=== PATIENT | male | born 1960 | race Caucasian/White ===

== ENCOUNTER 2022-11-25 08:00 | Outpatient (OUT) | payer OTHER, SELFPAY ==
[2022-11-25 08:59] LABS: Microalbumin Urine Random 23.4 mg/dL (<=30.0)
[2022-11-25 09:01] LABS: Estimated Average Glucose 169 mg/dL; Glycohemoglobin A1C 7.5 % (4.5-6.2)
[2022-11-25 09:06] LABS: Basophils Absolute Auto 0.1 10^3/uL (0.0-0.1); Basophils Percent Auto 0.8 % (0.2-2.0); Eosinophils Absolute Auto 0.3 10^3/uL (0.0-0.7); Eosinophils Percent Auto 4.3 % (0.9-7.0); Hematocrit 41.1 % (42.0-54.0); Hemoglobin 14.2 g/dL (14.0-18.0); Immature Granulocytes Abs Auto 0.02 10^3/uL (0.00-0.03); Immature Granulocytes Pct Auto 0.3 % (0.0-0.5); Lymphocytes Absolute Auto 1.4 10^3/uL (1.2-3.8); Lymphocytes Percent Auto 23.2 % (20.5-60.0); Mean Corpuscular HGB Conc 34.5 g/dL (29.9-35.2); Mean Corpuscular Hemoglobin 30.6 pg (25.9-34.0); Mean Corpuscular Volume 88.6 fL (80.0-94.0); Mean Platelet Volume 10.9 fL (9.5-13.5); Monocytes Absolute Auto 0.6 10^3/uL (0.3-0.8); Monocytes Percent Auto 9.5 % (1.7-12.0); Neutrophils Absolute Auto 3.8 10^3/uL (1.4-6.5); Neutrophils Percent Auto 61.9 % (43.0-75.0); Platelet Count 196 10^3/uL (150-450); Red Blood Count 4.64 10^6/uL (4.70-6.10); Red Cell Distribution Width 12.5 % (11.0-15.0); White Blood Count 6.1 10^3/uL (4.0-11.0)
[2022-11-25 09:22] LABS: Alanine Aminotransferase 62 U/L (16-63); Albumin Globulin Ratio 1.1; Albumin Level 3.9 g/dL (3.4-5.0); Alkaline Phosphatase 70 U/L (46-116); Anion Gap 15.5; Aspartate Amino Transferase 42 U/L (15-37); BUN Creatinine Ratio 22.9; Bilirubin Total 0.5 mg/dL (0.2-1.0); Calcium 9.4 mg/dL (8.5-10.1); Carbon Dioxide 26.3 mmol/L (21.0-32.0); Chloride 100 mmol/L (98-107); Chol HDL Ratio 4.2; Cholesterol 125 mg/dL (<=200); Estimated GFR (African America >60 (>=60); Estimated GFR (Non-African Ame >60 (>=60); Globulin 3.7 g/dL; Glucose 185 mg/dL (74-106); HDL Cholesterol 30 mg/dL (40-60); Potassium 3.8 mmol/L (3.5-5.1); Sodium 138 mmol/L (136-145); Total Protein 7.6 g/dL (6.4-8.2); Triglycerides 329 mg/dL (<=150); VLDL CHOLESTEROL 65.8 mg/dL
[2022-11-25 09:33] LABS: Prostate Specific Antigen Scrn 0.69 ng/mL (<=4.00)
== END 2022-11-25 08:01 | disposition home or self-care (01) ==
PROVIDERS: PCP Internal Medicine; Visit Provider Internal Medicine
DX: Z00.00 Encounter for general adult medical examination without abnormal findings (principal); Z12.5 Encounter for screening for malignant neoplasm of prostate
CPT/HCPCS: 36415; 80053; 80061; 82043; 83036; 85025; G0103

== ENCOUNTER 2023-04-13 08:09 | Outpatient (OUT) | payer OTHER, SELFPAY ==
[2023-04-13 08:41] LABS: Estimated Average Glucose 160 mg/dL; Glycohemoglobin A1C 7.2 % (4.5-6.2)
== END 2023-04-13 08:10 | disposition home or self-care (01) ==
LOC: LAB 08:10
PROVIDERS: PCP Internal Medicine; Visit Provider Internal Medicine
DX: E11.65 Type 2 diabetes mellitus with hyperglycemia (principal)
CPT/HCPCS: 36415; 83036

== ENCOUNTER 2023-09-03 21:59 | Emergency (ER) | payer OTHER, SELFPAY ==
[2023-09-03] VITALS (17 sets, daily range): BP systolic 148–176; BP diastolic 95–110; PULSE 85–97; TEMP 36.6; O2SAT 97; BMI 38.4
--- OUTSIDE RECORDS SUMMARY | 2023-09-03 22:04 | XMS_ITS | CCD ---
Author Organization [facility] Team Providers Care Edi Programmer Analyst Name Role Phone RICHARD VIDAL Primary Care Physician [phone] Young, Richard Unavailable YOUNG, DR RAMOS Primary Care Unavailable YOUNG, DR RAMOS Admitting Unavailable BALL, DR RAMOS Attending Unavailable BALL, DR RAMOS Admitting Unavailable BALL, DR RAMOS Attending Unavailable BALL, DR RMAOS Consulting Unavailable BALL, DR RAMOS Primary Care Unavailable BALL, DR RAMOS Primary Care Unavailable BALL, DR RAMOS Admitting Unavailable BALL, DR RAMOS Attending Unavailable BALL, DR RAMOS Consulting Unavailable EDA ., KVNG Admitting Unavailable GRECHNY ., NO URBAN Consulting Unavailabl e YOUNG, DR RAMOS Primary Care Unavailable EDA ., KVNG Attending Unavailable ASHLEY, SUNDAY Consulting Unavailable EDA ., KVNG Consulting Unavailable YOUNG, DR RAMOS Admitting Unavailable YOUNG, DR RAMOS Attending Unavailable BALL, DR RAMOS Consulting Unavailable YOUNG, DR RAMOS Primary Care Unavailable NILL ., DR YEBOAH Attending Unavailable NILL ., DR YEBOAH Consulting Unavailable NILL ., DR YEBOAH Admitting Unavailable BALL, DR RAMOS Primary Care Unavailable WILNER BERMUDEZ Consulting Unavailable MARK VIDAL Referring Unavailable MARK VIDAL Attending Unavailable Medications Current Medications Medication Drug Class(es) Dates Sig (Normalized) Sig (Original) aspirin 81 mg delayed release oral tablet (10 sources) Platelet Aggregation Inhibitor, Nonsteroidal Anti-inflammatory Drug Start: 03-31-2023 take 1 tablet by mouth once daily Aspirin Active 1 TAB PO Daily March 31, 2023 12:00am FreeTextSi tablet Orally Once a day; Note: Source Status: Start; Refills: 3; Qty: 90 Tablet; Provider: Young Ramos ( ) Start: 08-15-2021 take 1 tablet by iram th once daily aspirin 81 mg Oral EC Tab 81 mg = 1 tab(s), Oral, Daily, Refills(s) 0 Start Date: 08/15/21 Status: Ordered take 1 tablet by iram th once daily Aspirin 81 81 MG 1 tablet Orally Once a day Active atorvastatin 10 mg oral tablet (10 sources) HMG-CoA Reductase Inhibitor Start: 03-31-2023 take 1 tablet by mouth once daily Atorvastatin Active 1 TAB PO Daily March 31, 2023 12:00am FreeTextSi tablet Orally Once a day; Note: Source Status: Continue; Provider: Young Ramos ( ) Start: 08-15-2021 take 1 tablet by iram th once daily atorvastatin 10 mg Tab 10 mg = 1 tab(s), Oral, Daily, Refills(s) 0 Start Date: 08/15/21 Status: Ordered cloNIDine hydrochloride 0.3 mg oral tablet (10 sources) Central alpha-2 Adrenergic Agonist Start: 03-31-2023 take 1 tablet by mouth twice daily Clonidine Hcl Active 1 TAB PO Twice daily March 31, 2023 12:00am FreeTextSig: TAKE 1 TABLET BY MOUTH TWICE A DAY; Note: Source Status: Continue; Provider: Young Ramos ( ) Start: 08-15-2021 take 1 tablet by iram th twice daily cloNIDine 0.3 mg Tab 0.3 mg = 1 tab(s), Oral, BID, Refills(s) 0 Start Date: 08/15/21 Status: Ordered 0.5 ml dulaglutide 1.5 mg/ml auto-injector (9 sources) GLP-1 Receptor Agonist Start: 08-15-2021 inject 0.75 mg by subcutaneous injection every week Trulicity Pen 0.75 mg/0.5 mL subcutaneous solution 0.75 mg, SubCutaneous, qWeek, Refills(s) 0 Start Date: 08/15/21 Status: Ordered inject 0.5 mL by sub cutaneous injection every week Trulicity 3 MG/0.5ML 0.5 ML Subcutaneous weekly Active inject 0.5 mL by sub cutaneous injection every week Trulicity 3 MG/0.5ML 0.5 ML Subcutaneous weekly for 90 days Active inject 0.5 mL by sub cutaneous injection every week Trulicity 3 MG/0.5ML 0.5 ML Subcutaneous weekly for 28 days Active Trulicity 1.5 MG /0.5ML as directed Subcutaneous Active Dulaglutide (Trulicity) 3 mg/0.5 mL pen injector (1 source) Start: 03-31-2023 inject 0.5 mL by subcutaneous injection every week Dulaglutide (Trulicity) 3 mg/0.5 mL pen injector Active 0.5 ML SUBCUT every week March 31, 2023 12:00am FreeTextSi.5 ML Subcutaneous weekly; Note: Source Status: Continue; Provider: Young Soria hydroCHLOROthiazide 12.5 mg oral capsule (9 sources) Thiazide Diuretic Start: 03-31-2023 take 1 capsule by mouth once daily Hydrochlorothiazide Active 1 CAP PO Daily March 31, 2023 12:00am FreeTextSig: TAKE 1 CAPSULE BY MOUTH EVERY DAY; Note: Source Status: Start; Refills: 3; Qty: 90 Capsule; Provider: Young Ramos ( ) lisinopril 40 mg oral tablet (10 sources) Angiotensin Converting Enzyme Inhibitor Start: 03-31-2023 take 1 tablet by mouth once daily Lisinopril Active 1 TAB PO Daily March 31, 2023 12:00am FreeTextSig: TAKE 1 TABLET BY MOUTH EVERY DAY; Note: Source Status: Continue; Provider: Young Ramos ( ) Start: 09-26-2016 lisinopril 40 mg Tab 40 mg = 1 tab(s), Oral, Refills(s) 0 Start Date: 09/26/16 Status: Ordered metFORMIN hydrochloride 500 mg oral tablet (10 sources) Biguanide Start: 03-31-2023 take 1 tablet by mouth once daily Metformin Active 1 TAB PO Daily March 31, 2023 12:00am FreeTextSi tablet with a meal Orally Once a day; Note: Source Status: Continue; Provider: Young Ramos ( ) Start: 08-15-2021 take 1 tablet by iram th twice daily metformin 500 mg oral tablet 500 mg = 1 tab(s), Oral, BID, Refills(s) 0 Start Date: 08/15/21 Status: Ordered omeprazole 40 mg delayed release oral capsule (6 sources) Proton Pump Inhibitor Start: 03-31-2023 take 40 mg by mouth twice daily at mealtime Omeprazole Active 40 MG PO Twice daily March 31, 2023 12:00am ON AN EMPTY STOMACH FOLLOWED IN 30 MINUTES BY A MEAL Start: 08-18-2021 take 20 mg by mouth once daily Prilosec OTC 20 mg, Oral, Daily, Refills(s) 0 Start Date: 08/18/21 Status: Ordered Problems Active Problems Problem Classification Problem Date Documented Da te Episodic/Chronic Abdominal pain (2 sources) Right upper quadrant pain; Translations: [Right upper quadrant pain] Onset: 6 Episodic Acute bronchitis (2 sources) Acute bronchitis; Translations: [Acute bronchitis due to other specified organisms] Onset: 6 Episodic Acute cerebrovascular disease (3 sources) Cerebral infarction; Translations: [Cerebral infarction due to embolism of cerebral arteries] Onset: 8 08-15-2021 Chronic Diabetes mellitus with complications (20 sources) Type 2 diabetes mellitus; Translations: [Type 2 diabetes mellitus with hyperglycemia] Onset: 2 Chronic Diabetes mellitus without complication (8 sources) Diabetes mellitus; Translations: [Type 2 diabetes mellitus without complications] Onset: 2 08-15-2021 Chronic Digestive congenital anomalies (1 source) Other specified congenital malformations of intestine; 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] Onset: 2 Chronic Disorders of lipid metabolism (14 sources) Hypercholesterolemia; Translations: [Pure hypercholesterolemia, unspecified] Onset: 8 Chronic Esophageal disorders (12 sources) Gastroesophageal reflux disease; Translations: [Gastro-esophageal reflux disease with esophagitis] Onset: 2 08-15-2021 Chronic Essential hypertension (17 sources) Hypertensive disorder; Translations: [Essential hypertension] Onset: 2 08-15-2021 Chronic Hyperplasia of prostate (1 source) Benign prostatic hypertrophy without outflow obstruction; Translations: [Hypertrophy (benign) of prostate without urinary obstruction and other lower urinary tract symptoms [LUTS]] Onset: 9 Chronic Intestinal infection (5 sources) Bacterial food poisoning; Translations: [Bacterial foodborne intoxication, unspecified] Episodic Osteoarthritis (2 sources) Osteoarthritis; Translations: [Polyosteoarthritis, unspecified] Onset: 4 Chronic Other and ill-defined cerebrovascular disease (5 sources) Cerebral atherosclerosis; Translations: [Cerebral atherosclerosis] Onset: 8 03-31-2023 Chronic Other and ill-defined cerebrovascular disease (2 sources) Cerebral atherosclerosis; Translations: [Cerebral atherosclerosis] Onset: 8 Chronic Other circulatory disease (8 sources) History of cerebrovascular accident without residual deficits; Translations: [Personal history of transient ischemic attack (TIA), and cerebral infarction without residual deficits] Episodic Other ear and sense organ disorders (1 source) Infective otitis externa; Translations: [Unspecified infective otitis externa] Onset: 5 Chronic Other gastrointestinal disorders (2 sources) Abnormal feces; Translations: [Other fecal abnormalities] Onset: 2 Episodic Other non-traumatic joint disorders (1 source) Shoulder joint pain; Translations: [Pain in joint, shoulder region] Episodic Other nutritional; endocrine; and metabolic disorders (3 sources) Body mass index 40+ - severely obese; Translations: [Body mass index (BMI) 40.0-44.9, adult] Onset: 6 Chronic Other nutritional; endocrine; and metabolic disorders (10 sources) Morbid obesity; Translations: [Morbid (severe) obesity due to excess calories] 08-15-2021 Chronic Other nutritional; endocrine; and metabolic disorders (3 sources) Morbid (severe) obesity due to excess calories; Translations: [MORBID SEVERE OBES D/T EXCESS DELLA] Onset: 2 Chronic Other nutritional; endocrine; and metabolic disorders (1 source) Body mass index (BMI) 40.0-44.9, adult; Translations: [BODY MASS INDEX BMI 40.0-44.9 ADULT] Onset: 2 Chronic Other nutritional; endocrine; and metabolic disorders (2 sources) Obese class II; Translations: [Body mass index (BMI) 37.0-37.9, adult] Onset: 6 Chronic Other nutritional; endocrine; and metabolic disorders (1 source) Obesity; Translations: [Obesity, unspecified] Onset: 5 Chronic Other screening for suspected conditions (not mental disorders or infectious disease) (2 sources) Stool DNA-based colorectal cancer screening positive; Translations: [Encounter for screening for malignant neoplasm of prostate] Onset: 3 08-18-2021 Episodic Other upper respiratory disease (1 source) Seasonal allergic rhinitis; Translations: [Other seasonal allergic rhinitis] Chronic Other upper respiratory disease (1 source) Allergic rhinitis; Translations: [Allergic rhinitis, cause unspecified] Onset: 5 Chronic Other upper respiratory infections (3 sources) Acute maxillary sinusitis; Translations: [Acute recurrent maxillary sinusitis] Onset: 5 Episodic Otitis media and related conditions (1 source) Eustachian tube disorder; Translations: [Unspecified Eustachian tube disorder, bilateral] Episodic Residual codes; unclassified (13 sources) Obstructive sleep apnea syndrome; Translations: [Obstructive sleep apnea (adult) (pediatric)] 08-15-2021 Chronic Residual codes; unclassified (10 sources) Obstructive sleep apnea (adult) (pediatric); Translations: [Obstructive sleep apnea (adult)(pediatric)] Onset: 2 Chronic Residual codes; unclassified (1 source) Sleep apnea, unspecified; Translations: [SLEEP APNEA UNSPECIFIED] Onset: 2 Chronic Residual codes; unclassified (1 source) Primary central sleep apnea; Translations: [PRIMARY CENTRAL SLEEP APNEA] Onset: 2 Chronic Sprains and strains (3 sources) Strain of other muscles, fascia and tendons at shoulder and upper arm level, left arm, initial encounter; Translations: [Strain of unspecified muscle, fascia and tendon at shoulder and upper arm level, left arm, subsequent encounter] Onset: 2 Episodic Unclassified (1 source) Exposure to acute respiratory syndrome coronavirus 2; Translations: [Contact with and (suspected) exposure to COVID-19] Past or Other Problems Problem Classification Problem Date Documented Da te Episodic/Chronic Acquired foot deformities (1 source) Acquired deformity of toe; Translations: [Acquired deformities of toe(s), unspecified, right foot] Onset: 03-08-2015 Episodic Bacterial infection; unspecified site (1 source) Bacterial infectious disease; Translations: [Bacterial infection, unspecified, in conditions classified elsewhere and of unspecified site] Onset: 04-05-2016 Episodic Diabetes mellitus without complication (1 source) Impaired fasting glycemia; Translations: [Impaired fasting glucose] Onset: 12-18-2017 Episodic E Codes: Natural/environment (1 source) Other and unspecified overexertion or strenuous movements or postures, initial encounter; Translations: [OTH AND UNS OVREXRT/STRN MVMT/POS INT] Onset: 11-21-2021 Episodic Esophageal disorders (5 sources) Esophageal disorders; Translations: [Gastro-esophageal reflux disease with esophagitis, without bleeding] Joint disorders and dislocations; trauma-related (1 source) Current tear of medial cartilage AND/OR meniscus of knee; Translations: [Other tear of medial meniscus, current injury, right knee, initial encounter] Onset: 01-24-2017 Episodic Mycoses (1 source) Tinea corporis; Translations: [Tinea corporis] Onset: 01-24-2017 Episodic Nausea and vomiting (1 source) Nausea; Translations: [Nausea] Onset: 02-07-2016 Episodic Other aftercare (1 source) snf (current) use of aspirin; Translations: [WAITER CURRENT USE OF ASPIRIN] Onset: 11-21-2021 Episodic Other aftercare (1 source) Other fci (current) drug therapy; Translations: [OTH WAITER CURRENT DRUG THERAPY] Onset: 11-21-2021 Episodic Other aftercare (1 source) 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; Translations: [WAITER USE ORAL HYPOGLYCEMIC DX] Onset: 09-01-2021 Episodic Other circulatory disease (2 sources) Personal history of transient ischemic attack (TIA), and cerebral infarction without residual deficits; Translations: [PERS HX TIA AND CI NO RESID DEFICIT] Onset: 09-01-2021 Episodic Other connective tissue disease (1 source) Acquired trigger finger; Translations: [Trigger finger] Onset: 05-01-2016 Episodic Other gastrointestinal disorders (4 sources) Other fecal abnormalities; Translations: [OTHER FECAL ABNORMALITIES] Onset: 08-31-2021 Episodic Other lower respiratory disease (4 sources) Solitary nodule of lung; Translations: [Solitary pulmonary nodule] Onset: 12-03-2016 Episodic Other lower respiratory disease (1 source) Cough; Translations: [Cough, unspecified] Onset: 03-08-2015 Episodic Other non-traumatic joint disorders (4 sources) Pain in left elbow; Translations: [PAIN IN LEFT ELBOW] Onset: 11-20-2021 Episodic Other non-traumatic joint disorders (1 source) Effusion of joint of hand; Translations: [Effusion, unspecified hand] Onset: 12-02-2013 Episodic Other non-traumatic joint disorders (1 source) Arthralgia of the lower leg; Translations: [Pain in joint, lower leg] Onset: 01-24-2017 Episodic Other non-traumatic joint disorders (1 source) Joint effusion of ankle AND/OR foot; Translations: [Effusion of ankle and foot joint] Onset: 12-02-2013 Episodic Other skin disorders (1 source) Localized swelling, mass and lump, left upper limb; Translations: [Localized swelling, mass and lump, left upper limb] Onset: 02-03-2016 Episodic Other skin disorders (1 source) Localized superficial swelling of skin; Translations: [Localized superficial swelling, mass, or lump] Onset: 04-05-2016 Episodic Results Test Name Value Interpretation Reference Range Facility CBC AUTO DIFFon 07-14-2022 BASO # 0.1 103/ul Normal 0.0-0.1 [facility] Comment on above: Performed By: #### C BC #### [facility] [address] [place] [address] Dr. Carly Elias Basophils/100 WBC (Bld) 1.2 % Normal 0.2-2.0 [facility] Comment on above: Performed By: #### C BC #### [facility] [address] [place] [address] Dr. Carly Elias EO # 0.3 103/ul Normal 0.0-0.7 [facility] Comment on above: Performed By: #### C BC #### [facility] [address] [place] [address] Dr. Carly Elias Eosinophils/100 WBC (Bld) 4.8 % Normal 0.9-7.0 [facility] Comment on above: Performed By: #### C BC #### [facility] [address] [place] [address] Dr. Carly Elias Erythrocyte distribution width (RBC) [Ratio] 12.7 % Normal 11.0-15.0 [facility] Comment on above: Performed By: #### C BC #### [facility] [address] [place] [address] Dr. Carly Elias Hematocrit (Bld) [Volume fraction] 41.0 % Critically low 42.0-54.0 [facility] Comment on above: Performed By: #### C BC #### [facility] [address] [place] [address] Dr. Carly Elias Hemoglobin (Bld) [Mass/Vol] 14.0 g/dL Normal 14.0-18.0 [facility] Comment on above: Performed By: #### C BC #### [facility] [address] [place] [address] Dr. Carly Elias IG # 0.02 10e3/ul Normal 0.00-0.03 [facility] Comment on above: Performed By: #### C BC #### [facility] [address] [place] [address] Dr. Carly Elias IG % 0.4 % Normal 0.0-0.5 [facility] Comment on above: Performed By: #### C BC #### [facility] [address] [place] [address] Dr. Carly Elias LYMPH # 1.5 103/ul Normal 1.2-3.8 [facility] Comment on above: Performed By: #### C BC #### [facility] [address] [place] [address] Dr. Carly Elias Lymphocytes/100 WBC (Bld) 28.5 % Normal 20.5-60.0 [facility] Comment on above: Performed By: #### C BC #### [facility] [address] [place] [address] Dr. Carly Elias MANUAL DIFF REQ NO Normal [facility] Comment on above: Performed By: #### C BC #### [facility] [address] [place] [address] Dr. Carly Elias MCH (RBC) [Entitic mass] 29.9 pg Normal 25.9-34.0 [facility] Comment on above: Performed By: #### C BC #### [facility] [address] [place] [address] Dr. Carly Elias MCHC (RBC) [Mass/Vol] 34.1 g/dL Normal 29.9-35.2 [facility] Comment on above: Performed By: #### C BC #### [facility] [address] [place] [address] Dr. Carly Elias MCV (RBC) [Entitic vol] 87.6 fL Normal 80.0-94.0 [facility] Comment on above: Performed By: #### C BC #### [facility] [address] [place] [address] Dr. Carly Elias MONO # 0.6 103/ul Normal 0.3-0.8 [facility] Comment on above: Performed By: #### C BC #### [facility] [address] [place] [address] Dr. Carly Elias Monocytes/100 WBC (Bld) 11.5 % Normal 1.7-12.0 [facility] Comment on above: Performed By: #### C BC #### [facility] [address] [place] [address] Dr. Carly Elias NEUT # 2.8 103/ul Normal 1.4-6.5 [facility] Comment on above: Performed By: #### C BC #### [facility] [address] [place] [address] Dr. Carly Elias Neutrophils/100 WBC (Bld) 53.6 % Normal 43.0-75.0 [facility] Comment on above: Performed By: #### C BC #### [facility] [address] [place] [address] Dr. Carly Elias Platelet mean volume (Bld) [Entitic vol] 9.4 fL Critically low 9.5-13.5 [facility] Comment on above: Performed By: #### C BC #### [facility] [address] [place] [address] Dr. Carly Elias PLT 228 103/ul Normal 150-450 [facility] Comment on above: Performed By: #### C BC #### [facility] [address] [place] [address] Dr. Carly Elias RBC 4.68 106/ul Critically low 4.70-6.[address] [facility] Comment on above: Performed By: #### C BC #### [facility] [address] [place] [address] Dr. Carly Elias WBC 5.2 103/ul Normal 4.0-11.0 [facility] Comment on above: Performed By: #### C BC #### [facility] [address] [place] [address] Dr. Carly Elias GLYCOHEMOGLOBIN A1Con 2022 ADA RECOMMENDATION SEE BELOW Normal [facility] Comment on above: Result Comment: ADA RECOMMENDED LIMIT 4.0 - 6.0 ADA THERAPEUTIC TARGET < 7.0 ACTION SUGGESTED > 7.0 Performed By: #### A 1C #### [facility] [address] [place] [address] Dr. Carly Elias Glucose [Mass/Vol] 163 mg/dL Normal [facility] Comment on above: Performed By: #### A 1C #### [facility] [address] [place] [address] Dr. Carly Elias HbA1c (Bld) [Mass fraction] 7.3 % Critically high 4.5-6.2 [facility] Comment on above: Performed By: #### A 1C #### [facility] [address] [place] [address] Dr. Carly Elias LIPID PROFILEon 07-14-2022 CHOL-HDL RATIO NORM SEE BELOW Normal [facility] Comment on above: Result Comment: 3.3 - 4.4 LOW RISK 4.4 - 7.1 AVERAGE RISK 7.1 - 11.0 MODERATE RISK >11.0 HIGH RISK Performed By: #### C MP, LIPID #### [facility] [address] [place] [address] Dr. Carly Elias Cholesterol [Mass/Vol] 125 mg/dL Normal <=200 [facility] Comment on above: Performed By: #### C MP, LIPID #### [facility] [address] [address] [address] Carly Elias Cholesterol in HDL [Mass/Vol] 32 mg/dL Critically low 40-60 [facility] Comment on above: Performed By: #### C MP, LIPID #### [facility] [address] [place] [address] Dr. Carly Elias Cholesterol in LDL [Mass/Vol] 32.6 mg/dL Normal [facility] Comment on above: Performed By: #### C MP, LIPID #### [facility] [address] [address] [address] Carly Elias Cholesterol.total/Cho lesterol in HDL [Mass ratio] 3.9 {ratio} Normal [facility] Comment on above: Performed By: #### C MP, LIPID #### [facility] [address] [address] [address] Carly Elias HDL NORMAL > or = 60 mg/dl - LO W CARDIOVASCULAR RISK <40 mg/dl - HIGH CARDIOVASCULAR RISK Normal [facility] Comment on above: Performed By: #### C MP, LIPID #### [facility] [address] [address] [address] Carly Elias LDL CALC NORMAL SEE BELOW Normal [facility] Comment on above: Result Comment: <100 mg/dl OPTIMAL 100 - 129 mg/dl NEAR OR ABOVE OPTIMAL 130 - 159 mg/dl BORDERLINE HIGH 160 - 189 mg/dl HIGH >190 mg/dl VERY HIGH Performed By: #### C MP, LIPID #### [facility] [address] [address] [address] Carly Elias Triglyceride [Mass/Vol] 302 mg/dL Critically high <=150 [facility] Comment on above: Performed By: #### C MP, LIPID #### [facility] [address] [address] [address] Carly Elias VLDL CALC 60.4 mg/dL Normal [facility] Comment on above: Performed By: #### C MP, LIPID #### [facility] [address] [address] [address] Carly Elias MICROALBUMIN, RAND URon 06-20 mALB 2.0 mg/dL Normal <=30.0 [facility] Comment on above: Performed By: #### M ALBR #### [facility] [address] [address] [address] Carly Elias PROF 14(COMP METB)on 023 Albumin [Mass/Vol] 3.8 g/dL Normal 3.4-5.0 [facility] Comment on above: Performed By: #### C MP, LIPID #### [facility] [address] [address] [address] Carly Elias Albumin/Globulin [Mass ratio] 1.0 {ratio} Normal [facility] Comment on above: Performed By: #### C MP, LIPID #### [facility] [address] [address] [address] Carly Elias ALP [Catalytic activity/Vol] 86 U/L Normal 46-116 [facility] Comment on above: Performed By: #### C MP, LIPID #### [facility] [address] [address] [address] Carly Elias ALT [Catalytic activity/Vol] 79 U/L Critically high 16-63 [facility] Comment on above: Performed By: #### C MP, LIPID #### [facility] [address] [address] [address] Carly Elias Anion gap [Moles/Vol] 12.1 mmol/L Normal [facility] Comment on above: Performed By: #### C MP, LIPID #### [facility] [address] [address] [address] Carly Elias AST [Catalytic activity/Vol] 52 U/L Critically high 15-37 [facility] Comment on above: Performed By: #### C MP, LIPID #### [facility] [address] [address] [address] Carly Elias Bilirubin [Mass/Vol] 0.4 mg/dL Normal 0.2-1.0 [facility] Comment on above: Performed By: #### C MP, LIPID #### [facility] [address] [address] [address] Carly Elias Calcium [Mass/Vol] 9.5 mg/dL Normal 8.5-10.1 [facility] Comment on above: Performed By: #### C MP, LIPID #### [facility] [address] [address] [address] Carly Elias Chloride [Moles/Vol] 102 mmol/L Normal 98-107 [facility] Comment on above: Performed By: #### C MP, LIPID #### [facility] [address] [address] [address] Carly Elias CO2 [Moles/Vol] 29.2 mmol/L Normal 21.0-32.0 [facility] Comment on above: Performed By: #### C MP, LIPID #### [facility] [address] [address] [address] Carly Elias Creatinine [Mass/Vol] 0.81 mg/dL Normal 0.70-1.30 [facility] Comment on above: Performed By: #### C MP, LIPID #### [facility] [address] [address] [address] Carly Elias EGFR-AF BELGIAN >60 Normal >=60 [facility] Comment on above: Performed By: #### C MP, LIPID #### [facility] [address] [place] [address] Dr. Carly Elias EGFR-NON AF BELGIAN >60 Normal >=60 [facility] Comment on above: Performed By: #### C MP, LIPID #### [facility] [address] [place] [address] Dr. Carly Elias Globulin (S) [Mass/Vol] 3.7 g/dL Normal [facility] Comment on above: Performed By: #### C MP, LIPID #### [facility] [address] [address] [address] Carly Elias Glucose [Mass/Vol] 129 mg/dL Critically high 74-106 [facility] Comment on above: Performed By: #### C MP, LIPID #### [facility] [address] [place] [address] Dr. Carly Elias Potassium [Moles/Vol] 4.3 mmol/L Normal 3.5-5.1 [facility] Comment on above: Performed By: #### C MP, LIPID #### [facility] [address] [place] [address] Dr. Carly Elias Protein [Mass/Vol] 7.5 g/dL Normal 6.4-8.2 [facility] Comment on above: Performed By: #### C MP, LIPID #### [facility] [address] [address] [address] Carly Elias Sodium [Moles/Vol] 139 mmol/L Normal 136-145 [facility] Comment on above: Performed By: #### C MP, LIPID #### [facility] [address] [address] [address] Carly Elias Urea nitrogen [Mass/Vol] 19.0 mg/dL Critically high 7.0-18.0 [facility] Comment on above: Performed By: #### C MP, LIPID #### [facility] [address] [address] [address] Carly Elias Urea nitrogen/Creatinine [Mass ratio] 23.5 mg/mg Normal [facility] Comment on above: Performed By: #### C MP, LIPID #### [facility] [address] [address] [address] Carly Elias XR ELBOW LT MIN 3 VIEWSon XR ELBOW LT MIN 3 VIEWS IMAGES REVIEWED: XR ELBOW LT MIN 3 VIEWS COMPARISON: None available. CLINICAL INDICATION: C/O: pain FINDINGS/IMPRESSION: 1. No evidence of acute osseous abnormality of the left elbow. No joint effusion. 2. 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 Electronically authenticated by: SUNDAY RAMIREZ Date: 2021-11-20 15:19 Normal [facility] GLYCOHEMOGLOBIN A1Con 2021 ADA RECOMMENDATION SEE BELOW Normal [facility] Comment on above: Result Comment: ADA RECOMMENDED LIMIT 4.0 - 6.0 ADA THERAPEUTIC TARGET < 7.0 ACTION SUGGESTED > 7.0 Performed By: #### A 1C #### [facility] [address] [address] [address] Carly Elias Glucose [Mass/Vol] 166 mg/dL Normal [facility] Comment on above: Performed By: #### A 1C #### [facility] [address] [address] [address] Carly Elias HbA1c (Bld) [Mass fraction] 7.4 % Critically high 4.5-6.2 [facility] Comment on above: Performed By: #### A 1C #### [facility] [address] [place] [address] [address] Carly Elias Outside Colonoscopyon 2021 Outside Colonoscopy [id number] .00CD:127 [facility] Reminderson 09-01-2021 Reminders - From: Marilynn Coelho LPN To: [facility] - Clinical; Sent: 09/01/2021 14:20:20 EDT Show up: 08/02/2031 07:00:00 EDT Subject: colonoscopy recall Due Date/Time: 09/01/2031 07:00:00 EDT Reminder/Recall Patient is due for screening colonoscopy 09/01/2031. Normal [facility] POINT OF CARE GLUCOSEon 08-19 Glucose [Mass/Vol] 155 mg/dL Critically high 74-106 [facility] Comment on above: Performed By: #### P OCGLUC #### [facility] [address], [place] [address] Dr. Carly Elias Consent for Procedure/Surger yon 08-18-2021 Consent for Procedure/Surgery [id number] .00CD:127 [facility] Physician Referralon 022 Physician Referral [id number]#1. 00CD:127 [facility] Coding Summary.on 12-28-2020 Coding Summary. CD:[id number] G h0bWw+PGhlYWQ+BA1SMKM kV57gdCPwnV3VI4xPRO2D SUIYYDTOCG3ETX8syLS7T UywX4WaswRy ThysuQTsCB64FVx4ICD8c NjjIMjzeY0slWEmK5t3Pl ElLI63mM14XWpmCZFwIzQ 3LjZpbjsgbWFy L7wlWaJtqZAuOfa+PHRhY mxlIHdpZHRoPScxMDAlJy VcpLvjKG0yTy7tILAdTWD vbGxhcHNlOiBj n8ffDPAcDCzcKK3xwKrxD 7IqkWW3NWMke2t9Ch27oE I+INNkFYB2gEnwCFmzy52 6GmRax8afWUB7 pNKdDNreWPU9F06fh4W5Z FJkYZIiDPD1kLS7kI1tsC kdedssE3CtaNWjJfE5NTG 7lSOeyW0byHul pwgdaM1hUwu+D20MXP0WN BKCBJ3KJcz6H3JcFwjrlY I+BF35HIAvYF79cXTnaOD lt0wrhRj6GnNv RSKxJQX8hRnbZNycm6NyF USwJ40vcKKmp4I8GIBmbQ qsgBVqCoNblSE9aL8sNZc vqdycy1glsztq Rjcft9qgfc39kX53A42lW PtvJMTdIOJ7OZXwGIGjeB howj0wpD8tDt7+OYqka3v wx7xhzYs8YaZe GVHzfrShuIwhGAH8s3HsZ q47M4NyiYrvt2MnCrd0tc 98tBZwj0O7mJH5AIpmEWX ehB5kFBydMgB3 YWCtTuFboU64zAKpKXqkT m6hrHgwcVsyMS4aCLOpaj qcJLXkgN1aYFOmgMSxwCr dIA7qJWXjwhfq y504MkKmCSZ1SREpqPWdI 0JplA5vVwAeQOJbUGAxS5 VkjCQjBPkwA755DPbxIvX 2GREvpdBcE0Jq NARghRciJhP1k7E9Gp6Qp 2AynjxtYUT8EDadREJyKw Z8YpRjYhW4R9AiShc2KKI iyLjgEN5wV9By AONwaohzsjbgtFS1RTAzW NZskJ73wYGbSXcrEu8ls1 S9w837LDUmPXLzeT48Pc0 udDogMTBwdCBU eT8srefsz0gkdveiNiSnN SXtAHe6OFz6XMOyrTwzZo QzMFE8OjU7MKO1nEJuzT9 gaAmjqbbeiX2x Oyc+Q41udC4tGAB5WGA1j bmbUILclkYeWX99FH31U0 RyPjwvdGFibGU+PGRpdiB izQedKG4jCdIb l0awu0WmWTtxG8NbIWFpM EneOwp1XATcPVJ6bRJ7nF 4eBPJhJDwtd6B3fHS9E0D ioeOqom9mj4le UJIkIVciM35iiVRng8W1H JBgxQO8FSDjvYfpXxGdtT 93Oyc+UZDzoDfbe1AsBty gi0pbz7pvxGc0 ByJjDSDxwuZaaJdpRHG3c 6YdFl19Y21tPLkxYZFaRZ DbTKUnQTVfvDobpf3lkS1 wIi8+PGNvbCB3 lUA3cC6rPLIxRuH8CMgqN 690PlIxbURsLiurm1diz4 jxbEc0KaVbMFPgqgXeyJk rSAK1i8IhJt19 T97gZWwsHAZpVCAnVKXkT QLrgGkvvt7zjD9wAl3+PC 2vj3aixk32nG18bVZ+PHR qLQG3sHqjKIio SDSqqT7bBSndQcG5YBZyO qLjjW13gQIzRTaiIg2soD tkrPmtWZ7wKOJmhybrn62 8WiCsh0ytZJAq iOHtSTbrUCW9O84gm8F4J ZFzXFMoPRP2pQY8kF5spI lnbjogbGVmdDsgdmVydGl nOZbsXDleE106 IHRvcDsnPlBhdGllbnQgT iIfSSp3R1VeUvq8JJTnaW wjPS3iwILtOVktBz0xuBe xpKrbDE5iUIUj pfwku869LnMro2ljWHMkw WXlDIcvLCH5I44kf4H6KW BaAVSqTWG5uFA6dS2ilOb nbjogbGVmdDsg daWlhRosLPvpIDoiG423P HRvcDsnPkJpcnRoIERhdG H5LW15TB58sKOua0F8uKL 7U8ErSPUtlchx dsekuQU6BWVjXHSpbI89E d2kgLuxYa0xKSDyTGG7PM CniFQqC3LxpX8qVeGqWCY dCIDfR0KhaYZy NOqmN002VKlwKhS2LISik dXrN9IySFIgpGkgPoG5v1 L4Lb3SA0Q8VH28HY53gMO vr1J6wEC5B3Ge MEPymqfznrfvlER9KZCuO YGixW93Mj5zsRjcOl4lQC MeRMK8IKDtmORiJ0TwdD4 yOiAjMDAwMDAw L4UuzPMuLWcqT193MWoqO mU1QVAmxkKgM6VxRQTdrV igQjL6l6C1Ac5YNNf2KN9 2HW85cERnx3S0 qXL2T1BtBIFcurkinuphx YR1JJNiFZIqlO30Bi6ljA zrCi9kHPQsJVU4VSPvvVL zE6HomA9qCgJd HARtZUFqR2KhcYBrMBcpM 632LZulMaV7YZGawyYzD7 DlYJVuxDgkUwT5u2B2Wg1 ZRYOgLE12LUJ4 cZL7JL48CZ22S1ZkYhwja GFibGU+PHRhYmxlIHdpZH RoPScxMDAlJyBzdHlsZT0 vZj9oGMQlYFBf mJjrcLCxSiMhk9ivKXWpX XniLI8rtCvsP1NdnFJ6YF Hqh0v9Aw19I35tT6JbfYL +LRKiqEP5mPH4 oT3bVeSkMkZ4ZPrhJ421U cFhrABiHaoah9ewh0pkrX h4LsN1DBYaeaLulYkaMPT 6l1WqEs63E07g IHdpZHRoPSIxNSUiIHZhb Hxvwc9klS7xLl0+PGNvbC W6yZP7hW0uLcJvVaH7FUe mH529BzDnbNYh Bwmho7lij2jrfOl2QlAgW VUrurMhcYlwSOS4k6NtKh 74R5TtmIexw7XvYkl8kw9 2sPNqp0R6tDO9 U9OeZSRktatlyJFyaMjwX M3fUOMoomjbJRHhzK4yUL MbX5z1KlNxMnO4MByeE2Z mrrS6LQLdfSTr AGijSXM6V90yl4D6REStU LWwXLK7lAJ1sN8zpWcfdu ogbGVmdDsgdmVydGljYWw uUXyfA678SOGb bYduGJCcqD7xEKHzzIJju UrwRI1xGCTlkhgmYzXFUM cES0tdKYmEVJOMFIrXOss 6R0NcBpo0GPOf zNzpGT0kdIXuLNfrJd5vw FkwqEtlQZ1aERQsfebdGN VnnA7oUCYtjGRaeBrbVH6 cQUQchfcae219 KyDcAXO0KLXnpTDjI8Ytp P9mPkPxTHZnMAHcB2XkcT NoTAzeC370AJdtEcF6NTE ovtEdJ3MyIETz gFcdZpP1o5B7Rl1jQr1aG q7tPAWeKL28EI50hORob6 P6wCP1C1ApPHIqnwhdzte scKT0HKOaWDBd oM01wAArLZtnCx7xo9F2l 267GSBdCEXsqH22Lh2arL tyPLEfhFRCmH5xopvez9n vcjogIzAwMDAw XVl8HVv3OPLrlTrcPzIfQ JN5WcX1ZXZ3nIUwiC4hyA szyzjvlZ1pBoi+NTkgWWV ezvT4V0FsSmf6 JMRqkAzfDQ7jcKEsFKmbF x1bcNxgvHcyYR6mMYAvim xrRGWmlB7xURUlhLJujSp iID8zNMNqzoiy h326YiZgMYK1DNUboABoI 1IioL3yYfEnQVYoVASdM4 EdgVZjDYpsK029EPckXpN 5ASTvjmZdY5Fb EOVgoHtcJwI3q1C9Xx8VJ JtxRF33JG27tQAyj8H2tN C8Z7LdAEZysyvdlujknTV 8VPOpRBBypL72 xEKmNSlwUw0sw6B6k167T OZbXPXumA48Ky5ksUlsOS VgdKSFdN4obblit8ajbac gIzAwMDAwMDt0 BVs6WJSagWcrOhUwUIS9J tK5OEN2rJZbvX1ftDltiv szyU5oPri+QH6ljenmslE 8NA34IQ95J0Py PjwvdGFibGU+PHRhYmxlI HdpZHRoPScxMDAlJyBzdH wsJZ3sIj1dGWZrMMNeoXn xbFCdObXxm5tp RUOkTPzrIP0vfJktL2Jhw QH3CZJrm7i7Ks78I04zL4 JvdXA+LYLkeAN5pTT2dN3 jOjSuHvA7ZJqd F387OzRtiPHjYpwbo6xkg 3fpdCg8KlXiKVTzgrYcwG byCPO6v5XwJc61V50oREs pZHRoPSIyMCUi JRPgiEljhn3geT9mYl9+P OXulYI0uOB5iP6cQbBaTi B2WCreY025ByZzuSLsHbt hK90fJ2RklGS+ BNHdIxq8NBYfvZsoEK5yr QAaIJyuOy6lFYD7BnKiMt YjHBpkF2TpKGKuzlqilwj htHF6EHGuJXIm gK54Od7shRjjJk7eNFSyN BT9KZNhbSBpH4NmjE0rGo WtIBJjSFRxF8VqlGPmIOq oL883SLsfNyA3 XOAwagPgB4IwWVVwnIlaN mD3i1U8Fi8AbSdteFEcOJ 7kBuRaUVg2R0OxRkr3KTO fsDvpQB9qkMAn AEtgEf5cgOvpaJegCO9zZ FAsxwewz601QlQic8raMS NecQQcGPtoCXS5I01ci0J 5VKDlVMPqVWB4 xJN3eD0ljAxmipjekSHis DsgdmVydGljYWwtYWxpZ2 69DJUcnHxuZlYQBme0V5Y tSxe5MXYjgJva CH4htHRpYQtlWm1heQrmn MoeHF1pPNZiacgqv268Kd Shr5pqHDFhgXGtBTshFHC 8Z23ta9F9JIYa IMMvLCR9zEL2aC4llVfrt jogbGVmdDsgdmVydGljYW pdMZsdR763OLRfuZmhZk8 WPbs7C4YjVzl9 FVDszIdxTS4adSXcEObwS v8acXgbxRqaDW3tSRQnmt gko312LiOiv8piDDEcuHU jQFrgWRZ5R79i g4F1LDQzAQXhAMD7bGP7r T7ezWumzjnmbXPnqOqick ZnpNnhZVnpJNoyT352LMI vcDsnPlBheWVy OjwvdGQ+NL53dm28K8FeE huiCwu9SPSnMBG1hUU8jN 4qYYIkHZist8N5yHD8B4S fytRqsw1lh7xz YXBz (more content not included)... Normal [facility] Consent for Treatmenton 11-20 Consent for Treatment [id number]#1 .00CD:127 Normal [facility] Discharge Instructionson Discharge Instructions [id number]# 1.00CD:127 Normal [facility] ED Clinical Summaryon 2020 ED Clinical Summary [place] [id number] ED Clinical Summary Person Information Name: MICHELL WEBSTER [facility] Age: 60 Years : 1960 Sex: Male Language: Welsh PCP: RICHARD VIDAL DO Marital Status: Phone: [phone] Visit Id: Visit Reason: Wrist pain-swelling; Hand pain-swelling; WORKERS COMP- RT HAND/WRIST INJURY Speciality: Acuity: 4 Enc Type: Emergency Med Service: Emergency Arrival: 12/17/2020 14:53:33 Discharge: 12/17/2020 16:17:02 LOS: 000 01:24 Checkin: 12/17/2020 14:53:33 Checkout: 12/17/2020 16:17:02 Dispo Type: Home (Routine DC) EVENTS: Event Name Event Status Request Date/Time Start Date/Time Complete Date/Time Arrive Complete 12/17/2020 14:53:33 12/17/2020 14:53:33 12/17/2020 14:53:33 Document Home Meds Request 12/17/2020 14:53:33 Triage Complete 12/17/2020 14:53:33 12/17/2020 15:02:08 12/17/2020 15:02:08 X-Ray Complete 12/17/2020 15:09:46 12/17/2020 15:12:26 12/17/2020 15:32:01 Wet Read Complete 12/17/2020 15:32:01 12/17/2020 15:51:21 12/17/2020 15:51:21 Bed Assign Complete 12/17/2020 15:40:09 12/17/2020 15:40:09 12/17/2020 15:40:09 Dr Exam Complete 12/17/2020 15:40:09 12/17/2020 15:41:16 12/17/2020 15:41:16 RN Exam Complete 12/17/2020 15:40:09 12/17/2020 16:16:51 12/17/2020 16:16:51 Registration Complete 12/17/2020 15:41:16 12/17/2020 16:12:26 12/17/2020 16:15:58 Dr Exam Complete 12/17/2020 15:46:52 12/17/2020 15:46:52 12/17/2020 15:46:52 Discharge Complete 12/17/2020 16:00:12 12/17/2020 16:17:08 12/17/2020 16:17:08 Reg Complete Request 12/17/2020 16:15:58 Transfer Complete 12/17/2020 16:17:08 12/17/2020 16:17:08 12/17/2020 16:17:08 ADDRESS: [facility] [address] [place] [id number] PHYS DOC NOTES: MEDICAL INFORMATION: Prescriptions Given: Medications to Continue with No Changes Other Medications clonidine (clonidine 0.3 mg oral tablet) lisinopril (lisinopril 40 mg Tab) naproxen (Naprosyn 500 mg Tab) 1 Tablets By Mouth 2 times a day. Refills: 0. omeprazole (omeprazole 20 mg Cap-DR) 1 Capsules By Mouth every day. PATIENT EDUCATION INFORMATION: Instructions: Tendinitis Follow up: With: Address: When: [facility]: [facility] [phone] In 3 days 12/20/2020 DIAGNOSIS: Tendonitis Normal [facility] ED Note-Physicianon 12-18-19 ED Note-Physician Basic Information Time Seen: Callum Thomson PA-C 12/17/2020 15:41 Chief Complaint patient states he was sorting through packages. Patient felt pain in right hand and wrist History of Present Illness 60-year-old male comes to the ED for evaluation of right breast pain. 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 He said she was moving his partials and pushed something aside with his right hand and suddenly felt pain along the ulnar aspect of his right wrist. He had some associated paresthesias/weakness into his right ring and pinky fingers. No other trauma to the area. No prior treatments. No other complaints or concerns. Review of Systems A 10 point review of systems is negative except as noted above. Medical and Surgical History: Reviewed and noted Social history: Lives at home Tobacco: Denies Physical Exam Vitals & Measurements T: 36.6 ?C (Oral) HR: 101(Peripheral) RR: 18 BP: 104/82 SpO2: 97% HT: 170 cm HT: 170.0 cm WT: 109 kg WT: 109.0 kg BMI: 37.72 Nurses notes and vital signs reviewed and patient is not hypoxic. General: The patient appears well, resting comfortably. Skin: Warm, dry. Head: Atraumatic. Neck: No JVD. Eye: Normal conjunctiva. Ears, Nose, Mouth, and Throat: Moist mucous membranes. Cardiovascular: Strong distal pulses. Chest wall: Respiratory: Respirations are nonlabored. Back: Normal range of motion. Musculoskeletal: Minimal tenderness along the ulnar aspect of the right wrist. No soft tissue swelling. No ecchymosis or erythema. Full range of motion of all digits. No sensory deficit on exam. No evidence of neurovascular compromise. Gastrointestinal: Urological: Neurological: Awake and alert. No focal deficits. Follows commands. Psychiatric: Cooperative. Medical Decision Making Imaging shows no evidence of fracture or dislocation. He does have osteoarthritis noted. On exam he has no evidence of neurovascular compromise. He has good range of motion of the digits. He does describe some pain and paresthesias in an ulnar nerve distribution. He is placed in a Velcro wrist splint. He may neurovascular intact. He is discharged home with working diagnosis of tendinitis and is given [facility] follow-up. Patient was encouraged to return to the ED if symptoms worsen or change. Assessment/Plan Tendonitis (M77.9: Enthesopathy, unspecified) Orders: Splint Application Wrist Disposition Plan Patient Discharge Condition Disposition: Discharged home Condition: Improved and stable Counseled: Patient and/or family were counseled to workup, results, treatment plan and follow-up recommendations Discharge Prescription List Prescriptions No active prescription medications Follow-up With When Contact Information [facility]: [facility] [phone] In 3 days 12/20/2020 EDT Additional Instructions: Patient Education Tendinitis Attestation Patient seen and evaluated by the physician commissary assistant. Attending physician was present in the emergency department and supervised care. This report was transcribed using voice recognition software. Every effort was made to ensure accuracy, however, inadvertently computerized subacute nurse mistakes may be present. Appropriate healthcare PPE was used in evaluating this patient. The patient was placed in a mask. The healthcare provider was wearing mask, gloves, googles and utilizing proper hand hygiene. All equipment was properly cleansed. Problem List/Past Medical History Ongoing No qualifying data Historical No qualifying data Medications Inpatient No active inpatient medications Home clonidine 0.3 mg oral tablet lisinopril 40 mg Tab Naprosyn 500 mg Tab, 500 mg= 1 tab(s), Oral, BID omeprazole 20 mg Cap-DR, 1 cap(s), Oral, Daily Allergies No Known Allergies Social History Alcohol - Denies Alcohol Use, 09/26/2016 Substance Abuse - Denies Substance Abuse, 09/26/2016 Tobacco - Denies Tobacco Use, 09/26/2016 Lab Results No qualifying data available. Diagnostic Results XR Hand 3+ Views Right 12/17/20 16:02:24 NEGATIVE: No fracture, dislocation or other acute abnormality Read By: Callum Thomson PA-C 12/17/20 15:57:44 IMPRESSION: OSTEOARTHRITIS MOST STRIKING AT THE DIP JOINTS OF THE SECOND AND THIRD FINGERS EXAM: XR Hand 3+ Views Right INDICATION: Acute right hand pain Pain, Non Traumatic COMPARISON: None available. FINDINGS: Alignment normal. Joint space narrowing and DIP and PIP joints with exuberant bone proliferation the at the DIP joints of the second and third digits. Mild bone proliferation in the DIP joint of the fifth digit as well. Findings consistent with advanced osteoarthritis at these levels. Bone density normal. No erosions. Mild degenerative changes at the base of the right thumb. No acute fracture. Signed By: Naun Cadet MD XR Wrist 3+ Views Right 12/17/20 16:02:17 NEGATIVE: No fracture, dislocation (more content not included)... Normal [facility] Comment on above: Result Comment: Elec tronically Signed By: Callum Thomson PA-C\.br\Date and Time Signed: 12/17/20 16:13 EDT\.br\Electronically Co-Signed By: Armando Xavier DO\.br\Date and Time Co-Signed: 12/17/20 18:37 EDT ED Patient Education Noteon 12-17-2020 ED Patient Education Note Orthopedics Tendinitis Tendinitis is inflammation of a tendon. A tendon is a strong cord of tissue that connects muscle to bone. Tendinitis can affect any tendon, but it most commonly affects the: ? Shoulder tendon (rotator cuff). ? Ankle tendon (Achilles tendon). ? Elbow tendon (triceps tendon). ? Tendons in the wrist. What are the causes? This condition may be caused by: ? Overusing a tendon or muscle. This is common. ? Age-related wear and tear. ? Injury. ? Inflammatory conditions, such as arthritis. ? Certain medicines. What increases the risk? You are more likely to develop this condition if you do activities that involve the same movements over and over again (repetitive motions). What are the signs or symptoms? Symptoms of this condition may include: ? Pain. ? Tenderness. ? Mild swelling. ? Decreased range of motion. How is this diagnosed? This condition is diagnosed with a physical exam. You may also have tests, such as: ? Ultrasound. This uses sound waves to make an image of the inside of your body in the affected area. ? MRI. How is this treated? This condition may be treated by resting, icing, applying pressure (compression), and raising (elevating) the affected area above the level of your heart. This is known as RICE therapy. Treatment may also include: ? Medicines to help reduce inflammation or to help reduce pain. ? Exercises or physical therapy to strengthen and stretch the tendon. ? A brace or splint. ? Surgery. This is rarely needed. Follow these instructions at home: If you have a splint or brace: ? Wear the splint or brace as told by your health care provider. Remove it only as told by your health care provider. ? Loosen the splint or brace if your fingers or toes tingle, become numb, or turn cold and blue. ? Keep the splint or brace clean. ? If the splint or brace is not waterproof: ? Do not let it get wet. ? Cover it with a watertight covering when you take a bath or shower. Managing pain, stiffness, and swelling ? If directed, put ice on the affected area. ? If you have a removable splint or brace, remove it as told by your health care provider. ? Put ice in a plastic bag. ? Place a towel between your skin and the bag. ? Leave the ice on for 20 minutes, 2?3 times a day. ? Move the fingers or toes of the affected limb often, if this applies. This can help to prevent stiffness and lessen swelling. ? If directed, raise (elevate) the affected area above the level of your heart while you are sitting or lying down. ? If directed, apply heat to the affected area before you exercise. Use the heat source that your health care provider recommends, such as a moist heat pack or a heating pad. ? Place a towel between your skin and the heat source. ? Leave the heat on for 20?30 minutes. ? Remove the heat if your skin turns bright red. This is especially important if you are unable to feel pain, heat, or cold. You may have a greater risk of getting burned. Driving ? Do not drive or use heavy machinery while taking prescription pain medicine. ? Ask your health care provider when it is safe to drive if you have a splint or brace on any part of your arm or leg. Activity ? Rest the affected area as told by your health care provider. ? Return to your normal activities as told by your health care provider. Ask your health care provider what activities are safe for you. ? Avoid using the affected area while you are experiencing symptoms of tendinitis. ? Do exercises as told by your health care provider. General instructions ? If you have a splint, do not put pressure on any part of the splint until it is fully hardened. This may take several hours. ? Wear an elastic bandage or compression wrap only as told by your health care provider. ? Take [id number] and prescription medicines only as told by your health care provider. ? Keep all follow-up visits as told by your health care provider. This is important. Contact a health care provider if: ? Your symptoms do not improve. ? You develop new, unexplained problems, such as numbness in your hands. Summary ? Tendinitis is inflammation of a tendon. ? You are more likely to develop this condition if you do activities that involve the same movements over and over again. ? This condition may be treated by resting, icing, applying pressure (compression), and elevating the area above the level of your heart. This is known as RICE therapy. ? Avoid using the affected area while you are experiencing symptoms of tendinitis. This information is not intended to replace advice given to you by your health care provider. Make sure you discuss any questions you have with your health care provider. Document Released: 02/02/2001 Document Revised: 08/13/2018 Document Reviewed: 06/26/2018 [employer] Patient Education (more content not included)... Normal [facility] ED Patient Summaryon 021 ED Patient Summary [address] [address] Patient Discharge Instructions Person Information Name: MICHELL WEBSTER Age: 60 Years Arrival Date: 12/17/2020 14:53:33 Discharge Diagnosis: Tendonitis Primary Care Physician: RICHARD VIDAL DO Provider Information Primary Provider: Armando Xavier DO Advanced Batter Scaler:Callum Thomson PA-C The exam and treatment you received in the Emergency Department were for an urgent problem and are not intended as complete care. It is important that you follow up with a doctor, nurse practitioner, or physician?s commissary assistant for ongoing care. If your symptoms become worse or you do not improve as expected and you are unable to reach your usual health care provider, you should return to the Emergency Department. We are available 24 hours a day. MICHELL WEBSTER has been given the following list of patient education materials, prescriptions and follow-up instructions: Follow-up Instructions: With: Address: When: [facility]: [facility] [phone] In 3 days 12/20/2020 In the event that this physician does not participate in your insurance network, please consult with your insurance company to find a nearby participating provider. Patient Education Materials: Tendinitis A MESSAGE TO ALL PATIENTS REGARDING OPIOIDS PRESCRIPTION OPIOIDS: WHAT YOU NEED TO KNOW Prescription opioids can be used to help relieve ladvtqqf-hv-qnxzcm pain and are often prescribed following a surgery or injury, or for certain health conditions. These medications can be an important part of the treatment but also come with serious risks. It is important to work with your healthcare provider to make sure you are getting the safest, most effective care. WHAT ARE THE RISKS AND SIDE EFFECTS OF OPIOID USE? Prescription opioids carry serious risks of addiction and overdose, especially with prolonged use. An opioid overdose, often marked by slowed breathing, can cause sudden . The use of prescription opioids can have a number of side effects as well, even when taken as directed: ? Tolerance?meaning you might need to take more of the medication for the same pain relief ? Physical dependence?meaning you have symptoms of withdrawal when a medication is stopped ? Increased sensitivity to pain ? Constipation ? Nausea, vomiting, and dry mouth ? Sleepiness and dizziness ? Confusion ? Depression ? Low levels of testosterone that can result in lower sex drive, energy, and strength ? Itching and sweating RISKS ARE GREATER WITH: ? History of drug misuse, substance use disorder, or overdose ? Mental health conditions (such as depression or anxiety) ? Sleep apnea ? Older age (65 years and older) ? Avoid alcohol while taking prescription opioids. Also, unless specifically advised by your health care provider, medications to avoid include: ? Benzodiazepines (such as Xanax or Valium) ? Muscle relaxants (such as Soma or Flexeril) ? Hypnotics (such as Ambien or Lunesta) ? Other prescription opioids KNOW YOUR OPTIONS Talk to your health care provider about ways to manage your pain that don?t involve prescription opioids. Some of these options may actually work better and have fewer risks and side effects. Options may include: ? Pain relievers such as acetaminophen, ibuprofen, and naproxen ? Some medication that are also used for depression or seizures ? Physical therapy and exercise ? Cognitive behavioral therapy, a psychological, goal-directed approach, in which patients learn how to modify physical, behavioral, and emotional triggers of pain and stress. IF YOU ARE PRESCRIBED OPIOIDS FOR PAIN: ? Never take opioids in greater amounts or more often than prescribed. ? Follow up with your primary health care provider. o Work together to create a plan on how to manage your pain. o Talk about ways to help manage your pain that don?t involve prescription opioids. o Talk about any and all concerns and side effects. ? Help prevent misuse and abuse o Never sell or share prescription opioids. o Never use another person?s prescription opioids. ? Store prescription opioids in a secure place and out of reach of others (this may include visitors, children, friends, and family). ? Safely dispose of unused prescription opioids: Find your community drug take-back program or your pharmacy mail-back program, or flush them down the toilet, following guidance from the Food and Drug Administration (www.fda.gov/Drugs/Re sourcesForYou). ? Visit www.cdc.gov/drugoverd ose to learn about the risks of opioids abuse and overdose. ? If you believe you may be struggling with addiction, tell your health career agent and ask for guidance or call [facility]?S National Helpline at 5-960-811-VDFY. j Source: [place] Department of Health and Human Services/Center for Disease Contr (more content not included)... [facility] Workers Comp Formson 021 Workers Comp Forms [id number] 0 [id number]# 1.00CD:127 [facility] XR Hand 3+ Views Righton XR Hand 3+ Views Right Exam Date/Time: 12/17/2020 15:32 EDT Reason for Exam: Pain, Non Traumatic Report IMPRESSION: OSTEOARTHRITIS MOST STRIKING AT THE DIP JOINTS OF THE SECOND AND THIRD FINGERS EXAM: XR Hand 3+ Views Right INDICATION: Acute right hand pain Pain, Non Traumatic COMPARISON: None available. FINDINGS: Alignment normal. Joint space narrowing and DIP and PIP joints with exuberant bone proliferation the at the DIP joints of the second and third digits. Mild bone proliferation in the DIP joint of the fifth digit as well. Findings consistent with advanced osteoarthritis at these levels. Bone density normal. No erosions. Mild degenerative changes at the base of the right thumb. No acute fracture. FINAL REPORT Dictated: 12/17/2020 3:54 pm Naun Cadet MD Signed (Electronic Signature): 12/17/2020 3:54 pm Signed by: Naun Cadet MD Transcribed by: QAMAR Technologist: Elver RAMIRES [facility] XR Wrist 3+ Views Righton XR Wrist 3+ Views Right Exam Date/Time: 12/17/2020 15:32 EDT Reason for Exam: Pain, Non Traumatic Report IMPRESSION: NO ACUTE OSSEOUS ABNORMALITY. EXAM: XR Wrist 3+ Views Right HISTORY: Pain COMPARISON: None available TECHNIQUE: AP, lateral, oblique and scaphoid views of the wrist obtained. FINDINGS: No acute fracture or dislocation. Carpal and radiocarpal alignment is satisfactory. Moderate degenerative changes of the first carpometacarpal joint. Soft tissues are within normal limits. FINAL REPORT Dictated: 12/17/2020 3:55 pm Buck Jon DO Signed (Electronic Signature): 12/17/2020 3:55 pm Signed by: Buck Jon DO Transcribed by: QAMAR Technologist: Elver RAMIRES [facility] Vital Signs Date Time Vital Sign Value Performing Clinician Facility 04-04-2023 10:14-0500 Body height 170.18 cm [facility] [place] 04-04-2023 10:14-0500 Body mass index (BMI) [Ratio] 39.4 kg/m2 [facility] 04-04-2023 10:14-0500 Body weight 114.41 kg [facility] 04-04-2023 10:14-0500 Diastolic blood pressure 88 mm[Hg] [facility] 04-04-2023 10:14-0500 Heart rate 76 /min [facility] 04-04-2023 10:14-0500 Respiratory rate 16 /min [facility] 04-04-2023 10:14-0500 Systolic blood pressure 148 mm[Hg] [facility] 11-24-2022 10:00-0400 Body height 170.18 cm Richard Ball Other [facility] [employer] Other 11-24-2022 10:00-0400 Body mass index (BMI) [Ratio] 40.81 kg/m2 Richard Ball Other [facility] [employer] Other 11-24-2022 10:00-0400 Body weight 118.21 kg Richard Ball Other [facility] [employer] Other 11-24-2022 10:00-0400 Diastolic blood pressure 90 mm[Hg] Richard Ball Other [employer] Other 11-24-2022 10:00-0400 Respiratory rate 12 /min Richard Ball Other [employer] Other 11-24-2022 10:00-0400 Systolic blood pressure 171 mm[Hg] Richard Ball Other [employer] Other 09-25-2022 09:15-0400 Body height 170.18 cm Richard Ball Other [employer] Other 09-25-2022 09:15-0400 Body mass index (BMI) [Ratio] 40.84 kg/m2 Richard Ball Other [employer] Other 09-25-2022 09:15-0400 Body weight 118.3 kg Richard Ball Other [employer] Other 09-25-2022 09:15-0400 Diastolic blood pressure 89 mm[Hg] Richard Ball Other [employer] Other 09-25-2022 09:15-0400 Respiratory rate 12 /min Richard Ball Other [employer] Other 09-25-2022 09:15-0400 Systolic blood pressure 135 mm[Hg] Richard Ball Other [employer] Other 06-13-2022 09:30-0400 Body height 170.18 cm Richard Ball Other [employer] Other 06-13-2022 09:30-0400 Body mass index (BMI) [Ratio] 42.1 kg/m2 Richard Ball Other [employer] Other 06-13-2022 09:30-0400 Body weight 121.93 kg Richard Ball Other [employer] Other 04-25-2023 09:30-0400 Diastolic blood pressure 86 mm[Hg] Richard Ball Other [employer] Other 06-13-2022 09:30-0400 Respiratory rate 12 /min Richard Ball Other [employer] Other 06-13-2022 09:30-0400 Systolic blood pressure 126 mm[Hg] Richard Ball Other [employer] Other 06-13-2022 08:30-0400 Body height 170.18 cm Richard Ball Other [employer] Other 06-13-2022 08:30-0400 Body mass index (BMI) [Ratio] 42.1 kg/m2 Richard Ball Other [employer] Other 06-13-2022 08:30-0400 Body weight 121.93 kg Richard Ball Other [employer] Other 06-13-2022 08:30-0400 Diastolic blood pressure 86 mm[Hg] Richard Ball Other [employer] Other 06-13-2022 08:30-0400 Respiratory rate 12 /min Richard Ball Other [employer] Other 06-13-2022 08:30-0400 Systolic blood pressure 126 mm[Hg] Richadr Ball Other [employer] Other 08-18-2021 12:09-0400 Diastolic blood pressure 120 mm[Hg] Edilia SERRANO [facility] [place] 08-18-2021 12:09-0400 Mean blood pressure 133 mm[Hg] Edilia SERRANO [facility] [place] 08-18-2021 12:09-0400 Systolic blood pressure 160 mm[Hg] Edilia NILL [facility] [place] 08-18-2021 11:43-0400 Blood Pressure Location Edilia NILL [facility] [place] 08-18-2021 11:43-0400 Diastolic blood pressure 114 mm[Hg] Edilia NILL [facility] [place] 08-18-2021 11:43-0400 Heart rate 83 /min Edilia NILL [facility] [place] 08-18-2021 11:43-0400 Respiratory rate 16 /min Edilia NILL [facility] [place] 08-18-2021 11:43-0400 Systolic blood pressure 169 mm[Hg] Edilia NILL [facility] [place] Encounters Encounter Date Encounter Type Care Provider Facility Start: 07-23-2023 End: 07-23-2023 ambulatory MARK Crews [facility] Not Available Start: 04-04-2023 End: 04-04-2023 ambulatory [facility] Work Phone: Start: 04-04-2023 End: 04-04-2023 Patient encounter procedure [facility] Work Phone: Start: 11-27-2022 End: 11-27-2022 ambulatory Richard Vidal Other [employer] Other Start: 11-27-2022 Telephone encounter Richard Vidal [facility] Start: 11-24-2022 End: 11-24-2022 ambulatory Richard Vidal Other [employer] Other Start: 11-24-2022 Encounter for genera l adult medical examination without abnormal findings Richard Vidal [facility] Start: 11-24-2022 Periodic preventive med est patient 40-64yrs Richard Vidal [facility] Start: 09-25-2022 End: 09-25-2022 ambulatory Richard Vidal Other [employer] Other Start: 09-25-2022 Office outpatient vi sit 15 minutes Richard Vidal [facility] Start: 08-18-2022 End: 08-18-2022 ambulatory Richard Vidal Other [employer] Other Start: 08-18-2022 Telephone encounter Richard Vidal [facility] Start: 07-18-2022 End: 07-18-2022 ambulatory Richard Vidal Other [employer] Other Start: 07-18-2022 Telephone encounter Richard Vidal [facility] Start: 07-17-2022 Encounter for genera l adult medical examination without abnormal findings DR RICHARD VIDAL [facility] Start: 07-14-2022 End: 07-15-[address] RICHARD VIDAL Facility:[facility] Start: 07-14-2022 End: 07-15-2022 Encounter for general adult medical examination without abnormal findings DR RICHARD VIDAL Facility:[facility] Start: 06-13-2022 End: 06-13-2022 ambulatory Richard Vidal Other [employer] Other Start: 06-13-2022 Encounter for genera l adult medical examination without abnormal findings Richard Vidal [facility] Start: 06-13-2022 Office outpatient vi sit 25 minutes Richard Vidal [facility] Start: 06-13-2022 Telephone encounter Richard Vidal [facility] Start: 02-22-[address] RICHARD VIDAL Facili ty:[facility]1 Start: 11-25-2021 Adult health examination Richard Vidal Other [employer] Other Start: 11-25-2021 Pre-procedure evaluation check Richard Vidal Other [employer] Other Start: 11-20-2021 End: 11-20-2021 ambulatory KVNG VERAS . Facility:[facility] Start: 10-06-2021 End: 10-07-[address] RICHARD VIDAL Facility:[facility] Start: 09-19-2021 End: 09-20-[address] RICHARD VIDAL Facility:[facility] Start: 08-31-2021 End: 08-31-[address] EDILIA SERRANO . Facility:[facility] Start: 08-18-2021 End: 08-18-2021 Patient encounter procedure Edilia SERRANO [facility] [place] Procedures Date Procedure Procedure Detail Performing Clinician Start: 07-14-[address] HOLBROOK IN [place] Comment on above: Performed By: #### [facility] #### [facility] [address] [place] [address] Dr. Carly Elias Start: 08-20-2018 Screening for malign ant neoplasm of colon Richard Vidal Other Start: 05-23-2017 General examination of patient Richard Vidal Other Start: 05-01-2016 Preoperative cardiov ascular examination Richard Vidal Other Arthroscopy of knee with meniscus repair Edilia SERRANO Arthroscopy of shoulder Joseluis SERRANO Depression screening Andre Vidal Other Release of trigger finger Mi chael HANK Comment on above: left thumb Resection of clavicle Joseluisae l NILEliseo Plan of Treatment Date Care Activity Detail Author [facility] Immunizations Immunization Date Immunization Notes Care Provider Fa cility 06-29-2020 COVID-19 Vaccine Pfi zer - Documentation Purposes Only Richard Vidal Other [facility] 06-08-2020 COVID-19 Vaccine Pfi zer - Documentation Purposes Only Richard Vidal Other [facility] Payers Date Payer Category Payer Unknown [id number] 2.16.84 [id number] 1960 Unknown [id number] 2.16.84 [id number] 1960 Unknown [id number] 2.16.84 [id number] 1961 Unknown [id number] 2.16.84 [id number] 1961 Unknown [id number] 2.16.84 [id number] 1961 Unknown [id number] 2.16.84 [id number] 1961 Unknown [id number] 2.16.84 [id number] 1961 Unknown [id number] 2.16.84 [id number] 1961 Unknown [id number] 2.16.84 [id number] 1958 Private Health Insurance [id number] 1959 Private Health Insurance [id number] 1958 Self-pay [id number] Social History Date Type Detail Facility Start: 08-18-2021 End: 03-31-2023 Tobacco smoking status Never smoked tobacco (finding) [facility] [place] Tobacco smoking status Never Fishe [facility] [place] Sex Assigned At Male [facility] Start: 1960 Sex Assigned At Male [facility] Functional Status Date Assessment Result Facility 08-18-2021 Functional Status N/A Ellen [facility] [place] Clinical Notes 11-21-2017 to 11-24-2022 Note Date & Type Note Facility 11-24-2022 Evaluation note Encounter Date Diagnosis Assessment Notes Nov, Wellness examination (ICD-10 - Z00.00) Healthy diet and exercise. Reviewed age-appropriate preventive testing recommended. Nov, Elevated cholesterol (ICD-10 - E78.00) Instructed on diet and exercise with continued statin therapy.Discussed the beneficial effects of lowering cholesterol in reducing the risk for cerebrovascular and cardiovascular disease. Nov, Type 2 diabetes mellitus with hyperglycemia, without long-term current use of insulin (ICD-10 - E11.65) This patient is following a comprehensive diabetic treatment plan. They are checking their feet daily for calluses and nonhealing ulcers. They are being seen for yearly dilated eye examinations. Goals: SBP less than 130, LDL less than 100, FBS less than 140, A1C less than 7%. They are checking their BS daily, will which are reviewed at the office visit. Continue regular routine monitoring of A1C,] Microalbumin, Dilated eye exam and Foot exam Nov, Gastroesophageal reflux disease with esophagitis without hemorrhage (ICD-10 - K21.00) Diet instructions: Smaller portions, avoid eating and laying flat, avoid eating or drinking prior to bedtime. Weight loss. Instructed to take PPI bid x 2-3 mo then decrease to qd Nov, Obstructive sleep apnea (adult) (pediatric) (ICD-10 - G47.33) This patient is aware of the benefits associated with BIANCA: With continued use, the patient reduces the risk for VA, CVA, HTN, cardiac dysrhythmias and sudden cardiac deaths.The patient is also aware of the association between BIANCA and morning headaches, daytime somnolence, fatigue and obesity, which also has been improved with continued use.The patient is compliant with treatment, wearing the equipment every night for greater than 4 hours.The patient is instructed to continue use of the CPAP for BIANCA treatment. Nov, Primary hypertension (ICD-10 - I10) Nov, Cerebral atherosclerosis (ICD-10 - I67.2) Healthy diet, exercise and continue secondary prevention measures. Instructed/educat ed on stroke symptoms and to report to ER for evaluation. [employer] Other 08-07-2023 Evaluation note* Encounter Date Diagnosis Assessment Notes Treatment Notes Treatment Clinical Notes Sep, Epigastric abdominal pain (ICD-10 - R10.13) Diet instructions, push fluids, avoid spicy/acidic foods Low fat diet. Discussed GERD and cholecystitis. Sequela from food poisoning, aggravating underlying GB/Esophageal disease Sep, Gastroesophageal reflux disease with esophagitis without hemorrhage (ICD-10 - K21.00) Diet instructions: Smaller portions, avoid eating and laying flat, avoid eating or drinking prior to bedtime. Weight loss. Initiate PPI bid for now, w/ reassessment in 2 wks Sep, Food poisoning due t o bacteria (ICD-10 - A05.9) No treatment required since N/V/D has resolved. Related to ongoing symptoms? GB? [employer] Other 06-30-2023 Evaluation note* Encounter Date Diagnosis Assessment Notes Treatment Notes Treatment Clinical Notes Jul, Type 2 diabetes mellitus with hyperglycemia, without long-term current use of insulin (ICD-10 - E11.65) [employer] Other 05-30-2023 Evaluation note* Encounter Date Diagnosis Assessment Notes Treatment Notes Treatment Clinical Notes June, Type 2 diabetes mellitus with hyperglycemia, without long-term current use of insulin (ICD-10 - E11.65) [employer] Other 04-25-2023 Evaluation note* Encounter Date Diagnosis Assessment Notes Treatment Notes Treatment Clinical Notes May, Primary hypertension (ICD-10 - I10) This patient is instructed to consume a healthy, low-fat, low-salt diet. They are also encouraged to continue exercise to achieve/maintain a normal BMI. May, Type 2 diabetes mellitus with hyperglycemia, without long-term current use of insulin (ICD-10 - E11.65) This patient is following a comprehensive diabetic treatment plan. They are checking their feet daily for calluses and nonhealing ulcers. They are being seen for yearly dilated eye examinations. Goals: SBP less than 130, LDL less than 100, FBS less than 140, AC and A1C less than 7%. They are checking their BS daily, will which are reviewed at the office visit. A1C: [ ] Microalbumin: [ ] Eye exam: [ ] Foot exam: [ ] May, Obstructive sleep apnea (ICD-10 - G47.33) This patient is aware of the benefits associated with BIANCA: With continued use, the patient reduces the risk for VA, CVA, HTN, cardiac dysrhythmias and sudden cardiac deaths.The patient is also aware of the association between BIANCA and morning headaches, daytime somnolence, fatigue and obesity, which also has been improved with continued use.The patient is compliant with treatment, wearing the equipment every night for greater than 4 hours.The patient is instructed to continue use of the CPAP for BIANCA treatment. May, Elevated cholesterol (ICD-10 - E78.00) Diet and exercise with continued statin therapy. 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 They are instructed to reduce calories, portion sizes and snacks. It is recommended that they exercise for 30 minutes, 3-5 times weekly. May, Gastroesophageal reflux disease with esophagitis without hemorrhage (ICD-10 - K21.00) Diet instructions: Smaller portions, avoid eating and laying flat, avoid eating or drinking prior to bedtime. Weight loss. [employer] Other 04-25-2023 Evaluation note* Encounter Date Diagnosis Assessment Notes Treatment Notes Treatment Clinical Notes May, Wellness examination (ICD-10 - Z00.00) [employer] Other 07-13-2022 NoteOPERATIVE NOTE OPERATION DATE: 08/31/2021 PREOPERATIVE DIAGNOSIS: Positive Cologuard. POSTOPERATIVE DIAGNOSIS: Redundant colon. PROCEDURE: Colonoscopy to cecum. SURGEON: Edilia Serrano M.D. ANESTHESIA: Monitored anesthesia care. ESTIMATED BLOOD LOSS: Zero. INDICATIONS AND CONSENT: Patient is a 63-year-old male who presents for positive Cologuard. Indications, risks, benefits, alternatives of proceeding with colonoscopy were explained extensively to the patient, including the risks of bleeding, colon perforation or anesthetic complications. All of his questions were answered. Informed consent was obtained. PROCEDURE: Patient brought to the operating room, placed in the left lateral decubitus position. Monitored anesthesia care was provided. Rectal exam was performed which showed no masses or blood. The scope was inserted into the anal canal. Under direct visualization was advanced. With the aid of abdominal compression, it was advanced to the cecum where cecal markings were clearly identified. There was noted to be a good prep. There was noted to be redundancy of the colon requiring abdominal compression. Upon withdrawal of the scope, mucosal surfaces were carefully examined. There were no mass lesions or polyps. No inflammatory changes or ulcerations. No significant diverticulosis. The scope was retroflexed in the anal canal. There was noted to be some prominent rectal veins. No significant hemorrhoidal disease. Scope was then withdrawn. Patient tolerated procedure well, was sent to recovery room in good condition. Follow up colonoscopy should be in 10 years. CC: Richard Vidal D.O. [facility] Signed and Approved by: DR EDILIA SERRANO . 09/02/2021 12:37:00[facility]07-05-2022 NoteChief Complaint consultation for positive Cologuard HPI Staff 61 year old male presents on consultation from Dr. Vidal for positive Cologuard. Denies abdominal orrectal pain. No rectal bleeding. Reports recent constipation for which he contributes to decrease in activity. He is occasionally taking stimulant laxative. Denies nausea or vomiting. No unexplained weight loss. Never had colonoscopy in the past. No known family history of colon cancer. History of Present Illness 61 yo male with h/o htn, DMII, BIANCA, h/o CVA, referred for positive Cologuard; denies change in bms or blood in stools, no abd complaints; no previous colonoscopy or abdominal operations; on baby asa,no NSAIDs, no SBE prophylaxis; no fmhx of GI malignancy or IBD. no tobacco use. Review of Systems PHQ Score Initial Depression Screen Score: 0 ROS - Provider Constitutional: no fever, no sweats, no weight loss. Eyes: no glasses, no blurred vision, no visual loss. ENMT: no dentures, no hoarseness, no swallowing difficulties, no hearing loss, no ear infection(s),no nose bleeds. Cardiovascular: normal blood pressure, no chest pain, regular heartbeat, no heart murmur. Respiratory: no shortness of breath, no cough, no asthma, no wheezing. Gastrointestinal: no nausea, no vomiting, no diarrhea, no constipation, no blood in stool, no change in bowel habits, no abdominal pain, no hepatitis. Genitourinary: no kidney stones, no urine infection, no dysuria. Musculoskeletal: no pain, no weakness. Skin: no changing moles, no rash, no skin lumps. Neurologic: no seizures, no epilepsy, no headache. Psychiatric: no emotional or psychiatric problem. Heme/Lymph: no bleeding problems, no anemia, no blood clots, no transfusions. Allergy/Immunologic: no swollen lymph nodes/glands, no IV drug abuse. Other: Additional ROS info: Except as noted in the above Review of Systems and in the History of Present Illness, all other systems have been reviewed and are negative or noncontributory. Physical Exam Vitals & Measurements HR: 83(Peripheral) RR: 16 BP: 160/120 HT: 170 cm HT: 170.0 cm WT: 121.9 kg WT: 121.9 kg BMI: 42.18 HEENT: normal conjunctiva, sclera clear, no scleral icterus, EOM intact, PERRLA, oral mucosa moist without lesions. Neck: trachea midline, no mass, symmetric, no thyromegaly or nodules, no adenopathy Respiratory: lungs CTA, respirations non labored. Cardiovascular: regular rate and rhythm, no murmur, no pedal edema or varicosities. Gastrointestinal: obese, soft, non distended, no tenderness, no masses, no palpable hernias, diastasis recti no, no hepatosplenomegaly; normal bs Lymphatic: no cervical adenopathy, no axillary adenopathy, no inguinal adenopathy. Musculoskeletal: normal gait, digits and nails without infection, nodes, cyanosis, clubbing. Skin: no rashes, no lesions, no ulcers, no subcutaneous nodules, induration. Psychiatric/Neuro: oriented to time, place, person, judgement normal, affect appropriate for age, insight intact, no focal deficits. Tests: review of old records completed, Discussed surgical options, risks, and possible complications with patient. Assessment/Plan 1. Positive colorectal cancer screening using Cologuard test (R19.5: Other fecal abnormalities) plan colonoscopy under anesthesia, informed consent obtained. 2. BMI 40.0-44.9, adult (Z68.41: Body mass index [BMI] 40.0-44.9, adult) recommend diet and exercise. 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 Medications aspirin 81 mg Oral EC Tab, 81 mg= 1 tab(s), Oral, Daily atorvastatin 10 mg Tab, 10 mg= 1 tab(s), Oral, Daily cloNIDine 0.3 mg Tab, 0.3 mg= 1 tab(s), Oral, BID lisinopril 40 mg Tab, 40 mg= 1 tab(s), Oral metformin 500 mg oral tablet, 500 mg= 1 tab(s), Oral, BID Prilosec OTC, 20 mg, Oral, Daily Trulicity Pen 0.75 mg/0.5 mL subcutaneous solution, 0.75 mg, SubCutaneous, qWeek Allergies No Known Allergies Social History Alcohol - Denies Alcohol Use, 09/26/2016 Substance Abuse - Denies Substance Abuse, 09/26/2016 Tobacco - Denies Tobacco Use, 09/26/2016 Never (less than 100 in lifetime) Tobacco Use:. Never Smokeless Tobacco Use:., 08/18/2021 Family History Aneurysm: Mother. COPD: Father. Heart disease: Father. Primary malignant neoplasm of lung: Sister. Renal failure syndrome: Father.[facility] Result Comment: Electronically Signed By: HANK JASMINE, Edilia Maddox\Date and Time Signed: 08/23/21 08:29 [id number] Evaluation note* Diagnosis Onset Date Resolution Status Cerebral atherosclerosis November 21, 2017 acute Elevated cholesterol acute Gastroesophageal reflux dise ase with esophagitis without hemorrhage acute Obstructive sleep apnea acut e Primary hypertension acute Type 2 diabetes mellitus with hyperglycemia acute [facility] Work Phone: Evaluation + Plan note No data available for this section [facility] General Surgery [place] [facility] [employer] Other History general Narrative - Reported* Type Description Date Medical History Gastroesophageal ref lux disease with esophagitis without hemorrhage Medical History Primary hypertension Medical History Controlled type 2 di abetes mellitus with hyperglycemia, without long-term current use of insulin Medical History Obstructive sleep apnea Medical History History of cerebrova scular accident (CVA) from left carotid artery occlusion involving left middle cerebral artery territory Surgical History COLONOSCOPY 2021 Surgical History ARTHROSCOPY OF RIGHT KNEE WITH PARTIAL MENISCETOMY 2019 Surgical History OPEN RESECTION OF RIGHT DISTAL CLAVICLE 2013 Hospitalization History SEE SURGICAL HX [employer] Other Hospital Discharge instructions No data available for this section [facility] General Surgery Sequence Design Progress note No data available for this section [facility] General Surgery Sequence Design Summary Purpose Family History No Family History Records Found Relationship Condition Age at Onset Recorded Date/T jan father Unknown Not Specified Unknown Advance Directives No Advanced Directives Records Found Advance Directive Response Recorded Date/ Time Advance Directives No March 10:07am Chief Complaint and Reason for Visit Chief Complaint 4 month follow up Reason for Visit Cerebral atheroscler osis Elevated cholesterol Gastroesophageal reflux disease with esophagitis without hemorrhage Obstructive sleep apnea Primary hypertension Type 2 diabetes mellitus with hyperglycemia Additional Source Comments Care Team (unrecognized sect ion and content) Team Status: Active Member Role Status Dates Richard Vidal DO Primary Care Provider Active Team Status: Inactive Member Role Status Dates Richard Vidal DO Primary Care Provide r, Attending Provider Active Start: April 04, 2023 End: April 04, 2023 (unrecognized sect ion and content) No Status Records FoundNo Status Records FoundNo Status Records Found INFORMATION SOURCE (unrecogn ized section and content) DATE CREATED AUTHOR 09/08/2021 [facility] DATE CREATED AUTHOR AUTHOR'S ORGANIZ ATION 07/28/2022 [facility] DATE CREATED AUTHOR AUTHOR'S ORGANIZ ATION 07/24/2023 [facility] EPIC REASON FOR VISIT (unrecogniz ed section and content) FOLLOW UPNo InformationLab R esultsNo InformationStomach IssueswellnessLab resultsFOLLOW UP Goals (unrecognized section and content) Goals may be documented in a n alternate section FOR RECORDS PERTAINING TO PATIENTS WHO ARE OR HAVE BEEN ENROLLED IN A CHEMICAL DEPENDENCY/SUBSTANCEABUSE PROGRAM, SOME INFORMATION MAY BE OMITTED. This clinical summary was aggregated from multiple sources. Caution should be exercised in using it in the provision of clinical care. This summary normalizes information from multiple sources, and as a consequence, information in this document may materially change the coding, format and clinical context of patient data. In addition, data may be omitted in some cases. CLINICAL DECISIONS SHOULD BE BASED ON THE PRIMARY CLINICAL RECORDS. [facility] [employer] [facility]. provides no warranty or guarantee of the accuracy or completeness of information in this document.
--- NOTE | 2023-09-03 22:40 | ECG_ITS ---
[facility] Test Date: 2023-09-03 Pat Name: MICHELL WEBSTER Department: Room: - Gender: Male [employer]: : 1960 Requested By: CINTHIA HASKINS Order Number: [id number] Reading MD: JAMAAL HART Measurements Intervals [place] Rate: 88 P: 30 GA: 152 QRS: 16 QRSD: 116 T: 54 QT: 370 QTc: 415 Interpretive Statements 1100 Sinus rhythm 2320 Nonspecific intraventricular conduction delay 9130 borderline ECG Compared to ECG 11/11/2017 18:44:45 No significant changes Electronically Signed On 09-04-2023 5:26:29 EDT by JAMAAL HART
--- NOTE | 2023-09-03 22:40 | ED_ITS ---
HPI - Dizziness General Chief Complaint: Dizziness Stated Complaint: dizziness Time Seen by Provider: 09/03/23 22:27 Source: patient Mode of arrival: walk-in Limitations: no limitations History of Present Illness HPI Narrative: This 63-year-old male who states he had a TIA with no residual neurodeficits 7 or 8 years ago presents for evaluation of some generalized posterior neck pain. He states that he feels somewhat shaky but feels better after eating. On Sunday he had an episode of vertigo with the room spinning. He has not had any confusion, slurred speech, and blurred vision, weakness numbness or ting ling. He has no abdominal pain or back pain. His appetite has been normal. He has not had any chest pain or shortness of breath. He does have a history of diabetes/prediabetes and is on Glucophage and Trulicity. He has not had any recent medication changes. He states that the TIA he had 7 or 8 years ago presented with similar symptoms. The symptoms he is experiencing now have been present since last Sunday, 3 days but he no longer has the sensation of room spinning. Related Data Allergies Allergy/AdvReac Type Severity Reaction Status Date / Time No Known Drug Allergies Allergy Verified 09/03/23 22:12 Review of Systems ROS Status of ROS 10 or more systems reviewed and unremark able except as noted in history and below Exam Narrative Exam Narrative: Vital signs and Nursing Notes reviewed: Patient is afebrile with a normal pulse, blood pressure is elevated at 176/101, he is not hypoxic with pulse ox of 97% on room air General: Awake, alert, oriented, no acute distress, lying comfortably on the stretcher HEENT: Normocephalic atraumatic, mucous membranes are moist and pink, eyes are clear, normal conjunctiva, vision is grossly intact, posterior pharynx is normal in appearance. Neck: Supple, no meningeal signs, no JVD, no carotid bruits appreciated Chest: Lungs are clear to auscultation with good air entry, there is no wheezing rhonchi or rales appreciated no accessory muscle use, patient is speaking in complete sentences-no chest wall tenderness to palpation CVS: Regular rate and rhythm S1-S2, no murmurs rubs or gallops, pulses are brisk and equal bilaterally ABD: Soft, nondistended, nontender, no rebound guarding or rigidity, bowel sounds are normal, no pulsatile masses appreciated Extremities: Moving all extremities, no lower extremity tenderness or swelling noted, negative Homans' sign, pulses are brisk and equal bilaterally Skin: Normal in appearance without rash,pallor, petechiae or purpura Neuro: No focal deficits; speech is clear, there is no facial droop, vision is grossly intact, negative pronator drift, upper and lower extremity strength and sensation is intact and equal bilaterally, NIH stroke scale is 0 Constitutional Vital Signs, click to edit/add: Last Vital Signs Temp 97.8 F 09/03/23 22:05 Pulse 89 09/04/23 02:10 Resp 13 09/04/23 02:10 BP 161/97 H 09/04/23 02:00 Pulse Ox 97 09/03/23 23:52 O2 Del Method Room Air 09/03/23 22:05 Course Vital Signs Vital signs: Vital Signs Temperature 97.8 F 09/03/23 22:05 Pulse Rate 93 H 09/03/23 22:05 Respiratory Rate 18 09/03/23 22:05 Blood Pressure 176/101 H 09/03/23 22:05 Pulse Oximetry 97 09/03/23 22:05 Oxygen Delivery Method Room Air 09/03/23 22:05 Temperature 97.8 F 09/03/23 22:05 Pulse Rate 89 09/04/23 02:10 Respiratory Rate 13 09/04/23 02:10 Blood Pressure 161/97 H 09/04/23 02:00 Pulse Oximetry 97 09/03/23 23:52 Oxygen Delivery Method Room Air 09/03/23 22:05 MDM - Dizziness MDM Narrative Medical decision making narrative: This 63-year-old male who had a TIA/stroke several years ago with no residual neurologic deficits presents for evaluation of intermittent episodes of dizziness with a posterior occipital head versus neck area of discomfort that he describes as vague weakness in the area. He has no other neurologic symptoms. He states the symptoms started on Sunday, 3 days ago with some vertigo. The vertigo has mostly resolved but still has a feeling like he is shaky. He denies any chest pain or shortness of breath. He has not had a fever. His neuroexam is normal with an NIH stroke scale of 0. An IV was placed and routine labs were ordered. He has a normal white count and hemoglobin. Electrolytes are normal. CT scan of the brain which is included in the body of this report shows old right parietal lobe infarct. There is no sign of hemorrhage or other notable abnormality. He received IV fluids and Tylenol as well as meclizine as he had an additional episode of dizziness while in the CT scanner. He states he is feeling better after the IV fluids and is now thinking may have had some degree of dehydration. CT angio of the head and neck was ordered due to the abnormality on the CT scan. 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 The patient explains to me that several years ago when he had his TIA/stroke that he was told that he had this at that time. I reviewed the results of the study with the patient and he feels comfortable being discharged home. He has not had any new or worsening neurosymptoms while in the ER and feels comfortable being discharged home. He does not have a neurologist currently. I referred him back to his family physician who may wish to consult neurology or refer him to neurology as an outpatient. At this time I do not see any need for admission or transfer. Medical Records Medical records narrative: [place] [address] CT Scan Report Signed Patient: MICHELL WEBSTER MR#: [id number] : 1960 Acct:[id number] Age/Sex: 63 / M ADM Date: 09/03/23 Loc: ER Attending Dr: Ordering Physician: Ibis Mercedes Date of Service: 09/03/23 Procedure(s): CT head/brain wo con Accession Number(s): [id number] cc: Richard Vidal D.O.~ The [place] [id number] Patient Name: MICHELL WEBSTER MRN: [id number] date: 1960 Sex: M Assigned Patient Location: ER Current Patient Location: ER Accession/Order Number: [id number] Exam Date: 09/03/2023 22:45 Report Date: 09/04/2023 00:08 At the request of: IBIS MERCEDES Procedure: CT head/brain wo con EXAM: CT head/brain wo con HISTORY: Dizziness. TECHNIQUE: Axial CT scans through the head were obtained without IV contrast administration. Dose reduction techniques were achieved by using: automated exposure control and/or adjustment of mA and /or kV according to patient size and/or the use of an iterative reconstruction technique. COMPARISON: None. FINDINGS: A 1.2 x 1.1 cm old infarct in the white matter of the right parietal lobe. The brainstem appears normal. A small old infarct in the posterior inferior aspect of the right cerebellar hemisphere in the distribution of the right PICA. The ventricular system and cortical sulci are normal for the patient's age. No area of abnormal mass-effect or edema or intracranial hemorrhage. The visualized orbits show no abnormal mass. The visualized paranasal sinuses show no air-fluid level. Mastoid air cells are clear. CT/CT head/brain wo con IMPRESSION: No acute intracranial process. A 1.2 x 1.1 cm old infarct in the white matter of the right parietal lobe. A small old infarct in the posterior inferior aspect of the right cerebellar hemisphere in the distribution of the right PICA. Electronically authenticated by: JUSTUS ORNELAS Date: 09/04/2023 00:08 [place] [address] CT Scan Report Signed Patient: MICHELL WEBSTER MR#: [id number] : 1960 Acct:[id number] Age/Sex: 63 / M ADM Date: 09/03/23 Loc: ER Attending Dr: Ordering Physician: Ibis Mercedes Date of Service: 09/04/23 Procedure(s): CT angio neck Accession Number(s): [id number] cc: Richard Vidal D.O.~ The [place] [address] Patient Name: MICHELL WEBSTER MRN: [id number] date: 1960 Sex: M Assigned Patient Location: ER Current Patient Location: ER Accession/Order Number: [id number] Exam Date: 09/04/2023 00:35 Report Date: 09/04/2023 02:20 At the request of: IBIS MERCEDES Procedure: CT angio neck EXAM: CT angio neck, CT angio head CT angio neck, CT angio head INDICATION:63 years old; dizziness, posterior headache, hx CVA TECHNIQUE: CT angiogram of the head and neck was performed. Coronal, sagittal and 3-D reformats were created and reviewed. IV contrast Omnipaque 350 100mL. No complications . Carotid stenosis measurements were made according to the NASCET criteria. Ionizing radiation dose reduced via iterative reconstruction/FBP blend and body size kV/mA adjustment. COMPARISON: Head CT dated 09/03/2023 at 10:53 PM. FINDINGS: NECK FINDINGS: AORTIC ARCH: Aortic arch is cut off the examination. The visualized portion of the great vessel origins are patent. ANTERIOR CIRCULATION: Carotid arteries are patent. Calcific plaque without flow-limiting stenosis on the left. Right carotid bifurcation is patent. Cervical ICA are patent up to the skull base. No stenosis or thrombus. POSTERIOR CIRCULATION: The V1, V2, and V3 segments of the left vertebral artery are patent. The V1 segment is partially obscured by venous contrast and streak artifacts. The right vertebral artery is occluded and does not reconstitute in the neck. DEVELOPMENTAL ANOMALIES: None. OTHER: No thyroid nodule or adenopathy. HEAD BRAIN: Please see the report of the noncontrast head CT. ANTERIOR CIRCULATION: The intrapetrous, intracavernous, supraclinoid ICA are patent. Intracranial termini are patent. RENEE patent bilaterally. MCA patent bilaterally. No stenosis or thrombus. No large vessel occlusion. Distal distributions are symmetric. POSTERIOR CIRCULATION: There is faint opacification of the proximal V4 segment on the right. Left V4 segment is dominant. There is findings consistent with retrograde filling of the distal V4 segment of the right vertebral artery with opacification of the right PICA. Left PICA is patent. AICA patent on the left. Basilar artery and basilar tip are patent. SCA patent bilaterally. takeoff of the GARMENT ALTERATION EXAMINER on the right. Distal GARMENT ALTERATION EXAMINER distributions are patent. No large vessel occlusion. DEVELOPMENTAL ANOMALIES: takeoff of the GARMENT ALTERATION EXAMINER on the right. OTHER: No pathologic enhancement is seen. The study is not optimized for evaluation the intracranial veins. There is inadequate venous opacification. CT/CT angio neck IMPRESSION: 1. 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 There is faint opacification of the proximal V4 segment on the right. Retrograde filling of the distal V4 segment is present with opacification of the right PICA. Left vertebral artery is dominant and patent. 2. Remainder the intracranial and extracranial vessels demonstrate no large vessel occlusion, thrombus, dissection, or aneurysm. A telephone call regarding the findings in examination was made to and acknowledged by Dr. Mercedes in the emergency department at 2:15 AM on 09/04/2023. Lab Data Labs: Lab Results 09/03/23 09/04/23 Range/Units 22:15 00:01 WBC 6.3 (4.0-11.0) 10^3/uL RBC 4.44 L (4.70-6.10) 10^6/uL Hgb 13.8 L (14.0-18.0) g/dL Hct 39.1 L (42.0-54.0) % MCV 88.1 (80.0-94.0) fL MCH 31.1 (25.9-34.0) pg MCHC 35.3 H (29.9-35.2) g/dL RDW 12.7 (11.0-15.0) % Plt Count 241 (150-450) 10^3/uL MPV 10.0 (9.5-13.5) fL Neut % (Auto) 55.0 (43.0-75.0) % Lymph % (Auto) 28.0 (20.5-60.0) % [place] % (Auto) 11.2 (1.7-12.0) % Eos % (Auto) 4.6 (0.9-7.0) % Baso % (Auto) 1.0 (0.2-2.0) % Neut # (Auto) 3.5 (1.4-6.5) 10^3/uL Lymph # (Auto) 1.8 (1.2-3.8) 10^3/uL [place] # (Auto) 0.7 (0.3-0.8) 10^3/uL Eos # (Auto) 0.3 (0.0-0.7) 10^3/uL Baso # (Auto) 0.1 (0.0-0.1) 10^3/uL Abs Immat Gran (auto) 0.01 (0.00-0.03) 10^3/uL Imm/Tot Granulo (auto) 0.2 (0.0-0.5) % Sodium 136 (136-145) mmol/L Potassium 3.7 (3.5-5.1) mmol/L Chloride 101 (98-107) mmol/L Carbon Dioxide 27.1 (21.0-32.0) mmol/L Anion Gap 11.6 BUN 14.0 (7.0-18.0) mg/dL Creatinine 0.83 (0.70-1.30) mg/dL Est GFR ( Amer) >60 (>=60) Est GFR (Non-Af Amer) >60 (>=60) BUN/Creatinine Ratio 16.9 Glucose 132 H (74-106) mg/dL Calcium 9.2 (8.5-10.1) mg/dL Total Bilirubin 0.4 (0.2-1.0) mg/dL AST 36 (15-37) U/L ALT 60 (16-63) U/L Alkaline Phosphatase 108 (46-116) U/L Troponin I High Sens 5.1 (4.0-76.1) pg/mL Total Protein 7.3 (6.4-8.2) g/dL Albumin 3.8 (3.4-5.0) g/dL Globulin 3.5 g/dL Albumin/Globulin Ratio 1.1 Urine Color Lt. yellow (YELLOW) Urine Clarity Clear (CLEAR) Urine pH 6.0 (5.0-9.0) Ur Specific [place] 1.010 (1.005-1.025) Urine Protein Negative (NEG/TRACE) mg/dL Urine Glucose (UA) Negative (NEGATIVE) mg/dL Urine Ketones Negative (NEGATIVE) mg/dL Urine Occult Blood Negative (NEGATIVE) Urine Nitrite Negative (NEGATIVE) Urine Bilirubin Negative (NEGATIVE) Urine Urobilinogen 0.2 (0.2-1.0) EU/dL Ur Leukocyte Esterase Negative (NEGATIVE) ECG Data Attestation: I personally reviewed and interpreted this ECG as follows: (Sinus rhythm 88 bpm, nonspecific intervention circular conduction delay, normal axis, no acute ST segment elevation or T wave inversion) Discharge Plan Discharge Stand Alone Forms: Portal Instructions Chief Complaint: Dizziness Clinical Impression: Vertigo Patient Disposition: Home, Self-Care Time of Disposition Decision: 02:31 Condition: Good Print Language: Latvian Instructions: Vertigo (ED) Referrals: Richard Vidal DO [Primary Care Provider] - 1 week
[2023-09-03 22:48] LABS: Basophils Absolute Auto 0.1 10^3/uL (0.0-0.1); Eosinophils Absolute Auto 0.3 10^3/uL (0.0-0.7); Eosinophils Percent Auto 4.6 % (0.9-7.0); Hematocrit 39.1 % (42.0-54.0); Hemoglobin 13.8 g/dL (14.0-18.0); Immature Granulocytes Abs Auto 0.01 10^3/uL (0.00-0.03); Immature Granulocytes Pct Auto 0.2 % (0.0-0.5); Lymphocytes Absolute Auto 1.8 10^3/uL (1.2-3.8); Mean Corpuscular HGB Conc 35.3 g/dL (29.9-35.2); Mean Corpuscular Hemoglobin 31.1 pg (25.9-34.0); Mean Corpuscular Volume 88.1 fL (80.0-94.0); Monocytes Absolute Auto 0.7 10^3/uL (0.3-0.8); Monocytes Percent Auto 11.2 % (1.7-12.0); Neutrophils Absolute Auto 3.5 10^3/uL (1.4-6.5); Platelet Count 241 10^3/uL (150-450); Red Blood Count 4.44 10^6/uL (4.70-6.10); Red Cell Distribution Width 12.7 % (11.0-15.0); White Blood Count 6.3 10^3/uL (4.0-11.0)
[2023-09-03] MEDS: ACETAMINOPHEN 325 MG TABLET 650 MG PO (22:58)
[2023-09-03] MEDS: 0.9 % SODIUM CHLORIDE 1,000 ML 100 ML IV (22:59)
[2023-09-03 23:03] LABS: Alanine Aminotransferase 60 U/L (16-63); Albumin Globulin Ratio 1.1; Albumin Level 3.8 g/dL (3.4-5.0); Alkaline Phosphatase 108 U/L (46-116); Anion Gap 11.6; Aspartate Amino Transferase 36 U/L (15-37); BUN Creatinine Ratio 16.9; Bilirubin Total 0.4 mg/dL (0.2-1.0); Calcium 9.2 mg/dL (8.5-10.1); Carbon Dioxide 27.1 mmol/L (21.0-32.0); Chloride 101 mmol/L (98-107); Estimated GFR (African America >60 (>=60); Estimated GFR (Non-African Ame >60 (>=60); Globulin 3.5 g/dL; Glucose 132 mg/dL (74-106); Potassium 3.7 mmol/L (3.5-5.1); Sodium 136 mmol/L (136-145); Total Protein 7.3 g/dL (6.4-8.2)
--- NOTE | 2023-09-03 23:03 | PC.NURSE ---
pt reports while in radiology with position change pt felt the dizzy spell again. no facial drooping and all 4 extremities strong and equal. speech is clear and answers all questions appropriate.
[2023-09-03 23:05] LABS: Troponin I High Sensitivity 5.1 pg/mL (4.0-76.1)
[2023-09-04] VITALS (16 sets, daily range): BP systolic 141–167; BP diastolic 92–97; PULSE 76–89
[2023-09-04] MEDS: MECLIZINE HCL 12.5 MG TABLET 25 MG PO (00:06)
--- NOTE | 2023-09-04 00:19 | CT_ITS ---
The [address] [address] Patient Name: MICHELL WEBSTER MRN: [id number] date: 1960 Sex: M Assigned Patient Location: ER Current Patient Location: Accession/Order Number: [id number] Exam Date: 09/04/2023 00:35 Report Date: 09/04/2023 02:20 At the request of: CHRISTA MARKER Procedure: CT angio neck EXAM: CT angio neck, CT angio head CT angio neck, CT angio head INDICATION:63 years old; dizziness, posterior headache, hx CVA TECHNIQUE: CT angiogram of the head and neck was performed. Coronal, sagittal and 3-D reformats were created and reviewed. IV contrast Omnipaque 350 100mL. No complications . Carotid stenosis measurements were made according to the NASCET criteria. Ionizing radiation dose reduced via iterative reconstruction/FBP blend and body size kV/mA adjustment. COMPARISON: Head CT dated 09/03/2023 at 10:53 PM. FINDINGS: NECK FINDINGS: AORTIC ARCH: Aortic arch is cut off the examination. The visualized portion of the great vessel origins are patent. ANTERIOR CIRCULATION: Carotid arteries are patent. Calcific plaque without flow-limiting stenosis on the left. Right carotid bifurcation is patent. Cervical ICA are patent up to the skull base. No stenosis or thrombus. POSTERIOR CIRCULATION: The V1, V2, and V3 segments of the left vertebral artery are patent. The V1 segment is partially obscured by venous contrast and streak artifacts. The right vertebral artery is occluded and does not reconstitute in the neck. DEVELOPMENTAL ANOMALIES: None. OTHER: No thyroid nodule or adenopathy. HEAD BRAIN: Please see the report of the noncontrast head CT. ANTERIOR CIRCULATION: The intrapetrous, intracavernous, supraclinoid ICA are patent. Intracranial termini are patent. RENEE patent bilaterally. MCA patent bilaterally. No stenosis or thrombus. No large vessel occlusion. Distal distributions are symmetric. POSTERIOR CIRCULATION: There is faint opacification of the proximal V4 segment on the right. Left V4 segment is dominant. There is findings consistent with retrograde filling of the distal V4 segment of the right vertebral artery with opacification of the right PICA. Left PICA is patent. AICA patent on the left. Basilar artery and basilar tip are patent. SCA patent bilaterally. takeoff of the METAL SHEET ROLLER OPERATOR on the right. Distal METAL SHEET ROLLER OPERATOR distributions are patent. No large vessel occlusion. DEVELOPMENTAL ANOMALIES: takeoff of the METAL SHEET ROLLER OPERATOR on the right. OTHER: No pathologic enhancement is seen. The study is not optimized for evaluation the intracranial veins. There is inadequate venous opacification. CT/CT angio neck IMPRESSION: 1. 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 There is faint opacification of the proximal V4 segment on the right. Retrograde filling of the distal V4 segment is present with opacification of the right PICA. Left vertebral artery is dominant and patent. 2. Remainder the intracranial and extracranial vessels demonstrate no large vessel occlusion, thrombus, dissection, or aneurysm. A telephone call regarding the findings in examination was made to and acknowledged by Dr. Mercedes in the emergency department at 2:15 AM on 09/04/2023. Electronically authenticated by: EDILIA BALES Date: 09/04/2023 02:20
--- NOTE | 2023-09-04 00:19 | CT_ITS ---
The [address] [address] Patient Name: MICHELL WEBSTER MRN: [id number] date: 1960 Sex: M Assigned Patient Location: ER Current Patient Location: Accession/Order Number: [id number] Exam Date: 09/04/2023 00:35 Report Date: 09/04/2023 02:20 At the request of: CHRISTA MARKER Procedure: CT angio head EXAM: CT angio neck, CT angio head CT angio neck, CT angio head INDICATION:63 years old; dizziness, posterior headache, hx CVA TECHNIQUE: CT angiogram of the head and neck was performed. Coronal, sagittal and 3-D reformats were created and reviewed. IV contrast Omnipaque 350 100mL. No complications . Carotid stenosis measurements were made according to the NASCET criteria. Ionizing radiation dose reduced via iterative reconstruction/FBP blend and body size kV/mA adjustment. COMPARISON: Head CT dated 09/03/2023 at 10:53 PM. FINDINGS: NECK FINDINGS: AORTIC ARCH: Aortic arch is cut off the examination. The visualized portion of the great vessel origins are patent. ANTERIOR CIRCULATION: Carotid arteries are patent. Calcific plaque without flow-limiting stenosis on the left. Right carotid bifurcation is patent. Cervical ICA are patent up to the skull base. No stenosis or thrombus. POSTERIOR CIRCULATION: The V1, V2, and V3 segments of the left vertebral artery are patent. The V1 segment is partially obscured by venous contrast and streak artifacts. The right vertebral artery is occluded and does not reconstitute in the neck. DEVELOPMENTAL ANOMALIES: None. OTHER: No thyroid nodule or adenopathy. HEAD BRAIN: Please see the report of the noncontrast head CT. ANTERIOR CIRCULATION: The intrapetrous, intracavernous, supraclinoid ICA are patent. Intracranial termini are patent. RENEE patent bilaterally. MCA patent bilaterally. No stenosis or thrombus. No large vessel occlusion. Distal distributions are symmetric. POSTERIOR CIRCULATION: There is faint opacification of the proximal V4 segment on the right. Left V4 segment is dominant. There is findings consistent with retrograde filling of the distal V4 segment of the right vertebral artery with opacification of the right PICA. Left PICA is patent. AICA patent on the left. Basilar artery and basilar tip are patent. SCA patent bilaterally. takeoff of the SWINE EXTENSION FIELD SPECIALIST on the right. Distal SWINE EXTENSION FIELD SPECIALIST distributions are patent. No large vessel occlusion. DEVELOPMENTAL ANOMALIES: takeoff of the SWINE EXTENSION FIELD SPECIALIST on the right. OTHER: No pathologic enhancement is seen. The study is not optimized for evaluation the intracranial veins. There is inadequate venous opacification. CT/CT angio head IMPRESSION: 1. 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 There is faint opacification of the proximal V4 segment on the right. Retrograde filling of the distal V4 segment is present with opacification of the right PICA. Left vertebral artery is dominant and patent. 2. Remainder the intracranial and extracranial vessels demonstrate no large vessel occlusion, thrombus, dissection, or aneurysm. A telephone call regarding the findings in examination was made to and acknowledged by Dr. Mercedes in the emergency department at 2:15 AM on 09/04/2023. Electronically authenticated by: EDILIA BALES Date: 09/04/2023 02:20
[2023-09-04 00:23] LABS: Bilirubin Urine NEGATIVE (NEGATIVE); Blood Urine NEGATIVE (NEGATIVE); Clarity Urine CLEAR (CLEAR); Color Urine LT. YELLOW (YELLOW); Glucose Urine UA NEGATIVE (NEGATIVE); Ketones Urine NEGATIVE (NEGATIVE); Leukocyte Esterase Urine NEGATIVE (NEGATIVE); Nitrite Urine NEGATIVE (NEGATIVE); Protein Urine NEGATIVE (NEG/TRACE); Urobilinogen Urine 0.2 EU/dL (0.2-1.0)
[2023-09-04 00:24] LABS: Urine Microscopic Indicated NO
[2023-09-04] MEDS: 0.9 % SODIUM CHLORIDE 1,000 ML 100 ML IV (00:31)
== END 2023-09-04 02:58 | disposition home or self-care (01) ==
PROVIDERS: Emergency Provider Emergency Medicine; PCP Internal Medicine
DX: R42 Dizziness and giddiness (principal); Z86.73 Personal history of transient ischemic attack (TIA), and cerebral infarction without residual deficits; E11.9 Type 2 diabetes mellitus without complications; Z79.85 Long-term (current) use of injectable non-insulin antidiabetic drugs
CPT/HCPCS: 36415; 70450; 70496; 70498; 80053; 81003; 84484; 85025; 93005; 99285; Q9967

== ENCOUNTER 2023-10-11 10:15 | Outpatient (RCR) | payer OTHER, SELFPAY | END 2023-10-19 13:37 | disposition home or self-care (01) | LOC: PT 10:15 | PROVIDERS: PCP Internal Medicine; Visit Provider Internal Medicine | DX: R42 Dizziness and giddiness (principal) | CPT/HCPCS: 95992; 97140; 97161 ==

== ENCOUNTER 2023-11-29 12:35 | Outpatient (OUT) | payer OTHER, SELFPAY ==
--- OUTSIDE RECORDS SUMMARY | 2023-11-29 12:59 | XMS_ITS | CCD ---
Author Organization [facility] CliniSypr Care Team Providers Care Crew Scheduler Name Role Phone RICHARD VIDAL Primary Care Physician [phone] Richard Vidal YOUNG, DR RAMOS Primary Care Unavailable YOUNG, DR RAMOS Admitting Unavailable BALL, DR RAMOS Attending Unavailable YOUNG, DR RAMSO Admitting Unavailable BALL, DR RAMOS Attending Unavailable BALL, DR RAMOS Consulting Unavailable YOUNG, DR RAMOS Primary Care Unavailable YOUNG, DR RAMOS Primary Care Unavailable YOUNG, DR RAMOS Admitting Unavailable BALL, DR RAOMS Attending Unavailable BALL, DR RAMOS Consulting Unavailable EDA ., KVNG Admitting Unavailable GRECHNY ., NO URBAN Consulting Unavailabl e YOUNG, DR RAMOS Primary Care Unavailable EDA ., KVNG Attending Unavailable ASHLEY, SUNDAY Consulting Unavailable EDA ., KVNG Consulting Unavailable YOUNG, DR RAMOS Admitting Unavailable BALL, DR RAMOS Attending Unavailable BALL, DR RAMOS Consulting Unavailable YOUNG, DR RAMOS Primary Care Unavailable NILL ., DR YEBOAH Attending Unavailable NILL ., DR YEBOAH Consulting Unavailable NILL ., DR YEBOAH Admitting Unavailable BALL, DR RAMOS Primary Care Unavailable DORKOSKIEWILNER Consulting Unavailable POCOS, MARK Crews Referring Unavailable POCOS, MARK Crews Attending Unavailable YOUNG, RICHARD Soria Referring Unavailable YOUNG, RICHARD Soria Primary Care Unavailable YOUNG, RICHARD Soria Referring Unavailable YOUNG, RICHARD Soria Primary Care Unavailable Medications Current Medications Medication Drug Class(es) Dates Sig (Normalized) Sig (Original) aspirin 81 mg delayed release oral tablet (11 sources) Platelet Aggregation Inhibitor, Nonsteroidal Anti-inflammatory Drug Start: 08-15-2021 take 1 tablet by mouth once daily Aspirin Active 1 TAB PO Daily March 31, 2023 1:00am FreeTextSi tablet Orally Once a day; Note: Source Status: Start; Refills: 3; Qty: 90 Tablet; Provider: Young Ramos ( ) take 1 tablet by mouth once clara y Aspirin 81 81 MG 1 tablet Orally Once a day Active atorvastatin 10 mg oral tablet (11 sources) HMG-CoA Reductase Inhibitor Start: 08-15-2021 take 1 tablet by mouth once daily Atorvastatin Active 1 TAB PO Daily March 31, 2023 1:00am FreeTextSi tablet Orally Once a day; Note: Source Status: Continue; Provider: Young Ramos ( ) cloNIDine (12 sources) Central alpha-2 Adrenergic Agonist Start: 05-02-2023 take 1 tablet by mouth twice daily Clonidine Hcl Active 0 .ROUTE .COMPLEX 180 May 02, 2023 6:11pm TAKE 1 TABLET BY MOUTH TWICE A DAY Start: 08-15-2021 End: 05-02-2023 take 1 tablet by mouth twice daily Clonidine Hcl Discontinued 1 TAB PO Twice daily March 31, 2023 1:00am May 02, 2023 6:12pm FreeTextSig: TAKE 1 TABLET BY MOUTH TWICE A DAY; Note: Source Status: Continue; Provider: Young Ramos ( ) 0.5 ml dulaglutide 1.5 mg/ml auto-injector (9 [...] Dulaglutide (Trulicity) 3 mg/0.5 mL pen injector (4 sources) Start: 04-13-2023 inject 0.5 mL by subcutaneous injection every week Dulaglutide (Trulicity) 3 mg/0.5 mL pen injector Active 4.5 MG SUBCUT every week 9.75 90 April 13, 2023 5:28pm FreeTextSi.5 ML Subcutaneous weekly; Note: Source Status: Continue; Provider: Young Soria Start: 04-13-2023 End: 04-13-2023 inject 0.5 mL by subcutaneous injection every week Dulaglutide (Trulicity) 3 mg/0.5 mL pen injector Discontinued 4.5 MG SUBCUT every week April 13, 2023 5:27pm April 13, 2023 5:29pm FreeTextSi.5 ML Subcutaneous weekly; Note: Source Status: Continue; Provider: Young Soria Start: 03-31-2023 End: 04-13-2023 inject 0.5 mL by subcutaneous injection every week Dulaglutide (Trulicity) 3 mg/0.5 mL pen injector Discontinued 0.5 ML SUBCUT every week March 31, 2023 1:00am April 13, 2023 5:28pm FreeTextSi.5 ML Subcutaneous weekly; Note: Source Status: Continue; Provider: Young Soria Start: 03-31-2023 inject 0.5 mL by sub cutaneous injection every week Dulaglutide (Trulicity) 3 mg/0.5 mL pen injector Active 0.5 ML SUBCUT every week March 31, 2023 12:00am FreeTextSi.5 ML Subcutaneous weekly; Note: Source Status: Continue; Provider: Young Soria hydroCHLOROthiazide 12.5 mg oral capsule (10 sources) Thiazide Diuretic Start: 03-31-2023 take 1 capsule by mouth once daily Hydrochlorothiazide Active 1 CAP PO Daily March 31, 2023 1:00am FreeTextSig: TAKE 1 CAPSULE BY MOUTH EVERY DAY; Note: Source Status: Start; Refills: 3; Qty: 90 Capsule; Provider: Young Ramos ( ) Lisinopril (12 sources) Angiotensin Converting Enzyme Inhibitor Start: 05-02-2023 take 1 tablet by mouth once daily Lisinopril Active 0 .ROUTE .COMPLEX 90 May 02, 2023 6:12pm TAKE 1 TABLET BY MOUTH EVERY DAY Start: 09-26-2016 End: 05-02-2023 take 1 tablet by mouth once daily Lisinopril Discontinued 1 TAB PO Daily March 31, 2023 1:00am May 02, 2023 6:12pm FreeTextSig: TAKE 1 TABLET BY MOUTH EVERY DAY; Note: Source Status: Continue; Provider: Young Ramos ( ) meclizine hydrochloride 25 mg oral tablet (1 source) Antiemetic Start: 09-14-2023 take 25 mg by mouth once daily Meclizine Active 25 MG PO Daily September 14, 2023 12:00am metFORMIN hydrochloride 500 mg oral tablet (12 sources) Biguanide Start: 07-30-2023 take 500 mg by mouth twice daily Metformin Active 500 MG PO Twice daily 180 90 July 30, 2023 5:47pm Start: 03-31-2023 End: 07-30-2023 take 1 tablet by mouth once daily Metformin Discontinued 1 TAB PO Daily March 31, 2023 1:00am July 30, 2023 5:50pm FreeTextSi tablet with a meal Orally Once a day; Note: Source Status: Continue; Provider: Young Ramos ( ) Start: 08-15-2021 take 1 tablet by iram th twice daily metformin 500 mg oral tablet 500 mg = 1 tab(s), Oral, BID, Refills(s) 0 Start Date: 08/15/21 Status: Ordered omeprazole 40 mg delayed release oral capsule (8 sources) Proton Pump Inhibitor Start: 04-15-2023 take 1 capsule by mouth twice daily at mealtime Omeprazole Active 0 .ROUTE .COMPLEX 180 April 15, 2023 7:33pm TAKE 1 CAPSULE BY MOUTH TWICE A DAY ON AN EMPTY STOMACH FOLLOWED IN 30 MINUTES BY A MEAL Start: 03-31-2023 End: 04-15-2023 take 40 mg by mouth twice daily at mealtime Omeprazole Discontinued 40 MG PO Twice daily March 31, 2023 1:00am April 15, 2023 7:33pm ON AN EMPTY STOMACH FOLLOWED IN 30 [...] Onset: 2 Chronic Disorders of lipid metabolism (16 sources) Hypercholesterolemia; Translations: [Pure hypercholesterolemia, unspecified] Onset: 8 Chronic Esophageal disorders (13 sources) Gastroesophageal reflux disease; Translations: [Gastro-esophageal reflux disease with esophagitis] Onset: 2 08-15-2021 Chronic Essential hypertension (19 sources) Hypertensive disorder; Translations: [Essential hypertension] Onset: [...] 4 Chronic Other and ill-defined cerebrovascular disease (6 sources) Cerebral atherosclerosis; Translations: [Cerebral atherosclerosis] Onset: 8 03-31-2023 Chronic Other and ill-defined cerebrovascular disease (3 sources) Cerebral atherosclerosis; Translations: [Cerebral atherosclerosis] Onset: [...] tube disorder, bilateral] Episodic Residual codes; unclassified (14 sources) Obstructive sleep apnea syndrome; Translations: [Obstructive sleep apnea (adult) (pediatric)] 08-15-2021 Chronic Residual codes; unclassified (11 sources) Obstructive sleep apnea (adult) (pediatric); Translations: [Obstructive sleep apnea (adult)(pediatric)] Onset: 2 Chronic Residual codes; unclassified (1 source) Sleep apnea, unspecified; Translations: [SLEEP APNEA UNSPECIFIED] Onset: 2 Chronic Residual codes; unclassified (1 source) Primary central sleep apnea; Translations: [PRIMARY CENTRAL SLEEP APNEA] Onset: 2 Chronic Residual codes; unclassified (1 source) Pain, unspecified; Translations: [Pain, unspecified] Onset: 4 Episodic Sprains and strains (3 sources) Strain of [...] Onset: 02-07-2016 Episodic Other aftercare (1 source) 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; Translations: [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 TECHNICIAN CURRENT USE OF ASPIRIN] Onset: 11-21-2021 Episodic Other aftercare (1 source) 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 therapy; Translations: [OTH SKILLED NURSING CURRENT DRUG THERAPY] Onset: 11-21-2021 Episodic Other aftercare (1 source) termination clerk (current) use of oral hypoglycemic drugs; Translations: [SKILLED NURSING USE ORAL HYPOGLYCEMIC DX] Onset: 09-01-2021 Episodic [...] Test Name Value Interpretation Reference Range Facility Laboratory - Chemistry and C hemistry - challengeon 09-04-2023 Bilirubin Ql (U) Negative NEGATIVE [facility] Glucose (U) [Mass/Vol] Negative NEGATIVE [facility] Ketones Ql (U) Negative NEGATIVE [facility] pH (U) 6.0 [pH] 5.0-9.0 [facility] Specific gravity (U) [Rel density] 1.010 1.005-1.025 [facility] Urobilinogen Qn (U) 0.2 {Woodrow'U}/dL 0.2-1.0 [facility] Laboratory - Specimen inform ationon 09-04-2023 Appearance (U) CLEAR CLEAR [facility] Color (U) LT. YELLOW YELLOW [facility] Laboratory - Urinalysison Leukocyte esterase Test strip Ql (U) Negative NEGATIVE [facility] Nitrite Ql (U) Negative NEGATIVE [facility] Protein Ql (U) Negative NEG/TRACE [facility] No Panel Informationon 09-03 Urine Microscopic Review NO [facility] Urine Occult Blood Negative NEGATIVE [facility] Basophils Auto (Bld) [#/Vol] on 09-03-2023 Basophils (Bld) [#/Vol] 0.1 10 3/uL 0.0-0.1 [facility] Basophils/100 WBC Auto (Bld) on 09-03-2023 Basophils/100 WBC (Bld) 1.0 % 0.2-2.0 [facility] Eosinophils/100 WBC Auto (Bl d)on 09-03-2023 Eosinophils/100 WBC (Bld) 4.6 % 0.9-7.0 [facility] Erythrocyte distribution wid th Auto (RBC) [Ratio]on 09-03-2023 Erythrocyte distribution width (RBC) [Ratio] 12.7 % 11.0-15.0 [facility] Estimated glomerular filtrat ion rate (GFR) non- Americanon 09-03-2023 GFR/1.73 sq M.predicted among non-blacks MDRD (S/P/Bld) [Vol rate/Area] mL/min/{1.73_m2} >=60 [facility] Globulin Calc (S) [Mass/Vol] on 09-03-2023 Globulin (S) [Mass/Vol] 3.5 g/dL [facility] Hematocrit Auto (Bld) [Volum e fraction]on 09-03-2023 Hematocrit (Bld) [Volume fraction] 39.1 % Low 42.0-54.0 [facility] Hemoglobin [Mass/volume] in Bloodon 09-03-2023 Hemoglobin (Bld) [Mass/Vol] 13.8 g/dL Low 14.0-18.0 [facility] Laboratory - Chemistry and C hemistry - challengeon 09-03-2023 Albumin [Mass/Vol] 3.8 g/dL 3.4-5.0 [facility] ALP [Catalytic activity/Vol] 108 U/L 46-116 [facility] ALT [Catalytic activity/Vol] 60 U/L 16-63 [facility] AST [Catalytic activity/Vol] 36 U/L 15-37 [facility] Bilirubin [Mass/Vol] 0.4 mg/dL 0.2-1.0 [facility] Calcium [Mass/Vol] 9.2 mg/dL 8.5-10.1 [facility] Chloride [Moles/Vol] 101 mmol/L 98-107 [facility] CO2 [Moles/Vol] 27.1 mmol/L 21.0-32.0 [facility] Creatinine [Mass/Vol] 0.83 mg/dL 0.70-1.30 [facility] GFR/1.73 sq M.predicted MDRD (S/P/Bld) [Vol rate/Area] mL/min/{1.73_m2} >=60 [facility] Glucose [Mass/Vol] 132 mg/dL High 74-106 [facility] Potassium [Moles/Vol] 3.7 mmol/L 3.5-5.1 [facility] Protein [Mass/Vol] 7.3 g/dL 6.4-8.2 [facility] Sodium [Moles/Vol] 136 mmol/L 136-145 [facility] Urea nitrogen [Mass/Vol] 14.0 mg/dL 7.0-18.0 [facility] Urea nitrogen/Creatinine [Mass ratio] 16.9 mg/mg [facility] Laboratory - Hematology and Cell countson 09-03-2023 Immature granulocytes/100 WBC (Bld) 0.2 % 0.0-0.5 [facility] Leukocytes [#/volume] correc adia for nucleated erythrocytes in Blood by Automated counon 09-03-2023 WBC corrected for nucl RBC Auto (Bld) [#/Vol] 6.3 10 3/uL 4.0-11.0 [facility] Lymphocytes Auto (Bld) [#/Vo l]on 09-03-2023 Lymphocytes (Bld) [#/Vol] 1.8 10 3/uL 1.2-3.8 [facility] Lymphocytes/100 WBC Auto (Bl d)on 09-03-2023 Lymphocytes/100 WBC (Bld) 28.0 % 20.5-60.0 [facility] MCH Auto (RBC) [Entitic mass ]on 09-03-2023 MCH (RBC) [Entitic mass] 31.1 pg 25.9-34.0 [facility] MCHC Auto (RBC) [Mass/Vol]on 09-03-2023 MCHC (RBC) [Mass/Vol] 35.3 g/dL High 29.9-35.2 [facility] MCV Auto (RBC) [Entitic vol] on 09-03-2023 MCV (RBC) [Entitic vol] 88.1 fL 80.0-94.0 [facility] Monocytes Auto (Bld) [#/Vol] on 09-03-2023 Monocytes (Bld) [#/Vol] 0.7 10 3/uL 0.3-0.8 [facility] Monocytes/100 WBC Auto (Bld) on 09-03-2023 Monocytes/100 WBC (Bld) 11.2 % 1.7-12.0 [facility] Neutrophils Auto (Bld) [#/Vo l]on 09-03-2023 Neutrophils (Bld) [#/Vol] 3.5 10 3/uL 1.4-6.5 [facility] Neutrophils/100 WBC Auto (Bl d)on 09-03-2023 Neutrophils/100 WBC (Bld) 55.0 % 43.0-75.0 [facility] No Panel Informationon 09-02 Eosinophils # (Auto) 0.3 10 3/uL 0.0-0.7 [facility] Immature Granulocyte # (Auto) 0.01 10 3/uL 0.00-0.03 [facility] Troponin I High Sensitivity 5.1 pg/mL 4.0-76.1 [facility] Comment on above: CUT-OFF POINTS HAVE BEEN ESTABLISHED BASED ON THE FOURTHUNIVERSAL DEFINITION OF MYOCARDIAL INFARCTION. THE UPPERREFERENCE LIMIT (URL) OF TROPONIN, DEFINED THE 99THPERCENTILE OF cTnI DISTRIBUTION IN A REFERENCE POPULATION,HAS BEEN CONFIRMED THE DECISION THRESHOLD FOR MIDIAGNOSIS.99TH PERCENTILE = 76.2 PG/MLNOTE: HIGH-SENSITIVITY TROPONIN ASSAY IS NOT INTENDED TO BEUSED IN ISOLATION BUT SHOULD BE INTERPRETED IN CONJUNCTIONWITH OTHER DIAGNOSTIC AND CLINICAL INFORMATION. Platelet mean volume Auto (B ld) [Entitic vol]on 09-03-2023 Platelet mean volume (Bld) [Entitic vol] 10.0 fL 9.5-13.5 [facility] Platelets Auto (Bld) [#/Vol] on 09-03-2023 Platelets (Bld) [#/Vol] 241 10 3/uL 150-450 [facility] RBC Auto (Bld) [#/Vol]on RBC (Bld) [#/Vol] 4.44 10 6/uL Low 4.70-6.10 [facility] Serum or plasma albumin/glob ulin mass ratioon 09-03-2023 Albumin/Globulin [Mass ratio] 1.1 {ratio} [facility] Serum or plasma anion gap de terminationon 09-03-2023 Anion gap [Moles/Vol] 11.6 mmol/L [facility] CBC AUTO DIFFon 07-14-2022 BASO # 0.1 103/ul Normal 0.0-0.1 [facility] Comment on above: Performed By: #### C BC #### [facility] [address] [place] [address] Dr. Carly Elias Basophils/100 WBC (Bld) 1.2 % Normal 0.2-2.0 [facility] Comment on above: Performed By: #### C BC #### [facility] [address] [place] [address] Dr. Carly Elias EO # 0.3 103/ul Normal 0.0-0.7 [facility] Comment on above: Performed By: #### C BC #### [facility] [address] [place] [address] Dr. Carly Elias Eosinophils/100 WBC (Bld) 4.8 % Normal 0.9-7.0 [facility] Comment on above: Performed By: #### C BC #### [facility] [address] [place] [address] Dr. Carly Elias Erythrocyte distribution width (RBC) [Ratio] 12.7 % Normal 11.0-15.0 [facility] Comment on above: Performed By: #### C BC #### [facility] [address] [place] [address] Dr. Carly Elias Hematocrit (Bld) [Volume fraction] 41.0 % Critically low 42.0-54.0 [facility] Comment on above: Performed By: #### C BC #### [facility] [address] [place] [address] Dr. Carly Elias Hemoglobin (Bld) [Mass/Vol] 14.0 g/dL Normal 14.0-18.0 [facility] Comment on above: Performed By: #### C BC #### [facility] [address] [place] [address] Dr. Carly Elias IG # 0.02 10e3/ul Normal 0.00-0.03 [facility] Comment on above: Performed By: #### C BC #### [facility] [address] [place] [address] Dr. Carly Elias IG % 0.4 % Normal 0.0-0.5 [facility] Comment on above: Performed By: #### C BC #### [facility] [address] [place] [address] Dr. Carly Elias LYMPH # 1.5 103/ul Normal 1.2-3.8 [facility] Comment on above: Performed By: #### C BC #### [facility] [address] [place] [address] Dr. Carly Elias Lymphocytes/100 WBC (Bld) 28.5 % Normal 20.5-60.0 [facility] Comment on above: Performed By: #### C BC #### [facility] [address] [place] [address] Dr. Carly Elias MANUAL DIFF REQ NO Normal [facility] Comment on above: Performed By: #### C BC #### [facility] [address] [place] [address] Dr. Carly Elias MCH (RBC) [Entitic mass] 29.9 pg Normal 25.9-34.0 [facility] Comment on above: Performed By: #### C BC #### [facility] [address] [place] [address] Dr. Carly Elias MCHC (RBC) [Mass/Vol] 34.1 g/dL Normal 29.9-35.2 [facility] Comment on above: Performed By: #### C BC #### [facility] [address] [place] [address] Dr. Carly Elias MCV (RBC) [Entitic vol] 87.6 fL Normal 80.0-94.0 [facility] Comment on above: Performed By: #### C BC #### [facility] [address] [place] [address] Dr. Carly Elias MONO # 0.6 103/ul Normal 0.3-0.8 [facility] Comment on above: Performed By: #### C BC #### [facility] [address] [place] [address] Dr. Carly Elias Monocytes/100 WBC (Bld) 11.5 % Normal 1.7-12.0 [facility] Comment on above: Performed By: #### C BC #### [facility] [address] [place] [address] Dr. Carly Elias NEUT # 2.8 103/ul Normal 1.4-6.5 [facility] Comment on above: Performed By: #### C BC #### [facility] [address] [place] [address] Dr. Carly Elias Neutrophils/100 WBC (Bld) 53.6 % Normal 43.0-75.0 [facility] Comment on above: Performed By: #### C BC #### [facility] [address] [place] [address] Dr. Carly Elias Platelet mean volume (Bld) [Entitic vol] 9.4 fL Critically low 9.5-13.5 [facility] Comment on above: Performed By: #### C BC #### [facility] [address] [place] [address] Dr. Carly Elias PLT 228 103/ul Normal 150-450 [facility] Comment on above: Performed By: #### C BC #### [facility] [address] [place] [address] Dr. Carly Elias RBC 4.68 106/ul Critically low 4.70-6.10 [facility] Comment on above: Performed By: #### C BC #### [facility] [address] [place] [address] Dr. Carly Elias WBC 5.2 103/ul Normal 4.0-11.0 [facility] Comment on above: Performed By: #### C BC #### [facility] [address] [place] [address] Dr. Carly Elias GLYCOHEMOGLOBIN A1Con 2022 ADA RECOMMENDATION SEE BELOW Normal [facility] Comment on above: Result Comment: ADA RECOMMENDED LIMIT 4.0 - 6.0 ADA THERAPEUTIC TARGET < 7.0 ACTION SUGGESTED > 7.0 Performed By: #### A 1C #### [facility] [address] [place] [address] Dr. Carly Elias Glucose [Mass/Vol] 163 mg/dL Normal [facility] Comment on above: Performed By: #### A 1C #### [facility] [address] [place] [address] Dr. Carly Elias HbA1c (Bld) [Mass fraction] 7.3 % Critically high 4.5-6.2 [facility] Comment on above: Performed By: #### A 1C #### [facility] [address] [address] [address] Carly Elias LIPID PROFILEon 07-14-2022 CHOL-HDL RATIO NORM SEE BELOW Normal [facility] Comment on above: Result Comment: 3.3 - 4.4 LOW RISK 4.4 - 7.1 AVERAGE RISK 7.1 - 11.0 MODERATE RISK >11.0 HIGH RISK Performed By: #### C MP, LIPID #### [facility] [address] [address] [address] Carly Elias Cholesterol [Mass/Vol] 125 mg/dL Normal <=200 [facility] Comment on above: Performed By: #### C MP, LIPID #### [facility] [address] [address] [address] Carly Elias Cholesterol in HDL [Mass/Vol] 32 mg/dL Critically low 40-60 [facility] Comment on above: Performed By: #### C MP, LIPID #### [facility] [address] [address] [address] Carly Elias Cholesterol in LDL [Mass/Vol] 32.6 mg/dL Normal [facility] Comment on above: Performed By: #### C MP, LIPID #### [facility] [address] [address] [address] Carly Elias Cholesterol.total/Cho lesterol in HDL [Mass ratio] 3.9 {ratio} Normal [facility] Comment on above: Performed By: #### C MP, LIPID #### [facility] [address] [address] [address] Carly Elias HDL NORMAL > or = 60 mg/dl - LOW CARDIOVASCULAR RISK <40 mg/dl - HIGH CARDIOVASCULAR RISK Normal [facility] Comment on above: Performed By: #### C MP, LIPID #### [facility] [address] [address] [address] Carly Elias LDL CALC NORMAL SEE BELOW Normal [facility] Comment on above: Result Comment: <100 mg/dl OPTIMAL 100 - 129 mg/dl NEAR OR ABOVE OPTIMAL 130 - 159 mg/dl BORDERLINE HIGH 160 - 189 mg/dl HIGH >190 mg/dl VERY HIGH Performed By: #### C MP, LIPID #### [facility] [address] [place] [address] Dr. Carly Elias Triglyceride [Mass/Vol] 302 mg/dL Critically high <=150 [facility] Comment on above: Performed By: #### C MP, LIPID #### [facility] [address] [place] [address] Dr. Carly Elias VLDL CALC 60.4 mg/dL Normal [facility] Comment on above: Performed By: #### C MP, LIPID #### [facility] [address] [place] [address] Dr. Carly Elias MICROALBUMIN, RAND URon 06-20 mALB 2.0 mg/dL Normal <=30.0 [facility] Comment on above: Performed By: #### M ALBR #### [facility] [address] [place] [address] Dr. Carly Elias PROF 14(COMP METB)on 023 Albumin [Mass/Vol] 3.8 g/dL Normal 3.4-5.0 [facility] Comment on above: Performed By: #### C MP, LIPID #### [facility] [address] [place] [address] Dr. Carly Elias Albumin/Globulin [Mass ratio] 1.0 {ratio} Normal [facility] Comment on above: Performed By: #### C MP, LIPID #### [facility] [address] [place] [address] Dr. Carly Elias ALP [Catalytic activity/Vol] 86 U/L Normal 46-116 [facility] Comment on above: Performed By: #### C MP, LIPID #### [facility] [address] [place] [address] Dr. Carly Elias ALT [Catalytic activity/Vol] 79 U/L Critically high 16-63 [facility] Comment on above: Performed By: #### C MP, LIPID #### [facility] [address] [address] [address] Carly Elias Anion gap [Moles/Vol] 12.1 mmol/L Normal [facility] Comment on above: Performed By: #### C MP, LIPID #### [facility] [address] [place] [address] Dr. Carly Elias AST [Catalytic activity/Vol] 52 U/L Critically high 15-37 [facility] Comment on above: Performed By: #### C MP, LIPID #### [facility] [address] [place] [address] Dr. Carly Elias Bilirubin [Mass/Vol] 0.4 mg/dL Normal 0.2-1.0 [facility] Comment on above: Performed By: #### C MP, LIPID #### [facility] [address] [place] [address] Dr. Carly Elias Calcium [Mass/Vol] 9.5 mg/dL Normal 8.5-10.1 [facility] Comment on above: Performed By: #### C MP, LIPID #### [facility] [address] [place] [address] Dr. Carly Elias Chloride [Moles/Vol] 102 mmol/L Normal 98-107 [facility] Comment on above: Performed By: #### C MP, LIPID #### [facility] [address] [place] [address] Dr. Carly Elias CO2 [Moles/Vol] 29.2 mmol/L Normal 21.0-32.0 [facility] Comment on above: Performed By: #### C MP, LIPID #### [facility] [address] [place] [address] Dr. Carly Elias Creatinine [Mass/Vol] 0.81 mg/dL Normal 0.70-1.30 [facility] Comment on above: Performed By: #### C MP, LIPID #### [facility] [address] [place] [address] Dr. Carly Elias EGFR-AF UGANDAN >60 Normal >=60 [facility] Comment on above: Performed By: #### C MP, LIPID #### [facility] [address] [place], [place] [id number] Dr. Carly Elias EGFR-NON AF UGANDAN >60 Normal >=60 [facility] Comment on above: Performed By: #### C MP, LIPID #### [facility] [address] [place] [address] Dr. Carly Elias Globulin (S) [Mass/Vol] 3.7 g/dL Normal [facility] Comment on above: Performed By: #### C MP, LIPID #### [facility] [address] [address] [address] Carly Elias Glucose [Mass/Vol] 129 mg/dL Critically high 74-106 T [facility] Comment on above: Performed By: #### C MP, LIPID #### [facility] [address] [place] [address] Dr. Carly Elias Potassium [Moles/Vol] 4.3 mmol/L Normal 3.5-5.1 [facility] Comment on above: Performed By: #### C MP, LIPID #### [facility] [address] [place] [address] Dr. Carly Elias Protein [Mass/Vol] 7.5 g/dL Normal 6.4-8.2 [facility] Comment on above: Performed By: #### C MP, LIPID #### [facility] [address] [place] [address] Dr. Carly Elias Sodium [Moles/Vol] 139 mmol/L Normal 136-145 [facility] Comment on above: Performed By: #### C MP, LIPID #### [facility] [address] [place] [address] Dr. Carly Elias Urea nitrogen [Mass/Vol] 19.0 mg/dL Critically high 7.0-18.0 [facility] Comment on above: Performed By: #### C MP, LIPID #### [facility] [address] [place] [address] Dr. Carly Elias Urea nitrogen/Creatinine [Mass ratio] 23.5 mg/mg Normal [facility] Comment on above: Performed By: #### C MP, LIPID #### [facility] [address] [place] [address] Dr. Carly Elias XR ELBOW LT MIN 3 VIEWSon XR ELBOW LT MIN 3 VIEWS IMAGES REVIEWED: XR ELBOW LT MIN 3 VIEWS COMPARISON: None available. CLINICAL INDICATION: C/O: pain FINDINGS/IMPRESSION: 1. No evidence of acute osseous abnormality of the left elbow. No joint effusion. 2. 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 Electronically authenticated by: SUNDAY RAMIREZ Date: 2021-11-20 15:19 Normal [facility] GLYCOHEMOGLOBIN A1Con 2021 ADA RECOMMENDATION SEE BELOW Normal [facility] Comment on above: Result Comment: ADA RECOMMENDED LIMIT 4.0 - 6.0 ADA THERAPEUTIC TARGET < 7.0 ACTION SUGGESTED > 7.0 Performed By: #### A 1C #### [facility] [address] [address] [address] Carly Elias Glucose [Mass/Vol] 166 mg/dL Normal [facility] Comment on above: Performed By: #### A 1C #### [facility] [address] [address] [address] Carly Elias HbA1c (Bld) [Mass fraction] 7.4 % Critically high 4.5-6.2 [facility] Comment on above: Performed By: #### A 1C #### [facility] [address] [address] [address] Carly Elias Outside Colonoscopyon 2021 Outside Colonoscopy [id number] #1.00CD:127 Normal [facility] Reminderson 09-01-2021 Reminders - From: Marilynn Coelho LPN To: GSN - Clinical; Sent: 09/01/2021 14:20:20 EDT Show up: 08/02/2031 07:00:00 EDT Subject: colonoscopy recall Due Date/Time: 09/01/2031 07:00:00 EDT Reminder/Recall Patient is due for screening colonoscopy 09/01/2031. Normal [facility] POINT OF CARE GLUCOSEon 08-19 Glucose [Mass/Vol] 155 mg/dL Critically high 74-106 T [facility] Comment on above: Performed By: #### P OCGLUC #### [facility] [address] [address] [address] Carly Elias Consent for Procedure/Surger yon 08-18-2021 Consent for Procedure/Surgery [id number] #1.00CD:127 Normal [facility] Physician Referralon 022 Physician Referral [id number]# 1.00CD:127 Normal [facility] Coding Summary.on 12-28-2020 Coding Summary. CD:[id number] Gh0bWw+PGhlYWQ+PE1FV AGfJ08nfIYiuH3IS9uSX P3ZNIHOALSLXR7YTN1le JP8ZJwnY7FjbvZn GhgkoTEzKO64SLv1VTV7 fZezZMghtG1rpBOhV5y1 UeLdLF70aG16NJzbLCXb GoM7ZwNchlxjuTMl O4kcEpPgqBSkJlo+PHRh YmxlIHdpZHRoPScxMDAl LzQdgFkzEN5rDt3aURUf LWNvbGxhcHNlOiBj s7smDWPqVHdeGP3zhGqn V4WveER2SNQyg3t4Qg57 dHI+MZJdBNA5rPnhBDhh b645EhGkk8vfOFZ6 cQGyFWztJHN8G35gp7P7 FEIyDTCjMVJ3oXC5rC3k pLvtixyhX1MooEBeLeJ1 BBD5mAOhgN1xyCbz pvetsF2uNvj+V29QUA2J ZKELUS8XRoe3J7LmHpve dHI+AN50WVOvGJ66aZVs jTCsh5pcwCz1QeFr XROtUSH3kGmoCDtlx9Rf DABjO31lrAQgj7L0NZGd wCajjIRqGuJgiEQ6qI8p NGovxbepe3lcesax Ukqht9hqyx03cZ50T40w ZZtwDPOoRJV8OWBlPLMc nMyuyu5pkJ6eDf4+IDxj f0eha6nhvHw4WgZi PUOurkUaoTveMLZ1z5Qc Fb83Y6FlgTcmh1PuCcd1 zs25mQQox3J1jAM6XEia WVBvsW1fAUkbRkB2 BOKoPqUxtL50cVKlXKll Kn2tgHarbIxrVC9sCJQz rricMNErzH2lDAGjgNRo iVizAX7wKNWzfopw u592BgIbCGQ1KXKrcCSn A4FrfC7xRhZaKPEtVUXf M2ZfdLPhMRuqH643EYtt ZeD9LUDdqpMjC5Sg IFXlgJbsYbU7s4N3Qk6Y k8ModjdqIBR9JFsjPHDr WtF6IwSvBuI4Q3EmPjf7 CUJswUnmBH1nI0Cc ZUFiolwjbfgnjJN1YBKt SWOarQ40eQPiDJwrVz1y e7U2h427QAOxAMAdqC99 Kw9ujMwmWBCjaTRY lE5pltifz1tnjyvnZtPk GVEjLHu1DYc8YBEzfFlu ToRsQOJ2QmN3XAL6vNQc lA8sgDhnaimevV8l Oyc+Q33nxI1eHOS4FRT7 qptnYFCtseOxBZ43KA69 C5OyDqoliKElkRS+PGRp ltPuvPcuSZ1fNpLf m4dbn3SuGEbuU3PkOGMj PSxxHne0OWSdVMF5eOF9 uG0iOTTiKQqkr8A6iCU2 S8EbzvGcsd1ju4xq MEJeZTbrS19thNRds5Q1 TBZclRR7HFAcaZvkUbGu eG42Pau+ZYIfqLpgj0Wc Flwru3tzq2lgvKc4 IjMwJSIgdmFsaWduPSJ0 g5UrUl65S58wOIdmGWBe FHThOYVtGFBxlUqsyp9m uI1oUi9+PGNvbCB3 nIN2sN8zHIKqMyS3HVjm B830AyMffNLrCfhbr7fr o0pazEw8EaUjIGYfuyHh gImnWXL2f0BsYm68 N81pDFpvIQUzLHTsEMBz TLVgkItlsk6wtU2fAq3+ CV5zp9orkx74yF92gTE+ DXQpBBA7aZrnMTyq KTXlvH0jULasGyH7MPAy TuUceI44eLLbBHcbUz3r cIhwpJtyKI1aDLPukdct a622GeYpo0vxULSd lKUuQZouJRX6J77au9T8 YHTjKGOxUJJ7oBC3gG7z bGlnbjogbGVmdDsgdmVy zHibCYufFOazY250 IHRvcDsnPlBhdGllbnQg FbAzBOe8R4IwPfl1XIIx hUynMP4teCKnFBdoFt0t eDrcqCkiHQ4jZBAj trzul034FoTkg2hmFBZy oBTzSArvNDP6V84wx5E2 IEWhPVYgYAC8tOO1jK2l bGlnbjogbGVmdDsg nrWkfDoyFWxxGAeuZ257 IHRvcDsnPkJpcnRoIERh aMO3BY11RT57eGRpr9P2 cHT4U7UfPATmuiqa rsiuaRU1FRXkTDHahZ51 Da4agSioYg0gBISkZLM0 RDXesEToM7MrpQ5kMbHd EPIiFMYaI5JwaHPr JCjwO361NBkeZyB8TPLj cpUrJ0TsVKUowNerQbJ8 p2L8Yu5KM5F8TH47TX81 zEVba8R3sSR4V3Ef WWIbgshvckgqhEV1CFRh JWDiwT40Yy6wyVszPz9o NWLeNCL2QUCksVJfE5Oy fH8zUpOeGEZbMJBg W7KizXJuIXsgM706ICaz BhI1BICoftBmL3HkUMJa oOldHwU3q0L0Uc8PSKg4 HN75RH15vFZuv5I3 bIU0F5WwLPTbnlahrmdp bBI9RSNsHXZosV33Sc5p eTfxSv9pHLNqBVM9HCFa hDHdB4CevF3uEeHu CNFtHRIoZ2HbeLUnBXma B385ENvnLyU0VELzgiOa A0ZrMCWzdDzsGfU8l0E7 Ey8SKZQiOI50CGB3 jNI2IG33WW06S2GgWznf dGFibGU+PHRhYmxlIHdp ZHRoPScxMDAlJyBzdHls DJ0aDt5yZVWfMFDq fZqcsKQlMtAfg3bxVMSt EFhfPT4zkThqH1WnbCA1 SFGgv2u5Bl55V54hL7Ff dXA+WYLlkEK4kMQ6 uF9tAzDaRhX5NOmcE122 EkMbgROsMjiwl3cvc5qy nAz7NpS1VBBjgmEbuTgt PGP8n4LjGm31D55c IHdpZHRoPSIxNSUiIHZh tShatr4aiJ9cRj5+PGNv pAM3cII8vW1nWgFhByS4 KJmkM178TnAvdEAm Qfwkc8vas0pssEu4GxCv YWMznkBtvUevKLH3j3Xk Qn22R5UxfWcug0PmEaf7 zj14gSBbg3F0tQN5 H7FiDILnygjefNWaaGhd FX7vAFKsuihaYGMoiO0i VPEnO3b7MoQaZdS2JMkz Y5PvwuZ3SEMxhJQc AMzdLFI8F50uy9M4YWCd PFOsVZR0eRX9tR5jcUho bjogbGVmdDsgdmVydGlj QJruOPpxV308KNLn bQcxJPQmuM0lEARseCCe wRstJU2yYCZhqpevUgOV QUkZN8ecOMyMZPHFSUkE Onz4Q6YmRyf3WITn dQrvQD1sdZEcSIojKy5f xGifpQfmYZ4mSHMdrpde GIDpeY8tVAMjmRLrxUkx BS4hQYCxifnag678 OyMvPCK2BHTvjZJjK0Xc xK0xLgTqDFBwBEXzD5Ff eBDsJIljZ715FDalJzF8 GKUofbEhY2SoICMs bDroUkW0z4D3Tu3xPc2y Mu5mILHqRY38WE86kBMb l0O6zEO7I5KqGIOmrgva mpcmjDC1NQQwINHj uK31aLGyPLliAl3th9X3 e069XLRgEMEctJ84Mp1n qWwcATKolSKGaJ4mxsqn o8dxzvhsLvRjCCRq PFc9LBu4EWXjcJylOcYz PDR7DyO4YMW1jLOnjN0f wPvasazqcQ6rXqp+NTkg XYLtjnE8Q5ZzRux6 VGFhdKjuFP3jnAFwTRoa Mc7yrVaxxBsgRD2eLBXr rsmiQRVmuI4kUAKqwIMy pOmxVV0dBNCuuvpw x618FbOuTKP3DDAopNJy I3CnrR6iFjHfPJIqWBGt H7FruERcWKjjH291MXtz WmI9ZRLjyuHaE9Gc GIHdqOdaXuV0z6H2Px8R KOdyYY64PR07rJKcr7D6 nWG0F0CjDSUuguflicgh vKG0PEObTOUzmM21 bSXmGYcgIx4cn6K0y621 ZUVcLURavC21Cz0qcTmh TDUutYBArO9nytwfl0gv cjogIzAwMDAwMDt0 JOq9DSEjoSsgMuLiLIQ1 BoV9IQN0zSKfwK6egZvi rxzbaF7xKuu+JP1bjoiy hiC0BP28WO04I6Iq PjwvdGFibGU+PHRhYmxl IHdpZHRoPScxMDAlJyBz xIykDK3dJi0fPZHdCNZm dQzieDXzIgQyq0ur EXLiFYdhVX6dmJquC0Sb rHY2QLGpp8w6Ap56K39o V7TeoNM+GMJoeQR5sHS3 bH7sWmYoYcA3BZfh C207FoHixZOnMkcku3kc y0gadIp0KjRqJAXzjhRd fSxfIZK9a9NmSm62M19z IHdpZHRoPSIyMCUi FWYjxKndgs4poA7wHi3+ TTKpyWU2tMN9lI4eOnWt ZrK0PTyxZ737BoHseVDk WhqrR55bI3NzeJD+ KPLkAaz6OXLzaAwvMZ7c mXOtQAckGw3wTNR9UxTz GiYyWXcpD8CbISKgrdob frrouJP6PIDhJVRg uU38Ls9ruTafOf5dTUZz PDT0BVJfiBCuE2MpiJ2m NwKaMVTfITYvP7KzoPOn KGsnM026YMxkAeQ2 ZWTsviNoH8IdEERncXag GwG6m2U9Ln5XdNccdIHr JI3oDiThJLj8C9IjXof0 GPVdpYpmGG1uwIPw GCuoJx1keClvbFbbRF4e GPYjmqyse752ZbHzj4ta FPExlPGqJNtjJOT7R62s q6T7VAXfHEPoWYW0 hKI2vP1lxObygenjpIJc dDsgdmVydGljYWwtYWxp I761MHAefOjpZyJLYrh5 G5XyPkh2YTHqeIxo ZE4xhVYqCJrbSa1ofDib eSzsRL5sSXOfsltak411 GrLgp0clRQBjbTDeXBbm ZLH3M54um0A7XFLq PKZuVRA7yTA7iK0mfJfc bjogbGVmdDsgdmVydGlj GLlgYYhlM443UMNijZkl Xv5TZse9U3OqCfi9 PEShtIasWI0auGCzFJvz Ot8gqOxzaEhkLG6sLRCm qfefp148NhUau6mtRNEe cTOyOQalHHC0I36b x4G6SRYhHJCdKBX8jWG7 vT4fmSzhgrtzrFJmtPkn fkIxbUuaWOewJJuoB192 IHRvcDsnPlBheWVy OjwvdGQ+OB80dx65A8Kh OonsNnu1TKLfYRU2xMW2 wS3eVOQvDVyds4B1iXW7 F8HsuwFpuc4hj7ol YXBz (more content not included)... Normal [facility] Consent for Treatmenton 11-20 Consent for Treatment [id number] #1.00CD:127 Normal [facility] Discharge Instructionson Discharge Instructions [id number] 3#1.00CD:127 Normal [facility] ED Clinical Summaryon 2020 ED Clinical Summary [address] [place] [id number] ED Clinical Summary Person Information Name: MICHELL WEBSTER [facility] Age: 60 Years : 1960 Sex: Male Language: Mongolian PCP: RICHARD VIDAL DO Marital Status: Phone: [phone] Visit Id: Visit Reason: Wrist pain-swelling; Hand [...] 12/17/2020 16:17:08 12/17/2020 16:17:08 12/17/2020 16:17:08 ADDRESS: [address] [place] [id number] PHYS DOC NOTES: MEDICAL INFORMATION: Prescriptions Given: Medications to Continue with No Changes Other Medications clonidine (clonidine 0.3 mg oral tablet) lisinopril (lisinopril 40 mg Tab) naproxen (Naprosyn 500 mg Tab) 1 Tablets By Mouth 2 times a day. Refills: 0. omeprazole (omeprazole 20 mg Cap-DR) 1 Capsules By Mouth every day. PATIENT EDUCATION INFORMATION: Instructions: Tendinitis Follow up: With: Address: When: [facility]: [facility] [phone] In 3 days 12/20/2020 DIAGNOSIS: Tendonitis Normal [facility] ED Note-Physicianon 12-18-19 ED Note-Physician Basic Information Time Seen: Callum Thomson PA-C 12/17/2020 15:41 Chief Complaint patient states he was sorting through packages. Patient felt pain in right hand and wrist History of Present Illness 60-year-old male comes to the ED for evaluation of right breast pain. 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 He said she was moving his partials and pushed something aside with his right hand and suddenly felt pain along the ulnar aspect of his right wrist. He had some associated paresthesias/weaknes s into his right ring and pinky fingers. [...] working diagnosis of tendinitis and is given [facility] follow-up. Patient was encouraged to return to the ED if symptoms worsen or change. Assessment/Plan Tendonitis (M77.9: Enthesopathy, unspecified) Orders: Splint Application Wrist Disposition Plan Patient Discharge Condition Disposition: Discharged home Condition: Improved and stable Counseled: Patient and/or family were counseled to workup, results, treatment plan and follow-up recommendations Discharge Prescription List Prescriptions No active prescription medications Follow-up With When Contact Information [facility]: [facility] [phone] In 3 days 12/20/2020 EDT Additional Instructions: Patient Education Tendinitis Attestation Patient seen and evaluated by the physician assistant accounting manager. Attending physician was present in the emergency department and supervised care. This report was transcribed using voice recognition software. Every effort was made to ensure accuracy, however, inadvertently computerized seismic prospecting supervisor mistakes may be present. Appropriate healthcare PPE [...] fracture, dislocation (more content not included)... Normal [facility] Comment on above: Result Comment: Elec tronically [...] by your health care provider. ? Take rysr-gpy-lreqpyc and prescription medicines only as told by [...] 02/02/2001 Document Revised: 08/13/2018 Document Reviewed: 06/26/2018 Elsevier Patient Education (more content not included)... Normal [facility] ED Patient Summaryon 021 ED Patient Summary [address] [place] [id number] Patient Discharge Instructions Person Information Name: MICHELL WEBSTER Age: 60 Years Arrival Date: 12/17/2020 14:53:33 Discharge Diagnosis: Tendonitis Primary Care Physician: RICHARD VIDAL DO Provider Information Primary Provider: Armando Xavier DO Advanced Trade Marker:Callum Thomson PA-C The exam and treatment you received in the Emergency Department were for an urgent problem and are not intended as complete care. It is important that you follow up with a doctor, nurse practitioner, or physician?s assistant accounting manager for ongoing care. If your symptoms become worse or you do not improve as expected and you are unable to reach your usual health care provider, you should return to the Emergency Department. We are available 24 hours a day. MICHELL WEBSTER has been given the following list of patient education materials, prescriptions and follow-up instructions: Follow-up Instructions: With: Address: When: [facility]: [facility] [phone] In 3 days 12/20/2020 In the event that this physician does not participate in your insurance network, please consult with your insurance company to find a nearby participating provider. Patient Education Materials: Tendinitis A MESSAGE TO ALL PATIENTS REGARDING OPIOIDS PRESCRIPTION OPIOIDS: WHAT YOU NEED TO KNOW Prescription opioids can be used to help relieve ysyvywyr-dh-qentjx pain and are often prescribed following a [...] guidance from the Food and Drug Administration (www.fda.gov/Drugs/R esourcesForYou). ? Visit www.cdc.gov/drugover dose to learn about the risks of opioids abuse and overdose. ? If you believe you may be struggling with addiction, tell your health healthcare associate and ask for guidance or call [employer]A?S National Helpline at 3-723-879-EQKD. j Source: US Department of Health and Human Services/Center for Disease Contr (more content not included)... [facility] Workers Comp Formson 021 Workers Comp Forms [id number] 2#1.00CD:127 [facility] XR Hand 3+ Views Righton XR Hand [...] MD Transcribed by: QAMAR Technologist: Elver RAMIRES [facility] XR Wrist 3+ Views Righton XR Wrist [...] DO Transcribed by: QAMAR Technologist: Elver RAMIRES [facility] Vital Signs Date Time Vital Sign Value Performing Clinician Facility 09-14-2023 10:00-0400 Body height 170.18 cm [facility] 09-14-2023 10:00-0400 Body mass index (BMI) [Ratio] 38.2 kg/m2 [facility] 09-14-2023 10:00-0400 Body weight 110.67 kg [facility] 09-14-2023 10:00-0400 Diastolic blood pressure 90 mm[Hg] [facility] 09-14-2023 10:00-0400 Heart rate 91 /min [facility] 09-14-2023 10:00-0400 Respiratory rate 12 /min [facility] 09-14-2023 10:00-0400 Systolic blood pressure 138 mm[Hg] [facility] 04-04-2023 10:14-0500 Body height 170.18 cm [facility] 04-04-2023 10:14-0500 Body mass index (BMI) [Ratio] 39.4 kg/m2 [facility] 04-04-2023 10:14-0500 Body weight 114.41 kg [facility] 04-04-2023 10:14-0500 Diastolic blood pressure 88 mm[Hg] [facility] 04-04-2023 10:14-0500 Heart rate 76 /min [facility] 04-04-2023 10:14-0500 Respiratory rate 16 /min [facility] 04-04-2023 10:14-0500 Systolic blood pressure 148 mm[Hg] [facility] 11-24-2022 10:00-0400 Body height 170.18 cm Richard Ball Other [facility] [employer] Other 11-24-2022 10:00-0400 Body mass index (BMI) [Ratio] 40.81 kg/m2 Richard Ball Other [facility] [employer] Other 11-24-2022 10:00-0400 Body weight 118.21 kg Richard Ball Other [employer] Other 11-24-2022 10:00-0400 Diastolic blood pressure 90 mm[Hg] Richard Ball Other [employer] Other 11-24-2022 10:00-0400 Respiratory rate 12 /min Richard Ball Other [employer] Other 11-24-2022 10:00-0400 Systolic blood pressure 171 mm[Hg] Richard Ball Other [employer] Other 09-25-2022 09:15-0400 Body height 170.18 cm Richard Ball Other [employer] Other 09-25-2022 09:15-0400 Body mass index (BMI) [Ratio] 40.84 kg/m2 Richard Ball Other [employer] Other 09-25-2022 09:15-0400 Body weight 118.3 kg Richard Ball Other [employer] Other 09-25-2022 09:15-0400 Diastolic blood pressure 89 mm[Hg] Richard Ball Other [employer] Other 09-25-2022 09:15-0400 Respiratory rate 12 /min Richard Ball Other [employer] Other 09-25-2022 09:15-0400 Systolic blood pressure 135 mm[Hg] Richard Ball Other [employer] Other 06-13-2022 09:30-0400 Body height 170.18 cm Richard Ball Other [employer] Other 06-13-2022 09:30-0400 Body mass index (BMI) [Ratio] 42.1 kg/m2 Richard Ball Other [employer] Other 06-13-2022 09:30-0400 Body weight 121.93 kg Richard Ball Other [employer] Other 06-13-2022 09:30-0400 Diastolic blood pressure 86 mm[Hg] Richard Ball Other [employer] Other 06-13-2022 09:30-0400 Respiratory rate 12 /min Richard Ball Other [employer] Other 06-13-2022 09:30-0400 Systolic blood pressure 126 mm[Hg] Richard Ball Other [employer] Other 06-13-2022 08:30-0400 Body height 170.18 cm Richard Ball Other [employer] Other 06-13-2022 08:30-0400 Body mass index (BMI) [Ratio] 42.1 kg/m2 Richard Ball Other [employer] Other 06-13-2022 08:30-0400 Body weight 121.93 kg Richard Ball Other [employer] Other 06-13-2022 08:30-0400 Diastolic blood pressure 86 mm[Hg] Richard Ball Other [employer] Other 06-13-2022 08:30-0400 Respiratory rate 12 /min Richard Ball Other [employer] Other 06-13-2022 08:30-0400 Systolic blood pressure 126 mm[Hg] Richard Ball Other [employer] Other 08-18-2021 12:09-0400 Diastolic blood pressure 120 mm[Hg] Edilia SERRANO [facility] 08-18-2021 12:09-0400 Mean blood pressure 133 mm[Hg] Edilia NILL [facility] 08-18-2021 12:09-0400 Systolic blood pressure 160 mm[Hg] Edilia MADSENL [facility] 08-18-2021 11:43-0400 Blood Pressure Location Edilia NILL [facility] 08-18-2021 11:43-0400 Diastolic blood pressure 114 mm[Hg] Edilia NILL [facility] 08-18-2021 11:43-0400 Heart rate 83 /min Edilia NILL [facility] 08-18-2021 11:43-0400 Respiratory rate 16 /min Edilia MADSENL [facility] 08-18-2021 11:43-0400 Systolic blood pressure 169 mm[Hg] Edilia MADSENL [facility] Encounters Encounter Date Encounter Type Care Provider Facility Start: 09-14-2023 End: 09-14-2023 ambulatory [facility] Work Phone: Start: 09-14-2023 End: 09-14-2023 Patient encounter [facility] Work Phone: Start: 09-04-2023 ambulatory RICHARD VIDAL [facility] Start: 09-04-2023 Non-patient / Non-visit [facility] Physician [facility] Work Phone: Start: 09-03-2023 Non-patient / Non-visit [facility] Physician [facility] Work Phone: Start: 07-23-2023 End: 07-23-2023 ambulatory MARK Crews [facility] Not Available Start: 04-04-2023 End: 04-04-2023 ambulatory [facility] Work Phone: Start: 04-04-2023 End: 04-04-2023 Patient encounter procedure [facility] Work Phone: Start: 11-27-2022 End: 11-27-2022 ambulatory Richard Vidal Other [employer] Other Start: 11-27-2022 Telephone encounter Richard BURNS [facility] Start: 11-24-2022 End: 11-24-2022 ambulatory Richard Vidal Other [employer] Other Start: 11-24-2022 Encounter for genera l adult medical examination without abnormal findings Richard Vidal [facility] Start: 11-24-2022 Periodic preventive med est patient 40-64yrs Richard Vidal [facility] Start: 09-25-2022 End: 09-25-2022 ambulatory Richard Vidal Other [employer] Other Start: 09-25-2022 Office outpatient vi sit 15 minutes Richard Vidal [facility] Start: 08-18-2022 End: 08-18-2022 ambulatory Richard Vidal Other [employer] Other Start: 08-18-2022 Telephone encounter Richard BURNS [facility] Start: 07-18-2022 End: 07-18-2022 ambulatory Richard Vidal Other [employer] Other Start: 07-18-2022 Telephone encounter Richard BURNS [facility] Start: 07-17-2022 Encounter for genera l adult medical examination without abnormal findings DR RICHARD VIDAL [facility] Start: 07-14-2022 End: 07-15-[address] RICHARD VIDAL Facility: Start: 07-14-2022 End: 07-15-2022 Encounter for general adult medical examination without abnormal findings DR RICHARD VIDAL Facility:[facility] Start: 06-13-2022 End: 06-13-2022 ambulatory Richard Vidal Other [employer] Other Start: 06-13-2022 Encounter for genera l adult medical examination without abnormal findings Richard Vidal [facility] Start: 06-13-2022 Office outpatient vi sit 25 minutes Richard Vidal [facility] Start: 06-13-2022 Telephone encounter Richard Vidal [facility] Start: 02-22-[address] RICHARD VIDAL Facili ty:[facility] Start: 11-25-2021 Adult health examination Richard Young Other [employer] Other Start: 11-25-2021 Pre-procedure evaluation check Richard Vidal Other [employer] Other Start: 11-20-2021 End: 11-20-2021 ambulatory KVNG VERAS . Facility:[facility] Start: 10-06-2021 End: 10-07-[address] RICHARD VIDAL Facility:[facility] Start: 09-19-2021 End: 09-20-[address] RICHARD VIDAL Facility:[facility] Start: 08-31-2021 End: 08-31-[address] EDILIA SERRANO . Facility:[facility] Start: 08-18-2021 End: 08-18-2021 Patient encounter procedure Edilia SERRANO [facility] General Surgery [place] Procedures Date Procedure Procedure Detail Performing Clinician Start: 07-14-[address] SHERON VIDAL Comment on above: Performed By: #### [facility] #### [facility] [address] [place] [address] Dr. Carly Elias Start: 08-20-2018 Screening for malign ant neoplasm of colon Richard Vidal Other Start: 05-23-2017 General examination of patient Richard Young Other Start: 05-01-2016 Preoperative cardiov ascular examination Richard Vidal Other Arthroscopy of knee with meniscus repair Edilia NILL Arthroscopy of shoulder Joseluis aegildardo NILL Depression screening Andre Vidal Other Release of trigger finger Darcie schuler NILL Comment on above: left thumb Resection of clavicle Abelardo ewing NILL Plan of Treatment Date Care Activity Detail Author [facility] Immunizations Immunization Date Immunization Notes Care Provider Fa cility 06-29-2020 COVID-19 Vaccine Pfi zer - Documentation Purposes Only Richard Vidal Other [facility] 06-08-2020 COVID-19 Vaccine Pfi zer - Documentation Purposes Only Richard Vidal Other [facility] Payers Date Payer Category Payer Unknown [id number] 2.16.84 [id number] 1960 Unknown [id number] 2.16.84 [id number] 1961 Unknown [id number] 2.16.84 0.1.489125.3.579.2.593 1961 Unknown [id number] 2.16.84 0.1.861113.3.579.2.593 1961 Unknown [id number] 2.16.84 0.1.062139.3.579.2.593 1961 Unknown [id number] 2.16.84 0.1.256374.3.579.2.593 1961 Unknown [id number] 2.16.84 0.1.915526.3.579.2.1259 1961 Unknown [id number] 2.16.84 0.1.864911.3.579.2.1259 1961 Unknown [id number] 2.16.84 0.1.568940.3.579.2.1259 1961 Unknown [id number] 2.16.8 40.1.817436.3.579.2.1286 1961 Unknown [id number] 2.16.8 40.1.582786.3.579.2.1286 1959 Private Health Insurance [id number] 1959 Private Health Insurance [id number] 1958 Self-pay [id number] Social History Date Type Detail Facility Start: 08-18-2021 End: 03-31-2023 Tobacco smoking status Never smoked tobacco (finding) [facility] Tobacco smoking status Never [facility] Sex Assigned At Male [facility] Start: 1960 Sex Assigned At Male [facility] Functional Status Date Assessment Result Facility 08-18-2021 Functional Status N/A [facility] Clinical Notes 11-21-2017 to 11-24-2022 Note Date [...] use, the patient reduces the risk for PR, CVA, HTN, cardiac dysrhythmias and sudden cardiac [...] and to report to ER for evaluation. [facility] Other 08-07-2023 Evaluation note* Encounter Date Diagnosis [...] has resolved. Related to ongoing symptoms? GB? [facility] Other 06-30-2023 Evaluation note* Encounter Date Diagnosis Assessment Notes Treatment Notes Treatment Clinical Notes Jul, Type 2 diabetes mellitus with hyperglycemia, without long-term current use of insulin (ICD-10 - E11.65) [facility] Other 05-30-2023 Evaluation note* Encounter Date Diagnosis Assessment Notes Treatment Notes Treatment Clinical Notes June, Type 2 diabetes mellitus with hyperglycemia, without long-term current use of insulin (ICD-10 - E11.65) [facility] Other 04-25-2023 Evaluation note* Encounter Date Diagnosis [...] use, the patient reduces the risk for PR, CVA, HTN, cardiac dysrhythmias and sudden cardiac [...] or drinking prior to bedtime. Weight loss. [facility] Other 04-25-2023 Evaluation note* Encounter Date Diagnosis Assessment Notes Treatment Notes Treatment Clinical Notes May, Wellness examination (ICD-10 - Z00.00) [facility] Other 07-13-2022 NoteOPERATIVE NOTE OPERATION DATE: 08/31/2021 [...] in 10 years. CC: Richard Vidal D.O. [facility] Signed and Approved by: DR EDILIA SERRANO . 09/02/2021 12:37:00[facility]07-05-2022 NoteChief Complaint consultation for positive Cologuard [facility] Staff 61 year old male presents on [...] neoplasm of lung: Sister. Renal failure syndrome: Father.[facility] Result Comment: Electronically Signed By: HANK JASMINE, Edilia Maddox\Date and Time Signed: 08/23/21 08:29 [id number] Evaluation note* Diagnosis Onset Date Resolution Status Cerebral atherosclerosis November 21, 2017 acute Elevated cholesterol acute Gastroesophageal reflux dise ase with esophagitis without hemorrhage acute Obstructive sleep apnea acut e Primary hypertension acute Type 2 diabetes mellitus with hyperglycemia acute [facility] Work Phone: [phone] Evaluation note* Diagnosis Onset Date Resolution Status Cerebral atherosclerosis November 21, 2017 acute Elevated cholesterol acute Obstructive sleep apnea acut e Primary hypertension acute Type 2 diabetes mellitus with hyperglycemia acute [facility] Work Phone: Evaluation + Plan note No data available for this section [facility] General Surgery [place] Evaluation noteNo InformationNodoctors [facility] Other History general Narrative - Reported* Type [...] CLAVICLE 2013 Hospitalization History SEE SURGICAL HX [facility] Other Hospital Discharge instructions No data available for this section [facility] Progress note No data available for this section [facility] Summary Purpose Family History Relationship Condition Age at Onset Recorded Date/T jan father Unknown Not Specified Unknown Relationship Condition Age at Onset Recorded Date/T jan father Unknown mother Unknown Advance Directives Advance Directive Response Recorded Date/ Time Advance Directives No March 10:07am Advance Directive Response Recorded Date/ Time Advance Directives No March 11:07am Chief Complaint and Reason for Visit Chief Complaint 4 month follow up Reason for Visit Cerebral atheroscler osis Elevated cholesterol Gastroesophageal reflux disease with esophagitis without hemorrhage Obstructive sleep apnea Primary hypertension Type 2 diabetes mellitus with hyperglycemia Chief Complaint ER follow up Reason for Visit Cerebral atheroscler osis Elevated cholesterol Obstructive sleep apnea Primary hypertension Type 2 diabetes mellitus with hyperglycemia Additional Source Comments Care Team (unrecognized sect ion and content) Team Status: Active Member Role Status Dates Richard Vidal , Primary Care Provider Active Team Status: Active Member Role Status Dates Richard Vidal , Primary Care Provider Active Start: September 03, 2023 Ibis Mercedes , DO Attending Provider Active Start: September 03, 2023 Team Status: Active Member Role Status Dates Richard Vidal DO Primary Care Provider Active Start: September 04, 2023 Ibis Bourgeois Marker , DO Attending Provider Active Start: September 04, 2023 Team Status: Inactive Member Role Status Dates Richard Vidal DO Primary Care Provide r, Attending Provider Active Start: September 14, 2023 End: September 14, 2023 Team Status: Active Member Role Status Dates Richard Vidal , Primary Care Provider Active Team Status: Inactive Member Role Status Dates Richard Vidal DO Primary Care Provide r, Attending Provider Active Start: April 04, 2023 End: April 04, 2023 Team Status: Active Member Role Status Dates Richard Vidal , Primary Care Provider Active Start: September 03, 2023 Ibis Bourgeois Marker , DO Attending Provider Active Start: September 03, 2023 Team Status: Active Member Role Status Dates Richard Vidal DO Primary Care Provider Active Start: September 04, 2023 Ibis Bourgeois Marker , DO Attending Provider Active Start: September 04, 2023 Team Status: Inactive Member Role Status Dates Richard Vidal , Primary Care Provide r, Attending Provider Active Start: September 14, 2023 End: September 14, 2023 (unrecognized sect ion and content) No Status Records FoundNo Status Records FoundNo Status Records FoundNo Status Records Found INFORMATION SOURCE (unrecogn ized section and content) DATE CREATED AUTHOR 09/08/2021 [facility] DATE CREATED AUTHOR AUTHOR'S SABINOIZ ATION 07/28/2022 [facility] DATE CREATED AUTHOR AUTHOR'S ORGANIZ ATION 07/24/2023 [facility] EPIC DATE CREATED AUTHOR AUTHOR'S ORGANIZ ATION 09/12/2023 [facility] REASON FOR VISIT (unrecogniz ed section and [...] BE BASED ON THE PRIMARY CLINICAL RECORDS. [facility] [employer] [facility]. provides no warranty or guarantee of the accuracy or completeness of information in this document.
[2023-11-29 13:11] LABS: Basophils Absolute Auto 0.1 10^3/uL (0.0-0.1); Basophils Percent Auto 0.8 % (0.2-2.0); Eosinophils Absolute Auto 0.2 10^3/uL (0.0-0.7); Eosinophils Percent Auto 3.3 % (0.9-7.0); Hematocrit 41.5 % (42.0-54.0); Hemoglobin 14.5 g/dL (14.0-18.0); Immature Granulocytes Abs Auto 0.01 10^3/uL (0.00-0.03); Immature Granulocytes Pct Auto 0.1 % (0.0-0.5); Lymphocytes Absolute Auto 1.5 10^3/uL (1.2-3.8); Lymphocytes Percent Auto 21.7 % (20.5-60.0); Mean Corpuscular HGB Conc 34.9 g/dL (29.9-35.2); Mean Corpuscular Hemoglobin 30.5 pg (25.9-34.0); Mean Corpuscular Volume 87.2 fL (80.0-94.0); Mean Platelet Volume 9.7 fL (9.5-13.5); Monocytes Absolute Auto 0.7 10^3/uL (0.3-0.8); Monocytes Percent Auto 10.1 % (1.7-12.0); Neutrophils Absolute Auto 4.5 10^3/uL (1.4-6.5); Platelet Count 252 10^3/uL (150-450); Red Blood Count 4.76 10^6/uL (4.70-6.10); Red Cell Distribution Width 12.4 % (11.0-15.0); White Blood Count 7.1 10^3/uL (4.0-11.0)
[2023-11-29 13:44] LABS: Microalbumin Urine Random 5.8 mg/dL (<=30.0)
[2023-11-29 13:49] LABS: Alanine Aminotransferase 56 U/L (16-63); Albumin Globulin Ratio 1.1; Alkaline Phosphatase 89 U/L (46-116); Anion Gap 14.3; Aspartate Amino Transferase 37 U/L (15-37); BUN Creatinine Ratio 23.8; Bilirubin Total 0.5 mg/dL (0.2-1.0); Calcium 9.7 mg/dL (8.5-10.1); Carbon Dioxide 26.7 mmol/L (21.0-32.0); Chloride 101 mmol/L (98-107); Estimated GFR (African America >60 (>=60 mL/min/1.73m^2); Estimated GFR (Non-African Ame >60 (>=60 mL/min/1.73m^2); Globulin 3.6 g/dL; Glucose 131 mg/dL (74-106); Sodium 138 mmol/L (136-145); Total Protein 7.6 g/dL (6.4-8.2)
[2023-11-29 15:00] LABS: Estimated Average Glucose 148 mg/dL; Glycohemoglobin A1C 6.8 % (4.5-6.2)
== END 2023-11-29 12:36 | disposition home or self-care (01) ==
LOC: LAB 12:37
PROVIDERS: PCP Internal Medicine; Visit Provider Internal Medicine
DX: Z00.00 Encounter for general adult medical examination without abnormal findings (principal)
CPT/HCPCS: 36415; 80053; 82043; 83036; 85025; G0103

== ENCOUNTER 2024-02-07 12:22 | Outpatient (OUT) | payer OTHER, SELFPAY ==
--- NOTE | 2024-02-07 12:26 | XR_ITS ---
The [address] [address] Patient Name: MICHELL WEBSTER MRN: [id number] date: 1960 Sex: M Assigned Patient Location: [facility] Current Patient Location: Accession/Order Number: [id number] Exam Date: 02/07/2024 12:30 Report Date: 02/08/2024 12:01 At the request of: CINTHIA HASKINS Procedure: XR chest 2V EXAMINATION: XR chest 2V HISTORY: thoracic pain, dyspnea COMPARISON: No relevant comparison available. TECHNIQUE: PA and lateral FINDINGS: LUNGS: No significant pulmonary parenchymal abnormalities. VASCULATURE: No increased pulmonary vasculature. PLEURA: No pneumothorax, effusion, or pleural thickening. CARDIAC: No cardiomegaly or cardiac silhouette abnormality. MEDIASTINUM: No visible mass or adenopathy. Loop recorder BONES: No fracture or visible bone lesion. OTHER: Negative. XR/XR chest 2V IMPRESSION: No acute cardiopulmonary process Electronically authenticated by: MARK ROGERS Date: 02/08/2024 12:01
--- NOTE | 2024-02-07 12:27 | XR_ITS ---
The [address] [address] Patient Name: MICHELL WEBSTER MRN: [id number] date: 1960 Sex: M Assigned Patient Location: [facility] Current Patient Location: [facility] Accession/Order Number: [id number] Exam Date: 02/07/2024 12:30 Report Date: 02/09/2024 07:02 At the request of: CINTHIA HASKINS Procedure: XR thoracic spine 3V EXAMINATION: XR thoracic spine 3V HISTORY: thoracic pain, dyspnea COMPARISON: No relevant comparison available. FINDINGS: BONES: No significant spondylosis, scoliosis, fracture, or visible bony lesion. DISC SPACES: Multilevel mild degenerative changes. PARASPINOUS: Negative. No paraspinous abnormality is seen. OTHER: Loop recorder projecting over midline chest. XR/XR thoracic spine 3V IMPRESSION: 1. Minimal degenerative changes of thoracic spine. No appreciable acute abnormality. Electronically authenticated by: ROBERTA ROCA Date: 02/09/2024 07:02
--- OUTSIDE RECORDS SUMMARY | 2024-02-07 12:27 | XMS_ITS | CCD ---
Author Organization [facility] Care Team Providers Care Bed Operator Name Role Phone RICHARD VIDAL Primary Care Physician Richard Vidal YOUNG, DR RAMOS Primary Care Unavailable YOUNG, DR RAMOS Admitting Unavailable BALL, DR RAMOS Attending Unavailable YOUNG, DR RAMOS Admitting Unavailable BALL, [...] aspirin 81 mg delayed release oral tablet (12 sources) Platelet Aggregation Inhibitor, Nonsteroidal Anti-inflammatory Drug [...] day Active atorvastatin 10 mg oral tablet (12 sources) HMG-CoA Reductase Inhibitor Start: 08-15-2021 take 1 tablet by mouth once daily Atorvastatin Active 1 TAB PO Daily March 31, 2023 1:00am FreeTextSi tablet Orally Once a day; Note: Source Status: Continue; Provider: Young Ramos ( ) cloNIDine (14 sources) Central alpha-2 Adrenergic Agonist Start: 05-02-2023 [...] Dulaglutide (Trulicity) 3 mg/0.5 mL pen injector (7 sources) Start: 04-13-2023 inject 0.5 mL by [...] Young Soria hydroCHLOROthiazide 12.5 mg oral capsule (11 sources) Thiazide Diuretic Start: 03-31-2023 take 1 capsule by mouth once daily Hydrochlorothiazide Active 1 CAP PO Daily March 31, 2023 1:00am FreeTextSig: TAKE 1 CAPSULE BY MOUTH EVERY DAY; Note: Source Status: Start; Refills: 3; Qty: 90 Capsule; Provider: Young Ramos ( ) Lisinopril (14 sources) Angiotensin Converting Enzyme Inhibitor Start: 05-02-2023 [...] ) meclizine hydrochloride 25 mg oral tablet (2 sources) Antiemetic Start: 09-14-2023 take 25 mg by mouth once daily Meclizine Active 25 MG PO Daily September 14, 2023 12:00am metFORMIN hydrochloride 500 mg oral tablet (15 sources) Biguanide Start: 10-28-2023 take 1 tablet by mouth twice daily Metformin Active 0 .ROUTE .COMPLEX 180 October 28, 2023 8:36am TAKE 1 TABLET BY MOUTH TWICE A DAY Start: 07-30-2023 End: 10-28-2023 take 500 mg by mouth twice daily Metformin Discontinued 500 MG PO Twice daily 180 90 July 30, 2023 5:47pm October 28, 2023 8:36am Start: 03-31-2023 End: 07-30-2023 take 1 tablet [...] omeprazole 40 mg delayed release oral capsule (11 sources) Proton Pump Inhibitor Start: 04-15-2023 End: 10-15-2023 take 1 capsule by mouth twice daily at mealtime Omeprazole Active 0 .ROUTE .COMPLEX 180 October 15, 2023 9:28pm TAKE 1 CAPSULE BY MOUTH TWICE A [...] of cerebral arteries] Onset: 8 08-15-2021 Chronic Conditions associated with dizziness or vertigo (2 sources) Benign paroxysmal positional vertigo; Translations: [Benign paroxysmal vertigo, unspecified ear] 09-14-2023 Episodic Diabetes mellitus with complications (20 sources) Type 2 diabetes mellitus; Translations: [Type 2 diabetes mellitus with hyperglycemia] Onset: 2 Chronic Diabetes mellitus without complication (8 sources) Diabetes mellitus; Translations: [Type 2 diabetes mellitus without complications] Onset: 2 08-15-2021 Chronic Digestive congenital anomalies (1 source) Other specified congenital malformations of intestine; 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] Onset: 2 Chronic Disorders of lipid metabolism (19 sources) Hypercholesterolemia; Translations: [Pure hypercholesterolemia, unspecified] Onset: 8 Chronic Esophageal disorders (14 sources) Gastroesophageal reflux disease; Translations: [Gastro-esophageal reflux disease with esophagitis] Onset: 2 08-15-2021 Chronic Essential hypertension (20 sources) Hypertensive disorder; Translations: [Essential hypertension] Onset: [...] 4 Chronic Other and ill-defined cerebrovascular disease (7 sources) Cerebral atherosclerosis; Translations: [Cerebral atherosclerosis] Onset: 8 03-31-2023 Chronic Other and ill-defined cerebrovascular disease (5 [...] nutritional; endocrine; and metabolic disorders (2 sources) Obesity; Translations: [Obesity, unspecified] Onset: 5 11-29-2023 Chronic Other nutritional; endocrine; and metabolic disorders (1 source) Obesity, unspecified; Translations: [Obesity, unspecified] 11-29-2023 Chronic Other screening for suspected conditions (not mental disorders or infectious disease) (4 sources) Stool DNA-based colorectal cancer screening positive; [...] tube disorder, bilateral] Episodic Residual codes; unclassified (15 sources) Obstructive sleep apnea syndrome; Translations: [Obstructive sleep apnea (adult) (pediatric)] 08-15-2021 Chronic Residual codes; unclassified (13 sources) Obstructive sleep apnea (adult) (pediatric); Translations: [...] Onset: 02-07-2016 Episodic Other aftercare (1 source) assisted (current) use of aspirin; Translations: [USP CURRENT USE OF ASPIRIN] Onset: 11-21-2021 Episodic Other aftercare (1 source) Other terminal operations manager (current) drug therapy; Translations: [OTH USP CURRENT DRUG THERAPY] Onset: 11-21-2021 Episodic Other aftercare (1 source) termite treater (current) use of oral hypoglycemic drugs; Translations: [GINNER USE ORAL HYPOGLYCEMIC DX] Onset: 09-01-2021 Episodic [...] challengeon 09-04-2023 Bilirubin Ql (U) Negative NEGATIVE [facility] Glucose (U) [Mass/Vol] Negative NEGATIVE [facility] Ketones Ql (U) Negative NEGATIVE [facility] pH (U) 6.0 [pH] 5.0-9.0 [facility] Specific gravity (U) [Rel density] 1.010 1.005-1.025 [facility] Urobilinogen Qn (U) 0.2 {Woodrow'U}/dL 0.2-1.0 [facility] Laboratory - Specimen inform ationon 09-04-2023 Appearance (U) CLEAR CLEAR [facility] Color (U) LT. YELLOW YELLOW [facility] Laboratory - Urinalysison Leukocyte esterase Test strip Ql (U) Negative NEGATIVE [facility] Nitrite Ql (U) Negative NEGATIVE [facility] Protein Ql (U) Negative NEG/TRACE [facility] No Panel Informationon 09-03 Urine Microscopic Review NO [facility] Urine Occult Blood Negative NEGATIVE [facility] Basophils Auto (Bld) [#/Vol] on 09-03-2023 Basophils (Bld) [#/Vol] 0.1 10 3/uL 0.0-0.1 [facility] Basophils/100 WBC Auto (Bld) on 09-03-2023 Basophils/100 WBC (Bld) 1.0 % 0.2-2.0 [facility] Eosinophils/100 WBC Auto (Bl d)on 09-03-2023 Eosinophils/100 WBC (Bld) 4.6 % 0.9-7.0 [facility] Erythrocyte distribution wid th Auto (RBC) [Ratio]on 09-03-2023 Erythrocyte distribution width (RBC) [Ratio] 12.7 % 11.0-15.0 [facility] Estimated glomerular filtrat ion rate (GFR) non- Americanon 09-03-2023 GFR/1.73 sq M.predicted among non-blacks MDRD (S/P/Bld) [Vol rate/Area] mL/min/{1.73_m2} >=60 [facility] Globulin Calc (S) [Mass/Vol] on 09-03-2023 Globulin (S) [Mass/Vol] 3.5 g/dL [facility] Hematocrit Auto (Bld) [Volum e fraction]on 09-03-2023 Hematocrit (Bld) [Volume fraction] 39.1 % Low 42.0-54.0 [facility] Hemoglobin [Mass/volume] in Bloodon 09-03-2023 Hemoglobin (Bld) [Mass/Vol] 13.8 g/dL Low 14.0-18.0 [facility] Laboratory - Chemistry and C hemistry - challengeon 09-03-2023 Albumin [Mass/Vol] 3.8 g/dL 3.4-5.0 [facility] ALP [Catalytic activity/Vol] 108 U/L 46-116 [facility] ALT [Catalytic activity/Vol] 60 U/L 16-63 [facility] AST [Catalytic activity/Vol] 36 U/L 15-37 [facility] Bilirubin [Mass/Vol] 0.4 mg/dL 0.2-1.0 [facility] Calcium [Mass/Vol] 9.2 mg/dL 8.5-10.1 [facility] Chloride [Moles/Vol] 101 mmol/L 98-107 [facility] CO2 [Moles/Vol] 27.1 mmol/L 21.0-32.0 [facility] Creatinine [Mass/Vol] 0.83 mg/dL 0.70-1.30 [facility] GFR/1.73 sq M.predicted MDRD (S/P/Bld) [Vol rate/Area] mL/min/{1.73_m2} >=60 [facility] Glucose [Mass/Vol] 132 mg/dL High 74-106 [facility] Potassium [Moles/Vol] 3.7 mmol/L 3.5-5.1 [facility] Protein [Mass/Vol] 7.3 g/dL 6.4-8.2 [facility] Sodium [Moles/Vol] 136 mmol/L 136-145 [facility] Urea nitrogen [Mass/Vol] 14.0 mg/dL 7.0-18.0 [facility] Urea nitrogen/Creatinine [Mass ratio] 16.9 mg/mg [facility] Laboratory - Hematology and Cell countson 09-03-2023 Immature granulocytes/100 WBC (Bld) 0.2 % 0.0-0.5 [facility] Leukocytes [#/volume] correc adia for nucleated erythrocytes in Blood by Automated counon 09-03-2023 WBC corrected for nucl RBC Auto (Bld) [#/Vol] 6.3 10 3/uL 4.0-11.0 [facility] Lymphocytes Auto (Bld) [#/Vo l]on 09-03-2023 Lymphocytes (Bld) [#/Vol] 1.8 10 3/uL 1.2-3.8 [facility] Lymphocytes/100 WBC Auto (Bl d)on 09-03-2023 Lymphocytes/100 WBC (Bld) 28.0 % 20.5-60.0 [facility] MCH Auto (RBC) [Entitic mass ]on 09-03-2023 MCH (RBC) [Entitic mass] 31.1 pg 25.9-34.0 [facility] MCHC Auto (RBC) [Mass/Vol]on 09-03-2023 MCHC (RBC) [Mass/Vol] 35.3 g/dL High 29.9-35.2 [facility] MCV Auto (RBC) [Entitic vol] on 09-03-2023 MCV (RBC) [Entitic vol] 88.1 fL 80.0-94.0 [facility] Monocytes Auto (Bld) [#/Vol] on 09-03-2023 Monocytes (Bld) [#/Vol] 0.7 10 3/uL 0.3-0.8 [facility] Monocytes/100 WBC Auto (Bld) on 09-03-2023 Monocytes/100 WBC (Bld) 11.2 % 1.7-12.0 [facility] Neutrophils Auto (Bld) [#/Vo l]on 09-03-2023 Neutrophils (Bld) [#/Vol] 3.5 10 3/uL 1.4-6.5 [facility] Neutrophils/100 WBC Auto (Bl d)on 09-03-2023 Neutrophils/100 WBC (Bld) 55.0 % 43.0-75.0 [facility] No Panel Informationon 09-02 Eosinophils # (Auto) 0.3 10 3/uL 0.0-0.7 [facility] Immature Granulocyte # (Auto) 0.01 10 3/uL 0.00-0.03 [facility] Troponin I High Sensitivity 5.1 pg/mL 4.0-76.1 [facility] Comment on above: CUT-OFF POINTS HAVE BEEN [...] volume (Bld) [Entitic vol] 10.0 fL 9.5-13.5 [facility] Platelets Auto (Bld) [#/Vol] on 09-03-2023 Platelets (Bld) [#/Vol] 241 10 3/uL 150-450 [facility] RBC Auto (Bld) [#/Vol]on RBC (Bld) [#/Vol] 4.44 10 6/uL Low 4.70-6.10 [facility] Serum or plasma albumin/glob ulin mass ratioon 09-03-2023 Albumin/Globulin [Mass ratio] 1.1 {ratio} [facility] Serum or plasma anion gap de terminationon 09-03-2023 Anion gap [Moles/Vol] 11.6 mmol/L [facility] CBC AUTO DIFFon 07-14-2022 BASO # 0.1 103/ul Normal 0.0-0.1 [facility] Comment on above: Performed By: #### C BC #### [facility] [address] [address] [address] Carly Elias Basophils/100 WBC (Bld) 1.2 % Normal 0.2-2.0 [facility] Comment on above: Performed By: #### C BC #### [facility] [address] [address] [address] Carly Elias EO # 0.3 103/ul Normal 0.0-0.7 [facility] Comment on above: Performed By: #### C BC #### [facility] [address] [address] [address] aCrly Elias Eosinophils/100 WBC (Bld) 4.8 % Normal 0.9-7.0 [facility] Comment on above: Performed By: #### C BC #### [facility] [address] [address] [address] Carly Elias Erythrocyte distribution width (RBC) [Ratio] 12.7 % Normal 11.0-15.0 [facility] Comment on above: Performed By: #### C BC #### [facility] [address] [address] [address] Carly Elias Hematocrit (Bld) [Volume fraction] 41.0 % Critically low 42.0-54.0 [facility] Comment on above: Performed By: #### C BC #### [facility] [address] [address] [address] Carly Elias Hemoglobin (Bld) [Mass/Vol] 14.0 g/dL Normal 14.0-18.0 [facility] Comment on above: Performed By: #### C BC #### [facility] [address] [place] [address] Dr. Carly Elias IG # 0.02 10e3/ul Normal 0.00-0.03 [facility] Comment on above: Performed By: #### C BC #### [facility] [address] [place] [address] Dr. Carly Elias IG % 0.4 % Normal 0.0-0.5 [facility] Comment on above: Performed By: #### C BC #### [facility] [address] [place] [address] Dr. Carly Elias LYMPH # 1.5 103/ul Normal 1.2-3.8 [facility] Comment on above: Performed By: #### C BC #### [facility] [address] [place] [address] Dr. Carly Elias Lymphocytes/100 WBC (Bld) 28.5 % Normal 20.5-60.0 [facility] Comment on above: Performed By: #### C BC #### [facility] [address] [place] [address] Dr. Carly Elias MANUAL DIFF REQ NO Normal [facility] Comment on above: Performed By: #### C BC #### [facility] [address] [place] [address] Dr. Carly Elias MCH (RBC) [Entitic mass] 29.9 pg Normal 25.9-34.0 [facility] Comment on above: Performed By: #### C BC #### [facility] [address] [place] [address] Dr. Carly Elias MCHC (RBC) [Mass/Vol] 34.1 g/dL Normal 29.9-35.2 [facility] Comment on above: Performed By: #### C BC #### [facility] [address] [place] [address] Dr. Carly Elias MCV (RBC) [Entitic vol] 87.6 fL Normal 80.0-94.0 [facility] Comment on above: Performed By: #### C BC #### [facility] [address] [address] [address] Carly Elias MONO # 0.6 103/ul Normal 0.3-0.8 [facility] Comment on above: Performed By: #### C BC #### [facility] [address] [address] [address] Carly Elias Monocytes/100 WBC (Bld) 11.5 % Normal 1.7-12.0 [facility] Comment on above: Performed By: #### C BC #### [facility] [address] [address] [address] Carly Elias NEUT # 2.8 103/ul Normal 1.4-6.5 [facility] Comment on above: Performed By: #### C BC #### [facility] [address] [place] [address] Dr. Carly Elias Neutrophils/100 WBC (Bld) 53.6 % Normal 43.0-75.0 [facility] Comment on above: Performed By: #### C BC #### [facility] [address] [place] [address] Dr. Carly Elias Platelet mean volume (Bld) [Entitic vol] 9.4 fL Critically low 9.5-13.5 [facility] Comment on above: Performed By: #### C BC #### [facility] [address] [place] [address] Dr. Carly Elias PLT 228 103/ul Normal 150-450 [facility] Comment on above: Performed By: #### C BC #### [facility] [address] [address] [address] Carly Elias RBC 4.68 106/ul Critically low 4.70-6.10 [facility] Comment on above: Performed By: #### C BC #### [facility] [address] [place] [address] Dr. Carly Elias WBC 5.2 103/ul Normal 4.0-11.0 [facility] Comment on above: Performed By: #### C BC #### [facility] [address] [place] [address] Dr. Carly Elias GLYCOHEMOGLOBIN A1Con 2022 ADA RECOMMENDATION SEE BELOW Normal [facility] Comment on above: Result Comment: ADA RECOMMENDED LIMIT 4.0 - 6.0 ADA THERAPEUTIC TARGET < 7.0 ACTION SUGGESTED > 7.0 Performed By: #### A 1C #### [facility] [address] [place] [address] Dr. Carly Elias Glucose [Mass/Vol] 163 mg/dL Normal [facility] Comment on above: Performed By: #### A 1C #### [facility] [address] [place] [address] Dr. Carly Elias HbA1c (Bld) [Mass fraction] 7.3 % Critically high 4.5-6.2 [facility] Comment on above: Performed By: #### A 1C #### [facility] [address] [place] [address] Dr. Carly Elias LIPID PROFILEon 07-14-2022 CHOL-HDL RATIO NORM SEE BELOW Normal [facility] Comment on above: Result Comment: 3.3 - 4.4 LOW RISK 4.4 - 7.1 AVERAGE RISK 7.1 - 11.0 MODERATE RISK >11.0 HIGH RISK Performed By: #### C MP, LIPID #### [facility] [address] [place] [address] Dr. Carly Elias Cholesterol [Mass/Vol] 125 mg/dL Normal <=200 [facility] Comment on above: Performed By: #### C MP, LIPID #### [facility] [address] [place] [address] Dr. Carly Elias Cholesterol in HDL [Mass/Vol] 32 mg/dL Critically low 40-60 [facility] Comment on above: Performed By: #### C MP, LIPID #### [facility] [address] [address] [address] Carly Elias Cholesterol in LDL [Mass/Vol] 32.6 mg/dL Normal [facility] Comment on above: Performed By: #### C MP, LIPID #### [facility] [address] [place] [address] Dr. Carly Elias Cholesterol.total/Cho lesterol in HDL [Mass ratio] 3.9 {ratio} Normal [facility] Comment on above: Performed By: #### C MP, LIPID #### [facility] [address] [address] [address] Carly Elias HDL NORMAL > or = 60 mg/dl - LOW CARDIOVASCULAR RISK <40 mg/dl - HIGH CARDIOVASCULAR RISK Normal [facility] Comment on above: Performed By: #### C MP, LIPID #### [facility] [address] [address] [address] Carly Elias LDL CALC NORMAL SEE BELOW Normal [facility] Comment on above: Result Comment: <100 mg/dl OPTIMAL 100 - 129 mg/dl NEAR OR ABOVE OPTIMAL 130 - 159 mg/dl BORDERLINE HIGH 160 - 189 mg/dl HIGH >190 mg/dl VERY HIGH Performed By: #### C MP, LIPID #### [facility] [address] [address] [address] Carly Elias Triglyceride [Mass/Vol] 302 mg/dL Critically high <=150 [facility] Comment on above: Performed By: #### C MP, LIPID #### [facility] [address] [address] [address] Carly Elias VLDL CALC 60.4 mg/dL Normal [facility] Comment on above: Performed By: #### C MP, LIPID #### [facility] [address] [place] [address] Dr. Carly Elias MICROALBUMIN, RAND URon 06-20 mALB 2.0 mg/dL Normal <=30.0 [facility] Comment on above: Performed By: #### M ALBR #### [facility] [address] [place] [address] Dr. Carly Elias PROF 14(COMP METB)on 023 Albumin [Mass/Vol] 3.8 g/dL Normal 3.4-5.0 [facility] Comment on above: Performed By: #### C MP, LIPID #### [facility] [address] [place] [address] Dr. Carly Elias Albumin/Globulin [Mass ratio] 1.0 {ratio} Normal [facility] Comment on above: Performed By: #### C MP, LIPID #### [facility] [address] [address] [address] Carly Elias ALP [Catalytic activity/Vol] 86 U/L Normal 46-116 [facility] Comment on above: Performed By: #### C MP, LIPID #### [facility] [address] [address] [address] Carly Elias ALT [Catalytic activity/Vol] 79 U/L Critically high 16-63 [facility] Comment on above: Performed By: #### C MP, LIPID #### [facility] [address] [address] [address] Carly Elias Anion gap [Moles/Vol] 12.1 mmol/L Normal [facility] Comment on above: Performed By: #### C MP, LIPID #### [facility] [address] [place] [address] Dr. Carly Elias AST [Catalytic activity/Vol] 52 U/L Critically high 15-37 [facility] Comment on above: Performed By: #### C MP, LIPID #### [facility] [address] [address] [address] Carly Elias Bilirubin [Mass/Vol] 0.4 mg/dL Normal 0.2-1.0 [facility] Comment on above: Performed By: #### C MP, LIPID #### [facility] [address] [place] [address] Dr. Carly Elias Calcium [Mass/Vol] 9.5 mg/dL Normal 8.5-10.1 [facility] Comment on above: Performed By: #### C MP, LIPID #### [facility] [address] [address] [address] Carly Elias Chloride [Moles/Vol] 102 mmol/L Normal 98-107 [facility] Comment on above: Performed By: #### C MP, LIPID #### [facility] [address] [address] [address] Carly Elias CO2 [Moles/Vol] 29.2 mmol/L Normal 21.0-32.0 [facility] Comment on above: Performed By: #### C MP, LIPID #### [facility] [address] [address] [address] Carly Elias Creatinine [Mass/Vol] 0.81 mg/dL Normal 0.70-1.30 [facility] Comment on above: Performed By: #### C MP, LIPID #### [facility] [address] [address] [address] Carly Elias EGFR-AF [place] CITIZ[place] >60 Normal >=60 [facility] Comment on above: Performed By: #### C MP, LIPID #### [facility] [address] [address] [address] Carly Elias EGFR-NON AF [place] CITIZ[place] >60 Normal >=60 [facility] Comment on above: Performed By: #### C MP, LIPID #### [facility] [address] [place] [address] Dr. Carly Elias Globulin (S) [Mass/Vol] 3.7 g/dL Normal [facility] Comment on above: Performed By: #### C MP, LIPID #### [facility] [address] [address] [address] Carly Elias Glucose [Mass/Vol] 129 mg/dL Critically high 74-106 [facility] Comment on above: Performed By: #### C MP, LIPID #### [facility] [address] [place] [address] Dr. Carly Elias Potassium [Moles/Vol] 4.3 mmol/L Normal 3.5-5.1 [facility] Comment on above: Performed By: #### C MP, LIPID #### [facility] [address] [address] [address] Carly Elias Protein [Mass/Vol] 7.5 g/dL Normal 6.4-8.2 [facility] Comment on above: Performed By: #### C MP, LIPID #### [facility] [address] [place] [address] Dr. Carly Elias Sodium [Moles/Vol] 139 mmol/L Normal 136-145 [facility] Comment on above: Performed By: #### C MP, LIPID #### [facility] [address] [place], [place] [address] Dr. Carly Elias Urea nitrogen [Mass/Vol] 19.0 mg/dL Critically high 7.0-18.0 [facility] Comment on above: Performed By: #### C MP, LIPID #### [facility] [address] [address] [address] Carly Elias Urea nitrogen/Creatinine [Mass ratio] 23.5 mg/mg Normal [facility] Comment on above: Performed By: #### C MP, LIPID #### [facility] [address] [address] [address] Carly Elias XR ELBOW LT MIN 3 VIEWSon XR ELBOW LT MIN 3 VIEWS IMAGES REVIEWED: XR ELBOW LT MIN 3 VIEWS COMPARISON: None available. CLINICAL INDICATION: C/O: pain FINDINGS/IMPRESSION: 1. No evidence of acute osseous abnormality of the left elbow. No joint effusion. 2. 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 Electronically authenticated by: SUNDAY RAMIREZ Date: 2021-11-20 15:19 Normal [facility] GLYCOHEMOGLOBIN A1Con 2021 ADA RECOMMENDATION SEE BELOW Normal [facility] Comment on above: Result Comment: ADA RECOMMENDED LIMIT 4.0 - 6.0 ADA THERAPEUTIC TARGET < 7.0 ACTION SUGGESTED > 7.0 Performed By: #### A 1C #### [facility] [address] [address] [address] Carly Elias Glucose [Mass/Vol] 166 mg/dL Normal [facility] Comment on above: Performed By: #### A 1C #### [facility] [address] [place], [place] [address] Dr. Carly Elias HbA1c (Bld) [Mass fraction] 7.4 % Critically high 4.5-6.2 [facility] Comment on above: Performed By: #### A 1C #### [facility] [address] [place], [place] [address] Dr. Carly Elias Outside Colonoscopyon 2021 Outside Colonoscopy [id number] [facility] Reminderson 09-01-2021 Reminders - From: Marilynn Coelho LPN To: [facility] - Clinical; Sent: 09/01/2021 14:20:20 EDT Show up: 08/02/2031 07:00:00 EDT Subject: colonoscopy recall Due Date/Time: 09/01/2031 07:00:00 EDT Reminder/Recall Patient is due for screening colonoscopy 09/01/2031. Normal [facility] POINT OF CARE GLUCOSEon 08-19 Glucose [Mass/Vol] 155 mg/dL Critically high 74-106 [facility] Comment on above: Performed By: #### P OCGLUC #### [facility] [address] [place] [address] Dr. Carly Elias Consent for Procedure/Surger yon 08-18-2021 Consent for Procedure/Surgery [id number] #1.00CD:127 [facility] Physician Referralon 022 Physician Referral [id number]# 1.00CD:127 [facility] Coding Summary.on 12-28-2020 Coding Summary. CD:[id number] Gh0bWw+PGhlYWQ+PE1FV YWzK78oqRQneU6KG5tHJ X7BHSJUOGXAFS4MYS7ht RC8OMxiF7FmomFi BmijwEXkEG13RYv5DGH1 mNkqEUftjX8nuJRdB7h7 GxHfUU43vD83IRswQZMw KcU0UyChcaxgdISv T4viLtLxjFUpVys+PHRh YmxlIHdpZHRoPScxMDAl RdBqjEjlNT1uOn0oIDZo LWNvbGxhcHNlOiBj j5aqUQShWZwwNO7rmVox Y6OiyHV5JXNer4h5Wq38 dHI+UPOyCII6tHibRTni z873TbGbm4xxXOT4 yPBrDJwcZHE8X20sy3J5 PXAuBOJwEJF1jWI8eY8e fWyhiaskL3MbaRWcSmU8 GRB5yJArhC7upMlx kiqehT5hJns+Q59IZO5K MSPYMB8IVdx0Z7EiDecr dHI+YX72YALpOB28lGMd gEMba0vloDu1BwPa DNUrRZY7yLhpVFcim1Lb WDKgV50ejVFab8M6RZLr vIplhCVoTxThoZK6iA5w VUhqwisnp3xyfyhw Cvwct8pcxk98mS01G82v HPbsQABmZCY8HHTjBKOm fNqqmn3rtO4aGo0+IDxj c6igl5obqQn1MxZc LJNkpdEojZytCIA8y0Df Gj71B8MroXwzv6UdKam5 ih91fADpn1S3cHJ7PJvl OVLoiL4vBKthRaE2 INZqIdQzpU23zIQeNYyd Ov0piSsxaGudGS0aCYLf qlwnMKFdeK9wTVJqfBDu zVhnEI2yHCZakicm u080SnZbTMI8OUWprXOg X3XrmT2iSbDrBIXkLJFq L7EbiWGoTFelP263FCwl JuM7DFCpbgWqH4Yc QCOtbBcbIxM1h4U8Bs7N q2IqhshpIZG6YPqaTIUu FqA6XxRuNnF6X8ItJeo4 WWWvzClcFK5jH2Gc ENDnkzwktucqiNN6TBAp XGDabS54xWAyPLbuWi5a x5M4r136KRViTOJfaG92 St9tcCqrSPQaaOSM kA0emwzoz1qrzhziJuCn MMMtKNo0CAr5SNTewJgu YkTiTAY5AvB5TUG5vOMn pJ0beUnvtylfbS6l Oyc+Y72jmF2kMLJ2EJA0 uylqZKQrqnBmRT76PT23 E2UmJrtkpZMeoOO+PGRp rhZpiUceGF5bGfLm i6shh1OrPLabN4EcRFDz APapNjq4USLaPGB1uQN8 iF7bDFVvGJfvk6V4xSZ7 O9NiioRfxx9zm8uv BMWjCMkqR45teXTdt8W9 KNDpvAY1PXXtxVgzWqRv dL83Fno+SAHtdCawe8Pm Phgmt9qql6lmnEc6 IjMwJSIgdmFsaWduPSJ0 a4QfYm35M26iEVlsTJBl SDYaIJTuBVKvuAydbo4v fT9iDi5+PGNvbCB3 xJN6vF6vXBNgQlC1ZWyu T452UnRnbZQuGgwmh6vq n9auaQs2YtXmXRWmgdLo aEfuOPH3x5KfTv57 G04lARanWZGvHGWtULOw EWOvwSzncx8fbT1pGm1+ VO5my7pesn13uZ69gCD+ WGMkBGD4zLqcEJlt ASRylC9bXHnlSgK9IYZl YuAarV81vCKgEJlaFb2h cVkfdRdsAX0vLLUytkar m107CfZcl6mtTCQu lHBwUTmqSOS6K86kq2W3 BUTkKOZyJHK0lTD4aH8g bGlnbjogbGVmdDsgdmVy nMqkENgwKTxfP308 IHRvcDsnPlBhdGllbnQg CpLwKDo2Q4JzHwi1FZBn hPaqHW0aoXFkPJefVe3j pEmjrNtlGN2iNEGo qvjvv613KqBpi4vaVQQj pQExTAcxMMU8M86ip2M0 BUVlPSIzPCS6tHM8vJ4y bGlnbjogbGVmdDsg mpJxqKpjSHhdJChnL435 IHRvcDsnPkJpcnRoIERh zCP3SG09JW98cMUbv0E8 bIP7W2YdVSTifruv zijavFZ6YEYoQXDczK82 Gk5qtBkpZa5yUMAbQQL5 PSCyjRJsY3GxmM7yKpNu HLPrTDQoW8EruIMf PUdbA683WAwjZuX7LSAw xrMeN6LkPJTeuDrwCxC3 g4G4Oi2TZ0P1RN52TI15 rVOsb3L8vZZ0D9Uu QARfnbioxsnrcLE1GCYz PYQyqT31Bg3upSekWt8q DORtMCM0UJRwxAHwV1Yv wY2lCsOqDUUgSVEa I1VkzNHyEGbtK300ARyc TcQ7JZTiddEdE1VsYTXy aGftWmK8s0X1Ur1OJYh2 XM09RZ53vBEhv2S7 rVU4G9SxFTMazrpwrnam vSK0DQWiJYAgtR32Rm8n bImxIf4tHUMqXJD2GDDy zJQjB6NuqM8sWqKz FYCwUDKaA7YlqQDjOIss Q876GDjhKpJ2YVTqctAz W5GxXFMucMlaUjJ9p7Y4 Jo8RBYRgOY43WBL6 dVV3WF42BG95E7KrIfns dGFibGU+PHRhYmxlIHdp ZHRoPScxMDAlJyBzdHls YE0lIc4kLUPdKSDg yZyhpRQqLsWgs4aaXQXz RZmeVK2unPauK6AfaSJ3 ZAPzz7a6Dn06Q22wM3Lk dXA+OMBcoQB7lKQ1 yO0tYoTmLjU9GZprA270 LiAslQBoOmeom7dam3bf eDr0YmG2NWGqobTwuZgl KUJ6a3OwFd74G71o IHdpZHRoPSIxNSUiIHZh wQhzbp3roK5oAh4+PGNv eIV6nZG6aH1pHdMjJoS7 ECubT911ZcQzaFJk Rebqf7lpd8xhfUx7XgYy YLMjzrNvuEksITS0o6Gp Fy55N5TdgVggx9StZlk1 xa20jAAda7L5pGI8 X9VnMPRhvhvjdGPniAko PB8zNKSlwsfcYAXktX0p EBEbM9t6XmXdLmT6PEuz C2KqfdZ2YVNmrENv SPkeWIU7O89kx4G5KBXv TDYbPAX7oVJ0gJ2rfWos bjogbGVmdDsgdmVydGlj EUseSIvrN091NSWl xTymGOXouS1dSMQrvBAp kGlpYU0fRMUupeusNsSY BFxEY4msDKtBCZQLWWcU Klh9Q8IbUdn5QSHy pJecKA9dfVPhYKbhHx2u pCzxhDejJZ1rOJNwfykk YRTbiR2eSQAzqCKxvOel LC7rYRUeiyksu993 EtWxILE5VQLfkFZqM0Dk mC1xEoUsNBWhMRSaH3Wx qBOjVKafY751WEpaZxP9 GEGferHqO0WaLCPq pWgeZcH7g3R9Ge4pJi2b Yk2fTBGdAI58TF87oFSk v9K8aKK1K8UhQXRyepjx enyiaPQ8QDAdOQGr zE46iSUpFSflGg8ma3L4 y520ROAfQTBztG01Yn4k zGddSXFsgOOIsH0uqyxw u4tvrtyfTpNfFAMl AIs4AXo4OCQioGztQtHo MAR2UoW5ULB5sNPqdK4x aRtvhtodxV6sInc+NTkg PNAnnyZ3C7QpBtv7 ACOghBacMP9ocHHtPVxj Ow9fcRmxeJqhPP9uUEZi zwefTZUpzX2jAHFwsDQa zCvuFB3gGPJlvskm n894ZzOrFHC0NUYypJUz Q3NcgQ7yOaQjJAGmZXYr F7BayQRqKIniD103VAqt YcO0PVYcmyXhW0Io MDIazHqeZuC4e8D2Wi4Y LOiuYH44AX47nYAbs7C3 gSA8O6FkUCSsezzoshhy fGQ6PHKaOXLuyU64 bNAtRQmwQs0lr3E2l262 WRKfYFYxoI32Eb9pzZne AORuwJHFhB0nujcmy9ee cjogIzAwMDAwMDt0 VUs0DKHgeLydGqOuTGF7 MsV6PVI7aXGnyC1trIhx kutvuF7zTko+XD5qkmop nrA5QL28PJ25O1Zr PjwvdGFibGU+PHRhYmxl IHdpZHRoPScxMDAlJyBz gOoaJS8nNd1pHRBpNDZe xEgtlGSmGlOqc8ok RLHcKSigTB7qpCuwT3Yh gGJ1NXHae7j8Rt88O75j T5JjsDN+KNYitOE6vFD0 wL0sEeKrZuE9DPld V289BdUgwCJqLwhto1jr o0gzrFt4AlYcQOOcorBy dOuyXOI2g0BfDx66N90t IHdpZHRoPSIyMCUi OKOvqUlwsj1xiT3xOp7+ HHRljCU1aEF0rU8mZlTn HmO2KVmkK871WrNssIRb IprtA02dO7RixTL+ IOBfVqf4AEUxlSjuLF6c iJAqEHaoWj9iNHQ0XwEd HdOrFObqD1WxDHGctizt urqwtOW4ZWNwLKWa rS07Tg7glKawFf6tJDEv HWV3IPLalWLgB6DwoK9c FhQwHOHpWDZaQ2EylYCm HJsqT402JGpmFvG3 OTOpdtSkI4TzWUFigGat OmA5v4A6Tc8RbLyrvWZd YB5uOeHbWIx1J0OdSxr9 WMSwqJiiUR8nzFWz RPffLz9oxAoekKhjKV9j JRNcwugju175TzMyn4vk VKLegTXbPVjuVPX7I33k u4Y4GPEgJGMxXSK3 uFJ8jK2zyLmfjhdtzBUn dDsgdmVydGljYWwtYWxp H320CAKqgBwiHnORYpb0 O3GjDbi1SAGqwWkx FL8edQAaMElkGf3uiFmb uYkrIF2uMMGhswcpp484 OaQfs2beIGPkfZEsHMes VXU6L60ty9I2TGRg AHJzQGA3dIX6fM0enNji bjogbGVmdDsgdmVydGlj BZqmCQmbP708IWVylTys Ab0ZPth6O5KwPda0 KKObyAmfBH6frWQmJXtm Bb7gsUcpoMkhZO1lZIJs jnkws026RiTim0gcQKHa rDCgKKwoMLV9N98o q9L3HBAnXBSaVJR7mWC3 xU7gnBjpvxoyuAKovBdd ghXndPyfYKohBHwsL231 IHRvcDsnPlBheWVy OjwvdGQ+KF86xq45Y5Tl CrhhOgv7TSAcJHW6fUK1 qV4rXUFsNUtnt5B2bOT7 Q2KxkpVfzx5ko6to YXBz (more content not included)... [facility] Consent for Treatmenton 11-20 Consent for Treatment [id number] #1.00CD:127 [facility] Discharge Instructionson Discharge Instructions [id number] 3#1.00CD:127 [facility] ED Clinical Summaryon 2020 ED Clinical Summary [address] [id number] ED Clinical Summary Person Information Name: MICHELL WE[facility] Age: 60 Years : 1960 Sex: Male Language: Puerto Rican PCP: RICHARD VIDAL DO Marital Status: Phone: [phone] Visit Id: Visit Reason: Wrist pain-swelling; Hand [...] 12/17/2020 16:17:08 12/17/2020 16:17:08 12/17/2020 16:17:08 ADDRESS: [facility] [place] [place] [id number] PHYS DOC NOTES: MEDICAL INFORMATION: Prescriptions Given: Medications to Continue with No Changes Other Medications clonidine (clonidine 0.3 mg oral tablet) lisinopril (lisinopril 40 mg Tab) naproxen (Naprosyn 500 mg Tab) 1 Tablets By Mouth 2 times a day. Refills: 0. omeprazole (omeprazole 20 mg Cap-DR) 1 Capsules By Mouth every day. PATIENT EDUCATION INFORMATION: Instructions: Tendinitis Follow up: With: Address: When: [facility]: [facility] [phone] In 3 days 12/20/2020 DIAGNOSIS: Tendonitis [facility] ED Note-Physicianon 12-18-19 ED Note-Physician Basic Information Time Seen: Callum Thomson PA-C 12/17/2020 15:41 Chief Complaint patient states he was sorting through packages. Patient felt pain in right hand and wrist History of Present Illness 60-year-old male comes to the ED for evaluation of right breast pain. 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 He said she was moving his partials [...] working diagnosis of tendinitis and is given [facility] follow-up. Patient was encouraged to return to the ED if symptoms worsen or change. Assessment/Plan Tendonitis (M77.9: Enthesopathy, unspecified) Orders: Splint Application Wrist Disposition Plan Patient Discharge Condition Disposition: Discharged home Condition: Improved and stable Counseled: Patient and/or family were counseled to workup, results, treatment plan and follow-up recommendations Discharge Prescription List Prescriptions No active prescription medications Follow-up With When Contact Information [facility]: [facility] [phone] In 3 days 12/20/2020 EDT Additional Instructions: Patient Education Tendinitis Attestation Patient seen and evaluated by the physician assistant news director. Attending physician was present in the emergency department and supervised care. This report was transcribed using voice recognition software. Every effort was made to ensure accuracy, however, inadvertently computerized lot technician mistakes may be present. Appropriate healthcare PPE [...] fracture, dislocation (more content not included)... [facility] Comment on above: Result Comment: Elec [...] by your health care provider. ? Take jwhn-prg-mpusigt and prescription medicines only as told by [...] 02/02/2001 Document Revised: 08/13/2018 Document Reviewed: 06/26/2018 Marilyn Patient Education (more content not included)... [facility] ED Patient Summaryon 021 ED Patient Summary [place] [id number] Patient Discharge Instructions Person Information Name: MICHELL WEBSTER Age: 60 Years Arrival Date: 12/17/2020 14:53:33 Discharge Diagnosis: Tendonitis Primary Care Physician: RICHARD VIDAL DO Provider Information Primary Provider: Armando Xavier DO Advanced [employer] Specialist:Callum Thomson PA-C The exam and treatment you received in the Emergency Department were for an urgent problem and are not intended as complete care. It is important that you follow up with a doctor, nurse practitioner, or physician?s assistant news director for ongoing care. If your symptoms become worse or you do not improve as expected and you are unable to reach your usual health care provider, you should return to the Emergency Department. We are available 24 hours a day. MICHELL WEBSTER has been given the following list of patient education materials, prescriptions and follow-up instructions: Follow-up Instructions: With: Address: When: [facility]: [facility] [phone] In 3 days 12/20/2020 In the event that this physician does not participate in your insurance network, please consult with your insurance company to find a nearby participating provider. Patient Education Materials: Tendinitis A MESSAGE TO ALL PATIENTS REGARDING OPIOIDS PRESCRIPTION OPIOIDS: WHAT YOU NEED TO KNOW Prescription opioids can be used to help relieve allomrjz-io-pbuojv pain and are often prescribed following a [...] be struggling with addiction, tell your health critical care specialist and ask for guidance or call [facility]?S National Helpline at 9-070-152-HELP. v Source: [place] Department of Health and Human Services/Center for Disease Contr (more content not included)... [facility] Workers Comp Formson 021 Workers Comp Forms [id number] 2#1.00CD:127 [facility] XR Hand 3+ Views Righton XR [...] Naun Cadet MD Transcribed by: QAMAR Technologist: IKE, [facility] XR Wrist 3+ Views Righton XR [...] DO Transcribed by: QAMAR Technologist: Elver RAMIRES [facility] Vital Signs Date Time Vital Sign Value Performing Clinician Facility 11-29-2023 11:26-0400 Body height 170.18 cm [facility] 11-29-2023 11:26-0400 Body mass index (BMI) [Ratio] 38.1 kg/m2 [facility] 11-29-2023 11:26-0400 Body weight 110.44 kg [facility] 11-29-2023 11:26-0400 Diastolic blood pressure 89 mm[Hg] [facility] 11-29-2023 11:26-0400 Heart rate 90 /min [facility] 11-29-2023 11:26-0400 Respiratory rate 12 /min [facility] 11-29-2023 11:26-0400 Systolic blood pressure 139 mm[Hg] [facility] 09-14-2023 10:00-0400 Body height 170.18 cm [facility] 09-14-2023 10:00-0400 Body mass index (BMI) [Ratio] 38.2 kg/m2 [facility] 09-14-2023 10:00-0400 Body weight 110.67 kg [facility] 09-14-2023 10:00-0400 Diastolic blood pressure 90 mm[Hg] [facility] 09-14-2023 10:00-0400 Heart rate 91 /min [facility] 09-14-2023 10:00-0400 Respiratory rate 12 /min [facility] 09-14-2023 10:00-0400 Systolic blood pressure 138 mm[Hg] [facility] 04-04-2023 10:14-0500 Body height 170.18 cm [facility] 04-04-2023 10:14-0500 Body mass index (BMI) [Ratio] 39.4 kg/m2 [facility] 04-04-2023 10:14-0500 Body weight 114.41 kg [facility] 04-04-2023 10:14-0500 Diastolic blood pressure 88 mm[Hg] [facility] 04-04-2023 10:14-0500 Heart rate 76 /min [facility] 04-04-2023 10:14-0500 Respiratory rate 16 /min [facility] 04-04-2023 10:14-0500 Systolic blood pressure 148 mm[Hg] [facility] 11-24-2022 10:00-0400 Body height 170.18 cm Richard Ball Other [facility] [employer] Other 11-24-2022 10:00-0400 Body mass index (BMI) [Ratio] 40.81 kg/m2 Richard Ball Other [facility] [employer] Other 11-24-2022 10:00-0400 Body weight 118.21 kg Richard Ball Other [facility] [employer] Other 11-24-2022 10:00-0400 Diastolic blood pressure 90 mm[Hg] Richard Ball Other [facility] [employer] Other 11-24-2022 10:00-0400 Respiratory rate 12 /min Richard Ball Other [employer] Other 11-24-2022 10:00-0400 Systolic blood pressure 171 mm[Hg] Richard Ball Other [employer] Other 09-25-2022 09:15-0400 Body height 170.18 cm Richard Ball Other [employer] Other 09-25-2022 09:15-0400 Body mass index (BMI) [Ratio] 40.84 kg/m2 Richard Ball Other [employer] Other 09-25-2022 09:15-0400 Body weight 118.3 kg Richard Ball Other [employer] Other 09-25-2022 09:15-0400 Diastolic blood pressure 89 mm[Hg] Richard Ball Other [employer] Other 09-25-2022 09:15-0400 Respiratory rate 12 /min Richard Ball Other [employer] Other 09-25-2022 09:15-0400 Systolic blood pressure 135 mm[Hg] Richard Ball Other [employer] Other 06-13-2022 09:30-0400 Body height 170.18 cm Richard Ball Other [employer] Other 06-13-2022 09:30-0400 Body mass index (BMI) [Ratio] 42.1 kg/m2 Richard Ball Other [employer] Other 06-13-2022 09:30-0400 Body weight 121.93 kg Richard Ball Other [employer] Other 06-13-2022 09:30-0400 Diastolic blood pressure 86 mm[Hg] Richard Ball Other [employer] Other 06-13-2022 09:30-0400 Respiratory rate 12 /min Richard Ball Other [employer] Other 06-13-2022 09:30-0400 Systolic blood pressure 126 mm[Hg] Richard Ball Other [employer] Other 06-13-2022 08:30-0400 Body height 170.18 cm Richard Ball Other [employer] Other 06-13-2022 08:30-0400 Body mass index (BMI) [Ratio] 42.1 kg/m2 Richard Ball Other [employer] Other 06-13-2022 08:30-0400 Body weight 121.93 kg Richard Ball Other [employer] Other 06-13-2022 08:30-0400 Diastolic blood pressure 86 mm[Hg] Richard Ball Other [employer] Other 06-13-2022 08:30-0400 Respiratory rate 12 /min Richard Ball Other [employer] Other 06-13-2022 08:30-0400 Systolic blood pressure 126 mm[Hg] Richard Ball Other [employer] Other 08-18-2021 12:09-0400 Diastolic blood pressure 120 mm[Hg] Edilia NILL [facility] 08-18-2021 12:09-0400 Mean blood pressure 133 mm[Hg] Edilia NILL [facility] 08-18-2021 12:09-0400 Systolic blood pressure 160 mm[Hg] Edilia NILL [facility] 08-18-2021 11:43-0400 Blood Pressure Location Edilia NILL [facility] 08-18-2021 11:43-0400 Diastolic blood pressure 114 mm[Hg] Edilia NILL [facility] 08-18-2021 11:43-0400 Heart rate 83 /min Edilia NILL [facility] [place] 08-18-2021 11:43-0400 Respiratory rate 16 /min Edilia SERRANO [facility] 08-18-2021 11:43-0400 Systolic blood pressure 169 mm[Hg] Edilia SERRANO [facility] Encounters Encounter Date Encounter Type Care Provider Facility Start: 11-29-2023 End: 11-29-[address] [facility] Work Phone: Start: 11-29-2023 End: 11-29-2023 Encounter for general adult medical examination without abnormal findings [facility] Start: 11-29-2023 End: 11-29-2023 Patient encounter procedure [facility] Physician [facility] Work Phone: Start: 11-27-2023 Patient encounter status [facility] Start: 09-14-2023 End: 09-14-[address] [facility] Work Phone: Start: 09-14-2023 End: 09-14-2023 Patient encounter procedure [facility] Physician [facility] Work Phone: Start: 09-04-2023 ambulatory RICHARD VIDAL [facility] Start: 09-04-2023 Non-patient / Non-visit [facility] Physician [facility] Work Phone: Start: 09-03-2023 Non-patient / Non-visit [facility] Physician [facility] Work Phone: Start: 07-23-2023 End: 07-23-2023 ambulatory MARK Crews [facility] Not Available Start: 04-04-2023 End: 04-04-[address] [facility] Work Phone: Start: 04-04-2023 End: 04-04-2023 Patient encounter procedure [facility] Work Phone: Start: 11-27-2022 End: 11-27-2022 ambulatory Richard Vidal Other [employer] Other Start: 11-27-2022 Telephone encounter Richard BURNS [facility] Start: 11-24-2022 End: 11-24-2022 ambulatory Richard Vidal Other [employer] Other Start: 11-24-2022 Encounter for genera l adult medical examination without abnormal findings Richard Vidal [facility] Start: 11-24-2022 Periodic preventive med est patient 40-64yrs Richard Vidal [facility] Start: 09-25-2022 End: 09-25-2022 ambulatory Richard Vidal Other [employer] Other Start: 09-25-2022 Office outpatient vi sit 15 minutes Richard Vidal [facility] Start: 08-18-2022 End: 08-18-2022 ambulatory Richard Vidal Other [employer] Other Start: 08-18-2022 Telephone encounter Richard BURNS [facility] Start: 07-18-2022 End: 07-18-2022 ambulatory Richard Vidal Other [employer] Other Start: 07-18-2022 Telephone encounter Richard BURNS [facility] Start: 07-17-2022 Encounter for genera l adult medical examination without abnormal findings DR RICHARD VIDAL [facility] Start: 07-14-2022 End: 07-15-[address] RICHARD VIDAL Facility:[facility] Start: 07-14-2022 End: 07-15-2022 Encounter for general adult medical examination without abnormal findings DR RICHARD VIDAL Facility:[facility] Start: 06-13-2022 End: 06-13-2022 ambulatory Richard Vidal Other [employer] Other Start: 06-13-2022 Encounter for genera l adult medical examination without abnormal findings Richard Young [facility] Start: 06-13-2022 Office outpatient vi sit 25 minutes Richard Young [facility] Start: 06-13-2022 Telephone encounter Richard Vidal [facility] Start: 02-22-[address] RICHARD VIDAL Facili ty:[facility] Start: 11-25-2021 Adult health examination Richard Vidal Other [employer] Other Start: 11-25-2021 Pre-procedure evaluation check Richard Young Other [employer] Other Start: 11-20-2021 End: 11-20-2021 ambulatory KVNG VERAS . Facility:[facility] Start: 10-06-2021 End: 10-07-[address] RICHARD VIDAL Facility:[facility] Start: 09-19-2021 End: 09-20-[address] RICHARD VIDAL Facility:[facility] Start: 08-31-2021 End: 08-31-[address] EDILIA SERRANO . Facility:[facility] Start: 08-18-2021 End: 08-18-2021 Patient encounter procedure Edilia SERRANO [facility] Procedures Date Procedure Procedure Detail Performing Clinician Start: 07-14-[address] HOLBROOK IN [place] Comment on above: Performed By: #### P [facility] #### [facility] [address] [place] [address] Dr. Carly Elias Start: 08-20-2018 Screening for malign ant neoplasm of colon Richard Young Other Start: 05-23-2017 General examination of patient Richard Vidal Other Start: 05-01-2016 Preoperative cardiov ascular examination Richard Vidal Other Arthroscopy of knee with meniscus repair Edilia SERRANO Arthroscopy of shoulder Joseluis rudi NILL Depression screening Junjuan miguel yenifer Vidal Other Release of trigger finger Mi chael HANK Comment on above: left thumb Resection of clavicle Abelardo SERRANO Plan of Treatment Date Care Activity Detail Author Comprehensive metabo lic 1999 panel - Serum or Plasma [facility] enter Microalbumin [Mass/volume] in Urine [facility] Immunizations Immunization Date Immunization Notes Care Provider Fa cility 06-29-2020 COVID-19 Vaccine Pfi zer - Documentation Purposes Only Richard Vidal Other [facility] 06-08-2020 COVID-19 Vaccine Pfi zer - Documentation Purposes Only Richard Vidal Other [facility] Payers Date Payer Category Payer Unknown [id number] 2.16.84 [id number] 1960 Unknown [id number] 2.16.84 [id number] 1960 Unknown [id number] 2.16.84 0.1.999077.3.579.2.593 1960 Unknown [id number] 2.16.84 0.1.250100.3.579.2.593 1960 Unknown [id number] 2.16.84 0.1.085633.3.579.2.593 1960 Unknown [id number] 2.16.84 0.1.356835.3.579.2.593 1960 Unknown [id number] 2.16.84 0.1.166723.3.579.2.1259 1960 Unknown [id number] 2.16.84 0.1.070950.3.579.2.1259 1960 Unknown [id number] 2.16.84 0.1.251066.3.579.2.1259 1960 Unknown [id number] 2.16.8 40.1.985444.3.579.2.1286 1961 Unknown [id number] 2.16.8 40.1.928594.3.579.2.1286 1959 Private Health Insurance [id number] 1959 Private Health Insurance [id number] 1958 Self-pay [id number] Social History Date Type Detail Facility Start: 08-18-2021 End: 03-31-2023 Tobacco smoking status Never smoked tobacco (finding) [facility] [employer] Tobacco smoking status Never [facility] [employer] Sex Assigned At Male [facility] [employer] Start: 1960 Sex Assigned At Male F [facility] Functional Status Date Assessment Result Facility 08-18-2021 Functional Status N/A [facility] [employer] Clinical Notes 11-21-2017 to 11-24-2022 Note Date [...] use, the patient reduces the risk for FL, CVA, HTN, cardiac dysrhythmias and sudden cardiac [...] and to report to ER for evaluation. [employer] Other 08-07-2023 Evaluation note* Encounter Date Diagnosis [...] has resolved. Related to ongoing symptoms? GB? [employer] Other 06-30-2023 Evaluation note* Encounter Date Diagnosis Assessment Notes Treatment Notes Treatment Clinical Notes Jul, Type 2 diabetes mellitus with hyperglycemia, without long-term current use of insulin (ICD-10 - E11.65) [employer] Other 05-30-2023 Evaluation note* Encounter Date Diagnosis Assessment Notes Treatment Notes Treatment Clinical Notes June, Type 2 diabetes mellitus with hyperglycemia, without long-term current use of insulin (ICD-10 - E11.65) [employer] Other 04-25-2023 Evaluation note* Encounter Date Diagnosis [...] use, the patient reduces the risk for FL, CVA, HTN, cardiac dysrhythmias and sudden cardiac [...] or drinking prior to bedtime. Weight loss. [employer] Other 04-25-2023 Evaluation note* Encounter Date Diagnosis Assessment Notes Treatment Notes Treatment Clinical Notes May, Wellness examination (ICD-10 - Z00.00) [employer] Other 07-13-2022 NoteOPERATIVE NOTE OPERATION DATE: 08/31/2021 [...] CC: Richard Vidal D.O. [facility] Signed and Approved by: DR EDILIA SERRANO . 09/02/2021 12:37:00[facility]07-05-2022 NoteChief Complaint consultation for positive Cologuard [...] neoplasm of lung: Sister. Renal failure syndrome: Father.[facility]: Result Comment: Electronically Signed By: HANK JASMINE, Edilia Maddox\Date and Time Signed: 08/23/21 08:29 [id number] Evaluation note* Diagnosis Onset Date Resolution Status Cerebral atherosclerosis November 21, 2017 acute Elevated cholesterol acute Gastroesophageal reflux dise ase with esophagitis without hemorrhage acute Obstructive sleep apnea acut e Primary hypertension acute Type 2 diabetes mellitus with hyperglycemia acute [facility] Work Phone: [phone]) 936-697010-03-2018 Evaluation note* Diagnosis Onset Date Resolution Status Cerebral atherosclerosis November 21, 2017 acute Elevated cholesterol acute Obstructive sleep apnea acut e Primary hypertension acute Type 2 diabetes mellitus with hyperglycemia acute [facility] Work Phone: [phone]) 237-453610-03-2018 Evaluation note* Diagnosis Onset Date Resolution Status BPPV (benign paroxysmal positional vertigo) acute Cerebral atherosclerosis November 21, 2017 acute Elevated cholesterol acute Obstructive sleep apnea acut e Primary hypertension acute Type 2 diabetes mellitus with hyperglycemia acute Cerebral atherosclerosis November 21, 2017 acute Elevated cholesterol acute Obesity acute Obstructive sleep apnea acut e Primary hypertension acute Screening PSA (prostate specific antigen) acute Type 2 diabetes mellitus with hyperglycemia acute Wellness examination acute [facility] Work Phone: Evaluation + Plan note No data available for this section [facility] [place] Evaluation [facility]No [facility] [employer] Other History general Narrative - Reported* Type [...] CLAVICLE 2013 Hospitalization History SEE SURGICAL HX [place] [facility] [employer] Other Hospital Discharge instructions No data available for this section [facility] [place] Progress note No data available for this section [facility] [employer] Summary Purpose Family History Relationship Condition Age [...] with hyperglycemia Chief Complaint ER follow up Wellness Reason for Visit BPPV (benign paroxys mal positional vertigo) Cerebral atherosclerosis Elevated cholesterol Obstructive sleep apnea Primary hypertension Type 2 diabetes mellitus with hyperglycemia Cerebral atherosclerosis Elevated cholesterol Obesity Obstructive sleep apnea Primary hypertension Screening PSA (prostate specific antigen) Type 2 diabetes mellitus with hyperglycemia Wellness examination Additional Source Comments Care Team (unrecognized sect ion and content) Team Status: Active Member Role Status Dates Richard Vidal DO Primary Care Provider Active Team Status: Active Member Role Status Dates Richard Vidal DO Primary Care Provider Active Start: September 03, 2023 Ibis Mercedes , Attending Provider Active Start: September 03, 2023 Team Status: Active Member Role Status Dates Richard Vidal DO Primary Care Provider Active Start: September 04, 2023 Ibis Mercedes , Attending Provider Active Start: September 04, 2023 Team Status: Inactive Member Role Status Dates Richard Vidal DO Primary Care Provide r, Attending Provider Active Start: September 14, 2023 End: September 14, 2023 Team Status: Inactive Member Role Status Dates Richard Vidal DO Primary Care Provide r, Attending Provider Active Start: April 04, 2023 End: April 04, 2023 Team Status: Inactive Member Role Status Dates Richard Vidal DO Primary Care Provide r, Attending Provider Active Start: November 29, 2023 End: November 29, 2023 (unrecognized sect ion and content) No Status Records FoundNo Status Records FoundNo Status Records FoundNo Status Records Found INFORMATION SOURCE (unrecogn ized section and content) DATE CREATED AUTHOR 09/08/2021 Timothy Monsivais [facility] DATE CREATED AUTHOR AUTHOR'S ORGANIZ ATION 07/28/2022 [facility] DATE CREATED AUTHOR AUTHOR'S ORGANIZ ATION 07/24/2023 [facility] EPIC DATE CREATED AUTHOR AUTHOR'S [...] BE BASED ON THE PRIMARY CLINICAL RECORDS. [employer] [facility]. provides no warranty or guarantee of the accuracy or completeness of information in this document.
== END 2024-02-07 12:23 | disposition home or self-care (01) ==
LOC: RAD 12:23
PROVIDERS: PCP Internal Medicine; Visit Provider Internal Medicine
DX: M54.6 Pain in thoracic spine (principal); R06.00 Dyspnea, unspecified
CPT/HCPCS: 71046; 72072

== ENCOUNTER 2024-04-01 11:25 | Outpatient (OUT) | payer OTHER, SELFPAY ==
--- OUTSIDE RECORDS SUMMARY | 2024-04-01 11:43 | XMS_ITS | CCD ---
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; Translations: [OTH PRISON CURRENT DRUG THERAPY] Onset: 11-21-2021 Episodic Other aftercare (1 source) 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; Translations: [BIOMASS [employer]ANT [employer]GER USE ORAL HYPOGLYCEMIC DX] Onset: 09-01-2021 Episodic [...] challengeon 09-04-2023 Bilirubin Ql (U) Negative NEGATIVE [facility] Glucose (U) [Mass/Vol] Negative NEGATIVE [facility] Ketones Ql (U) Negative NEGATIVE [facility] pH (U) 6.0 [pH] 5.0-9.0 [facility] Specific gravity (U) [Rel density] 1.010 1.005-1.025 [facility] Urobilinogen Qn (U) 0.2 {Woodrow'U}/dL 0.2-1.0 [facility] Laboratory - Specimen inform ationon 09-04-2023 Appearance (U) CLEAR CLEAR [facility] Color (U) LT. YELLOW YELLOW [facility] Laboratory - Urinalysison Leukocyte esterase Test strip Ql (U) Negative NEGATIVE [facility] Nitrite Ql (U) Negative NEGATIVE [facility] Protein Ql (U) Negative NEG/TRACE [facility] No Panel Informationon 09-03 Urine Microscopic Review NO [facility] Urine Occult Blood Negative NEGATIVE [facility] Basophils Auto (Bld) [#/Vol] on 09-03-2023 Basophils (Bld) [#/Vol] 0.1 10 3/uL 0.0-0.1 [facility] Basophils/100 WBC Auto (Bld) on 09-03-2023 Basophils/100 WBC (Bld) 1.0 % 0.2-2.0 [facility] Eosinophils/100 WBC Auto (Bl d)on 09-03-2023 Eosinophils/100 WBC (Bld) 4.6 % 0.9-7.0 [facility] Erythrocyte distribution wid th Auto (RBC) [Ratio]on 09-03-2023 Erythrocyte distribution width (RBC) [Ratio] 12.7 % 11.0-15.0 [facility] Estimated glomerular filtrat ion rate (GFR) non- Americanon 09-03-2023 GFR/1.73 sq M.predicted among non-blacks MDRD (S/P/Bld) [Vol rate/Area] mL/min/{1.73_m2} >=60 [facility] Globulin Calc (S) [Mass/Vol] on 09-03-2023 Globulin (S) [Mass/Vol] 3.5 g/dL [facility] Hematocrit Auto (Bld) [Volum e fraction]on 09-03-2023 Hematocrit (Bld) [Volume fraction] 39.1 % Low 42.0-54.0 [facility] Hemoglobin [Mass/volume] in Bloodon 09-03-2023 Hemoglobin (Bld) [Mass/Vol] 13.8 g/dL Low 14.0-18.0 [facility] Laboratory - Chemistry and C hemistry - challengeon 09-03-2023 Albumin [Mass/Vol] 3.8 g/dL 3.4-5.0 [facility] ALP [Catalytic activity/Vol] 108 U/L 46-116 [facility] ALT [Catalytic activity/Vol] 60 U/L 16-63 [facility] AST [Catalytic activity/Vol] 36 U/L 15-37 [facility] Bilirubin [Mass/Vol] 0.4 mg/dL 0.2-1.[address] [facility] Calcium [Mass/Vol] 9.2 mg/dL 8.5-10.1 [facility] Chloride [Moles/Vol] 101 mmol/L 98-[address] [facility] CO2 [Moles/Vol] 27.1 mmol/L 21.0-32.0 [facility] Creatinine [Mass/Vol] 0.83 mg/dL 0.70-1.30 [facility] GFR/1.73 sq M.predicted MDRD (S/P/Bld) [Vol rate/Area] mL/min/{1.73_m2} >=60 [facility] Glucose [Mass/Vol] 132 mg/dL High 74-106 [facility] Potassium [Moles/Vol] 3.7 mmol/L 3.5-5.1 [facility] Protein [Mass/Vol] 7.3 g/dL 6.4-8.2 [facility] Sodium [Moles/Vol] 136 mmol/L 136-145 [facility] Urea nitrogen [Mass/Vol] 14.0 mg/dL 7.0-18.0 [facility] Urea nitrogen/Creatinine [Mass ratio] 16.9 mg/mg [facility] Laboratory - Hematology and Cell countson 09-03-2023 Immature granulocytes/100 WBC (Bld) 0.2 % 0.0-0.5 [facility] Leukocytes [#/volume] correc adia for nucleated erythrocytes in Blood by Automated counon 09-03-2023 WBC corrected for nucl RBC Auto (Bld) [#/Vol] 6.3 10 3/uL 4.0-11.0 [facility] Lymphocytes Auto (Bld) [#/Vo l]on 09-03-2023 Lymphocytes (Bld) [#/Vol] 1.8 10 3/uL 1.2-3.8 [facility] Lymphocytes/100 WBC Auto (Bl d)on 09-03-2023 Lymphocytes/100 WBC (Bld) 28.0 % 20.5-60.0 [facility] MCH Auto (RBC) [Entitic mass ]on 09-03-2023 MCH (RBC) [Entitic mass] 31.1 pg 25.9-34.0 [facility] MCHC Auto (RBC) [Mass/Vol]on 09-03-2023 MCHC (RBC) [Mass/Vol] 35.3 g/dL High 29.9-35.2 [facility] MCV Auto (RBC) [Entitic vol] on 09-03-2023 MCV (RBC) [Entitic vol] 88.1 fL 80.0-94.0 [facility] Monocytes Auto (Bld) [#/Vol] on 09-03-2023 Monocytes (Bld) [#/Vol] 0.7 10 3/uL 0.3-0.8 [facility] Monocytes/100 WBC Auto (Bld) on 09-03-2023 Monocytes/100 WBC (Bld) 11.2 % 1.7-12.0 [facility] Neutrophils Auto (Bld) [#/Vo l]on 09-03-2023 Neutrophils (Bld) [#/Vol] 3.5 10 3/uL 1.4-6.5 [facility] Neutrophils/100 WBC Auto (Bl d)on 09-03-2023 Neutrophils/100 WBC (Bld) 55.0 % 43.0-75.0 [facility] No Panel Informationon 09-02 Eosinophils # (Auto) 0.3 10 3/uL 0.0-0.7 [facility] Immature Granulocyte # (Auto) 0.01 10 3/uL 0.00-0.03 [facility] Troponin I High Sensitivity 5.1 pg/mL 4.0-76.1 [facility] Comment on above: CUT-OFF POINTS HAVE BEEN [...] volume (Bld) [Entitic vol] 10.0 fL 9.5-13.5 [facility] Platelets Auto (Bld) [#/Vol] on 09-03-2023 Platelets (Bld) [#/Vol] 241 10 3/uL 150-450 [facility] RBC Auto (Bld) [#/Vol]on RBC (Bld) [#/Vol] 4.44 10 6/uL Low 4.70-6.10 [facility] Serum or plasma albumin/glob ulin mass ratioon 09-03-2023 Albumin/Globulin [Mass ratio] 1.1 {ratio} [facility] Serum or plasma anion gap de terminationon 09-03-2023 Anion gap [Moles/Vol] 11.6 mmol/L [facility] CBC AUTO DIFFon 07-14-2022 BASO # 0.1 103/ul Normal 0.0-0.1 [facility] Comment on above: Performed By: #### C BC #### [facility] [address] [address] [address] Carly Elias Basophils/100 WBC (Bld) 1.2 % Normal 0.2-2.0 [facility] Comment on above: Performed By: #### C BC #### [facility] [address] [address] [address] Carly Elias EO # 0.3 103/ul Normal 0.0-0.7 [facility] Comment on above: Performed By: #### C BC #### [facility] [address] [address] [address] Carly Elias Eosinophils/100 WBC (Bld) 4.8 % Normal 0.9-7.0 [facility] Comment on above: Performed By: #### C BC #### [facility] [address] [address] [address] Carly Elias Erythrocyte distribution width (RBC) [Ratio] 12.7 % Normal 11.0-15.0 [facility] Comment on above: Performed By: #### C BC #### [facility] [address] [address] [address] Carly Elias Hematocrit (Bld) [Volume fraction] 41.0 % Critically low 42.0-54.0 [facility] Comment on above: Performed By: #### C BC #### [facility] [address] [address] [address] Carly Elias Hemoglobin (Bld) [Mass/Vol] 14.0 g/dL Normal 14.0-18.0 [facility] Comment on above: Performed By: #### C BC #### [facility] [address] [place] [address] Dr. Carly Elias IG # 0.02 10e3/ul Normal 0.00-0.03 [facility] Comment on above: Performed By: #### C BC #### [facility] [address] [place] [address] Dr. Carly Elias IG % 0.4 % Normal 0.0-0.5 [facility] Comment on above: Performed By: #### C BC #### [facility] [address] [place] [address] Dr. Carly Elias LYMPH # 1.5 103/ul Normal 1.2-3.8 [facility] Comment on above: Performed By: #### C BC #### [facility] [address] [place] [address] Dr. Carly Elias Lymphocytes/100 WBC (Bld) 28.5 % Normal 20.5-60.0 [facility] Comment on above: Performed By: #### C BC #### [facility] [address] [place] [address] Dr. aCrly Elias MANUAL DIFF REQ NO Normal [facility] Comment on above: Performed By: #### C BC #### [facility] [address] [place] [address] Dr. Carly Elias MCH (RBC) [Entitic mass] 29.9 pg Normal 25.9-34.0 [facility] Comment on above: Performed By: #### C BC #### [facility] [address] [place] [address] Dr. Carly Elias MCHC (RBC) [Mass/Vol] 34.1 g/dL Normal 29.9-35.2 [facility] Comment on above: Performed By: #### C BC #### [facility] [address] [place] [address] Dr. Carly Elias MCV (RBC) [Entitic vol] 87.6 fL Normal 80.0-94.0 [facility] Comment on above: Performed By: #### C BC #### [facility] [address] [address] [address] Carly Elias MONO # 0.6 103/ul Normal 0.3-0.8 [facility] Comment on above: Performed By: #### C BC #### [facility] [address] [address] [address] Carly Elias Monocytes/100 WBC (Bld) 11.5 % Normal 1.7-12.0 [facility] Comment on above: Performed By: #### C BC #### [facility] [address] [address] [address] Carly Elias NEUT # 2.8 103/ul Normal 1.4-6.5 [facility] Comment on above: Performed By: #### C BC #### [facility] [address] [place] [address] Dr. Carly Elias Neutrophils/100 WBC (Bld) 53.6 % Normal 43.0-75.0 [facility] Comment on above: Performed By: #### C BC #### [facility] [address] [place] [address] Dr. Carly Elias Platelet mean volume (Bld) [Entitic vol] 9.4 fL Critically low 9.5-13.5 [facility] Comment on above: Performed By: #### C BC #### [facility] [address] [place] [address] Dr. Carly Elias PLT 228 103/ul Normal 150-450 [facility] Comment on above: Performed By: #### C BC #### [facility] [address] [address] [address] Carly Elias RBC 4.68 106/ul Critically low 4.70-6.10 [facility] Comment on above: Performed By: #### C BC #### [facility] [address] [place] [address] Dr. Carly Elias WBC 5.2 103/ul Normal 4.0-11.0 [facility] Comment on above: Performed By: #### C BC #### [facility] [address] [place] [address] Dr. Carly Elias GLYCOHEMOGLOBIN A1Con 2022 ADA RECOMMENDATION SEE BELOW Normal [facility] Comment on above: Result Comment: ADA RECOMMENDED LIMIT 4.0 - 6.0 ADA THERAPEUTIC TARGET < 7.0 ACTION SUGGESTED > 7.0 Performed By: #### A 1C #### [facility] [address] [place] [address] Dr. Carly Elias Glucose [Mass/Vol] 163 mg/dL Normal [facility] Comment on above: Performed By: #### A 1C #### [facility] [address] [place] [address] Dr. Carly Elias HbA1c (Bld) [Mass fraction] 7.3 % Critically high 4.5-6.2 [facility] Comment on above: Performed By: #### A 1C #### [facility] [address] [place] [address] Dr. Carly Elias LIPID PROFILEon 07-14-2022 CHOL-HDL RATIO NORM SEE BELOW Normal [facility] Comment on above: Result Comment: 3.3 - 4.4 LOW RISK 4.4 - 7.1 AVERAGE RISK 7.1 - 11.0 MODERATE RISK >11.0 HIGH RISK Performed By: #### C MP, LIPID #### [facility] [address] [place] [address] Dr. Carly Elias Cholesterol [Mass/Vol] 125 mg/dL Normal <=200 [facility] Comment on above: Performed By: #### C MP, LIPID #### [facility] [address] [place] [address] Dr. Carly Elias Cholesterol in HDL [Mass/Vol] 32 mg/dL Critically low 40-60 [facility] Comment on above: Performed By: #### C MP, LIPID #### [facility] [address] [address] [address] Carly Elias Cholesterol in LDL [Mass/Vol] 32.6 mg/dL Normal [facility] Comment on above: Performed By: #### C MP, LIPID #### [facility] [address] [place] [address] Dr. Carly Elias Cholesterol.total/Cho lesterol in HDL [Mass ratio] 3.9 {ratio} Normal [facility] Comment on above: Performed By: #### C MP, LIPID #### [facility] [address] [address] [address] Carly Elias HDL NORMAL > or = 60 mg/dl - LOW CARDIOVASCULAR RISK <40 mg/dl - HIGH CARDIOVASCULAR RISK Normal [facility] Comment on above: Performed By: #### C MP, LIPID #### [facility] [address] [address] [address] Carly Elias LDL CALC NORMAL SEE BELOW Normal [facility] Comment on above: Result Comment: <100 mg/dl OPTIMAL 100 - 129 mg/dl NEAR OR ABOVE OPTIMAL 130 - 159 mg/dl BORDERLINE HIGH 160 - 189 mg/dl HIGH >190 mg/dl VERY HIGH Performed By: #### C MP, LIPID #### [facility] [address] [address] [address] Carly Elias Triglyceride [Mass/Vol] 302 mg/dL Critically high <=150 [facility] Comment on above: Performed By: #### C MP, LIPID #### [facility] [address] [address] [address] Carly Elias VLDL CALC 60.4 mg/dL Normal [facility] Comment on above: Performed By: #### C MP, LIPID #### [facility] [address] [place] [address] Dr. Carly Elias MICROALBUMIN, RAND URon 06-20 mALB 2.0 mg/dL Normal <=30.0 [facility] Comment on above: Performed By: #### M ALBR #### [facility] [address] [place] [address] Dr. Carly Elias PROF 14(COMP METB)on 023 Albumin [Mass/Vol] 3.8 g/dL Normal 3.4-5.0 [facility] Comment on above: Performed By: #### C MP, LIPID #### [facility] [address] [place] [address] Dr. Carly Elias Albumin/Globulin [Mass ratio] 1.0 {ratio} Normal [facility] Comment on above: Performed By: #### C MP, LIPID #### [facility] [address] [address] [address] Carly Elias ALP [Catalytic activity/Vol] 86 U/L Normal 46-116 [facility] Comment on above: Performed By: #### C MP, LIPID #### [facility] [address] [address] [address] Carly Elias ALT [Catalytic activity/Vol] 79 U/L Critically high 16-63 [facility] Comment on above: Performed By: #### C MP, LIPID #### [facility] [address] [address] [address] Carly Elias Anion gap [Moles/Vol] 12.1 mmol/L Normal [facility] Comment on above: Performed By: #### C MP, LIPID #### [facility] [address] [place] [address] Dr. Carly Elias AST [Catalytic activity/Vol] 52 U/L Critically high 15-37 [facility] Comment on above: Performed By: #### C MP, LIPID #### [facility] [address] [address] [address] Carly Elias Bilirubin [Mass/Vol] 0.4 mg/dL Normal 0.2-1.0 [facility] Comment on above: Performed By: #### C MP, LIPID #### [facility] [address] [place] [address] Dr. Carly Elias Calcium [Mass/Vol] 9.5 mg/dL Normal 8.5-10.1 [facility] Comment on above: Performed By: #### C MP, LIPID #### [facility] [address] [address] [address] Carly Elias Chloride [Moles/Vol] 102 mmol/L Normal 98-107 [facility] Comment on above: Performed By: #### C MP, LIPID #### [facility] [address] [address] [address] Carly Elias CO2 [Moles/Vol] 29.2 mmol/L Normal 21.0-32.0 [facility] Comment on above: Performed By: #### C MP, LIPID #### [facility] [address] [address] [address] Carly Elias Creatinine [Mass/Vol] 0.81 mg/dL Normal 0.70-1.30 [facility] Comment on above: Performed By: #### C MP, LIPID #### [facility] [address] [address] [address] Carly Elias EGFR-AF TUNISIAN >60 Normal >=60 [facility] Comment on above: Performed By: #### C MP, LIPID #### [facility] [address] [address] [address] Carly Elias EGFR-NON AF TUNISIAN >60 Normal >=60 [facility] Comment on above: Performed By: #### C MP, LIPID #### [facility] [address] [place] [address] Dr. Carly Elias Globulin (S) [Mass/Vol] 3.7 g/dL Normal [facility] Comment on above: Performed By: #### C MP, LIPID #### [facility] [address] [address] [address] Carly Elias Glucose [Mass/Vol] 129 mg/dL Critically high 74-106 [facility] Comment on above: Performed By: #### C MP, LIPID #### [facility] [address] [place] [address] Dr. Carly Elias Potassium [Moles/Vol] 4.3 mmol/L Normal 3.5-5.1 [facility] Comment on above: Performed By: #### C MP, LIPID #### [facility] [address] [address] [address] Carly Elias Protein [Mass/Vol] 7.5 g/dL Normal 6.4-8.2 [facility] Comment on above: Performed By: #### C MP, LIPID #### [facility] [address] [place] [address] Dr. Carly Elias Sodium [Moles/Vol] 139 mmol/L Normal 136-145 [facility] Comment on above: Performed By: #### C MP, LIPID #### [facility] [address], [place] [address] Dr. Carly Elias Urea nitrogen [Mass/Vol] 19.0 mg/dL Critically high 7.0-18.0 [facility] Comment on above: Performed By: #### C MP, LIPID #### [facility] [address] [address] [address] Carly Elias Urea nitrogen/Creatinine [Mass ratio] 23.5 mg/mg Normal [facility] Comment on above: Performed By: #### C MP, LIPID #### [facility] [address] [address] [address] Carly Elias XR ELBOW LT MIN 3 VIEWSon XR ELBOW LT MIN 3 VIEWS IMAGES REVIEWED: XR ELBOW LT MIN 3 VIEWS COMPARISON: None available. CLINICAL INDICATION: C/O: pain FINDINGS/IMPRESSION: 1. No evidence of acute osseous abnormality of the left elbow. No joint effusion. 2. 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 Electronically authenticated by: SUNDAY RAMIREZ Date: 2021-11-20 15:19 Normal [facility] GLYCOHEMOGLOBIN A1Con 2021 ADA RECOMMENDATION SEE BELOW Normal [facility] Comment on above: Result Comment: ADA RECOMMENDED LIMIT 4.0 - 6.0 ADA THERAPEUTIC TARGET < 7.0 ACTION SUGGESTED > 7.0 Performed By: #### A 1C #### [facility] [address] [address] [address] Carly Elias Glucose [Mass/Vol] 166 mg/dL Normal [facility] Comment on above: Performed By: #### A 1C #### [facility] [address], [place] [address] Dr. Carly Elias HbA1c (Bld) [Mass fraction] 7.4 % Critically high 4.5-6.2 [facility] Comment on above: Performed By: #### A 1C #### [facility] [address], [place] [address] Dr. Carly Elias Outside Colonoscopyon 2021 Outside Colonoscopy [id number] #1.00CD:127 [facility] Reminderson 09-01-2021 Reminders - From: Marilynn Coelho LPN To: [facility] - Clinical; Sent: 09/01/2021 14:20:20 EDT Show up: 08/02/2031 07:00:00 EDT Subject: colonoscopy recall Due Date/Time: 09/01/2031 07:00:00 EDT Reminder/Recall Patient is due for screening colonoscopy 09/01/2031. Normal [facility] POINT OF CARE GLUCOSEon 08-19 Glucose [Mass/Vol] 155 mg/dL Critically high 74-106 [facility] Comment on above: Performed By: #### P OCGLUC #### [facility] [address] [place] [address] Dr. Carly Elias Consent for Procedure/Surger yon 08-18-2021 Consent for Procedure/Surgery [id number] #1.00CD:127 [facility] Physician Referralon 022 Physician Referral [id number]# 1.00CD:127 [facility] Coding Summary.on 12-28-2020 Coding Summary. CD:[id number] Gh0bWw+PGhlYWQ+PE1FV BFyZ51cxNWwtY5OH5hHA T2JZJTVGSSEFP9ACB3cz CJ1BEyuL5TyfsJr QmhnwJBoFE93BQm4ARU9 uCjrKWoxuX6zgPUqC7u4 TdMxOS51aI08HUigTKSn PfN9ZdXxfiqavJYp F0xvWlHpwWNiOdm+PHRh YmxlIHdpZHRoPScxMDAl CzKowPioLN5lWb2aHQHo LWNvbGxhcHNlOiBj i0jeZTKnAVqbZX9srOga R4DvqLK9EEKnp8a2St07 dHI+HCFsRVH4tWgzYMyx v489WpBrj6ybUHS7 oFWwYGfnJNS6D74rg8Z9 VQRhPQEeAZC7vNL0mD6l lYdlqoojD8VwcFOcNwB1 FTV3vASldM4mkAcu onbwhM4mLeu+Q16GNN8P YRIIYY9XRdz8U4CuXttq dHI+NN17EPBwBY75yFRp hYFwe1sgwVk6KkUl IAHyPHO1xRzgGRmer8Cs ASBdZ35viNAhk1E6HMPm qXtlxPRjDeMtzJU6qF2i PGkurfgff5mlmhzj Nooew2nhvk27eS81B76b PPwxCWVzFAR9INDbXBLi zTxfqe3seF0wGn3+IDxj n5knw8hykLt1DhSt RGUmpcMnjWqtCBS0w8Dz Od71N4UwuLgja4IyGqe6 lw20vUOqx1M3vZP6CRzt YUChnU8rSAnxEkF4 FGUvOgAllO57nXWaNKgp Bx5hbNbviQtlYR6hHIKt cxkvJTApcM4wTPJbxYDs lDmtAG2tISWkxziq t053ToIdNOO0QTYkfPHw P0LdfY8qZlUhTMHqVFXt U3GrjCLyWSvsH031HYxx YvS1IKLprmTcW2Pw ZJPgcIfuKgN9h1G3Hw4U o9GxpcafYAP1NWiqACXo FfJ5RhCsStC2I0AhFnd6 NNFdyWhiUM8hO6Bq JDYsyfurcwznrCX8JKXa ERIiaI06qSJzURtjOp8h r2N5c096XJKpOZSpxW46 Zc9fiDezBXJaxOBW eD4anklsf7vekfxzGaXb HDOiPCw5HVr7SFZqtUbx UeFpSXC7ShD1CNN4cLYg eY4rkNmzdscnjS9h Oyc+E51zaB5cGPY5YLI9 rztlOKSowxJrFM83AH03 M0JgQooidYMsnQM+PGRp kvYgoMkuCW4hCsYu n8gts0NnYXphH5NaNKUc XNtqDoa0UZDhGXY8yLX9 mR4jNCWhRErlt4S7pIJ1 E9KugwWjvd7ms7wz KPHjREloM62nnHOqv4F5 JSZwiEH0SIZwgElmBsGz aC00Bdm+SCRuhXawd3Le Gpjmm8ftt3jdzMq9 IjMwJSIgdmFsaWduPSJ0 u6XqHt36S76eBBhpIACl KNUlRRAyNZYnrOdtbk7h qJ7kTw0+PGNvbCB3 wOO1iG1wOXZcCwT2HCef K186OfXpiGKzRpnaf6nu c0emdHa6DrBvUDYfcqSx bKrgNQJ1m5IyQm91 C94zXQgiJFDwFIJyWWEb RNNwjRwezp0ibD8cAa1+ NU3ic8egzx77sC83hTF+ WTKwEOG6fLcyEHmd VWRpcN4jPFtgNfV5QQBy QfIbeF44cXRkCYgjMp4b iQrwdSdnZW3oGOOksarx w293YqGrq9liAUKj nVIfNKkqDVY9N00jo9J2 AWTdXBWsPZQ3jIP2bI7d bGlnbjogbGVmdDsgdmVy dXfoKArtEYcxO810 IHRvcDsnPlBhdGllbnQg JwQkBPd3A1TbWyy4MGAk lGbsNH5vkWPoYHhcNo2x oNpfwXxxVN2dYNWg bvvlj442CnSfe5rcXMCl fTZaQIoeJIP7X00ae5I9 NRZrYAIrBAK3kMY4bL6p bGlnbjogbGVmdDsg tuQwmYhlTPdoICnkY011 IHRvcDsnPkJpcnRoIERh lPC3RR44GD02uZDck1I1 yYY5W5FfVHBseapz kwvsgZV6CIJgULUgtA15 Yo1saKanOt1iBRVrEQT4 BZTwpUFpT0YwkI1pZgUo CLEeTKDgC3BwgGRh KWugL403XVraSqY5UQCg ctFcZ7WtKZPsbXrtJrD3 c2O5Ja0JZ7R3UK41MT60 cZNac3D3qPE8F0Zt CSBxtibrdgqljNY0DXSo AWEouI73Jo1pxHpyOu2o REEyWNS0DOYamACkY4Ak uS8mWfIfXIWyGBDf E2RnxPHxIJpuR244JKjf EiP6YIMsuqPbU4NdREXr tHczWaJ6m4C2Dw7VRRw8 PU52VO73qUDkp0N0 eIY6G3NvCYVjpnxdgaoc vCI2SZZdWEEhvB29Bp2u iEgfHl4sLECnYNP0DBSw kDEqZ2JmvQ3xZgUr PZIsMKYbE3RgcDNeAFah N592WVagBjK5OBUxcuIm O8TnAMPdeLtpVjV5u2U6 Bi3YZSUsWL75CTS7 jND3ML77RX96K1VeYouw dGFibGU+PHRhYmxlIHdp ZHRoPScxMDAlJyBzdHls BW4fPn7bXWTyLWWa oGdttJBnWaSuw0vqQSTq NXmiJF4axJbuX4NpwAO4 ONQkc4e0Zg94O17fV4Xj dXA+SXOtyFQ2rIS5 zF7jUlHpIdQ9VTydE780 ByPltEEnKpmjh7aae9xm nBd0JoU3WXAqstIykYdx BXR6q9ZnWw46L77g IHdpZHRoPSIxNSUiIHZh gLizrk7qeB8cYb1+PGNv cUO4uVX5jH8hWvZpNtC1 JOvfD422CtFrgBWy Hurbd6vge3sczVm7JgHf RWShueZzvKutWRN0f0Ah Gl51N7XqeOdbc1XkSbh3 li20cQDzu0H5zZE4 H8CmUZQrcwqsyCCjrCax QS3uYGCmqadvPQWefS6d MUCfR9l1FvNyQxV7PArs Q9ZzuzW8ZQYiyXBw KCiyBFO7R65rv2N7MMTi BOVpGGP5xMJ4eV4vyNef bjogbGVmdDsgdmVydGlj YKtkSXeoC739DHHh qLcaDUDphY1mMIEqsLXa eVlqQO6yZGXrkaaqRjFS EHaAS9fpGBsGVULXFSjX Fsd4D1VzYua2UFXf aXshFB4abYFxYKxhVv6o qIzgtOvhLS6nYIPcenvu DVCtgJ0sXAMzqUNrvNqx BN0fRUAsjeowi181 YnMoCEU2BWKrbOKwV4Fu vE8cClPdSEDuOEIpT4Fs sLAfPBvxN466UJugZzQ2 MJQhyoEqW7XjFUPc qRxtWxQ1x3M8Cj2tSh4c Wp4iGQUeGY66SF03fRJe p3P6pSI2Z2RbXCBuzfhw xfobwTU1YMXcHIUp jB12qJVbXDawNx3qg6H3 r966QPAjLELwvU83Mv4r tSxdKSEzsEEQnM6lkzyf k2ohfcfbXvKrAARs GRo5WMo2TUMfgYisViFu GMN7QsB7NFN6aETlgM8b dHpjavbtjO4cDwh+NTkg TFGqfbO3V2PvJwx6 CEXalJhjQV3djRHyTTsr Eh9ksBzmlFmoIG6jAQVr qoduUCDqqV5oKKXhgOQn yDhqGA5hBBFdwgtr y877FuNaFKC3XEVbnXZd U1FnqV8eAwTjMTZeUWTf B9KlpAUhIGepV214XIan UrK9LKJjacZgZ2Co JAPdpLenGgK7y2N9Kf7E NBbjRF86KO61fZYmv3B6 zBX3T8EbKUUwyceixszs xTS0BXSvBHAahD72 tAKpRCvmVy0oh4C1y770 JXQiQUScuT84Wx7evBwm RRXnxVGFgR6qbsesm5xt cjogIzAwMDAwMDt0 HQk0SVNssColLyAkZEZ7 IhZ5AAI0tECkyL8mrPhu njqduX6pHem+HR4nyzgx hbP9FD32HQ25G7Pk PjwvdGFibGU+PHRhYmxl IHdpZHRoPScxMDAlJyBz eSdhJK3nYd1pJDXoEXPj pYjdtQFaIaEna5ip SSLcRCwhII8lzHqvQ6Vs tNX7JWZyx3e2Eb47G86x H0JzpBN+GDRtnFP2hUT8 gE6mPdFuNtL2PLer S401PiYwrBUxTuntr8fd o3yixMw0RsJzVXRwyyDf cOftSCH2e8AgZg97K95i IHdpZHRoPSIyMCUi GBIqgVcang8onH2zMe4+ AYDctFP8pHL0yE9nHeXv RiC4QJokU728JjNkvENo QwthC53zV0DwnIH+ QTVhRwv9TUFqwXmjOS6o mESkHCedVd9dXLN9XvOv GyAyGNymE4PfBVFfvtgo aqtopXR3UWEtYEVj nS82Nh3jpRnkRv3qXAZm WSZ5DAMvaAWkY0NdxN7l SnDpURCrFSRdC0ZjnAPi JKymP962VCfpZeN8 OVTrneHqI7HmAAIsmGyj CkT7l3H5Of4CdJojeTUn QN2uKxRxNKd5M1AbEdy9 VUDhqGigCG6ncQJz SLgaMe0abWediLnxKI2c MAFegujgn711HaRlk0sp ZPHqfRBwMCvyNTT8I32t m3C6WQDdVRXbRBQ8 eHW9xV6bfWwzybifkIBf dDsgdmVydGljYWwtYWxp M677KKAdcDrhUsOYZvn1 Q3OpNkl0RDRkiJfm DU6vhRWtXNuzJr2goZfy bHxyOT6aELJesbsqm278 LeJrv5ptUGXrzENgQNzr DLU2N43an1M2TPJa XLKxZDX3rTQ0vA4dsCek bjogbGVmdDsgdmVydGlj HNhyJLodQ778UABegRer Kp8ACui7G5BoFin6 TJIqlIjnYI6vqOLwJEyi Qc3rjJmzuCyoUZ5cYKMi dhxis757ZrOqw9rhIVNn sHEbNDscCZD6X16y n9F0TQJfESPwWAA9iBF9 rQ5vjIckzzpbwOGpoTmh mfPmzEzjGYmdOBtvS625 IHRvcDsnPlBheWVy OjwvdGQ+ZT42ir93A9Wg KptzGaa1RMPdBYH0jTT4 wR1wLEArGAkpr1U3vPJ9 S3HariWnus5iy5xv YXBz (more content not included)... [facility] Consent for Treatmenton 11-20 Consent for Treatment [id number] #1.00CD:127 [facility] Discharge Instructionson Discharge Instructions [id number] 3#1.00CD:127 [facility] ED Clinical Summaryon 2020 ED Clinical Summary [address] [id number] ED Clinical Summary Person Information [facility]: [facility] Age[facility] 60 Years : 1960 Sex: Male Language: French PCP: RICHARD VIDAL DO Marital Status: Phone: [phone] Visit Id: Visit Reason: Wrist pain-swelling; Hand [...] 12/17/2020 16:17:08 12/17/2020 16:17:08 12/17/2020 16:17:08 [address] [place] [phone] PHYS DOC NOTES: MEDICAL INFORMATION: Prescriptions Given: Medications to Continue with No Changes Other Medications clonidine (clonidine 0.3 mg oral tablet) lisinopril (lisinopril 40 mg Tab) naproxen (Naprosyn 500 mg Tab) 1 Tablets By Mouth 2 times a day. Refills: 0. omeprazole (omeprazole 20 mg Cap-DR) 1 Capsules By Mouth every day. PATIENT EDUCATION INFORMATION: Instructions: Tendinitis Follow up: With: Address: When: [facility]: [facility] [phone] In 3 days 12/20/2020 DIAGNOSIS: Tendonitis [facility] ED Note-Physicianon 12-18-19 ED Note-Physician Basic Information Time Seen: Callum Thomson PA-C 12/17/2020 15:41 Chief Complaint patient states he was sorting through packages. Patient felt pain in right hand and wrist History of Present Illness 60-year-old male comes to the ED for evaluation of right breast pain. 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 He said she was moving his partials [...] working diagnosis of tendinitis and is given [facility] follow-up. Patient was encouraged to [...] prescription medications Follow-up With When Contact Information [facility]: [facility] [phone] In 3 days 12/20/2020 EDT Additional Instructions: Patient Education Tendinitis Attestation Patient seen and evaluated by the physician academic support assistant. Attending physician was present in the emergency department and supervised care. This report was transcribed using voice recognition software. Every effort was made to ensure accuracy, however, inadvertently computerized lunchroom aide mistakes may be present. Appropriate healthcare PPE [...] fracture, dislocation (more content not included)... [facility] Comment on above: Result Comment: Elec [...] by your health care provider. ? Take mnlr-rmw-bzfltkb and prescription medicines only as told by [...] Patient Education (more content not included)... [facility] ED Patient Summaryon 021 ED Patient Summary [place] [id number] Patient Discharge Instructions Person Information Name: MICHELL WEBSTER Age: 60 Years Arrival Date: 12/17/2020 14:53:33 Discharge Diagnosis: Tendonitis Primary Care Physician: RICHARD VIDAL DO Provider Information Primary Provider: Armando Xavier DO [employer] Ski Repairer:Callum Thomson PA-C The exam and treatment you received in the Emergency Department were for an urgent problem and are not intended as complete care. It is important that you follow up with a doctor, nurse practitioner, or physician?s academic support assistant for ongoing care. If your symptoms become worse or you do not improve as expected and you are unable to reach your usual health care provider, you should return to the Emergency Department. We are available 24 hours a day. MICHELL WEBSTER has been given the following list of patient education materials, prescriptions and follow-up instructions: Follow-up Instructions: With: Address: When: [facility]: [facility] [phone] In 3 days 12/20/2020 In the event that this physician does not participate in your insurance network, please consult with your insurance company to find a nearby participating provider. Patient Education Materials: Tendinitis A MESSAGE TO ALL PATIENTS REGARDING OPIOIDS PRESCRIPTION OPIOIDS: WHAT YOU NEED TO KNOW Prescription opioids can be used to help relieve xilfslcd-tf-wdukrv pain and are often prescribed following a [...] be struggling with addiction, tell your health cattle care worker and ask for guidance or call [facility]S National Helpline at 8-921-933-HELP. v Source: [place] Department of Health and Human Services/Center for Disease Contr (more content not included)... [facility] Workers Comp [employer] 021 Workers Comp Forms [id number] 2#1.00CD:127 [facility] XR Hand 3+ Views Righton XR [...] MD Transcribed by: QAMAR Technologist: IKE, [facility] XR Wrist 3+ Views Righton XR [...] DO Transcribed by: QAMAR Technologist: Elver RAMIRES [facility] Vital Signs Date Time Vital Sign Value Performing Clinician Facility 11-29-2023 11:26-0400 Body height 170.18 cm [facility] 11-29-2023 11:26-0400 Body mass index (BMI) [Ratio] 38.1 kg/m2 [facility] 11-29-2023 11:26-0400 Body weight 110.44 kg [facility] 11-29-2023 11:26-0400 Diastolic blood pressure 89 mm[Hg] [facility] 11-29-2023 11:26-0400 Heart rate 90 /min [facility] 11-29-2023 11:26-0400 Respiratory rate 12 /min [facility] 11-29-2023 11:26-0400 Systolic blood pressure 139 mm[Hg] [facility] 09-14-2023 10:00-0400 Body height 170.18 cm [facility] 09-14-2023 10:00-0400 Body mass index (BMI) [Ratio] 38.2 kg/m2 [facility] 09-14-2023 10:00-0400 Body weight 110.67 kg [facility] 09-14-2023 10:00-0400 Diastolic blood pressure 90 mm[Hg] [facility] 09-14-2023 10:00-0400 Heart rate 91 /min [facility] 09-14-2023 10:00-0400 Respiratory rate 12 /min [facility] 09-14-2023 10:00-0400 Systolic blood pressure 138 mm[Hg] [facility] 04-04-2023 10:14-0500 Body height 170.18 cm [facility] 04-04-2023 10:14-0500 Body mass index (BMI) [Ratio] 39.4 kg/m2 [facility] 04-04-2023 10:14-0500 Body weight 114.41 kg [facility] 04-04-2023 10:14-0500 Diastolic blood pressure 88 mm[Hg] [facility] 04-04-2023 10:14-0500 Heart rate 76 /min [facility] 04-04-2023 10:14-0500 Respiratory rate 16 /min [facility] 04-04-2023 10:14-0500 Systolic blood pressure 148 mm[Hg] [facility] 11-24-2022 10:00-0400 Body height 170.18 cm Richard Ball Other [facility] [employer] Other 11-24-2022 10:00-0400 Body mass index (BMI) [Ratio] 40.81 kg/m2 Richard Ball Other [place] [employer] Other 11-24-2022 10:00-0400 Body weight 118.21 kg Richard Ball Other [facility] [employer] Other 11-24-2022 10:00-0400 Diastolic blood pressure 90 mm[Hg] Richard Ball Other [place] [employer] Other 11-24-2022 10:00-0400 Respiratory rate 12 /min Richard Ball Other [facility] Other 11-24-2022 10:00-0400 Systolic blood pressure 171 mm[Hg] Richard Ball Other [facility] Other 09-25-2022 09:15-0400 Body height 170.18 cm Richard Ball Other [facility] Other 09-25-2022 09:15-0400 Body mass index (BMI) [Ratio] 40.84 kg/m2 Richard Ball Other [facility] Other 09-25-2022 09:15-0400 Body weight 118.3 kg Richard Ball Other [facility] Other 09-25-2022 09:15-0400 Diastolic blood pressure 89 mm[Hg] Richard Ball Other [facility] Other 09-25-2022 09:15-0400 Respiratory rate 12 /min Richard Ball Other [facility] Other 09-25-2022 09:15-0400 Systolic blood pressure 135 mm[Hg] Richard Ball Other [facility] Other 06-13-2022 09:30-0400 Body height 170.18 cm Richard Ball Other [facility] Other 06-13-2022 09:30-0400 Body mass index (BMI) [Ratio] 42.1 kg/m2 Richard Ball Other [facility] Other 06-13-2022 09:30-0400 Body weight 121.93 kg Richard Ball Other [facility] Other 06-13-2022 09:30-0400 Diastolic blood pressure 86 mm[Hg] Richard Ball Other [facility] Other 06-13-2022 09:30-0400 Respiratory rate 12 /min Richard Ball Other [facility] Other 06-13-2022 09:30-0400 Systolic blood pressure 126 mm[Hg] Richard Ball Other [facility] Other 06-13-2022 08:30-0400 Body height 170.18 cm Richard Ball Other [facility] Other 06-13-2022 08:30-0400 Body mass index (BMI) [Ratio] 42.1 kg/m2 Richard Ball Other [facility] Other 06-13-2022 08:30-0400 Body weight 121.93 kg Richard Ball Other [facility] Other 06-13-2022 08:30-0400 Diastolic blood pressure 86 mm[Hg] Richard Ball Other [facility] Other 06-13-2022 08:30-0400 Respiratory rate 12 /min Richard Ball Other [facility] Other 06-13-2022 08:30-0400 Systolic blood pressure 126 mm[Hg] Richard Ball Other [facility] Other 08-18-2021 12:09-0400 Diastolic blood pressure 120 mm[Hg] Edilia NILL [facility] 08-18-2021 12:09-0400 Mean blood pressure 133 mm[Hg] Edilia NILL [facility] 08-18-2021 12:09-0400 Systolic blood pressure 160 mm[Hg] Edilia NILL [facility] 08-18-2021 11:43-0400 Blood Pressure Location Edilia NILL [facility] 08-18-2021 11:43-0400 Diastolic blood pressure 114 mm[Hg] Edilia NILL [facility] 08-18-2021 11:43-0400 Heart rate 83 /min Edilia NILL [facility] [place] 08-18-2021 11:43-0400 Respiratory rate 16 /min Edilia SERRANO [facility] [place] 08-18-2021 11:43-0400 Systolic blood pressure 169 mm[Hg] Edilia SERRANO [facility] Encounters Encounter Date Encounter Type Care Provider Facility Start: 11-29-2023 End: 11-29-2023 ambulatory [facility] Work Phone: Start: 11-29-2023 End: 11-29-2023 Encounter for general adult medical examination without abnormal findings [facility] Start: 11-29-2023 End: 11-29-2023 Patient encounter procedure [facility] Physician [facility] Work Phone: Start: 11-27-2023 Patient encounter status [facility] Start: 09-14-2023 End: 09-14-2023 ambulatory [facility] Work Phone: Start: 09-14-2023 End: 09-14-2023 Patient encounter procedure [facility] Physician [facility] Work Phone: Start: 09-04-2023 ambulatory RICHARD VIDAL [facility] Start: 09-04-2023 Non-patient / Non-visit [facility] Physician [facility] Work Phone: Start: 09-03-2023 Non-patient / Non-visit [facility] Physician [facility] Work Phone: Start: 07-23-2023 End: 07-23-2023 ambulatory MARK Crews [facility] Not Available Start: 04-04-2023 End: 04-04-2023 ambulatory [facility] Work Phone: Start: 04-04-2023 End: 04-04-2023 Patient encounter procedure [facility] Work Phone: Start: 11-27-2022 End: 11-27-2022 ambulatory Richard Vidal Other [facility] Other Start: 11-27-2022 Telephone encounter Richard BURNS [facility] Start: 11-24-2022 End: 11-24-2022 ambulatory Richard Vidal Other [facility] Other Start: 11-24-2022 Encounter for genera l adult medical examination without abnormal findings Richard Vidal [facility] Start: 11-24-2022 Periodic preventive med est patient 40-64yrs Richard Vidal [facility] Start: 09-25-2022 End: 09-25-2022 ambulatory Richard Vidal Other [facility] Other Start: 09-25-2022 Office outpatient vi sit 15 minutes Richard Vidal [facility] Start: 08-18-2022 End: 08-18-2022 ambulatory Richard Vidal Other [facility] Other Start: 08-18-2022 Telephone encounter Richard BURNS [facility] Start: 07-18-2022 End: 07-18-2022 ambulatory Richard Vidal Other [facility] Other Start: 07-18-2022 Telephone encounter Richard BURNS [facility] Start: 07-17-2022 Encounter for genera l adult medical examination without abnormal findings DR RICHARD VIDAL [facility] Start: 07-14-2022 End: 07-15-[address] RICHARD VIDAL Facility:[facility] Start: 07-14-2022 End: 07-15-2022 Encounter for general adult medical examination without abnormal findings DR RICHARD VIDAL Facility:[facility] Start: 06-13-2022 End: 06-13-2022 ambulatory Richard Vidal Other [facility] Other Start: 06-13-2022 Encounter for genera l adult medical examination without abnormal findings Richard Young [facility] Start: 06-13-2022 Office outpatient vi sit 25 minutes Richard Young [facility] Start: 06-13-2022 Telephone encounter Richard Vidal [facility] Start: 02-22-[address] RICHARD VIDAL Facili ty:[facility] Start: 11-25-2021 Adult health examination Richard Vidal Other [facility] Other Start: 11-25-2021 Pre-procedure evaluation check Richard Young Other [facility] Other Start: 11-20-2021 End: 11-20-2021 ambulatory KVNG VERAS . Facility:[facility] Start: 10-06-2021 End: 10-07-[address] RICHARD VIDAL Facility:[facility] Start: 09-19-2021 End: 09-20-[address] RICHARD VIDAL Facility:[facility] Start: 08-31-2021 End: 08-31-[address] EDILIA SERRANO . Facility:[facility] Start: 08-18-2021 End: 08-18-2021 Patient encounter procedure Edilia SERRANO [facility] Procedures Date Procedure Procedure Detail Performing Clinician Start: 07-14-[address] HOLBROOK IN [place] Comment on above: Performed By: #### P [facility] #### [facility] [address] [place] [address] Dr. Carly Elias Start: 08-20-2018 Screening for [...] lic 1999 panel - Serum or Plasma [facility] enter Microalbumin [Mass/volume] in Urine [facility] Immunizations Immunization Date Immunization Notes Care Provider Fa cility 06-29-2020 COVID-19 Vaccine Pfi zer - Documentation Purposes Only Richard Vidal Other [facility] 06-08-2020 COVID-19 Vaccine Pfi zer - Documentation Purposes Only Richard Vidal Other [facility] Payers Date Payer Category Payer Unknown [id number] 2.16.84 [id number] 1960 Unknown [id number] 2.16.84 [id number] 1960 Unknown [id number] 2.16.84 [id number] 1960 Unknown [id number] 2.16.84 [id number] 1960 Unknown [id number] 2.16.84 [id number] 1960 Unknown [id number] 2.16.84 [id number] 1960 Unknown [id number] 2.16.84 [id number] 1960 Unknown [id number] 2.16.84 [id number] 1960 Unknown [id number] 2.16.84 [id number] 1960 Unknown [id number] 2.16.8 [id number] 1960 Unknown [id number] 2.16.8 [id number] 1958 Private Health Insurance [id number] 1959 Private Health Insurance [id number] 1958 Self-pay [id number] Social History Date Type Detail Facility Start: 08-18-2021 End: 03-31-2023 Tobacco smoking status Never smoked tobacco (finding) [facility] Tobacco smoking status Never [facility] Sex Assigned At Male [facility] Start: 1960 Sex Assigned At Male F [facility] Functional Status Date Assessment Result Facility 08-18-2021 Functional Status N/A [facility] Clinical Notes 11-21-2017 to 11-24-2022 Note Date [...] use, the patient reduces the risk for TX, CVA, HTN, cardiac dysrhythmias and sudden cardiac [...] and to report to ER for evaluation. [facility] Other 08-07-2023 Evaluation note* Encounter Date Diagnosis [...] has resolved. Related to ongoing symptoms? GB? [facility] Other 06-30-2023 Evaluation note* Encounter Date Diagnosis Assessment Notes Treatment Notes Treatment Clinical Notes Jul, Type 2 diabetes mellitus with hyperglycemia, without long-term current use of insulin (ICD-10 - E11.65) [facility] Other 05-30-2023 Evaluation note* Encounter Date Diagnosis Assessment Notes Treatment Notes Treatment Clinical Notes June, Type 2 diabetes mellitus with hyperglycemia, without long-term current use of insulin (ICD-10 - E11.65) [facility] Other 04-25-2023 Evaluation note* Encounter Date Diagnosis [...] use, the patient reduces the risk for TX, CVA, HTN, cardiac dysrhythmias and sudden cardiac [...] or drinking prior to bedtime. Weight loss. [facility] Other 04-25-2023 Evaluation note* Encounter Date Diagnosis Assessment Notes Treatment Notes Treatment Clinical Notes May, Wellness examination (ICD-10 - Z00.00) [facility] Other 07-13-2022 NoteOPERATIVE NOTE OPERATION DATE: 08/31/2021 [...] in 10 years. CC: Richard Vidal D.O. [facility] Signed and Approved by: DR EDILIA SERRANO . 09/02/2021 12:37:00[facility]07-05-2022 NoteChief Complaint consultation for positive Cologuard HPI [...] neoplasm of lung: Sister. Renal failure syndrome: Father.[facility]: Result Comment: Electronically Signed By: HANK JASMINE, Edilia Maddox\Date and Time Signed: 08/23/21 08:29 [id number] Evaluation note* Diagnosis Onset Date Resolution Status Cerebral atherosclerosis November 21, 2017 acute Elevated cholesterol acute Gastroesophageal reflux dise ase with esophagitis without hemorrhage acute Obstructive sleep apnea acut e Primary hypertension acute Type 2 diabetes mellitus with hyperglycemia acute [facility] Work Phone: 1(438) 385-501410-03-2018 Evaluation note* Diagnosis Onset Date Resolution Status Cerebral atherosclerosis November 21, 2017 acute Elevated cholesterol acute Obstructive sleep apnea acut e Primary hypertension acute Type 2 diabetes mellitus with hyperglycemia acute [facility] Work Phone: [phone]) 312-214910-03-2018 Evaluation note* Diagnosis Onset Date Resolution Status [...] mellitus with hyperglycemia acute Wellness examination acute [facility] Work Phone: Evaluation + Plan note No data available for this section [facility] Evaluation noteNo InformationNortW[facility] [employer] Other History general Narrative - Reported* Type [...] CLAVICLE 2013 Hospitalization History SEE SURGICAL HX [place] [facility] Other Hospital Discharge instructions No data available for this section [facility] [place] Progress note No data available for this section [facility] Summary Purpose Family History Relationship Condition Age [...] Status: Active Member Role Status Dates Richard Viadl DO Primary Care Provider Active Start: September [...] content) DATE CREATED AUTHOR 09/08/2021 Timothy Monsivais [facility] DATE CREATED AUTHOR AUTHOR'S ORGANIZ ATION 07/28/2022 [facility] DATE CREATED AUTHOR AUTHOR'S ORGANIZ ATION 07/24/2023 [facility] EPIC DATE CREATED AUTHOR AUTHOR'S [...] BE BASED ON THE PRIMARY CLINICAL RECORDS. [employer] [facility]. provides no warranty or guarantee of the accuracy or completeness of information in this document.
[2024-04-01 12:01] LABS: Estimated Average Glucose 143 mg/dL; Glycohemoglobin A1C 6.6 % (4.5-6.2)
== END 2024-04-01 11:26 | disposition home or self-care (01) ==
LOC: LAB 11:28
PROVIDERS: PCP Internal Medicine; Visit Provider Internal Medicine
DX: E11.65 Type 2 diabetes mellitus with hyperglycemia (principal)
CPT/HCPCS: 36415; 83036

== ENCOUNTER 2024-06-28 13:38 | Emergency (ER) | payer OTHER, SELFPAY ==
--- OUTSIDE RECORDS SUMMARY | 2024-06-28 13:44 | XMS_ITS | CCD ---
Author Organization [facility] Care Team Providers Care Parent Partner Name Role Phone RICHARD VIDAL Primary Care Physician [phone] Richard Vidal YOUNG, DR RAMOS Primary Care Unavailable YOUNG, DR RAMOS Admitting Unavailable BALL, DR RAMOS Attending Unavailable BALL, DR RAMOS Admitting Unavailable BALL, DR RAMOS Attending Unavailable BALL, DR RAMOS Consulting Unavailable YOUNG, DR RAMOS Primary Care Unavailable BALL, DR RAMOS Primary Care Unavailable BALL, DR RAMOS Admitting Unavailable BALL, DR RAMOS Attending Unavailable BALL, DR RAMOS Consulting Unavailable EDA ., KVNG Admitting Unavailable GRECHNY ., NO URBAN Consulting Unavailabl e YOUNG, DR RAMOS Primary Care Unavailable EDA ., KVNG Attending Unavailable ASHLEY, SUNDAY Consulting Unavailable EDA ., KVNG Consulting Unavailable BALL, DR RAMOS Admitting Unavailable BALL, DR RAMOS Attending Unavailable BALL, DR RAMOS Consulting Unavailable BALL, DR RAMOS Primary Care Unavailable NILL ., [...] aspirin 81 mg delayed release oral tablet (14 sources) Platelet Aggregation Inhibitor, Nonsteroidal Anti-inflammatory Drug Start: 08-15-2021 take 1 tablet by mouth once daily Aspirin 81 mg tablet,delayed release (/EC) Active 1 TAB PO Daily March 31, 2023 1:00am FreeTextSi tablet Orally Once a day; Note: Source Status: Start; Refills: 3; Qty: 90 Tablet; Provider: Young Ramos ( ) take 1 tablet by mouth once clara y Aspirin 81 81 MG 1 tablet Orally Once a day Active atorvastatin 10 mg oral tablet (16 sources) HMG-CoA Reductase Inhibitor Start: 01-11-2024 take 1 tablet by mouth once daily in the evening Atorvastatin 10 mg tablet Active 0 .ROUTE .COMPLEX 90 January 11, 2024 2:02pm TAKE 1 TABLET BY MOUTH EVERY EVENING Start: 08-15-2021 End: 01-11-2024 take 1 tablet by mouth once daily Atorvastatin 10 mg tablet Discontinued 1 TAB PO Daily March 31, 2023 1:00am January 11, 2024 2:02pm FreeTextSi tablet Orally Once a day; Note: Source Status: Continue; Provider: Young Ramos ( ) cloNIDine hydrochloride 0.3 mg oral tablet (19 sources) Central alpha-2 Adrenergic Agonist Start: 05-02-2023 End: 04-24-2024 take 1 tablet by mouth twice daily Clonidine Hcl 0.3 mg tablet Active 0 .ROUTE .COMPLEX 180 April 24, 2024 9:43am TAKE 1 TABLET BY MOUTH TWICE A DAY Start: 05-02-2023 take 1 tablet by iram th twice daily Clonidine Hcl Active 0 .ROUTE .COMPLEX 180 May 02, 2023 6:11pm TAKE 1 TABLET BY MOUTH TWICE A DAY Start: 08-15-2021 End: 05-02-2023 take 1 tablet by mouth twice daily Clonidine Hcl 0.3 mg tablet Discontinued 1 TAB PO Twice daily March [...] Dulaglutide (Trulicity) 3 mg/0.5 mL pen injector (13 sources) Start: 04-13-2023 inject 0.5 mL by subcutaneous injection every week Dulaglutide (Trulicity) 3 mg/0.5 mL pen injector Active 4.5 MG SUBCUT every week 9.75 90 April 13, 2023 4:28pm FreeTextSi.5 ML Subcutaneous weekly; Note: Source Status: Continue; Provider: Young Soria Start: 04-13-2023 inject 0.5 mL by sub cutaneous injection every week Dulaglutide (Trulicity) 3 mg/0.5 mL pen injector Active 4.5 MG SUBCUT every week 9.75 April 13, 2023 5:28pm FreeTextSi.5 ML Subcutaneous weekly; Note: Source Status: Continue; Provider: Young Soria Start: 04-13-2023 End: 04-13-2023 inject 0.5 mL by subcutaneous injection every week Dulaglutide (Trulicity) 3 mg/0.5 mL pen injector Discontinued 4.5 MG SUBCUT every week April 13, 2023 4:27pm April 13, 2023 4:29pm FreeTextSi.5 ML Subcutaneous weekly; Note: Source Status: [...] SUBCUT every week March 31, 2023 12:00am April 13, 2023 4:28pm FreeTextSi.5 ML Subcutaneous weekly; Note: Source Status: [...] Young Soria hydroCHLOROthiazide 12.5 mg oral capsule (15 sources) Thiazide Diuretic Start: 01-11-2024 take 1 capsule by mouth once daily Hydrochlorothiazide 12.5 mg capsule Active 0 .ROUTE .COMPLEX January 11, 2024 2:02pm TAKE 1 CAPSULE BY MOUTH EVERY DAY Start: 03-31-2023 End: 01-11-2024 take 1 capsule by mouth once daily Hydrochlorothiazide 12.5 mg capsule Discontinued 1 CAP PO Daily March 31, 2023 1:00am January 11, 2024 2:02pm FreeTextSig: TAKE 1 CAPSULE BY MOUTH EVERY DAY; Note: Source Status: Start; Refills: 3; Qty: 90 Capsule; Provider: Young Ramos ( ) lisinopril 40 mg oral tablet (19 sources) Angiotensin Converting Enzyme Inhibitor Start: 05-02-2023 End: 04-24-2024 take 1 tablet by mouth once daily Lisinopril 40 mg tablet Active 0 .ROUTE .COMPLEX April 24, 2024 9:43am TAKE 1 TABLET BY MOUTH EVERY DAY Start: 05-02-2023 take 1 tablet by iram th once daily Lisinopril Active 0 .ROUTE .COMPLEX May 02, 2023 6:12pm TAKE 1 TABLET BY MOUTH EVERY DAY Start: 09-26-2016 End: 05-02-2023 take 1 tablet by mouth once daily Lisinopril 40 mg tablet Discontinued 1 TAB PO Daily March 31, 2023 1:00am May 02, 2023 6:12pm FreeTextSig: TAKE 1 TABLET BY MOUTH EVERY DAY; Note: Source Status: Continue; Provider: Young Ramos ( ) metFORMIN hydrochloride 500 mg oral tablet (20 sources) Biguanide Start: 10-28-2023 take 1 tablet by mouth twice daily Metformin 500 mg tablet Active 0 .ROUTE .COMPLEX 180 October 28, 2023 8:36am TAKE 1 TABLET BY MOUTH TWICE A DAY Start: 07-30-2023 End: 10-28-2023 take 1 tablet by mouth twice daily Metformin 500 mg tablet Discontinued 500 MG PO Twice daily 180 90 July 30, 2023 5:47pm October 28, 2023 8:36am Start: 03-31-2023 End: 07-30-2023 take 1 tablet by mouth once daily Metformin 500 mg tablet Discontinued 1 TAB PO Daily March 31, [...] omeprazole 40 mg delayed release oral capsule (17 sources) Proton Pump Inhibitor Start: 04-15-2023 End: 10-15-2023 take 1 capsule by mouth twice daily at mealtime Omeprazole 40 mg capsule,delayed release(DR/EC) Active 0 .ROUTE .COMPLEX 180 October 15, 2023 9:28pm TAKE 1 CAPSULE BY MOUTH TWICE A DAY ON AN EMPTY STOMACH FOLLOWED IN 30 MINUTES BY A MEAL Start: 03-31-2023 End: 04-15-2023 take 1 capsule by mouth twice daily at mealtime Omeprazole 40 mg capsule,delayed release(DR/EC) Discontinued 40 MG PO Twice daily March 31, 2023 1:00am April 15, 2023 7:33pm ON AN EMPTY STOMACH FOLLOWED IN 30 MINUTES BY A MEAL Start: 08-18-2021 take 20 mg by mouth once daily Prilosec OTC 20 mg, Oral, Daily, Refills(s) 0 Start Date: 08/18/21 Status: Ordered Completed/Discontinued Medications Medication Drug Class(es) Dates Sig (Normalized) Sig (Original) meclizine hydrochloride 25 mg oral tablet (4 sources) Antiemetic Start: 09-14-2023 End: 04-01-2024 take 1 tablet by mouth once daily as needed Meclizine 25 mg tablet Discontinued 25 MG PO Daily as needed September 14, 2023 12:00am April 01, 2024 12:00pm Problems Active Problems Problem Classification Problem Date Documented Da te Episodic/Chronic Abdominal pain (4 sources) Right upper quadrant pain; Translations: [Right upper quadrant pain] Onset: 6 Episodic Acute bronchitis (2 sources) Acute bronchitis; Translations: [Acute bronchitis due to other specified organisms] Onset: 6 Episodic Acute cerebrovascular disease (3 sources) Cerebral infarction; Translations: [Cerebral infarction due to embolism of cerebral arteries] Onset: 8 08-15-2021 Chronic Conditions associated with dizziness or vertigo (4 sources) Benign paroxysmal positional vertigo; Translations: [Benign [...] Onset: 2 Chronic Disorders of lipid metabolism (20 sources) Hypercholesterolemia; Translations: [Pure hypercholesterolemia, unspecified] Onset: 8 Chronic Esophageal disorders (16 sources) Gastroesophageal reflux disease; Translations: [Gastro-esophageal reflux [...] 4 Chronic Other and ill-defined cerebrovascular disease (9 sources) Cerebral atherosclerosis; Translations: [Cerebral atherosclerosis] Onset: 8 03-31-2023 Chronic Other and ill-defined cerebrovascular disease (8 sources) Cerebral atherosclerosis; Translations: [Cerebral atherosclerosis] Onset: [...] Chronic Other nutritional; endocrine; and metabolic disorders (4 sources) Obesity; Translations: [Obesity, unspecified] Onset: 5 11-29-2023 Chronic Other nutritional; endocrine; and metabolic disorders (3 sources) Obesity, unspecified; Translations: [Obesity, unspecified] 11-29-2023 Chronic Other screening for suspected conditions (not mental disorders or infectious disease) (7 sources) Stool DNA-based colorectal cancer screening positive; Translations: [Encounter for screening for malignant neoplasm of prostate] Onset: 3 08-18-2021 Episodic Comment on above: PSA: 0.8 - 11/2023 Other upper respiratory disease (1 source) Seasonal [...] tube disorder, bilateral] Episodic Residual codes; unclassified (17 sources) Obstructive sleep apnea syndrome; Translations: [Obstructive sleep apnea (adult) (pediatric)] 08-15-2021 Chronic Residual codes; unclassified (15 sources) Obstructive sleep apnea (adult) (pediatric); Translations: [Obstructive sleep apnea (adult)(pediatric)] Onset: 2 Chronic Residual codes; unclassified (1 source) Sleep apnea, unspecified; Translations: [SLEEP APNEA UNSPECIFIED] Onset: 2 Chronic Residual codes; unclassified (1 source) Primary central sleep apnea; Translations: [PRIMARY CENTRAL SLEEP APNEA] Onset: 2 Chronic Residual codes; unclassified (1 source) Pain, unspecified; Translations: [Pain, unspecified] Onset: 4 Episodic Spondylosis; intervertebral disc disorders; other back problems (4 sources) Thoracic back pain; Translations: [Pain in thoracic spine] 02-07-2024 Episodic Sprains and strains (3 sources) Strain [...] Onset: 02-07-2016 Episodic Other aftercare (1 source) 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; 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] Onset: 11-21-2021 Episodic Other aftercare (1 source) Other terminologist (current) drug therapy; Translations: [OTH PRISON CURRENT DRUG THERAPY] Onset: 11-21-2021 Episodic Other aftercare (1 source) termite exterminator (current) use of oral hypoglycemic drugs; Translations: [PRISON USE ORAL HYPOGLYCEMIC DX] Onset: 09-01-2021 Episodic [...] Test Name Value Interpretation Reference Range Facility Glucose mean value [Mass/vol ume] in Blood Estimated from glycated hemoglobinon 04-01-2024 Average glucose Estimated from glycated hemoglobin (Bld) [Mass/Vol] Glucose mean value [Mass/volume] in Blood Estimated from glycated hemoglobin [facility] Hemoglobin A1c percentageon 04-01-2024 HbA1c (Bld) [Mass fraction] Hemoglobin A1c percentage High 4.5-6.2 [facility] Comment on above: ADA RECOMMENDED LIMI T 4.0 - 6.0ADA THERAPEUTIC TARGET < 7.0ACTION SUGGESTED> 7.0 Laboratory - Chemistry and C hemistry - challengeon 09-04-2023 Bilirubin Ql (U) Negative NEGATIVE [facility] Glucose (U) [Mass/Vol] Negative NEGATIVE [facility] Ketones Ql (U) Negative NEGATIVE [facility] pH (U) 6.0 [pH] 5.0-9.0 [facility] Specific gravity (U) [Rel density] 1.010 1.005-1.025 [facility] Urobilinogen Qn (U) 0.2 {Woodrow'U}/dL 0.2-1.0 [facility] Laboratory - Specimen inform ationon 09-04-2023 Appearance (U) CLEAR CLEAR [facility] Color (U) LT. YELLOW YELLOW [facility] Laboratory - Urinalysison Leukocyte esterase Test strip Ql (U) Negative NEGATIVE [facility] Nitrite Ql (U) Negative NEGATIVE [facility] Protein Ql (U) Negative NEG/TRACE [facility] No Panel Informationon 09-03 Urine Microscopic Review NO [facility] Urine Occult Blood Negative NEGATIVE [facility] Basophils Auto (Bld) [#/Vol] on 09-03-2023 Basophils (Bld) [#/Vol] 0.1 10 3/uL 0.0-0.1 [facility] Basophils/100 WBC Auto (Bld) on 09-03-2023 Basophils/100 WBC (Bld) 1.0 % 0.2-2.0 [facility] Eosinophils/100 WBC Auto (Bl d)on 09-03-2023 Eosinophils/100 WBC (Bld) 4.6 % 0.9-7.0 [facility] Erythrocyte distribution wid th Auto (RBC) [Ratio]on 09-03-2023 Erythrocyte distribution width (RBC) [Ratio] 12.7 % 11.0-15.0 [facility] Estimated glomerular filtrat ion rate (GFR) non- Americanon 09-03-2023 GFR/1.73 sq M.predicted among non-blacks MDRD (S/P/Bld) [Vol rate/Area] mL/min/{1.73_m2} >=60 [facility] Globulin Calc (S) [Mass/Vol] on 09-03-2023 Globulin (S) [Mass/Vol] 3.5 g/dL [facility] Hematocrit Auto (Bld) [Volum e fraction]on 09-03-2023 Hematocrit (Bld) [Volume fraction] 39.1 % Low 42.0-54.0 [facility] Hemoglobin [Mass/volume] in Bloodon 09-03-2023 Hemoglobin (Bld) [Mass/Vol] 13.8 g/dL Low 14.0-18.0 [facility] Laboratory - Chemistry and C hemistry - challengeon 09-03-2023 Albumin [Mass/Vol] 3.8 g/dL 3.4-5.0 [facility] ALP [Catalytic activity/Vol] 108 U/L 46-116 [facility] ALT [Catalytic activity/Vol] 60 U/L 16-63 [facility] AST [Catalytic activity/Vol] 36 U/L 15-37 [facility] Bilirubin [Mass/Vol] 0.4 mg/dL 0.2-1.0 [facility] Calcium [Mass/Vol] 9.2 mg/dL 8.5-10.1 [facility] Chloride [Moles/Vol] 101 mmol/L 98-107 [facility] CO2 [Moles/Vol] 27.1 mmol/L 21.0-32.0 [facility] Creatinine [Mass/Vol] 0.83 mg/dL 0.70-1.[address] [facility] GFR/1.73 sq M.predicted MDRD (S/P/Bld) [Vol rate/Area] mL/min/{1.73_m2} >=60 [facility] Glucose [Mass/Vol] 132 mg/dL High 74-106 [facility] Potassium [Moles/Vol] 3.7 mmol/L 3.5-5.[address] [facility] Protein [Mass/Vol] 7.3 g/dL 6.4-8.2 [facility] Sodium [Moles/Vol] 136 mmol/L 136-145 [facility] Urea nitrogen [Mass/Vol] 14.0 mg/dL 7.0-18.0 [facility] Urea nitrogen/Creatinine [Mass ratio] 16.9 mg/mg [facility] Laboratory - Hematology and Cell countson 09-03-2023 Immature granulocytes/100 WBC (Bld) 0.2 % 0.0-0.5 [facility] Leukocytes [#/volume] correc adia for nucleated erythrocytes in Blood by Automated counon 09-03-2023 WBC corrected for nucl RBC Auto (Bld) [#/Vol] 6.3 10 3/uL 4.0-11.0 [facility] Lymphocytes Auto (Bld) [#/Vo l]on 09-03-2023 Lymphocytes (Bld) [#/Vol] 1.8 10 3/uL 1.2-3.8 [facility] Lymphocytes/100 WBC Auto (Bl d)on 09-03-2023 Lymphocytes/100 WBC (Bld) 28.0 % 20.5-60.0 [facility] MCH Auto (RBC) [Entitic mass ]on 09-03-2023 MCH (RBC) [Entitic mass] 31.1 pg 25.9-34.0 [facility] MCHC Auto (RBC) [Mass/Vol]on 09-03-2023 MCHC (RBC) [Mass/Vol] 35.3 g/dL High 29.9-35.[address] [facility] MCV Auto (RBC) [Entitic vol] on 09-03-2023 MCV (RBC) [Entitic vol] 88.1 fL 80.0-94.0 [facility] Monocytes Auto (Bld) [#/Vol] on 09-03-2023 Monocytes (Bld) [#/Vol] 0.7 10 3/uL 0.3-0.8 [facility] Monocytes/100 WBC Auto (Bld) on 09-03-2023 Monocytes/100 WBC (Bld) 11.2 % 1.7-12.0 [facility] Neutrophils Auto (Bld) [#/Vo l]on 09-03-2023 Neutrophils (Bld) [#/Vol] 3.5 10 3/uL 1.4-6.5 [facility] Neutrophils/100 WBC Auto (Bl d)on 09-03-2023 Neutrophils/100 WBC (Bld) 55.0 % 43.0-75.0 [facility] No Panel Informationon 09-02 Eosinophils # (Auto) 0.3 10 3/uL 0.0-0.[address] [facility] Immature Granulocyte # (Auto) 0.01 10 3/uL 0.00-0.03 [facility] Troponin I High Sensitivity 5.1 pg/mL 4.0-76.1 [facility] Comment on above: CUT-OFF POINTS HAVE [...] volume (Bld) [Entitic vol] 10.0 fL 9.5-13.5 [facility] Platelets Auto (Bld) [#/Vol] on 09-03-2023 Platelets (Bld) [#/Vol] 241 10 3/uL 150-450 [facility] RBC Auto (Bld) [#/Vol]on RBC (Bld) [#/Vol] 4.44 10 6/uL Low 4.70-6.10 [facility] Serum or plasma albumin/glob ulin mass ratioon 09-03-2023 Albumin/Globulin [Mass ratio] 1.1 {ratio} [facility] Serum or plasma anion gap de terminationon 09-03-2023 Anion gap [Moles/Vol] 11.6 mmol/L [facility] CBC AUTO DIFFon 07-14-2022 BASO # 0.1 103/ul Normal 0.0-0.1 [facility] Comment on above: Performed By: #### C BC #### [facility] [address] [place] [address] Dr. Carly Elias Basophils/100 WBC (Bld) 1.2 % Normal 0.2-2.0 [facility] Comment on above: Performed By: #### C BC #### [facility] [address] [place], [place] [address] Dr. Carly Elias EO # 0.3 103/ul Normal 0.0-0.7 [facility] Comment on above: Performed By: #### C BC #### [facility] [address] [place] [address] Dr. Carly Elias Eosinophils/100 WBC (Bld) 4.8 % Normal 0.9-7.0 [facility] Comment on above: Performed By: #### C BC #### [facility] [address] [place] [address] Dr. Carly Elias Erythrocyte distribution width (RBC) [Ratio] 12.7 % Normal 11.0-15.0 [facility] Comment on above: Performed By: #### C BC #### [facility] [address] [place] [address] Dr. Carly Elias Hematocrit (Bld) [Volume fraction] 41.0 % Critically low 42.0-54.0 [facility] Comment on above: Performed By: #### C BC #### [facility] [address] [place] [address] Dr. Carly Elias Hemoglobin (Bld) [Mass/Vol] 14.0 g/dL Normal 14.0-18.0 [facility] Comment on above: Performed By: #### C BC #### [facility] [address] [place] [address] Dr. Carly Elias IG # 0.02 10e3/ul Normal 0.00-0.03 [facility] Comment on above: Performed By: #### C BC #### [facility] [address] [place] [address] Dr. Craly Elias IG % 0.4 % Normal 0.0-0.5 [facility] Comment on above: Performed By: #### C BC #### [facility] [address] [place] [address] Dr. Carly Elias LYMPH # 1.5 103/ul Normal 1.2-3.8 [facility] Comment on above: Performed By: #### C BC #### [facility] [address] [place] [address] Dr. Carly Elias Lymphocytes/100 WBC (Bld) 28.5 % Normal 20.5-60.0 [facility] Comment on above: Performed By: #### C BC #### [facility] [address] [place] [address] Dr. Carly Elias MANUAL DIFF REQ NO Normal [facility] Comment on above: Performed By: #### C BC #### [facility] [address] [place] [address] Dr. Carly Elias MCH (RBC) [Entitic mass] 29.9 pg Normal 25.9-34.0 [facility] Comment on above: Performed By: #### C BC #### [facility] [address] [place] [address] Dr. Carly Elias MCHC (RBC) [Mass/Vol] 34.1 g/dL Normal 29.9-35.2 [facility] Comment on above: Performed By: #### C BC #### [facility] [address] [place] [address] Dr. Carly Elias MCV (RBC) [Entitic vol] 87.6 fL Normal 80.0-94.0 [facility] Comment on above: Performed By: #### C BC #### [facility] [address] [place] [address] Dr. Carly Elias MONO # 0.6 103/ul Normal 0.3-0.8 [facility] Comment on above: Performed By: #### C BC #### [facility] [address] [place] [address] Dr. Craly Elias Monocytes/100 WBC (Bld) 11.5 % Normal 1.7-12.0 [facility] Comment on above: Performed By: #### C BC #### [facility] [address] [place] [address] Dr. Carly Elias NEUT # 2.8 103/ul Normal 1.4-6.5 [facility] Comment on above: Performed By: #### C BC #### [facility] [address] [place] [address] Dr. Carly Elias Neutrophils/100 WBC (Bld) 53.6 % Normal 43.0-75.0 [facility] Comment on above: Performed By: #### C BC #### [facility] [address] [place] [address] Dr. Carly Elias Platelet mean volume (Bld) [Entitic vol] 9.4 fL Critically low 9.5-13.5 [facility] Comment on above: Performed By: #### C BC #### [facility] [address] [address] [address] Carly Elias PLT 228 103/ul Normal 150-450 [facility] Comment on above: Performed By: #### C BC #### [facility] [address] [place] [address] Dr. Carly Elias RBC 4.68 106/ul Critically low 4.70-6.10 [facility] Comment on above: Performed By: #### C BC #### [facility] [address] [place] [address] Dr. Carly Elias WBC 5.2 103/ul Normal 4.0-11.0 [facility] Comment on above: Performed By: #### C BC #### [facility] [address] [place] [address] Dr. Carly Elias GLYCOHEMOGLOBIN A1Con 2022 ADA RECOMMENDATION SEE BELOW Normal [facility] Comment on above: Result Comment: ADA RECOMMENDED LIMIT 4.0 - 6.0 ADA THERAPEUTIC TARGET < 7.0 ACTION SUGGESTED > 7.0 Performed By: #### A 1C #### [facility] [address] [place] [address] Dr. Carly Elias Glucose [Mass/Vol] 163 mg/dL Normal [facility] Comment on above: Performed By: #### A 1C #### [facility] [address] [place] [address] Dr. Carly Elias HbA1c (Bld) [Mass fraction] 7.3 % Critically high 4.5-6.2 [facility] Comment on above: Performed By: #### A 1C #### [facility] [address] [place] [address] Dr. Carly Elias LIPID PROFILEon 07-14-2022 CHOL-HDL RATIO NORM SEE BELOW Normal [facility] Comment on above: Result Comment: 3.3 - 4.4 LOW RISK 4.4 - 7.1 AVERAGE RISK 7.1 - 11.0 MODERATE RISK >11.0 HIGH RISK Performed By: #### C MP, LIPID #### [facility] [address] [address] [address] Carly Elias Cholesterol [Mass/Vol] 125 mg/dL Normal <=200 [facility] Comment on above: Performed By: #### C MP, LIPID #### [facility] [address] [address] [address] Carly Elias Cholesterol in HDL [Mass/Vol] 32 mg/dL Critically low 40-60 [facility] Comment on above: Performed By: #### C MP, LIPID #### [facility] [address] [address] [address] Carly Elias Cholesterol in LDL [Mass/Vol] 32.6 mg/dL Normal [facility] Comment on above: Performed By: #### C MP, LIPID #### [facility] [address] [address] [address] Carly Elias Cholesterol.total/Cho lesterol in HDL [Mass ratio] 3.9 {ratio} Normal [facility] Comment on above: Performed By: #### C MP, LIPID #### [facility] [address] [address] [address] Carly Elias HDL NORMAL > or = 60 mg/dl - LOW CARDIOVASCULAR RISK <40 mg/dl - HIGH CARDIOVASCULAR RISK Normal [facility] Comment on above: Performed By: #### C MP, LIPID #### [facility] [address] [address] [address] Carly Elias LDL CALC NORMAL SEE BELOW Normal [facility] Comment on above: Result Comment: <100 mg/dl OPTIMAL 100 - 129 mg/dl NEAR OR ABOVE OPTIMAL 130 - 159 mg/dl BORDERLINE HIGH 160 - 189 mg/dl HIGH >190 mg/dl VERY HIGH Performed By: #### C MP, LIPID #### [facility] [address] [address] [address] Carly Elias Triglyceride [Mass/Vol] 302 mg/dL Critically high <=150 [facility] Comment on above: Performed By: #### C MP, LIPID #### [facility] [address] [place] [address] Dr. Carly Elias VLDL CALC 60.4 mg/dL Normal [facility] Comment on above: Performed By: #### C MP, LIPID #### [facility] [address] [place] [address] Dr. Carly Elias MICROALBUMIN, RAND URon 06-20 mALB 2.0 mg/dL Normal <=30.0 [facility] Comment on above: Performed By: #### M ALBR #### [facility] [address] [place] [address] Dr. Carly Elias PROF 14(COMP METB)on 023 Albumin [Mass/Vol] 3.8 g/dL Normal 3.4-5.0 [facility] Comment on above: Performed By: #### C MP, LIPID #### [facility] [address] [place] [address] Dr. Carly Elias Albumin/Globulin [Mass ratio] 1.0 {ratio} Normal [facility] Comment on above: Performed By: #### C MP, LIPID #### [facility] [facility] [address] [place] [address] Dr. Carly Elias ALP [Catalytic activity/Vol] 86 U/L Normal 46-116 [facility] Comment on above: Performed By: #### C MP, LIPID #### [facility] [address] [place] [address] Dr. Carly Elias ALT [Catalytic activity/Vol] 79 U/L Critically high 16-63 [facility] Comment on above: Performed By: #### C MP, LIPID #### [facility] [address] [place] [address] Dr. Carly Elias Anion gap [Moles/Vol] 12.1 mmol/L Normal [facility] Comment on above: Performed By: #### C MP, LIPID #### [facility] [address] [place], [place] [id number] Dr. Carly Elias AST [Catalytic activity/Vol] 52 U/L Critically high 15-37 [facility] Comment on above: Performed By: #### C MP, LIPID #### [facility] [address] [place] [address] Dr. Carly Elias Bilirubin [Mass/Vol] 0.4 mg/dL Normal 0.2-1.0 [facility] Comment on above: Performed By: #### C MP, LIPID #### [facility] [address] [place] [address] Dr. Carly Elias Calcium [Mass/Vol] 9.5 mg/dL Normal 8.5-10.1 [facility] Comment on above: Performed By: #### C MP, LIPID #### [facility] [address] [place] [address] Dr. Carly Elias Chloride [Moles/Vol] 102 mmol/L Normal 98-107 [facility] Comment on above: Performed By: #### C MP, LIPID #### [facility] [address] [place] [address] Dr. Carly Elias CO2 [Moles/Vol] 29.2 mmol/L Normal 21.0-32.0 [facility] Comment on above: Performed By: #### C MP, LIPID #### [facility] [address] [place] [address] Dr. Carly Elias Creatinine [Mass/Vol] 0.81 mg/dL Normal 0.70-1.30 The [facility] Comment on above: Performed By: #### C MP, LIPID #### [facility] [address] [place] [address] Dr. Carly Elias EGFR-AF TURKMEN >60 Normal >=60 [facility] Comment on above: Performed By: #### C MP, LIPID #### [facility] [address] [place] [address] Dr. Carly Elias EGFR-NON AF TURKMEN >60 Normal >=60 The [facility] Comment on above: Performed By: #### C MP, LIPID #### [facility] [address] [place] [address] Dr. Carly Elias Globulin (S) [Mass/Vol] 3.7 g/dL Normal [facility] Comment on above: Performed By: #### C MP, LIPID #### [facility] [address] [address] [address] Carly Elias Glucose [Mass/Vol] 129 mg/dL Critically high 74-106 [facility] Comment on above: Performed By: #### C MP, LIPID #### [facility] [address] [address] [address] Carly Elias Potassium [Moles/Vol] 4.3 mmol/L Normal 3.5-5.1 [facility] Comment on above: Performed By: #### C MP, LIPID #### [facility] [address] [place] [address] Dr. Carly Elias Protein [Mass/Vol] 7.5 g/dL Normal 6.4-8.[address] [facility] Comment on above: Performed By: #### C MP, LIPID #### [facility] [address] [place] [address] Dr. Carly Elias Sodium [Moles/Vol] 139 mmol/L Normal 136-145 [facility] Comment on above: Performed By: #### C MP, LIPID #### [facility] [address] [place] [address] Dr. Carly Elias Urea nitrogen [Mass/Vol] 19.0 mg/dL Critically high 7.0-18.0 [facility] Comment on above: Performed By: #### C MP, LIPID #### [facility] [address] [place] [address] Dr. Carly Elias Urea nitrogen/Creatinine [Mass ratio] 23.5 mg/mg Normal [facility] Comment on above: Performed By: #### C MP, LIPID #### [facility] [address] [place] [address] Dr. Carly Elias XR ELBOW LT MIN [...] SUNDAY RAMIREZ Date: 2021-11-20 15:19 Normal The [facility] GLYCOHEMOGLOBIN A1Con 2021 ADA RECOMMENDATION SEE BELOW Normal The [facility] Comment on above: Result Comment: ADA RECOMMENDED LIMIT 4.0 - 6.0 ADA THERAPEUTIC TARGET < 7.0 ACTION SUGGESTED > 7.0 Performed By: #### A 1C #### [facility] [address] [address] [address] Carly Elias Glucose [Mass/Vol] 166 mg/dL Normal [facility] Comment on above: Performed By: #### A 1C #### [facility] [address] [address] [address] Carly Elias HbA1c (Bld) [Mass fraction] 7.4 % Critically high 4.5-6.2 [facility] Comment on above: Performed By: #### A 1C #### [facility] [address] [place] [address] Dr. Carly Elias Outside Colonoscopyon 2021 Outside Colonoscopy [id number] #1.00CD:127 Normal [facility] Reminderson 09-01-2021 Reminders - From: Marilynn Coelho LPN To: GSN - Clinical; Sent: 09/01/2021 14:20:20 EDT Show up: 08/02/2031 07:00:00 EDT Subject: colonoscopy recall Due Date/Time: 09/01/2031 07:00:00 EDT Reminder/Recall Patient is due for screening colonoscopy 09/01/2031. Normal [facility] POINT OF CARE GLUCOSEon - Glucose [Mass/Vol] 155 mg/dL Critically high 74-106 T [facility] Comment on above: Performed By: #### P OCGLUC #### [facility] [address] [place] [address] Dr. Carly Elias Consent for Procedure/Surger yon 08-18-2021 Consent for Procedure/Surgery [id number] #1.00CD:127 Normal [facility] Physician Referralon 022 Physician Referral [id number]# 1.00CD:127 [facility] Coding Summary.on 12-28-2020 Coding Summary. CD:[id number] Gh0bWw+PGhlYWQ+PE1FV BLzE24wbLVsmO9JM5aNZ Y2ASPHNVBCUJV6DWX6mi MM1XGquM1LgvxVj BwnboMKySJ85XGr3GPA5 cEavEZhqpN7xdJFoZ0o9 EiYfLL24oU05ARdsXRPo NoU4TqDyhcelvUVx G9ilVbMyyQMlPgk+PHRh YmxlIHdpZHRoPScxMDAl KsXusNwfVK2bOs4wLNJh LWNvbGxhcHNlOiBj r4qmUSBaXHycLH1ztAny Y6MxrLO8IXXfj5w2Bv84 dHI+QPUgGWG1eFnhHLvp t403PnJld4jgBWL3 nQApVDebNHI0I57ul0R6 MZXnZXAiXOM2cDK2bW7e mAwkwcwxV5DuxDFgDsH7 HUP9eRPvwX9idFym nleceU4hIsc+X42NQC7N QXNFCM6LZrh8I1XeAuqo dHI+PW01JWIuDO89jKHt tRWjv1tjaPv6CwCy NVEsXYC9hZzzJMcjq3Bm FQTfR81hlGFij2U9IWRa wLqsfRWpBpOllAN0xB6c JIruxkdnu9jhwkkg Beipn9uzug36mO18C86q LSpqICSmZUX7FJJiWFSh iKuhnm2rdP9eBi9+IDxj u5wdw4iuaSl5WaRo QALqjaBkoOypCPT2v0Xo Qy04K8YvbWevv2NtIpi3 rf56tRXje6G8gGM8LVlf TKEwwT5yKQjrAqH2 VYHhDsLjiW05iOApLEzl Fe7zuPfmyZgeBT9kDTSn jcvwZHWjlU2eQQZwzDTw pQqiUC9uGBHjakyi w768QgToDBM6LWKsnVPk E5JqbS1vGsWzBRJsUUWa A5SltEKzDPauQ349NOke TyV7ASGwbbRdM7Rr WYWkcHmnSbB0e9H0Cl4Z m4NfbizwIRX7QNxzGDKu CwQ8QbGnIlQ6A6LhOly9 MJSqiRllNY3dK2Jn LGTmntcaqsinaQL2SMWs OPDqcY72jWSaCLouSi7f b4G0z891WWQpBHYygU15 Zc5cyTtqQVMlxHLS nV9vnoldp5bsppfiMeIq BZLoKIe4OXs0DDCkkOww CfWsOGE0YtM7NWV8sBXh dP7cxVhklgddtA3w Oyc+T50rpT8aIJI2YWS0 jazlYXBvonSvSR96OZ41 V2XkZlrahHZqbCZ+PGRp omNckRkaSR6hAhRo r7fwy2QzMSbgQ2EpDFNb GOgfCil3PYMnCKJ0vXE7 xS7oZSTwAFycs6V4xEL4 B2UqthLxph1rh6ab ZXAoDOpkD03uoFYre8M7 MVPrtHB6FRZhcOrrZfQv fY42Zis+FJVevPtwj9Ff Cunur2opq7whnWa4 IjMwJSIgdmFsaWduPSJ0 s5TlRi64M67yVCysBNUt DRIpNWFpZSXstGtbbz0y gO4lFk1+PGNvbCB3 yBV2fY4uZICqIxR6ZZrh P394XuQglWQtPmnwh3ph x0ddfBs1KpJeRJAdonEw uMweADG0e7BpYv45 Z05dOChpQZBfWEMgBJSx MBOvxQocul9gsQ8qAi3+ TH4ij0oyfw83tE30jBT+ BGWfHAD6tPqdGReh JTPwpB1qWGquGkQ4ULCw BbZqcT03jGSrKQmlVi7a dJaltUllLL2mXZOdsbfm h031MxFkz5bxQZVy sYZvOAvzKFF3V52pt5H8 UGLrKJYaWKN8hMF7fQ5l bGlnbjogbGVmdDsgdmVy qUxnNGmmRJzlJ772 IHRvcDsnPlBhdGllbnQg PzDoOZp4V8QoTyw3VUIm eWbnKA6zxADzGPaaIy9v rYnvlIohLY7pRACj ozdli338CnFli8ddQGNq lNAyFKrlLEM4F85sd5C2 PRBiVBSsBUV5lGP7dP5a bGlnbjogbGVmdDsg vjClkUjqXZpdRLlqG117 IHRvcDsnPkJpcnRoIERh qPS1YC46NK91cMYxy5C7 cGN7L8HnNXUiasnz slrlsTC1VYPlGWKdbU76 Jb0oaRatDq6gZMPiFHL0 YEMxcHGdP2NdtG9rGtUl IJIxMEVqX0MecUXz NFchQ633NHivEqG7ERUm evRmY9ZpDHDxlCaoToG9 v0H5Cr0MP4R0KP79VZ74 iLJpf9K4gXL4E9Uh DVDpfujtgbqscWL1BUFj PRGijC52Da9xsYrlSe1v WRPxYPW6BGEuuQFxT1Rv lZ8gAuCvBZKlWYQk V7SgiOTsGZzpR574SNmh XjC3KWSsllKkE8HnSDJj nQfjLpU3c3P5He2OXYq6 QH69JB77cAGmn6D5 pAM9Y6QcHOOhspfrykig aRQ9LKPaBAFcoG82Se5y xIsvRb8aLWHnHGP3HZPa nDOxT7CjmO4fWjBs TKYuBIKfT8SjxDXyECia K501OEcnTsI0ZPYmbqHb Y5UhAGNxwNsqAnP3y5K4 Md9QPEMpEI12EER1 hQR4WH43WF88N8VpMaif dGFibGU+PHRhYmxlIHdp ZHRoPScxMDAlJyBzdHls PH8rRa6pIWWdOAKo nGlolKMfDcWbe8rqVZLe RFvcWZ8xyNbxD6HfmAA1 UCXde7d4Kh47B92xI2Hc dXA+JTLzcVF0kPR3 wD7xNtGhFyZ6UNelM831 SgQaqVRxJacvx9tkq9px kSo7TnB2KIGvgbBxxZte HDX7h1QhEw38S72w IHdpZHRoPSIxNSUiIHZh hUqvca9mwP4fPo3+PGNv uOD0xRU5oQ4bWuHrXrC6 COidM156HgGbtPIq Fgeli8zlu1hqnRh3FhAu BGMzivNduRteOWJ5p4Ns Cm14C5MefAvor2PoWjj5 dn88tLLrq3L4fEZ4 L7SdVIDyjjuupTYrrQkr FQ9bOICqnftzCKDklH0n YCKeI9e3UbTnWbQ0SBxb C2BwjwC4KMCwwDMu IJwtYAG1H39zv7T7YQLu ZIUnTWH4pKC6sT9ujIop bjogbGVmdDsgdmVydGlj BCopWWieJ633YCTq oEemESLdkB0nXNOkxGJl mOxkKK7fPNLwzwxaRcZN BDrCF3voVRlYNFCFHKaY Gga7E9RbIys7LPDp vNmuHQ6vrKTaXWjkGe2l iUfbsJpcYO9vYIZzkbre SMNkcV3wPGGelYDscDnc KV5bNCUsoyuen723 EjJaZKB0KDRweJFnL6Rm oW6qXhPwKGLyRHOoU0Ys pCWxHHcpP223BHmnGkG9 HIEbwiBgN2BcTPOu iGepUaN9i4C6Kd1oHj5j Jn6nTXJlGV46BL16zIGp t1C1nKR1N0DjYDJiaxtw hjbvmIG4OYQmGIQn cQ63fGZmNZunFa3xk4I9 r598GWNkRUWlxS50Zo6u yIxcACLaoDLCgQ9myxai m5ylnavcIrKcMMIq NVq1KGa5RDDscYvlXbWw WGS8FiE3KEL9dTOovW2n xAskacgxqQ9uKun+NTkg DKIpdsI7U9GjSun8 SRShrPbgML2tmYGfSSra Ek5wsJyaoSwfSD7nJKEg nuabIMUrhM6kNXYdwAUi tLoqCZ2jMEXksbvm n001OnXrFWL3XCZstSXw M4UlrK0qTdPjKTNwWGHg N0HkdICyKUchL664GAsb QdG3OPEartMxS0Vt DNClkMdjTrB2d3S6Xw5D KXmmQB72IU75bVJnr2Q3 sAS3O0HdXWJsbeizmcqq nTT7HQUjAEDqnB87 hUNsFWfkTd6rg1Q3m620 DBJaFGEtqH56Ok2rvCgi BUMlbBAZtU3zznraf7rg cjogIzAwMDAwMDt0 FSm8OFPvsPioToSkUCH7 KvX2YIJ7gLKzdW7toWgj mujepM1rUme+AY7kyzit rnE8ZH94LP35M2Dw PjwvdGFibGU+PHRhYmxl IHdpZHRoPScxMDAlJyBz bXqhDI7nUd0aAYUdKGDk rKfuyWFgPrEgj0lo XXHfQLlkPK2otDtqZ6Rx pID6UOIyd8b6We49Y13q Z5KxyWC+EUKwnLZ1dXG2 iZ1gIfPzAiM1YLup X296VjRcaBRcGruth3xt z9qyyRt7VrFnMVUcjoFs tOjoFVD4r8IlSd19L37s IHdpZHRoPSIyMCUi OREqwOapni5faY0aSj0+ WIUlpIB7jAO5iI2gEzVd UoJ7AVmxK900CgCkkXAa SnouQ05hH0XjrLD+ CLHcQqa6XPOfyHkjSZ2w hBRbCZqaVx0pLFB4OlGt OfNgERzhO4RfVXXxxamk tgslyGL1VTAoFEAq qM53Fh6miPlgUy5vJUQm PPV5LLGtvXGkP7SkdP3g OsOuJPNySIVtY1FhxOPp LCnvL925DNhcHbK1 FOXfztWiN6BvMIJqpRgw GsR5c8Y4Zl4IgMxhfPRd SW5eYaHsFSc5W0IrTxr7 JUKapApxFV5lrVBr DOkkOb5skZydfFrvKQ4d WNEtukken361NyXgs3et YDLsfKDbPDkfNFV0X37f y5K6JTCyPOVtPYX9 aQL0nC2wrIhnvjfrmNLe dDsgdmVydGljYWwtYWxp G292MVOfjUxpUgZZLce1 P7QfBma3ENFqeKga LN5jqJYzZNrnQw2whUvv oRcqHA8qLHOyjjhai595 OrCij6ukSWRfiUHzFEud VTT0X22cx4H8UDUd HFLjNVX1oSI4qP2lqMuf bjogbGVmdDsgdmVydGlj EJouFUkpY321EGLtkPoy Vh0JGma7B4DdBgo1 KNWrxIbmAX2etRFsGIpp Zk7glDtwkIdvIV5aYEYm sssey450GmHft8brMUIs gVXrOSqgIDJ6Z11f j6C9CAAeYUQpLCV9dAG6 oI0joYioujehiLVymBlx wnJvnDwtSEkaZTwvA896 IHRvcDsnPlBheWVy OjwvdGQ+SK56cp83A3Ya NruwUio7FGYpEBM3vRZ2 nT1eSWFqMOylx8T6gZN9 V7YncdWtkf5zc8gv YXBz (more content not included)... Normal [facility] Consent for Treatmenton 11-20 Consent for Treatment [id number] #1.00CD:127 Normal [facility] Discharge Instructionson Discharge Instructions [id number]#1.00CD:127 Normal [facility] ED Clinical Summaryon 2020 ED Clinical Summary [address] [id number] ED Clinical Summary Person Information Name: MICHELL WEBSTER [facility] Age: 60 Years : 1960 Sex: Male Language: Paraguayan PCP: RICHARD VIDAL DO Marital Status: Phone: [phone] Visit Id: Visit Reason: Wrist pain-swelling; Hand [...] 12/17/2020 16:17:08 12/17/2020 16:17:08 12/17/2020 16:17:08 ADDRESS: [facility] [place] [id number] PHYS DOC NOTES: MEDICAL INFORMATION: Prescriptions Given: Medications to Continue with No Changes Other Medications clonidine (clonidine 0.3 mg oral tablet) lisinopril (lisinopril 40 mg Tab) naproxen (Naprosyn 500 mg Tab) 1 Tablets By Mouth 2 times a day. Refills: 0. omeprazole (omeprazole 20 mg Cap-DR) 1 Capsules By Mouth every day. PATIENT EDUCATION INFORMATION: Instructions: Tendinitis Follow up: With: Address: When: [facility]: [facility] [phone] In 3 days 12/20/2020 DIAGNOSIS: Tendonitis Normal [facility] ED Note-Physicianon 12-18-19 ED Note-Physician Basic Information Time Seen: Callum Thomson PA-C 12/17/2020 15:41 Chief Complaint patient states he was sorting through packages. Patient felt pain in right hand and wrist History of Present Illness 60-year-old male comes to the ED for evaluation of right breast pain. 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 He said she was moving his partials [...] working diagnosis of tendinitis and is given [facility] follow-up. Patient was encouraged to return to the ED if symptoms worsen or change. Assessment/Plan Tendonitis (M77.9: Enthesopathy, unspecified) Orders: Splint Application Wrist Disposition Plan Patient Discharge Condition Disposition: Discharged home Condition: Improved and stable Counseled: Patient and/or family were counseled to workup, results, treatment plan and follow-up recommendations Discharge Prescription List Prescriptions No active prescription medications Follow-up With When Contact Information [facility]: [facility] [phone] In 3 days 12/20/2020 EDT Additional Instructions: Patient Education Tendinitis Attestation Patient seen and evaluated by the physician recovery assistant. Attending physician was present in the emergency department and supervised care. This report was transcribed using voice recognition software. Every effort was made to ensure accuracy, however, inadvertently computerized improvement director mistakes may be present. Appropriate healthcare PPE [...] fracture, dislocation (more content not included)... Normal [facility] Comment on above: Result Comment: Elec tronically [...] by your health care provider. ? Take hijo-reg-nygpbai and prescription medicines only as told by [...] Patient Education (more content not included)... Normal [facility] ED Patient Summaryon 021 ED Patient Summary [address] [place] [id number] Patient Discharge Instructions Person Information Name: MICHELL WEBSTER Age: 60 Years Arrival Date: 12/17/2020 14:53:33 Discharge Diagnosis: Tendonitis Primary Care Physician: RICHARD VIDAL DO Provider Information Primary Provider: Armando Xavier DO [employer] Intern:Callum Thomson PA-C The exam and treatment you received in the Emergency Department were for an urgent problem and are not intended as complete care. It is important that you follow up with a doctor, nurse practitioner, or physician?s recovery assistant for ongoing care. If your symptoms become worse or you do not improve as expected and you are unable to reach your usual health care provider, you should return to the Emergency Department. We are available 24 hours a day. MICHELL WEBSTER has been given the following list of patient education materials, prescriptions and follow-up instructions: Follow-up Instructions: With: Address: When: [facility]: [facility] [phone] In 3 days 12/20/2020 In the event that this physician does not participate in your insurance network, please consult with your insurance company to find a nearby participating provider. Patient Education Materials: Tendinitis A MESSAGE TO ALL PATIENTS REGARDING OPIOIDS PRESCRIPTION OPIOIDS: WHAT YOU NEED TO KNOW Prescription opioids can be used to help relieve sogvpkmh-hw-vjneys pain and are often prescribed following a [...] struggling with addiction, tell your health healthcare sales representative and ask for guidance or call [facility]?S National Helpline at 4-756-590-UJJT. v Source: [place] Department of Health and Human Services/Center for Disease Contr (more content not included)... Normal [facility] Workers Comp Formson 021 Workers Comp Forms [id number] 2#1.00CD:127 Normal [facility] XR Hand 3+ Views Righton XR Hand [...] MD Transcribed by: QAMAR Technologist: Elver RAMIRES [facility] XR Wrist 3+ Views Righton XR Wrist [...] DO Transcribed by: QAMAR Technologist: Elver RAMIRES [facility] Vital Signs Date Time Vital Sign Value Performing Clinician Facility 06-10-2024 11:56-0400 Body height 170.18 cm [facility] 06-10-2024 11:56-0400 Body mass index (BMI) [Ratio] 38.2 kg/m2 [facility] 06-10-2024 11:56-0400 Body weight 110.73 kg [facility] 06-10-2024 11:56-0400 Diastolic blood pressure 100 mm[Hg] [facility] 06-10-2024 11:56-0400 Heart rate 92 /min [facility] 06-10-2024 11:56-0400 Respiratory rate 12 /min [facility] 06-10-2024 11:56-0400 Systolic blood pressure 150 mm[Hg] [facility] 04-01-2024 10:30-0500 Body height 170.18 cm [facility] 04-01-2024 10:30-0500 Body mass index (BMI) [Ratio] 38.9 kg/m2 [facility] 04-01-2024 10:30-0500 Body weight 113 kg [facility] 04-01-2024 10:30-0500 Diastolic blood pressure 89 mm[Hg] [facility] 04-01-2024 10:30-0500 Heart rate 83 /min [facility] 04-01-2024 10:30-0500 Respiratory rate 12 /min [facility] 04-01-2024 10:30-0500 Systolic blood pressure 139 mm[Hg] [facility] 02-07-2024 11:26-0500 Body height 170.18 cm [facility] 02-07-2024 11:26-0500 Body mass index (BMI) [Ratio] 38.5 kg/m2 [facility] 02-07-2024 11:26-0500 Body weight 111.69 kg [facility] 02-07-2024 11:26-0500 Diastolic blood pressure 96 mm[Hg] [facility] 02-07-2024 11:26-0500 Heart rate 85 /min [facility] 02-07-2024 11:26-0500 Respiratory rate 12 /min [facility] 02-07-2024 11:26-0500 Systolic blood pressure 157 mm[Hg] [facility] 11-29-2023 11:26-0400 Body height 170.18 cm [facility] 11-29-2023 11:26-0400 Body mass index (BMI) [Ratio] 38.1 kg/m2 [facility] 11-29-2023 11:26-0400 Body weight 110.44 kg [facility] 11-29-2023 11:26-0400 Diastolic blood pressure 89 mm[Hg] [facility] 11-29-2023 11:26-0400 Heart rate 90 /min [facility] 11-29-2023 11:26-0400 Respiratory rate 12 /min [facility] 11-29-2023 11:26-0400 Systolic blood pressure 139 mm[Hg] [facility] 09-14-2023 10:00-0400 Body height 170.18 cm [facility] 09-14-2023 10:00-0400 Body mass index (BMI) [Ratio] 38.2 kg/m2 [facility] 09-14-2023 10:00-0400 Body weight 110.67 kg [facility] 09-14-2023 10:00-0400 Diastolic blood pressure 90 mm[Hg] [facility] 09-14-2023 10:00-0400 Heart rate 91 /min [facility] 09-14-2023 10:00-0400 Respiratory rate 12 /min [facility] 09-14-2023 10:00-0400 Systolic blood pressure 138 mm[Hg] [facility] 04-04-2023 10:14-0500 Body height 170.18 cm [facility] 04-04-2023 10:14-0500 Body mass index (BMI) [Ratio] 39.4 kg/m2 [facility] 04-04-2023 10:14-0500 Body weight 114.41 kg [facility] 04-04-2023 10:14-0500 Diastolic blood pressure 88 mm[Hg] [facility] 04-04-2023 10:14-0500 Heart rate 76 /min [facility] 04-04-2023 10:14-0500 Respiratory rate 16 /min [facility] 04-04-2023 10:14-0500 Systolic blood pressure 148 mm[Hg] [facility] 11-24-2022 10:00-0400 Body height 170.18 cm Richard Ball Other [employer] Other 11-24-2022 10:00-0400 Body mass index (BMI) [Ratio] 40.81 kg/m2 Richard Ball Other [employer] Other 11-24-2022 10:00-0400 Body weight 118.21 kg Richard Ball Other [employer] Other 11-24-2022 10:00-0400 Diastolic blood pressure 90 mm[Hg] Richard Ball Other [employer] Other 11-24-2022 10:00-0400 Respiratory rate 12 /min Richard Ball Other [employer] Other 11-24-2022 10:00-0400 Systolic blood pressure 171 mm[Hg] Richard Ball Other [employer] Other 09-25-2022 09:15-0400 Body height 170.18 cm Richard Ball Other [employer] Other 09-25-2022 09:15-0400 Body mass index (BMI) [Ratio] 40.84 kg/m2 Richard Ball Other [employer] Other 09-25-2022 09:15-0400 Body weight 118.3 kg Richard Ball Other [employer] Other 09-25-2022 09:15-0400 Diastolic blood pressure 89 mm[Hg] Richard Ball Other [employer] Other 09-25-2022 09:15-0400 Respiratory rate 12 /min Richard Ball Other [employer] Other 09-25-2022 09:15-0400 Systolic blood pressure 135 mm[Hg] Richard Ball Other [employer] Other 06-13-2022 09:30-0400 Body height 170.18 cm Richard Ball Other [employer] Other 06-13-2022 09:30-0400 Body mass index (BMI) [Ratio] 42.1 kg/m2 Richard Ball Other [employer] Other 06-13-2022 09:30-0400 Body weight 121.93 kg Richard Ball Other [employer] Other 06-13-2022 09:30-0400 Diastolic blood pressure 86 mm[Hg] Richard Ball Other [employer] Other 06-13-2022 09:30-0400 Respiratory rate 12 /min Richard Ball Other [employer] Other 06-13-2022 09:30-0400 Systolic blood pressure 126 mm[Hg] Richard Ball Other [employer] Other 06-13-2022 08:30-0400 Body height 170.18 cm Richard Ball Other [employer] Other 06-13-2022 08:30-0400 Body mass index (BMI) [Ratio] 42.1 kg/m2 Richard Ball Other [employer] Other 06-13-2022 08:30-0400 Body weight 121.93 kg Richard Ball Other [employer] Other 06-13-2022 08:30-0400 Diastolic blood pressure 86 mm[Hg] Richard Ball Other [employer] Other 06-13-2022 08:30-0400 Respiratory rate 12 /min Richard Ball Other [employer] Other 06-13-2022 08:30-0400 Systolic blood pressure 126 mm[Hg] Richard Ball Other [facility] [employer] Other 08-18-2021 12:09-0400 Diastolic blood pressure 120 mm[Hg] Edilia NILL [facility] [place] 08-18-2021 12:09-0400 Mean blood pressure 133 mm[Hg] Edilia NILL [facility] 08-18-2021 12:09-0400 Systolic blood pressure 160 mm[Hg] Edilia NILL [facility] 08-18-2021 11:43-0400 Blood Pressure Location Edilia NILL [facility] [place] 08-18-2021 11:43-0400 Diastolic blood pressure 114 mm[Hg] Edilia NILL [facility] [place] 08-18-2021 11:43-0400 Heart rate 83 /min Edilia NILL [facility] [place] 08-18-2021 11:43-0400 Respiratory rate 16 /min Edilia NILL [facility] [place] 08-18-2021 11:43-0400 Systolic blood pressure 169 mm[Hg] Edilia NILL [facility] [place] Encounters Encounter Date Encounter Type Care Provider Facility Start: 06-10-2024 End: 06-10-2024 [facility] Work Phone: Start: 06-10-2024 End: 06-10-2024 Patient encounter procedure [facility] Physician [facility] Work Phone: Start: 04-01-2024 End: 04-01-2024 ambulatory [facility] Work Phone: Start: 04-01-2024 End: 04-01-2024 Patient encounter procedure [facility] Physician [facility] Work Phone: Start: 02-07-2024 End: 02-07-2024 Patient encounter procedure [facility] Physician [facility] Work Phone: Start: 11-29-2023 End: 11-29-2023 ambulatory [facility] Work Phone: Start: 11-29-2023 End: 11-29-2023 Encounter for general adult medical examination without abnormal findings [facility] Start: 11-29-2023 End: 11-29-2023 Patient encounter procedure [facility] Physician [facility] Work Phone: Start: 11-27-2023 Patient encounter status [facility] Start: 09-14-2023 End: 09-14-2023 ambulatory [facility] Work Phone: Start: 09-14-2023 End: 09-14-2023 Patient encounter procedure [facility] Physician [facility] Work Phone: Start: 09-04-2023 ambulatory RICHARD VIDAL [facility] Start: 09-04-2023 Non-patient / Non-visit [facility] Physician [facility] Work Phone: Start: 09-03-2023 Non-patient / Non-visit [facility] Physician [facility] Work Phone: Start: 07-23-2023 End: 07-23-2023 ambulatory MARK Crews [facility] Not Available Start: 04-04-2023 End: 04-04-2023 ambulatory [facility] Work Phone: Start: 04-04-2023 End: 04-04-2023 Patient encounter procedure [facility] Work Phone: Start: 11-27-2022 End: 11-27-2022 ambulatory Richard Young Other [employer] Other Start: 11-27-2022 Telephone encounter Richard Vidal FP [facility] Start: 11-24-2022 End: 11-24-2022 ambulatory Richard Vidal Other [employer] Other Start: 11-24-2022 Encounter for genera l adult medical examination without abnormal findings Richard Vidal [facility] Start: 11-24-2022 Periodic preventive med est patient 40-64yrs Richard Young [facility] Start: 09-25-2022 End: 09-25-2022 ambulatory Richard Vidal Other [employer] Other Start: 09-25-2022 Office outpatient vi sit 15 minutes Richard Vidal [facility] Start: 08-18-2022 End: 08-18-2022 ambulatory Richard Vidal Other [employer] Other Start: 08-18-2022 Telephone encounter Richard Vidal GRANT [facility] Start: 07-18-2022 End: 07-18-2022 ambulatory Richard Vidal Other [employer] Other Start: 07-18-2022 Telephone encounter Richard Vidal FP [facility] Start: 07-17-2022 Encounter for genera l adult medical examination without abnormal findings DR RICHARD VIDAL [facility] Start: 07-14-2022 End: 07-15-[address] RICHARD VIDAL Facility:[facility] Start: 07-14-2022 End: 07-15-2022 Encounter for general adult medical examination without abnormal findings DR RICHARD VIDAL Facility:[facility] Start: 06-13-2022 End: 06-13-2022 ambulatory Richard Vidal Other [employer] Other Start: 06-13-2022 Encounter for genera l adult medical examination without abnormal findings Richard Vidal [facility] Start: 06-13-2022 Office outpatient vi sit 25 minutes Richard Young [facility] Start: 06-13-2022 Telephone encounter Richard Vidal FP [facility] Start: 02-22-[address] RICHARD VIDAL Facili ty:[facility] Start: 11-25-2021 Adult health examination Richard Vidal Other [employer] Other Start: 11-25-2021 Pre-procedure evaluation check Richard Vidal Other [employer] Other Start: 11-20-2021 End: 11-20-2021 ambulatory KVNG VERAS . Facility:[facility] Start: 10-06-2021 End: 10-07-[address] RICHARD VIDAL Facility:[facility] Start: 09-19-2021 End: 09-20-[address] RICHARD VIDAL Facility:[facility] Start: 08-31-2021 End: 08-31-[address] EDILIA SERRANO . Facility:[facility] Start: 08-18-2021 End: 08-18-2021 Patient encounter procedure Edilia SERRANO [facility] [place] Procedures Date Procedure Procedure Detail Performing Clinician Start: 07-14-[address] HOLBROOK IN [place] Comment on above: Performed By: #### [facility] #### [facility] [address] [place] [address] Dr. Carly Elias Start: 08-20-2018 Screening for malign ant neoplasm of colon Richard Young Other Start: 05-23-2017 General examination of patient Richard Vidal Other Start: 05-01-2016 Preoperative cardiov ascular examination Richard Young Other Arthroscopy of knee with meniscus repair Edilia SERRANO Arthroscopy of shoulder Joseluis SERRANO Depression screening Junju[address] Young Other Release of trigger finger Darcie schuler NILL Comment on above: left thumb Resection of clavicle Abelardo ewing NILL Plan of Treatment Date Care Activity Detail Author Comprehensive metabo lic 1999 panel - Serum or Plasma [facility] enter Microalbumin [Mass/volume] in Urine [facility] XR Chest 2 Views [facility] XR Thoracic spine 3 Views [facility] Immunizations Immunization Date Immunization Notes Care Provider Fa cility 06-29-2020 COVID-19 Vaccine Pfi zer - Documentation Purposes Only Richard Vidal Other [facility] 06-08-2020 COVID-19 Vaccine Pfi zer - Documentation Purposes Only Richard Vidal Other [facility] Payers Date Payer Category Payer Unknown [id number] 1961 Unknown [id number] 1961 Unknown [id number] 1961 Unknown [id number] 1961 Unknown [id number] 1961 Unknown [id number] 1961 Unknown [id number] 9 1961 Unknown [id number] 9 1961 Unknown [id number] 9 1961 Unknown [id number] 6 1961 Unknown [id number] 6 1959 Private Health Insurance [id number] 1959 Private Health Insurance [id number] 1958 Self-pay [id number] Private Health Insurance [place]UST [id number] Social History Date Type Detail Facility Start: 08-18-2021 End: 03-31-2023 Tobacco smoking status Never smoked tobacco (finding) [facility] [place] Tobacco smoking status Never [facility] [place] Sex Assigned At Male [facility] [place] Start: 1960 Sex Assigned At Male F [facility] Start: 04-01-2024 End: 06-10-2024 Sex Male (finding) [facility] Functional Status Date Assessment Result Facility 08-18-2021 Functional Status N/A [facility] [place] Clinical Notes 11-21-2017 to 11-24-2022 Note Date [...] use, the patient reduces the risk for RI, CVA, HTN, cardiac dysrhythmias and sudden cardiac [...] and to report to ER for evaluation. [employer] Other 08-07-2023 Evaluation note* Encounter Date Diagnosis [...] has resolved. Related to ongoing symptoms? GB? [employer] Other 06-30-2023 Evaluation note* Encounter Date Diagnosis Assessment Notes Treatment Notes Treatment Clinical Notes Jul, Type 2 diabetes mellitus with hyperglycemia, without long-term current use of insulin (ICD-10 - E11.65) [employer] Other 05-30-2023 Evaluation note* Encounter Date Diagnosis Assessment Notes Treatment Notes Treatment Clinical Notes June, Type 2 diabetes mellitus with hyperglycemia, without long-term current use of insulin (ICD-10 - E11.65) [employer] Other 04-25-2023 Evaluation note* Encounter Date Diagnosis [...] use, the patient reduces the risk for RI, CVA, HTN, cardiac dysrhythmias and sudden cardiac [...] or drinking prior to bedtime. Weight loss. [employer] Other 04-25-2023 Evaluation note* Encounter Date Diagnosis Assessment Notes Treatment Notes Treatment Clinical Notes May, Wellness examination (ICD-10 - Z00.00) [employer] Other 07-13-2022 NoteOPERATIVE NOTE OPERATION DATE: 08/31/2021 [...] in 10 years. CC: Richard Vidal D.O. [facility] Signed and Approved by: DR EDILIA SERRANO . 09/02/2021 12:37:00[facility]07-05-2022 NoteChief Complaint consultation for positive Cologuard [...] neoplasm of lung: Sister. Renal failure syndrome: [facility] Result Comment: Electronically Signed By: HANK JASMINE, Edilia Maddox\Date and Time Signed: 08/23/21 08:29 [id number] Evaluation note* Diagnosis Onset Date Resolution Status Cerebral atherosclerosis November 21, 2017 acute Elevated cholesterol acute Gastroesophageal reflux dise ase with esophagitis without hemorrhage acute Obstructive sleep apnea acut e Primary hypertension acute Type 2 diabetes mellitus with hyperglycemia acute [facility] Work Phone: 1(215) 759-341310-03-2018 Evaluation note* Diagnosis Onset Date Resolution Status Cerebral atherosclerosis November 21, 2017 acute Elevated cholesterol acute Obstructive sleep apnea acut e Primary hypertension acute Type 2 diabetes mellitus with hyperglycemia acute [facility] Work Phone: 1(159) 705-576010-03-2018 Evaluation note* Diagnosis Onset Date Resolution Status [...] mellitus with hyperglycemia acute Wellness examination acute [facility] Work Phone: 1(895) 496-888110-03-2018 Evaluation note* Diagnosis Onset Date Resolution Status Admit Date Cerebral atherosclerosis November 21, 2017 acut e February 07, 2024 11:01am Primary hypertension acute Dece mber 2023 11:01am Thoracic back pain acute Decemb er 2023 11:01am Cerebral atherosclerosis November 21, 2017 acut e April 01, 2024 9:58am Elevated cholesterol acute Febr uary 2024 9:58am Obesity acute April 01, 2024 9:58am Obstructive sleep apnea acute F ebruary 2024 9:58am Primary hypertension acute Febr uary 2024 9:58am Screening PSA (prostate specific antigen) acute April 01, 2024 9:58am Thoracic back pain acute Februa ry 2024 9:58am Type 2 diabetes mellitus with hyperglycemia acute March 9:58am [facility] Work Phone: 1(296) 488-953410-03-2018 Evaluation note* Diagnosis Onset Date Resolution Status Admit Date Cerebral atherosclerosis November 21, 2017 acut e April 01, 2024 9:58am Elevated cholesterol acute ua2024 9:58am Obesity acute April 01, 2024 9:58am Obstructive sleep apnea acute F ebruary 2024 9:58am Primary hypertension acute 2024 9:58am Type 2 diabetes mellitus with hyperglycemia acute March 9:58am [facility] Work Phone: Evaluation + Plan note No data available for this section [facility] [place] Evaluation noteNo [facility]Nos[facility] Other History general Narrative - Reported* Type [...] CLAVICLE 2013 Hospitalization History SEE SURGICAL HX [facility] Other Hospital Discharge instructions No data available for this section [facility] [place] Progress note No data available for this section [facility] [place] Summary Purpose Family History Relationship Condition Age [...] 2 diabetes mellitus with hyperglycemia Wellness examination Chief Complaint Admit Date back pain February 07, 2024 11:01am 4 month f/u April 01, 2024 9:58am Reason for Visit Admit Date Cerebral atherosclerosis February 07, 2024 11:01am Primary hypertension February 07, 2024 11:01am Thoracic back pain February 07, 2024 11:01am Cerebral atherosclerosis April 01, 2024 9:58am Elevated cholesterol April 01, 2024 9:58am Obesity April 01, 2024 9:58am Obstructive sleep apnea April 01 9:58am Primary hypertension April 01, 2024 9:58am Screening PSA (prostate specific antigen ) April 01, 2024 9:58am Thoracic back pain April 01, 2024 9:58am Type 2 diabetes mellitus with hyperglyce [facility] April 01, 2024 9:58am Chief Complaint Admit Date 4 month f/u April 01, 2024 9:58am Right elbow/forearm pain June 10 11:47am Reason for Visit Admit Date Cerebral atherosclerosis April 01, 2024 9:58am Elevated cholesterol April 01, 2024 9:58am Obesity April 01, 2024 9:58am Obstructive sleep apnea April 01 9:58am Primary hypertension April 01, 2024 9:58am Type 2 diabetes mellitus with hyperglyce [facility] April 01, 2024 9:58am Additional Source Comments Care Team (unrecognized sect ion and content) Team Status: Active Member Role Status Dates Richard Vidal , DO Primary Care Provider Active Team Status: Inactive Member Role Status Dates Richard Vidal , DO Primary Care Provide r, Attending Provider Active Start: February 07, 2024 End: February 07, 2024 Team Status: Inactive Member Role Status Dates Richard Vdial , DO Primary Care Provide r, Attending Provider Active Start: April 01, 2024 End: April 01, 2024 Team Status: Active Member Role Status Dates Richard Vidal , Primary Care Provider Active Start: September 03, 2023 Ibis Mercedes , DO Attending Provider Active Start: September 03, 2023 Team Status: Active Member Role Status Dates Richard Vidal , DO Primary Care Provider Active Start: September 04, 2023 Ibis Mercedes , DO Attending Provider Active Start: September 04, 2023 Team Status: Inactive Member Role Status Dates Richard Vidal , DO Primary Care Provide r, Attending Provider Active Start: September 14, 2023 End: September 14, 2023 Team Status: Inactive Member Role Status Dates Richard Vidal , DO Primary Care Provide r, Attending Provider Active Start: April 04, 2023 End: April 04, 2023 Team Status: Inactive Member Role Status Dates Richard Vidal , DO Primary Care Provide r, Attending Provider Active Start: November 29, 2023 End: November 29, 2023 Team Status: Inactive Member Role Status Dates Richard Vidal , DO Primary Care Provide r, Attending Provider Active Start: June 10, 2024 End: June 10, 2024 (unrecognized sect ion and content) No Status Records FoundNo Status Records FoundNo Status Records FoundNo Status Records Found INFORMATION SOURCE (unrecogn ized section and content) DATE CREATED AUTHOR 09/08/2021 [facility] DATE CREATED AUTHOR AUTHOR'S ORGANIZ ATION 07/28/2022 [facility] DATE CREATED AUTHOR AUTHOR'S ORGANIZ ATION 07/24/2023 [facility] EPIC DATE CREATED AUTHOR [...] BE BASED ON THE PRIMARY CLINICAL RECORDS. [facility] [employer] [facility]. provides no warranty or guarantee of the accuracy or completeness of information in this document.
[2024-06-28 13:45] VITALS: BP 183/90; PULSE 95; TEMP 36.9; O2SAT 96; BMI 37.9
[2024-06-28 14:12] LABS: Bilirubin Urine NEGATIVE (NEGATIVE); Blood Urine NEGATIVE (NEGATIVE); Clarity Urine CLEAR (CLEAR); Color Urine LT. YELLOW (YELLOW); Glucose Urine UA NEGATIVE (NEGATIVE); Ketones Urine TRACE mg/dL (NEGATIVE); Leukocyte Esterase Urine NEGATIVE (NEGATIVE); Nitrite Urine NEGATIVE (NEGATIVE); Protein Urine TRACE mg/dL (NEG/TRACE); Specific Gravity Urine 1.025 (1.005-1.025); Urobilinogen Urine 0.2 EU/dL (0.2-1.0)
[2024-06-28 14:19] LABS: Urine Microscopic Indicated NO
--- NOTE | 2024-06-28 14:46 | ED.GENADUL1 ---
HPI HPI - General Adult General Chief complaint: Urogenital-Male Stated complaint: FLANK PAIN Time Seen by Provider: 06/28/24 14:40 Source: patient Mode of arrival: walk-in Limitations: no limitations History of Present Illness HPI narrative: 64-year-old male presents to the emergency department for a chief complaint of right flank pain. It has been intermittent for the past 2 weeks. He thought he was constipated and took a laxative and had a bowel movement but he still has the pain. It is intermittent. No injury or unusual activity and he has never had a kidney stone. No dysuria or hematuria. The pain is sharp and moderate. Related Data Home Medications ?Medication ?Instructions ?Recorded ?Confirmed atorvastatin 10 mg tablet 10 mg PO .qhs 06/28/24 06/28/24 clonidine HCl 0.3 mg tablet 0.3 mg PO Q12H 06/28/24 06/28/24 dulaglutide 4.5 mg/0.5 mL 4.5 mg subcut .weekly 06/28/24 06/28/24 subcutaneous pen injector ([facility]) hydrochlorothiazide 12.5 mg capsule 12.5 mg PO QDAY 06/28/24 06/28/24 lisinopril 40 mg tablet 40 mg PO QDAY 06/28/24 06/28/24 metformin 500 mg tablet 500 mg PO .q12 06/28/24 06/28/24 omeprazole 40 mg capsule,delayed 40 mg PO BID 06/28/24 06/28/24 release Previous Rx's ?Medication ?Instructions ?Recorded ibuprofen 800 mg tablet 800 mg PO Q8H PRN pain #20 tabs 06/28/24 methocarbamol 750 mg tablet 750 mg PO Q6H PRN pain #20 tabs 06/28/24 Allergies Allergy/AdvReac Type Severity Reaction Status Date / Time No Known Drug Allergies Allergy Verified 06/28/24 13:45 Review of Systems ROS Narrative A ten point review of systems is negative except as noted above. PFSH PFSH Social History Little interest or pleasure in doing things: not at all Feeling down, depressed, or hopeless: not at all Exam Narrative Exam Narrative: Nurses note and vital signs reviewed and patient is not hypoxic. General: The patient appears well and in no apparent distress. Patient is resting comfortably on cart. Skin: Warm, dry, no pallor noted. There is no rash noted. Head: Normocephalic, atraumatic Eye: Normal conjunctiva, no drainage Ears, Nose, Mouth, and Throat: oral mucosa is moist. Nares patent. Cardiovascular: Regular Rate and Rhythm Respiratory: Patient is in no distress, no accessory muscle use, lungs are clear to auscultation, no wheezing, rales or rhonchi Back: non-tender, no CVA tenderness bilaterally to percussion. There is no bruise or rash or abrasions present. GI: Soft and nontender Musculoskeletal: The patient has no evidence of calf tenderness, no pitting edema, symmetrical pulses noted bilaterally Neurological: A&O, normal speech Psychiatric: Cooperative Constitutional Vital Signs, click to edit/add: Last Vital Signs Temp 98.4 F 06/28/24 13:45 Pulse 95 H 06/28/24 13:45 Resp 16 06/28/24 13:45 BP 183/90 H 06/28/24 13:45 Pulse Ox 96 06/28/24 13:45 Course Vital Signs Vital signs: Vital Signs Temperature 98.4 F 06/28/24 13:45 Pulse Rate 95 H 06/28/24 13:45 Respiratory Rate 16 06/28/24 13:45 Blood Pressure 183/90 H 06/28/24 13:45 Pulse Oximetry 96 06/28/24 13:45 Temperature 98.4 F 06/28/24 13:45 Pulse Rate 95 H 06/28/24 13:45 Respiratory Rate 16 06/28/24 13:45 Blood Pressure 183/90 H 06/28/24 13:45 Pulse Oximetry 96 06/28/24 13:45 Medical Decision Making MDM Narrative Medical decision making narrative: His workup is negative including urinalysis and CT scan. At this point I suspect that this is muscular in nature. He will be treated with methocarbamol and ibuprofen. Treatment diagnosis and follow-up were discussed with the patient. Differential Diagnosis Differential Diagnosis: Kidney stone, UTI, muscle strain, constipation Lab Data Lab results reviewed: Yes I reviewed the patient's lab results Labs: Lab Results 06/28/24 Range/Units 14:00 Urine Color Lt. yellow (YELLOW) Urine Clarity Clear (CLEAR) Urine pH 6.0 (5.0-9.0) Ur Specific [place] 1.025 (1.005-1.025) Urine Protein Trace (NEG/TRACE) mg/dL Urine Glucose (UA) Negative (NEGATIVE) mg/dL Urine Ketones Trace A (NEGATIVE) mg/dL Urine Occult Blood Negative (NEGATIVE) Urine Nitrite Negative (NEGATIVE) Urine Bilirubin Negative (NEGATIVE) Urine Urobilinogen 0.2 (0.2-1.0) EU/dL Ur Leukocyte Esterase Negative (NEGATIVE) Imaging Data CT scan - abdomen: Radiologist's impression: No acute intra-abdominal findings Discharge Plan Discharge Chief Complaint: Urogenital-Male Clinical Impression: Right flank pain Patient Disposition: Home, Self-Care Time of Disposition Decision: 16:37 Condition: Good Mode of Transportation: Private Vehicle Prescriptions / Home Meds: New ibuprofen 800 mg tablet 800 mg PO Q8H PRN (Reason: pain) Qty: 20 0RF methocarbamol 750 mg tablet 750 mg PO Q6H PRN (Reason: pain) Qty: 20 0RF No Action atorvastatin 10 mg tablet 10 mg PO .qhs clonidine HCl 0.3 mg tablet 0.3 mg PO Q12H Trulicity 4.5 mg/0.5 mL pen injector 4.5 mg SUBCUT .weekly hydrochlorothiazide 12.5 mg capsule 12.5 mg PO QDAY lisinopril 40 mg tablet 40 mg PO QDAY metformin 500 mg tablet 500 mg PO .q12 omeprazole 40 mg capsule,delayed release(DR/EC) 40 mg PO BID Print Language: Russian Instructions: Flank Pain (ED) Referrals: Richard Vidal DO [Primary Care Provider, Internal Medicine] - 1 week
== END 2024-06-28 16:54 | disposition home or self-care (01) ==
PROVIDERS: Emergency Provider Emergency Medicine; PCP Internal Medicine
DX: R10.9 Unspecified abdominal pain (principal)
CPT/HCPCS: 74176; 81003; 99284

== ENCOUNTER 2024-12-02 11:24 | Outpatient (OUT) | payer OTHER, SELFPAY ==
--- OUTSIDE RECORDS SUMMARY | 2024-12-02 07:12 | XMS_ITS | Continuity of Care Document ---
Author Organization [facility] Address [address] [place] [address] Phone Care Team Providers Care Jackscrew Man Name Role Phone Richard Vidal DO Primary Care Provider Richard Vidal DO Attending Provider Care Teams Patient Care Team Team Status: Active Member Role Status Dates Richard Vidal DO Primary Care Provider Active Visit Care Team Team Status: Inactive Member Role Status Dates Richard Vidal DO Primary Care Provider Active Start: November 18, 2024 End: November 18, 2024 Richard Vidal DO Attending Provider Active Sta rt: November 18, 2024 End: November 18, 2024 Patient Care Team Team Status: Inactive Member Role Status Dates Richard Vidal DO Primary Care Provider Active Start: December 02, 2024 End: December 02, 2024 Richard Vidal DO Attending Provider Active Sta rt: December 02, 2024 End: December 02, 2024 Chief Complaint and Reason for Visit Chief Complaint Admit Date L Ear Pain/Sinuses/COVID- October 10:47am wellness December 02, 2024 1 0:27am Reason for Visit Admit Date Primary hypertension November 18 10:47am Eustachian tube dysfunction November 182024 10:47am Acute sinusitis November 18, 2024 10:47am Cerebral atherosclerosis December 02, 2 025 10:27am Elevated cholesterol December 02, 2024 10:27am Obesity December 02, 2024 1 0:27am Obstructive sleep apnea December 02 10:27am Primary hypertension December 02, 2024 10:27am Screening PSA (prostate specific antigen ) December 02, 2024 10:27am Type 2 diabetes mellitus with hyperglyce citlaly December 02, 2024 10:27am Wellness examination December 02, 2024 10:27am Allergies, Adverse Reactions, Alerts Allergen Type Severity Reaction Last Updated Verified Status No Known Allergies Allergy Unknown Octobe r 2024 10:33am Yes Active Social History Smoking Status Status Start Date End Date Date of Observa tion Never smoked tobacco (finding) November 18, 2024 9:38am Observation Status Observation Response Date of Response Legal Sex Male (finding) Sex Assigned At Male January 19 3th, 1960 Family History Relationship Condition Age at Onset Recorded Date/T jan father Unknown mother Unknown Problems Active Problems Medical Problem Onset Date Status Comments Lateral epicondylitis of left elbow Unknown Activ e Gastroesophageal reflux dise ase with esophagitis without hemorrhage Unknown Active Obstructive sleep apnea Unknown Active Screening PSA (prostate specific antigen) Unknown Active PSA: 0.9 - 11/2023 Type 2 diabetes mellitus wit h hyperglycemia Unknown Active BPPV (benign paroxysmal posi tional vertigo) Unknown Active Elevated cholesterol Unknown Active Cerebral atherosclerosis November 21, 2017 Active Wellness examination Unknown Active Primary hypertension Unknown Active Epigastric pain Unknown Active Left elbow pain Unknown Active Thoracic back pain Unknown Active Obesity Unknown Active Medications Medication Status Dose Units Route Directions Qty Days St art Date Stop Date End Date Instructions Adherence Dulaglutide (Trulicity) 3 mg/0.5 mL pen injector Discont inued 4.5 MG SUBCUT every week 2023 5:27pm u 2023 5:29p m FreeTextSi.5 ML Subcutaneous weekly; Note: Source Status: Continue; Provider: Young Soria Dulaglutide (Trulicity) 3 mg/0.5 mL pen injector Discont inued 4.5 MG SUBCUT every week 9.75 90 2023 5:28pm June 10, 2024 7:46p m FreeTextSi.5 ML Subcutaneous weekly; Note: Source Status: Continue; Provider: Young Soria Omeprazole 40 mg capsule,del ayed release(DR/ EC) Discont inued 0 .ROUTE .COMPLEX 180 2023 7:33pm Augus t 2023 9:28p m TAKE 1 CAPSULE BY MOUTH TWICE A DAY ON AN EMPTY STOMACH FOLLOWED IN 30 MINUTES BY A MEAL Clonidine Hcl 0.3 mg tablet Discont inued 0 .ROUTE .COMPLEX 180 May 02, 2023 6:11pm April 24, 2024 9:43a m TAKE 1 TABLET BY MOUTH TWICE A DAY Lisinopril 40 mg tablet Discont inued 0 .ROUTE .COMPLEX May 02, 2023 6:12pm April 24, 2024 9:43a m TAKE 1 TABLET BY MOUTH EVERY DAY Metformin 500 mg tablet Discont inued 500 MG PO Twice daily 180 July 30, 2023 5:47pm Septe mber 2023 8:36a m Omeprazole 40 mg capsule,del ayed release(DR/ EC) Discont inued 0 .ROUTE .COMPLEX 180 October 15, 2023 9:28pm Augus t 2024 7:48a m TAKE 1 CAPSULE BY MOUTH TWICE A DAY ON AN EMPTY STOMACH FOLLOWED IN 30 MINUTES BY A MEAL Metformin 500 mg tablet Discont inued 0 .ROUTE .COMPLEX 180 2023 8:36am August 07, 2024 12:16 pm TAKE 1 TABLET BY MOUTH TWICE A DAY Atorvastati n 10 mg tablet Discont inued 0 .ROUTE .[facility] 2023 2:02pm August 07, 2024 12:16 pm TAKE 1 TABLET BY MOUTH EVERY EVENING Hydrochloro thiazide 12.5 mg capsule Discont inued 0 .ROUTE .COMPLEX 90 2023 2:02pm August 07, 2024 12:16 pm TAKE 1 CAPSULE BY MOUTH EVERY DAY Lisinopril 40 mg tablet Active 0 .ROUTE .COMPLEX April 24, 2024 9:43am TAKE 1 TABLET BY MOUTH EVERY DAY Complies with drug therapy Clonidine Hcl 0.3 mg tablet Discont inued 0 .ROUTE .COMPLEX 180 April 24, 2024 9:43am August 07, 2024 12:16 pm TAKE 1 TABLET BY MOUTH TWICE A DAY Dulaglutide (Trulicity) 4.5 mg/0.5 mL pen injector Discont inued 4.5 MG SUBCUT every week June 10, 2024 7:46pm June 23, 2024 4:04p m Dulaglutide (Trulicity) 4.5 mg/0.5 mL pen injector Active 4.5 MG SUBCUT every week June 23, 2024 4:03pm Complies with drug therapy Omeprazole 40 mg capsule,del ayed release(DR/ EC) Active 0 .ROUTE .COMPLEX 180 October 08, 2024 7:48am TAKE 1 CAPSULE BY MOUTH TWICE A DAY ON AN EMPTY STOMACH FOLLOWED IN 30 MINUTES BY A MEAL Complies with drug therapy Atorvastati n 10 mg tablet Active 10 MG PO Daily 90 August 07, 2024 12:14p m On Hold: stopped on own Complies with drug therapy Metformin 500 mg tablet Active 500 MG PO Twice daily with meals 180 August 07, 2024 12:14p m Complies with drug therapy Hydrochloro thiazide 12.5 mg capsule Active 12.5 MG PO Daily 90 August 07, 2024 12:15p m Complies with drug therapy Clonidine Hcl 0.3 mg tablet Active 0.3 MG PO Every 12 hours 180 August 07, 2024 12:15p m Complies with drug therapy Azithromyci n 250 mg tablet Discont inued 250 MG PO .COMPLEX 6 5 2024 12:00a m Octob er 2024 10:36 am 2 tabs on first day followed by 1 tab on days 2-5 Aspirin 81 mg tablet,jeremiah yed release (/EC) Active 1 TAB PO Daily 2023 1:00am FreeTextSi tablet Orally Once a day; Note: Source Status: Start; Refills: 3; Qty: 90 Tablet; Provider: Young Ramos ( ) Complies with drug therapy Atorvastati n 10 mg tablet Discont inued 1 TAB PO Daily 2023 1:00am 2023 2:02p m FreeTextSi tablet Orally Once a day; Note: Source Status: Continue; Provider: Young Ramos ( ) Hydrochloro thiazide 12.5 mg capsule Discont inued 1 CAP PO Daily 2023 1:00am 2023 2:02p m FreeTextSig: TAKE 1 CAPSULE BY MOUTH EVERY DAY; Note: Source Status: Start; Refills: 3; Qty: 90 Capsule; Provider: Young Ramos ( ) Lisinopril 40 mg tablet Discont inued 1 TAB PO Daily 2023 1:00am May 02, 2023 6:12p m FreeTextSig: TAKE 1 TABLET BY MOUTH EVERY DAY; Note: Source Status: Continue; Provider: Young Ramos ( ) Metformin 500 mg tablet Discont inued 1 TAB PO Daily 2023 1:00am July 30, 2023 5:50p m FreeTextSi tablet with a meal Orally Once a day; Note: Source Status: Continue; Provider: Young Ramos ( ) Omeprazole 40 mg capsule,del ayed release(DR/ EC) Discont inued 40 MG PO Twice daily 2023 1:00am 2023 7:33p m ON AN EMPTY STOMACH FOLLOWED IN 30 MINUTES BY A MEAL Dulaglutide (Trulicity) 3 mg/0.5 mL pen injector Discont inued 0.5 ML SUBCUT every week 2023 1:00am 2023 5:28p m FreeTextSi.5 ML Subcutaneous weekly; Note: Source Status: Continue; Provider: Young Soria Clonidine Hcl 0.3 mg tablet Discont inued 1 TAB PO Twice daily 2023 1:00am May 02, 2023 6:12p m FreeTextSig: TAKE 1 TABLET BY MOUTH TWICE A DAY; Note: Source Status: Continue; Provider: Young Ramos ( ) Meclizine 25 mg tablet Discont inued 25 MG PO Daily as needed September 14, 2023 12:00a m 2024 12:00 pm Immunizations Immunization Event Date Not Given Reason Dose Number Clam Dredger Lot Number Vaccine Information Statement (VIS) Detail Administration Location COVID-19 mRNA, Comirnaty ([facility]) June 08, 2020 COVID-19 mRNA, Comirnaty ([facility]) June 29, 2020 Vital Signs Vital Reading Result Reference Range Collection Date/Time Height 67 [in_i] November 18, 2024 11:23am Weight 109.88 kg November 18, 2024 11:23am Heart Rate 86 /min 60-100 November 18, 2024 11:23am Respiratory rate 12 /min 12-24 October 222024 11:23am BP Systolic 139 mm[Hg] 100-140 November 18, 2024 11:23am BP Diastolic 89 mm[Hg] 60-100 November 18, 2024 11:23am BMI (Body Mass Index) 37.9 kg/m2 2024 11:23am Height 67 [in_i] December 02, 025 10:36am Weight 106.65 kg December 02, 025 10:36am Heart Rate 88 /min 60-100 December 02, 025 10:36am Respiratory rate 12 /min 12-24 November 10:36am BP Systolic 120 mm[Hg] 100-140 December 02, 025 10:36am BP Diastolic 76 mm[Hg] 60-100 December 02, 025 10:36am BMI (Body Mass Index) 36.8 kg/m2 Octobe r 2024 10:36am Advance Directives Advance Directive Response Recorded Date/ Time Advance Directives No October 9:38am Insurance Providers Guarantor Fer Friedman Address [address] [place] [address] [place] [address] Contact Info. Home Phone: Payer Policy Id Subscriber's Name Subscriber Id Effectiv e Date Expiration Date [employer] [place] Claims [id number] Fer Friedman [id number] Encounters Encounter Location(s) Arrival/Admit Date Discharge/Depart Date Provider(s) Departed Physician/Prov ider Office Visit -[facility] November 18, 2024 10:47am November 18, 2024 11:52am Richard Vidal DO Departed Physician/Prov ider Office Visit -[facility] December 02, 2024 10:27am December 02, 2024 11:09am Richard Vidal DO Recent Diagnosis Onset Date Admit Date Primary hypertension Unknown October 222024 10:47am Eustachian tube dysfunction Unknown Oct 10:47am Acute sinusitis Unknown November 18, 2024 10:47am Cerebral atherosclerosis November 21, 2017 Octob er 2024 10:27am Elevated cholesterol Unknown November 10:27am Obesity Unknown December 02 10:27am Obstructive sleep apnea Unknown December 02, 2024 10:27am Primary hypertension Unknown November 10:27am Screening PSA (prostate spec ific antigen) Unknown December 02, 2024 10:27am Type 2 diabetes mellitus wit h hyperglycemia Unknown December 02, 2024 10:27am Wellness examination Unknown November 10:27am Assessments Diagnosis Onset Date Resolution Status Admit Date Primary hypertension acute Sept ember 2024 10:47am Eustachian tube dysfunction noneactive November 18, 2024 10:47am Acute sinusitis noneactive November 18, 2024 10:47am Cerebral atherosclerosis November 21, 2017 acut e December 02, 2024 10:27am Elevated cholesterol acute 2024 10:27am Obesity acute December 02, 2024 10:27am Obstructive sleep apnea acute O ctober 2024 10:27am Primary hypertension acute 2024 10:27am Screening PSA (prostate specific antigen) acute December 02, 2024 10:27am Type 2 diabetes mellitus with hyperglycemia acute December 02, 2024 10:27am Wellness examination acute 2024 10:27am Plan of Treatment Author [facility] Authored November 18, 2024 11:54am Avoid use of decongestants s howard can raise BP and HR. I have instructed this patient to use Robitussin or Mucinex for cough, saline and Flonase NS for congestion and Tylenol for pain and fever. Continue antibiotics until all the medication has been taken. Report to the ER if develop any CP or SOB Instructed to use Flonase NS daily Author [facility] Authored December 02, 2024 1 1:05am I have instructed this patie nt to consume a healthy, low-fat, low-salt diet. I have also encouraged them to continue exercise with weight loss to achieve/maintain a BMI < 30. I have instructed this patient on the correct procedure for obtaining home BP measurements: - rest for 5 minutes w/o talking. - positioned w/ feet on floor and arms supported. - average best 2/3 readings w/ goal < 135/85. - update office w/ home readings in 2 weeks. Continue Clonidine, Lisinopril and HCTZ without interruption I have instructed this patient to follow a comprehensive diabetic treatment plan. I have also instructed them to check their feet daily for calluses and nonhealing ulcers. I have instructed them to have a yearly dilated eye examination. I have reviewed their treatment goals: SBP less than 130, LDL less than 100, FBS less than 140, A1C less than 7%. I have instructed them to maintain a home BS log and bring the results to each of their office visits for review. I have explained the importance of routine monitoring of their A1C, Microalbumin and Lipids. I have explained the benefits of well controlled diabetes in preventing micro and macrovascular complications. Continue Trulicity and Metformin without interruption POC A1C 6.7% No s/s of acute, focal neurologic deficits. I have reviewed stroke symptoms and instructed them to go to the ER for any suspicious symptoms. They have been instructed to continue secondary preventive measures. Continue Atorvastatin and ASA without interruption I have instructed this patient on a low fat, high fiber diet and exercise. I have discussed the primary and secondary prevention benefits attributed to lowering LDL cholesterol. I have also discussed the medical treatment of elevated cholesterol, which is based on the 10 year ASCVD risk. Stopped his Atorvastatin due to fear of dementia This patient is aware of the benefits associated with BIANCA: With continued use, the patient reduces the risk for IA, CVA, HTN, cardiac dysrhythmias and sudden cardiac deaths. The patient is also aware of the association between BIANCA and morning headaches, daytime somnolence, fatigue and obesity, which also has been improved with continued use. The patient is compliant with treatment, wearing the equipment every night for greater than 4 hours. The patient is instructed to continue use of the CPAP for BIANCA treatment. I have instructed this patient on a low-fat, high-fiber diet. I have also instructed them to reduce calories, portions sizes, sweet drinks and snacks. I have also recommended they exercise for 30 minutes, 3-5 times weekly. They are aware of the comorbid conditions associated with excessive weight: Diabetes, HTN, Hyperlipidemia, CAD and arthritis. I have instructed this patient on the recommended lifestyle changes, which includes a low fat, high fiber diet along with a regular exercise routine. I have also reviewed the recommended age-appropriate preventive testing for this patient. I have also reviewed the recommended vaccines for their age and risk factors. I have recommended yearly PSA testing. I have informed him that the PSA can be elevated w/ cancer, infection and enlarged prostates. I have explained to the patient, that If his PSA is elevated, while there are many causes, referral will be recommended to r/o cancer. He would be referred to Urology, who may recommend an MRI, TRUS/bx or possibly continued monitoring. He is agreeable to this plan of action PSA: 0.9 - 11/2023 Future Tests Future scheduled test information is unavailable Pending Tests Test Name Ordered Date Scheduled Date Comprehensive Metabolic Panel December 02, 2024 11:00am Future Visits Future appointment information is unavailable Referrals to Other Providers Referral information is unavailable Future Procedures Procedure Name Ordered Date Scheduled Date A1C with Estimated Average Glu December 02 11:00am Complete Blood Count Auto Diff December 02 11:00am MicroAlb Creat Ratio,U December 02, 2024 11:00a m PSA Screen (Yearly Only) December 02, 2024 11:0 0am Future Medications Future medication information is unavailable Patient Instructions Patient instructions are unavailable
--- OUTSIDE RECORDS SUMMARY | 2024-12-02 11:27 | XMS_ITS | Clinical Summary ---
Author Organization [facility] Address [address] [place] [address] Care Team Providers Care Territory Sales Executive Name Role Phone Unavailable Primary Care Provider Unavailabl e Allergies No known active allergies Medications aspirin 81 MG EC tablet 1 tablet 4 Active atorvastatin (Lipitor) 10 MG tablet Take 10 mg by mouth at bedtime Active Trulicity 3 MG/0.5ML solution pen-injector INJECT 0.5 ML SUBCUTANEOUSLY ONE TIME PER WEEK 4 Active hydroCHLOROthi azide (Microzide) 12.5 MG capsule Take 12.5 mg by mouth Daily Active lisinopril 40 MG tablet Take 40 mg by mouth Daily Active metFORMIN (Glucophage) 500 MG tablet TAKE 1 TABLET BY MOUTH TWICE A DAY BEFORE BREAKFAST AND EVENING MEAL Active omeprazole (PriLOSEC) [address] capsule TAKE 1 CAPSULE BY MOUTH TWICE A DAY ON AN EMPTY STOMACH FOLLOWED IN 30 MINUTES BY A MEAL Active Active Problems No known active problems Family History Relation Name Status Comments Father Mother Social History Tobacco Use Types Packs/Day Years Used Date Smoking Tobacco: Never Smokeless Tobacco: Never Tobacco Cessation:Counseling Given: Not Answered Sex and Gender Information Value Date Recorded Sex Assigned at Not on file Legal Sex Male 7:17 PM EDT Gender Identity Not on file Sexual Orientation Not on file Last Filed Vital Signs Vital Sign Reading Time Taken Comments Blood Pressure 157/96 03/04/2019 12:00 PM EST Pulse - - Temperature 36.3 C (97.4 F) 07/23/2023 2:40 PM EDT Respiratory Rate - - Oxygen Saturation - - Inhaled Oxygen Concentration - - Weight 112 kg (248 lb) 07/23/2023 2:40 PM EDT Height 172.7 cm (5' 8 ) 07/23/2023 2:40 PM EDT Body Mass Index 37.71 07/23/2023 2:40 PM EDT Plan of Treatment Not on file Insurance [employer] [place] [id number]
--- OUTSIDE RECORDS SUMMARY | 2024-12-02 11:27 | XMS_ITS | Clinical Summary ---
Author Organization [employer] tem Address [id number] [address] [place] [address] Care Team Providers Care Section Weaver Name Role Phone Richard Vidal Primary Care Provider [phone] Allergies No known active allergies Medications omeprazole (PriLOSEC) 20 mg capsule Take 20 mg by mouth daily. Active cloNIDine (CATAPRES) 0.3 mg tablet Take 0.3 mg by mouth 2 (two) times a day. Active lisinopril (PRINIVIL,ZESTRI L) 40 mg tablet Take 40 mg by mouth daily. Active atorvastatin (LIPITOR) 10 mg tablet Take 10 mg by mouth daily. Active aspirin 81 mg Take 81 mg by mouth daily. Active loratadine (CLARITIN) 10 mg tablet Take 10 mg by mouth daily. Active Active Problems Problem Noted Date Diagnosed Date Status post placement of implantable loop record er 01/17/2018 Ischemic stroke 12/13/2017 Occlusion of vertebral artery, right 11/12/2017 Immunizations No known immunizations Family History Medical History Relation Name Comments COPD Father Kidney disease Father Stroke Mother Relation Name Status Comments Father Mother Social History Tobacco Use Types Packs/Day Years Used Date Smoking Tobacco: Never Smokeless Tobacco: Never Alcohol Use Standard Drinks/Week Comments No 0 (1 standard drink = 0.6 oz pur e alcohol) AUDIT-C Answer Date Recorded Frequency of Alcohol Consumption Never 03/06/2019 Average Number of Drinks Not on file 020 Frequency of Binge Drinking Not on file 02/19 PHQ-2 Answer Date Recorded Total Score 0 12/13/2017 Childcare Answer Date Recorded Childcare Unknown 07/25/2018 Employment Answer Date Recorded Employment Unknown 07/25/2018 Purpose - Life Answer Date Recorded Purpose and direction in life Unknown Sex and Gender Information Value Date Recorded Sex Assigned at Not on file Legal Sex Male 11:29 AM EST Gender Identity Not on file Sexual Orientation Not on file Last Filed Vital Signs Vital Sign Reading Time Taken Comments Blood Pressure 111/68 04/02/2019 1:10 PM EST Pulse 54 04/02/2019 1:10 PM EST Temperature 36 C (96.8 F) 04/02/2019 11:50 AM EST Respiratory Rate 12 04/02/2019 1:10 PM EST Oxygen Saturation 95% 04/02/2019 1:10 PM EST Inhaled Oxygen Concentration - - Weight 115.7 kg (255 lb) 04/02/2019 9:05 AM EST Height 170.2 cm (5' 7 ) 04/02/2019 9:05 AM EST Body Mass Index 39.94 04/02/2019 9:05 AM EST Plan of Treatment Health Maintenance Due Date Last Done Comments Depression Screening 1973 Tobacco Screening 1973 Adult BMI Screening 1979 DTaP,Tdap and Td Vaccines (1 - Tdap) 02/01/1980 Zoster (Shingles) Vaccine (1 of 2) 2011 Influenza Vaccine 10/20/2024 Goals Goal Patient Goal Type Associated Problems Recent Progress Patient-Stated? Author Pt wants to return to work in the next week. General Yes Shaneka Quiros, RN Note: Evaluation of progress towards goal:Ambulating well. No therapy need. PCP f/u appt made. Medical Devices Implanted Type Area Occupational Therapist Device Identifier Shelf Expiration Date Model / Serial / Lot Sys Crd Rvl Linq Rpl [id number] - [id number] - [id number] Implanted:Qty: 1 on 11/16/2017 at [facility] Other Implant [employer] CARD RHYTHM DEVICES 10/16/2018 [employer] / [id number] / Insurance [facility] Care Teams Section Weaver Relationship Specialty Start Date End Date Richard Vidal DO [address] [place] [address] PCP - General 11/13/17
--- OUTSIDE RECORDS SUMMARY | 2024-12-02 11:29 | XMS_ITS | CCD ---
Author Organization [facility] Care Team Providers Care Software Verification Engineer Name Role Phone RICHARD VIDAL Primary Care Physician [phone] Richard Vidal YOUNG, DR RAMOS Primary Care Unavailable BALL, [...] Care Unavailable EDA ., KVNG Attending Unavailable ASHLYE, SUNDAY Consulting Unavailable EDA ., KVNG Consulting Unavailable BALL, DR RAMOS Admitting Unavailable BALL, DR RAMOS Attending Unavailable BALL, DR RAMOS Consulting Unavailable BALL, DR RAMOS Primary Care Unavailable NILL ., DR YEBOAH Attending Unavailable NILL ., DR YEBOAH Consulting Unavailable NILL ., DR YEBOAH Admitting Unavailable BALL, DR RAMOS Primary Care Unavailable DORKOSKIE, WILNER Consulting Unavailable POCOS, MARK Crews Referring Unavailable POCOS, MARK Crews Attending Unavailable YOUNG, RICHARD Soria Referring Unavailable YOUNG, RICHARD Soria Primary Care Unavailable YOUNG, RICHARD Soria Referring Unavailable YOUNG, RICHARD Soria Primary Care Unavailable Richard Vidal DO Primary Care Provider Richard Vidal DO Attending Provider Medications Current Medications Medication Drug Class(es) Dates Sig (Normalized) Sig (Original) aspirin 81 mg delayed release oral tablet (15 sources) Platelet Aggregation Inhibitor, Nonsteroidal Anti-inflammatory Drug Start: 08-15-2021 take 1 tablet by mouth once daily take 1 tablet by mouth once clara y Aspirin 81 81 MG 1 tablet Orally Once a day Active atorvastatin 10 mg oral tablet (19 sources) HMG-CoA Reductase Inhibitor Start: 08-07-2024 take 1 tablet by mouth once daily Start: 01-11-2024 End: 08-07-2024 take 1 tablet by mouth once daily in the evening Atorvastatin 10 mg tablet Discontinued 0 .ROUTE .COMPLEX 90 January 11, 2024 2:02pm August 07, 2024 12:16pm TAKE 1 TABLET BY MOUTH EVERY EVENING Start: 08-15-2021 End: 01-11-2024 take 1 tablet by mouth once daily Atorvastatin 10 mg tablet Discontinued 1 TAB PO Daily March 31, 2023 1:00am January 11, 2024 2:02pm FreeTextSi tablet Orally Once a day; Note: Source Status: Continue; Provider: Young Ramos ( ) azithromycin 250 mg oral tablet (1 source) Macrolide Antimicrobial Start: 11-18-2024 Azithromycin 250 mg tablet Active 250 MG PO .COMPLEX 6 5 November 18, 2024 12:00am 2 tabs on first day followed by 1 tab on days 2-5 Complies with drug therapy cloNIDine hydrochloride 0.3 mg oral tablet (20 sources) Central alpha-2 Adrenergic Agonist Start: 08-07-2024 take 1 tablet by mouth every twelve hours Start: 05-02-2023 End: 08-07-2024 take 1 tablet by mouth twice daily Clonidine Hcl 0.3 mg tablet Discontinued 0 .ROUTE .COMPLEX 180 April 24, 2024 9:43am August 07, 2024 12:16pm TAKE 1 TABLET BY MOUTH TWICE A [...] Status: Continue; Provider: Young Ramos ( ) Dulaglutide (14 sources) GLP-1 Receptor Agonist Start: 06-23-2024 Start: 06-10-2024 End: 06-23-2024 Dulaglutide (Trulicity) 4.5 mg/0.5 mL pen injector Discontinued 4.5 MG SUBCUT every week 2 30 June 10, 2024 7:46pm June 23, 2024 4:04pm Start: 04-13-2023 End: 06-10-2024 inject 0.5 mL by subcutaneous injection every week Dulaglutide (Trulicity) 3 mg/0.5 mL pen injector Discontinued 4.5 MG SUBCUT every week 9.75 90 April 13, 2023 5:28pm June 10, 2024 7:46pm FreeTextSi.5 ML Subcutaneous weekly; Note: Source Status: [...] Source Status: Continue; Provider: Young Soria Start: 08-15-2021 inject 0.75 mg by reinoso bcutaneous injection every week Trulicity Pen 0.75 mg/0.5 [...] Subcutaneous weekly; Note: Source Status: Continue; Provider: Yonug Soria hydroCHLOROthiazide 12.5 mg oral capsule (18 sources) Thiazide Diuretic Start: 08-07-2024 take 1 capsule by mouth once daily Start: 01-11-2024 End: 08-07-2024 take 1 capsule by mouth once daily Hydrochlorothiazide 12.5 mg capsule Discontinued 0 .ROUTE .COMPLEX 90 January 11, 2024 2:02pm August 07, 2024 12:16pm TAKE 1 CAPSULE BY MOUTH EVERY DAY Start: 03-31-2023 End: 01-11-2024 take 1 capsule by mouth once daily Hydrochlorothiazide 12.5 mg capsule Discontinued 1 CAP PO Daily March 31, 2023 1:00am January 11, 2024 2:02pm FreeTextSig: TAKE 1 CAPSULE BY MOUTH EVERY DAY; Note: Source Status: Start; Refills: 3; Qty: 90 Capsule; Provider: Young Ramos ( ) lisinopril 40 mg oral tablet (20 sources) Angiotensin Converting Enzyme Inhibitor Start: 05-02-2023 End: 04-24-2024 take 1 tablet by mouth once daily Start: 05-02-2023 take 1 tablet by iram [...] mg oral tablet (20 sources) Biguanide Start: 08-07-2024 take 1 tablet by iram th twice daily at mealtime Start: 10-28-2023 End: 08-07-2024 take 1 tablet by mouth twice daily Metformin 500 mg tablet Discontinued 0 .ROUTE .COMPLEX 180 October 28, 2023 8:36am August 07, 2024 12:16pm TAKE 1 TABLET BY MOUTH TWICE A [...] omeprazole 40 mg delayed release oral capsule (20 sources) Proton Pump Inhibitor Start: 04-15-2023 End: 10-08-2024 take 1 capsule by mouth twice daily at mealtime Start: 03-31-2023 End: 04-15-2023 take 1 capsule [...] (Original) meclizine hydrochloride 25 mg oral tablet (5 sources) Antiemetic Start: 09-14-2023 End: 04-01-2024 take 1 tablet by mouth once daily as needed Meclizine 25 mg tablet Discontinued 25 MG PO Daily as needed September 14, 2023 12:00am April 01, 2024 12:00pm Problems Active Problems Problem Classification Problem Date Documented Da te Episodic/Chronic Abdominal pain (5 sources) Right upper quadrant pain; Translations: [Right upper quadrant pain] Onset: 6 Episodic Acute bronchitis (2 sources) Acute bronchitis; Translations: [Acute bronchitis due to other specified organisms] Onset: 6 Episodic Acute cerebrovascular disease (3 sources) Cerebral infarction; Translations: [Cerebral infarction due to embolism of cerebral arteries] Onset: 8 08-15-2021 Chronic Conditions associated with dizziness or vertigo (5 sources) Benign paroxysmal positional vertigo; Translations: [Benign [...] hypercholesterolemia, unspecified] Onset: 8 Chronic Esophageal disorders (17 sources) Gastroesophageal reflux disease; Translations: [Gastro-esophageal reflux [...] 4 Chronic Other and ill-defined cerebrovascular disease (10 sources) Cerebral atherosclerosis; Translations: [Cerebral atherosclerosis] Onset: 8 03-31-2023 Chronic Other and ill-defined cerebrovascular disease (8 sources) Cerebral atherosclerosis; Translations: [Cerebral atherosclerosis] Onset: 8 Chronic Other circulatory disease (8 sources) History of cerebrovascular accident without residual deficits; Translations: [Personal history of transient ischemic attack (TIA), and cerebral infarction without residual deficits] Episodic Other connective tissue disease (1 source) Lateral epicondylitis of left humerus; Translations: [Lateral epicondylitis, left elbow] 06-10-2024 Episodic Other ear and sense organ disorders (1 source) Infective otitis externa; Translations: [Unspecified infective otitis externa] Onset: 5 Chronic Other gastrointestinal disorders (2 sources) Abnormal feces; Translations: [Other fecal abnormalities] Onset: 2 Episodic Other non-traumatic joint disorders (1 source) Shoulder joint pain; Translations: [Pain in joint, shoulder region] Episodic Other non-traumatic joint disorders (1 source) Pain in elbow; Translations: [Pain in left elbow] 06-10-2024 Episodic Other nutritional; endocrine; and metabolic disorders [...] Chronic Other nutritional; endocrine; and metabolic disorders (5 sources) Obesity; Translations: [Obesity, unspecified] Onset: 5 11-29-2023 Chronic Other nutritional; endocrine; and metabolic disorders (3 sources) Obesity, unspecified; Translations: [Obesity, unspecified] 11-29-2023 Chronic Other screening for suspected conditions (not mental disorders or infectious disease) (8 sources) Stool DNA-based colorectal cancer screening positive; [...] tube disorder, bilateral] Episodic Residual codes; unclassified (18 sources) Obstructive sleep apnea syndrome; Translations: [Obstructive [...] Spondylosis; intervertebral disc disorders; other back problems (5 sources) Thoracic back pain; Translations: [Pain in [...] Onset: 02-07-2016 Episodic Other aftercare (1 source) detention (current) use of aspirin; Translations: [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 CURRENT USE OF ASPIRIN] Onset: 11-21-2021 Episodic Other aftercare (1 source) Other penitentiary (current) drug therapy; Translations: [OTH ASSISTED CURRENT DRUG THERAPY] Onset: 11-21-2021 Episodic Other aftercare (1 source) detention (current) use of oral hypoglycemic drugs; Translations: [ASSISTED USE ORAL HYPOGLYCEMIC DX] Onset: 09-01-2021 Episodic [...] [Mass/volume] in Blood Estimated from glycated hemoglobin [facility] Hemoglobin A1c percentageon 04-01-2024 HbA1c (Bld) [Mass fraction] Hemoglobin A1c percentage High 4.5-6.2 [facility] Comment on above: ADA RECOMMENDED LIMI T 4.0 - 6.0ADA THERAPEUTIC TARGET < 7.0ACTION SUGGESTED> 7.0 Laboratory - Chemistry and C hemistry - challengeon 09-04-2023 Bilirubin Ql (U) Negative NEGATIVE [facility] Glucose (U) [Mass/Vol] Negative NEGATIVE [facility] Ketones Ql (U) Negative NEGATIVE [facility] pH (U) 6.0 [pH] 5.0-9.0 [facility] Specific gravity (U) [Rel density] 1.010 1.005-1.025 [facility] Urobilinogen Qn (U) 0.2 {Woodrow'U}/dL 0.2-1.0 [facility] Laboratory - Specimen inform ationon 09-04-2023 Appearance (U) CLEAR CLEAR [facility] Color (U) LT. YELLOW YELLOW [facility] Laboratory - Urinalysison Leukocyte esterase Test strip Ql (U) Negative NEGATIVE [facility] Nitrite Ql (U) Negative NEGATIVE [facility] Protein Ql (U) Negative NEG/TRACE [facility] No Panel Informationon 09-03 Urine Microscopic Review NO [facility] Urine Occult Blood Negative NEGATIVE [facility] Basophils Auto (Bld) [#/Vol] on 09-03-2023 Basophils (Bld) [#/Vol] 0.1 10 3/uL 0.0-0.1 [facility] Basophils/100 WBC Auto (Bld) on 09-03-2023 Basophils/100 WBC (Bld) 1.0 % 0.2-2.0 [facility] Eosinophils/100 WBC Auto (Bl d)on 09-03-2023 Eosinophils/100 WBC (Bld) 4.6 % 0.9-7.0 [facility] Erythrocyte distribution wid th Auto (RBC) [Ratio]on 09-03-2023 Erythrocyte distribution width (RBC) [Ratio] 12.7 % 11.0-15.0 [facility] Estimated glomerular filtrat ion rate (GFR) non- Americanon 09-03-2023 GFR/1.73 sq M.predicted among non-blacks MDRD (S/P/Bld) [Vol rate/Area] mL/min/{1.73_m2} >=60 [facility] Globulin Calc (S) [Mass/Vol] on 09-03-2023 Globulin (S) [Mass/Vol] 3.5 g/dL [facility] Hematocrit Auto (Bld) [Volum e fraction]on 09-03-2023 Hematocrit (Bld) [Volume fraction] 39.1 % Low 42.0-54.0 [facility] Hemoglobin [Mass/volume] in Bloodon 09-03-2023 Hemoglobin (Bld) [Mass/Vol] 13.8 g/dL Low 14.0-18.0 [facility] Laboratory - Chemistry and C hemistry - challengeon 09-03-2023 Albumin [Mass/Vol] 3.8 g/dL 3.4-5.0 [facility] ALP [Catalytic activity/Vol] 108 U/L 46-116 [facility] ALT [Catalytic activity/Vol] 60 U/L 16-63 [facility] AST [Catalytic activity/Vol] 36 U/L 15-37 [facility] Bilirubin [Mass/Vol] 0.4 mg/dL 0.2-1.0 [facility] Calcium [Mass/Vol] 9.2 mg/dL 8.5-10.1 [facility] Chloride [Moles/Vol] 101 mmol/L 98-107 [facility] CO2 [Moles/Vol] 27.1 mmol/L 21.0-32.0 [facility] Creatinine [Mass/Vol] 0.83 mg/dL 0.70-1.30 [facility] GFR/1.73 sq M.predicted MDRD (S/P/Bld) [Vol rate/Area] mL/min/{1.73_m2} >=60 [facility] Glucose [Mass/Vol] 132 mg/dL High 74-106 [facility] Potassium [Moles/Vol] 3.7 mmol/L 3.5-5.1 [facility] Protein [Mass/Vol] 7.3 g/dL 6.4-8.2 [facility] Sodium [Moles/Vol] 136 mmol/L 136-145 [facility] Urea nitrogen [Mass/Vol] 14.0 mg/dL 7.0-18.0 [facility] Urea nitrogen/Creatinine [Mass ratio] 16.9 mg/mg [facility] Laboratory - Hematology and Cell countson 09-03-2023 Immature granulocytes/100 WBC (Bld) 0.2 % 0.0-0.5 [facility] Leukocytes [#/volume] correc adia for nucleated erythrocytes in Blood by Automated counon 09-03-2023 WBC corrected for nucl RBC Auto (Bld) [#/Vol] 6.3 10 3/uL 4.0-11.0 [facility] Lymphocytes Auto (Bld) [#/Vo l]on 09-03-2023 Lymphocytes (Bld) [#/Vol] 1.8 10 3/uL 1.2-3.8 [facility] Lymphocytes/100 WBC Auto (Bl d)on 09-03-2023 Lymphocytes/100 WBC (Bld) 28.0 % 20.5-60.0 [facility] MCH Auto (RBC) [Entitic mass ]on 09-03-2023 MCH (RBC) [Entitic mass] 31.1 pg 25.9-34.0 [facility] MCHC Auto (RBC) [Mass/Vol]on 09-03-2023 MCHC (RBC) [Mass/Vol] 35.3 g/dL High 29.9-35.2 [facility] MCV Auto (RBC) [Entitic vol] on 09-03-2023 MCV (RBC) [Entitic vol] 88.1 fL 80.0-94.0 [facility] Monocytes Auto (Bld) [#/Vol] on 09-03-2023 Monocytes (Bld) [#/Vol] 0.7 10 3/uL 0.3-0.8 [facility] Monocytes/100 WBC Auto (Bld) on 09-03-2023 Monocytes/100 WBC (Bld) 11.2 % 1.7-12.0 [facility] Neutrophils Auto (Bld) [#/Vo l]on 09-03-2023 Neutrophils (Bld) [#/Vol] 3.5 10 3/uL 1.4-6.5 [facility] Neutrophils/100 WBC Auto (Bl d)on 09-03-2023 Neutrophils/100 WBC (Bld) 55.0 % 43.0-75.0 [facility] No Panel Informationon 09-02 Eosinophils # (Auto) 0.3 10 3/uL 0.0-0.7 [facility] Immature Granulocyte # (Auto) 0.01 10 3/uL 0.00-0.03 [facility] Troponin I High Sensitivity 5.1 pg/mL 4.0-76.1 [facility] Comment on above: CUT-OFF POINTS HAVE [...] volume (Bld) [Entitic vol] 10.0 fL 9.5-13.5 [facility] Platelets Auto (Bld) [#/Vol] on 09-03-2023 Platelets (Bld) [#/Vol] 241 10 3/uL 150-450 [facility] RBC Auto (Bld) [#/Vol]on RBC (Bld) [#/Vol] 4.44 10 6/uL Low 4.70-6.10 [facility] Serum or plasma albumin/glob ulin mass ratioon 09-03-2023 Albumin/Globulin [Mass ratio] 1.1 {ratio} [facility] Serum or plasma anion gap de terminationon 09-03-2023 Anion gap [Moles/Vol] 11.6 mmol/L [facility] CBC AUTO DIFFon 07-14-2022 BASO # 0.1 103/ul Normal 0.0-0.1 [facility] Comment on above: Performed By: #### C BC #### [facility] [address] [place] [address] Dr. Carly Elias Basophils/100 WBC (Bld) 1.2 % Normal 0.2-2.0 [facility] Comment on above: Performed By: #### C BC #### [facility] [address], [place] [address] Dr. Carly Elias EO # 0.3 103/ul Normal 0.0-0.7 [facility] Comment on above: Performed By: #### C BC #### [facility] [address] [place] [address] Dr. Carly Elias Eosinophils/100 WBC (Bld) 4.8 % Normal 0.9-7.0 [facility] Comment on above: Performed By: #### C BC #### [facility] [address] [place] [address] Dr. Carly Elias Erythrocyte distribution width (RBC) [Ratio] 12.7 % Normal 11.0-15.0 [facility] Comment on above: Performed By: #### C BC #### [facility] [address] [place] [address] Dr. Carly Elias Hematocrit (Bld) [Volume fraction] 41.0 % Critically low 42.0-54.0 [facility] Comment on above: Performed By: #### C BC #### [facility] [address] [place] [address] Dr. Carly Elias Hemoglobin (Bld) [Mass/Vol] 14.0 g/dL Normal 14.0-18.0 [facility] Comment on above: Performed By: #### C BC #### [facility] [address] [place] [address] Dr. Carly Elias IG # 0.02 10e3/ul Normal 0.00-0.03 [facility] Comment on above: Performed By: #### C BC #### [facility] [address] [place] [address] Dr. Carly Elias IG % 0.4 % Normal 0.0-0.5 [facility] Comment on above: Performed By: #### C BC #### [facility] [address] [place] [address] Dr. Carly Elias LYMPH # 1.5 103/ul Normal 1.2-3.8 [facility] Comment on above: Performed By: #### C BC #### [facility] [address] [place] [address] Dr. Carly Elias Lymphocytes/100 WBC (Bld) 28.5 % Normal 20.5-60.0 [facility] Comment on above: Performed By: #### C BC #### [facility] [address] [place] [address] Dr. Carly Elias MANUAL DIFF REQ NO Normal [facility] Comment on above: Performed By: #### C BC #### [facility] [address] [place] [address] Dr. Carly Elias MCH (RBC) [Entitic mass] 29.9 pg Normal 25.9-34.0 [facility] Comment on above: Performed By: #### C BC #### [facility] [address] [place] [address] Dr. Carly Elias MCHC (RBC) [Mass/Vol] 34.1 g/dL Normal 29.9-35.2 [facility] Comment on above: Performed By: #### C BC #### [facility] [address] [place] [address] Dr. Carly Elias MCV (RBC) [Entitic vol] 87.6 fL Normal 80.0-94.0 [facility] Comment on above: Performed By: #### C BC #### [facility] [address] [place] [address] Dr. Carly Elias MONO # 0.6 103/ul Normal 0.3-0.8 [facility] Comment on above: Performed By: #### C BC #### [facility] [address] [place] [address] Dr. Carly Elias Monocytes/100 WBC (Bld) 11.5 % Normal 1.7-12.0 [facility] Comment on above: Performed By: #### C BC #### [facility] [address] [place] [address] Dr. Carly Elias NEUT # 2.8 103/ul Normal 1.4-6.5 [facility] Comment on above: Performed By: #### C BC #### [facility] [address] [place] [address] Dr. Carly Elias Neutrophils/100 WBC (Bld) 53.6 % Normal 43.0-75.0 [facility] Comment on above: Performed By: #### C BC #### [facility] [address] [address] [address] Carly Elias Platelet mean volume (Bld) [Entitic vol] 9.4 fL Critically low 9.5-13.5 [facility] Comment on above: Performed By: #### C BC #### [facility] [address] [address] [address] Carly Elias PLT 228 103/ul Normal 150-450 [facility] Comment on above: Performed By: #### C BC #### [facility] [address] [address] [address] Carly Elias RBC 4.68 106/ul Critically low 4.70-6.10 [facility] Comment on above: Performed By: #### C BC #### [facility] [address] [address] [address] Carly Elias WBC 5.2 103/ul Normal 4.0-11.0 [facility] Comment on above: Performed By: #### C BC #### [facility] [address] [address] [address] Carly Elias GLYCOHEMOGLOBIN A1Con 2022 ADA RECOMMENDATION SEE BELOW Normal [facility] Comment on above: Result Comment: ADA RECOMMENDED LIMIT 4.0 - 6.0 ADA THERAPEUTIC TARGET < 7.0 ACTION SUGGESTED > 7.0 Performed By: #### A 1C #### [facility] [address] [address] [address] Carly Elias Glucose [Mass/Vol] 163 mg/dL Normal [facility] Comment on above: Performed By: #### A 1C #### [facility] [address] [address] [address] Carly Elias HbA1c (Bld) [Mass fraction] 7.3 % Critically high 4.5-6.2 [facility] Comment on above: Performed By: #### A 1C #### [facility] [address] [address] [address] Carly Elais LIPID PROFILEon 05-26-2023 CHOL-HDL RATIO NORM SEE BELOW Normal [facility] Comment on above: Result Comment: 3.3 - 4.4 LOW RISK 4.4 - 7.1 AVERAGE RISK 7.1 - 11.0 MODERATE RISK >11.0 HIGH RISK Performed By: #### C MP, LIPID #### [facility] [address] [address] [address] Carly Elias Cholesterol [Mass/Vol] 125 mg/dL Normal <=200 [facility] Comment on above: Performed By: #### C MP, LIPID #### [facility] [address] [address] [address] Carly Elias Cholesterol in HDL [Mass/Vol] 32 mg/dL Critically low 40-60 [facility] Comment on above: Performed By: #### C MP, LIPID #### [facility] [address] [address] [address] Carly Elias Cholesterol in LDL [Mass/Vol] 32.6 mg/dL Normal [facility] Comment on above: Performed By: #### C MP, LIPID #### [facility] [address] [address] [address] Carly Elias Cholesterol.total/Cho lesterol in HDL [Mass ratio] 3.9 {ratio} Normal [facility] Comment on above: Performed By: #### C MP, LIPID #### [facility] [address] [address] [address] Carly Elias HDL NORMAL > or = 60 mg/dl - LOW CARDIOVASCULAR RISK <40 mg/dl - HIGH CARDIOVASCULAR RISK Normal [facility] Comment on above: Performed By: #### C MP, LIPID #### [facility] [address] [address] [address] Carly Elias LDL CALC NORMAL SEE BELOW Normal [facility] Comment on above: Result Comment: <100 mg/dl OPTIMAL 100 - 129 mg/dl NEAR OR ABOVE OPTIMAL 130 - 159 mg/dl BORDERLINE HIGH 160 - 189 mg/dl HIGH >190 mg/dl VERY HIGH Performed By: #### C MP, LIPID #### [facility] [address] [address] [address] Carly Elias Triglyceride [Mass/Vol] 302 mg/dL Critically high <=150 [facility] Comment on above: Performed By: #### C MP, LIPID #### [facility] [address] [place] [address] Dr. Carly Elias VLDL CALC 60.4 mg/dL Normal [facility] Comment on above: Performed By: #### C MP, LIPID #### [facility] [address] [place] [address] Dr. Carly Elias MICROALBUMIN, RAND URon 06-20 mALB 2.0 mg/dL Normal <=30.0 [facility] Comment on above: Performed By: #### M ALBR #### [facility] [address] [place] [address] Dr. Carly Elias PROF 14(COMP METB)on 023 Albumin [Mass/Vol] 3.8 g/dL Normal 3.4-5.0 [facility] Comment on above: Performed By: #### C MP, LIPID #### [facility] [address] [place] [address] Dr. Carly Elias Albumin/Globulin [Mass ratio] 1.0 {ratio} Normal [facility] Comment on above: Performed By: #### C MP, LIPID #### [facility] [address] [place] [address] Dr. Carly Elias ALP [Catalytic activity/Vol] 86 U/L Normal 46-116 [facility] Comment on above: Performed By: #### C MP, LIPID #### [facility] [address] [place] [address] Dr. Carly Elias ALT [Catalytic activity/Vol] 79 U/L Critically high 16-63 [facility] Comment on above: Performed By: #### C MP, LIPID #### [facility] [address] [place] [address] Dr. Carly Elias Anion gap [Moles/Vol] 12.1 mmol/L Normal [facility] Comment on above: Performed By: #### C MP, LIPID #### [facility] [address] [place] [address] Dr. Carly Elias AST [Catalytic activity/Vol] 52 U/L Critically high 15-37 [facility] Comment on above: Performed By: #### C MP, LIPID #### [facility] [address] [place] [address] Dr. Carly Elias Bilirubin [Mass/Vol] 0.4 mg/dL Normal 0.2-1.0 [facility] Comment on above: Performed By: #### C MP, LIPID #### [facility] [address] [place] [address] Dr. Carly Elias Calcium [Mass/Vol] 9.5 mg/dL Normal 8.5-10.1 [facility] Comment on above: Performed By: #### C MP, LIPID #### [facility] [address] [place] [address] Dr. Carly Elias Chloride [Moles/Vol] 102 mmol/L Normal 98-107 [facility] Comment on above: Performed By: #### C MP, LIPID #### [facility] [address] [place] [address] Dr. Carly Elias CO2 [Moles/Vol] 29.2 mmol/L Normal 21.0-32.0 [facility] Comment on above: Performed By: #### C MP, LIPID #### [facility] [address] [place] [address] Dr. Carly Elias Creatinine [Mass/Vol] 0.81 mg/dL Normal 0.70-1.30 [facility] Comment on above: Performed By: #### C MP, LIPID #### [facility] [address] [place] [address] Dr. Carly Elias EGFR-AF SINGAPOREAN >60 Normal >=60 [facility] Comment on above: Performed By: #### C MP, LIPID #### [facility] [address] [place] [address] Dr. Carly Elias EGFR-NON AF SINGAPOREAN >60 Normal >=60 [facility] Comment on above: Performed By: #### C MP, LIPID #### [facility] [address] [place] [address] Dr. Carly Elias Globulin (S) [Mass/Vol] 3.7 g/dL Normal [facility] Comment on above: Performed By: #### C MP, LIPID #### [facility] [address] [address] [address] Carly Elias Glucose [Mass/Vol] 129 mg/dL Critically high 74-106 [facility] Comment on above: Performed By: #### C MP, LIPID #### [facility] [address] [address] [address] Carly Elias Potassium [Moles/Vol] 4.3 mmol/L Normal 3.5-5.1 [facility] Comment on above: Performed By: #### C MP, LIPID #### [facility] [address] [place] [address] Dr. Carly Elias Protein [Mass/Vol] 7.5 g/dL Normal 6.4-8.2 [facility] Comment on above: Performed By: #### C MP, LIPID #### [facility] [address] [place] [address] Dr. Carly Elias Sodium [Moles/Vol] 139 mmol/L Normal 136-145 [facility] Comment on above: Performed By: #### C MP, LIPID #### [facility] [address] [place] [address] Dr. Carly Elias Urea nitrogen [Mass/Vol] 19.0 mg/dL Critically high 7.0-18.0 [facility] Comment on above: Performed By: #### C MP, LIPID #### [facility] [address] [place] [address] Dr. Carly Elias Urea nitrogen/Creatinine [Mass ratio] 23.5 mg/mg Normal [facility] Comment on above: Performed By: #### C MP, LIPID #### [facility] [address] [place] [address] Dr. Carly Elias XR ELBOW LT MIN 3 VIEWSon XR ELBOW LT MIN 3 VIEWS IMAGES REVIEWED: XR ELBOW LT MIN 3 VIEWS COMPARISON: None available. CLINICAL INDICATION: C/O: pain FINDINGS/IMPRESSION: 1. No evidence of acute osseous abnormality of the left elbow. No joint effusion. 2. 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 Electronically authenticated by: SUNDAY RAMIREZ Date: 2021-11-20 15:19 Normal [facility] GLYCOHEMOGLOBIN A1Con 2021 ADA RECOMMENDATION SEE BELOW Normal [facility] Comment on above: Result Comment: ADA RECOMMENDED LIMIT 4.0 - 6.0 ADA THERAPEUTIC TARGET < 7.0 ACTION SUGGESTED > 7.0 Performed By: #### A 1C #### [facility] [address] [address] [address] Carly Elias Glucose [Mass/Vol] 166 mg/dL Normal [facility] Comment on above: Performed By: #### A 1C #### [facility] [address] [address] [address] Carly Elias HbA1c (Bld) [Mass fraction] 7.4 % Critically high 4.5-6.2 [facility] Comment on above: Performed By: #### A 1C #### [facility] [address] [address] [address] Carly Elias Outside Colonoscopyon 2021 Outside Colonoscopy [id number] #1.00CD:127 Normal [facility] Reminderson 09-01-2021 Reminders - From: Marilynn Coelho LPN To: GSN - Clinical; Sent: 09/01/2021 14:20:20 EDT Show up: 08/02/2031 07:00:00 EDT Subject: colonoscopy recall Due Date/Time: 09/01/2031 07:00:00 EDT Reminder/Recall Patient is due for screening colonoscopy 09/01/2031. Normal [facility] POINT OF CARE GLUCOSEon 08-19 Glucose [Mass/Vol] 155 mg/dL Critically high 74-106 [facility] Comment on above: Performed By: #### P OCGLUC #### [facility] [address] [address] [address] Carly Elias Consent for Procedure/Surger yon 08-18-2021 Consent for Procedure/Surgery [id number] #1.00CD:127 Normal [facility] Physician Referralon 022 Physician Referral [id number]# 1.00CD:127 Normal [facility] Coding Summary.on 12-28-2020 Coding Summary. CD:[id number] Gh0bWw+PGhlYWQ+PE1FV FWsY97yeHHdbV4MN4eTQ E4UYIOXRYHQXK8NXT6iv EV2SIoyM8FyleXf AqgcdWEkEF76MMt5EPC6 uSptBLxsjG3wmMJjW3a0 HfLiFA58sU23BLbsHULt QpC9BmRliwqkzSNq Z5egEbTjmHQgOyb+PHRh YmxlIHdpZHRoPScxMDAl NwIvfHzuZM4mKd0fHUSv LWNvbGxhcHNlOiBj x4azABBjFRmbZT2toWcc F8KvlAX0WRLuw0f9Xm26 dHI+PSPnZVP8bSjnESqq z569FjVos8rcYJF5 gRLuIKgzHKV6Q06be1I8 QFQyDTDkLJK5hKU2bW1x hYzfqqfqY3KtxXSkTbZ8 EGI6bYWmcE9fkPql sjtedG5cKtb+J65JBY2G XGKDNA1SJuw8P6RuYlpm dHI+EV67ZWXaIE18aNVu vTNte1dswZu9RtSg WAMvZHG2rOagWFwde3Yq TJGyD37thMInv5B7RXBy kYlbuHAhRrOfrTS9gA5e VCazpnknj2wqczws Jhxmi2wbom98fO19O68q GSztOXNzTYH3GRYmDUYg cOmnux8mdT7vGx1+IDxj x1baj8iwuVe3DyQd KGRosxOwnMdoIEZ2q4Zd Sg94D7LcwVcsx8HcKnu1 lj93cPJxe4T6aKU6BKmt QQRehR7dJDufBxZ9 SQAaAfKlpZ82wDAaNQwa En9gvDsquMeqEQ5rWYFz efdpOVGmnU3hFOHuaZAh jAbzTJ9hFQRjvnau k172PcLcNAB8GILgaJZt Q0McnD0bMgPnVHRgZBDr G7HraBKwTFfzY022KPgt WyR6FNPlyjCfH9Pp HMOorHyjYrD3w3D2Eu3A s9TmrsbyASG4RBspQCMu QaA9MxIxKdX8W7BxDas4 HZGqtWobNX0aH2Sd UZQgcdpwnaufvIV7GYLj ECLciB02sQZeWDuqNv1c y3O7p063TAThOLTdwW44 Ed7byRsfWNBcnWZT cE6xmrndu6wkycjfIiPh ERApAXx0WBy3QUZthYlv ZzAoQAO4PwE0QKW4hBWw hW0edLimjmruxV7p Oyc+S29yoH7lINQ9CNM3 dmbaNPHclwTkUD65ES11 K2WzDtpgeCYblJD+PGRp syBdjJxuDD9zCmXj z2jih4UxCTdhL7ZnUPFu QTfuUtw7UMNzAKN4aEJ0 iC6gOAZdFCpfc4S5iTQ9 Y9CkbaHxqy3vd6va FCQbHErsZ81yrXDru9S2 YKIvtRI3UPGugIjbGfNa zJ57Eii+QLWdlDwvo7Hr Nswsy2byd8wozNf7 IjMwJSIgdmFsaWduPSJ0 f9CoEq52L49mLQyxLMOf ZORcWWSoHERtbTykem1i hB3wLf8+PGNvbCB3 dAP1vR7zTERuFyE2FUyv D761UrYulWWxWtghu3hd t7whyFo3QnJiNXArsoJr pHtlSMF8u1VoPg85 L45wKCpzOUFgSMFcANVc CJGdnYwasu2drN0lNz2+ XO8rz0hhrw96sD52rNC+ KIYoWMJ0dFwgDEln IJEjuN7cDDluEoA8XSNg VyGouV96yEQzAPdlXp3p qPvvtZnaYB8vLGTinwip b465RsNme9lxKUNl eNEmTHpdTYM4H50gm7F8 UVBlRNMwZFA5wJA7bC9v bGlnbjogbGVmdDsgdmVy cSojEYhaWWagM796 IHRvcDsnPlBhdGllbnQg LtDdYNz6X6UdHzi0RGFh mYhiTE0jnYNbIOhrEx2o mBchoRdwSF8xXICh ycpzn036QsIdy3fuBZHa jSZsOLcwXJN2D59sb0V0 VLSrJODjFLM9qMS2aZ6y bGlnbjogbGVmdDsg mqTbmVbjKHwbJKgyK876 IHRvcDsnPkJpcnRoIERh rVM7IW23TG75yCFvf4G1 zBZ3H9SrVJSulrcx hdsbiSW6OZZoUFKsoC50 Hj8apQowZi8nIRZgBTX5 JFTogNFbK7XxqX7dElFk DXBsDXGdH0QjdBLs LCsqY438DWrmXbA2VSMg keEoT5BkOAFwtUsvIkN2 m3J7Xg2SO6Y6QO19QF18 cIZdh1F3lSW4U7Jx KHEorqrfpevroSM2BISb GSJvkG78Ou9omKgpBo4i DXFiWOD4HJAxlLZcS4Mo mJ4cKeVjNXAkQIKg K0EdoBQiRIeyS639CRff GiE6BUQiarMnD7JePUAt tJzyLpB9a1S4Ok5NFDs2 MS19SQ74qPVjh7O9 yGL7N7PaSIOgfzfjvrqp cZY5IZZaAAHdtL59Kg1h pGojXe3cAXJvKJL9WVWf yUOfT4IphP8bWwOr VXZsYQDgG3UpmKSxIZsc J863OGkeDcA7SEWokvTz X1LmQHDocKwtCnW3y1O0 Ri9ONYOrBF19YHS9 pTX2JY55ON55P7AaOuxj dGFibGU+PHRhYmxlIHdp ZHRoPScxMDAlJyBzdHls LB9wNb4oZPUnNCNr zTixzACdYwWfq4tuQASc XYcyZV7qbThdX9SsaZL4 FXUmm7t1Rj20H78yQ4Ca dXA+OHVngIB5oWP8 jC4qLiTkAtC3HQcwV912 UaUcbXNnNxzup7xxl9jh dZi7VvQ3YHYlmiDzcVyg CCZ8r4YpCy32R67w IHdpZHRoPSIxNSUiIHZh zOfnfw5asX3vAf0+PGNv pIQ6eNC2fZ1rKbIbJvV3 KLjgK905RnLjpILe Wbgbl9wvx8dudAs6NfYt XQRwnkZaiOwiBQS9l3Ct Du60A7KxrAruv1MiCwi0 gh53dYXtg6Q3dJO0 T1UeABMdklcbbIOvySux ZD6fHWAtaiiiEOGiuO3f CZNqQ2w2IdUqRbG6OJou J5NybsI7YXNosAGe QFsnHYO5T15ov5K5UAGw IRScKIM4rZO1wU4dmQks bjogbGVmdDsgdmVydGlj GNzyAJwdA697HUCy jAqaYVNshB8uJRDliMNi iUwsPF3dRSIffjbvZnTU VEjEE6sxAFvIWJTBBWgY Uqf3K0KxWjq4DFIr gAexLB3avSHcYBigHm6t sWubiIgpOJ2yRKZarbds VUVrfQ4yFFGxtOSjcMdc OA8aQTSrwqmxd993 DtNcEVU9IPFvmSZiM4Cw aO3yZqRmTKJgUYWzX7Mq sZFnVNbfS988KRfpSxT3 XCUlfdPbL1VpCDEg bZioMuZ5b6T9Nv9zBz7y Od7wKXMzEV90BC18hLAv o5O9jON3A6WcMRWrqhlo viskuXD3QQFkFMGh kD39sFUhIGceBs1ur3V4 l927NLJiFGKjhQ40Cm6l eNbkRIBscISFmY3jklcs g0vvqhywPnSnJCOn CRa8PSs2YGPcaPqaDaOt JOL4VwH9NWP1rHBpbN6z yKhurhthrC6vCbi+NTkg HZKgsfO4G4VaHyz1 GQJjgAncKB9naINpZKny Pb1agZjbqUglZM4fKONt zwbpXBCsqP2lNXRmhUSm fWsoSL7nBWDbkxbd j702LaMfCBJ4AMNfcHYd H0WgyI3yXbTiYRQqOBVq E5DuqILmEMebB269YYoz DyR3WGXpgaRlJ0Ld CILckBjoCqY1t5F0Lc3U GCtgAZ24TO95hOAue1J1 mRM8J3DfYNXdoloswcrl xJI7HQRcAUCnhL54 eAPiPVhpXv9su3J2z944 YQWfLQEcwN96Kj5bjVlg FDPcpNKMmH3aawwxq1ea cjogIzAwMDAwMDt0 OLp6SITvvSnjClUtZHD3 EqF8KLQ8iLPosS3peBwd cxhlmH7yCcc+MU6mkixs lxV9MA41FR58C8Xf PjwvdGFibGU+PHRhYmxl IHdpZHRoPScxMDAlJyBz uZydIC5dEn0dRTLgSRQm aGooqYFxNfFzk3mx LXUfQLgcAB7veSpeF3Lu gDO0PGZil2v2Kx04H84y C9NdxAR+ZDTdcMR4bKE6 fT4mBkMfRhP4LOvk O782MyLsnNGaYznap4ei h8dkvEg0LtXzJLNwqeHd qUasPYM6n1JiKq06Y85n IHdpZHRoPSIyMCUi ZDGwhEhkib8nxP7mIh1+ LUKhuRW4tYZ8gJ0pPpUy GuA4IFaxE045SoIbzMHp DrgoW60yS4YhtIB+ XLLtEha6TTSzkKbiYM0q sHXiGVryEv9bZBS6BeJl EbAgOSrfF7UvALDkmlml rtnogRL9XZNnRMRl rT70Xn8iuNueEa3aQBIg BEU1KFYasNAlK0SzqZ2r UzWwEJSeLOGpH4UsnWQa HIguJ825JWmuQwZ7 DBXavsCzY1UpHXAybEyp DaK5d1O7Jv4QeEatgBOe IA1lNfNtAQf6O6AzBtt5 BOYfjHnoOE5fmVLi TPbyVj2mzZvcgQzqMX5j YOOzwtvau661BpSvk1xv IDMlvWYmMHebHEW7L63o z1J1HOOvRWKcDDD3 gRN4oU9hpQhmluileKFr dDsgdmVydGljYWwtYWxp Y042GQKpnXmrXzVDCyg1 P1JvTuw3GDGhhIrl SH3kvIYaPBnqQi9kzAbq eNeiIH5gQJZvaoeug791 ZpNbc1fhKHMldSJfQVjj TFM4X34zy4W9LWHa YLWoNVP7nCW6zW1knIue bjogbGVmdDsgdmVydGlj LGzyXHumM672NJAhpLqt Kc8HFql1S8AdWka8 FNQxcAcdEI4lvBNcKHrd Yi8iaFdxqYmmTW1wEEJp fifpc538GcRhc7pbSRZb mTNmBAgeSXC6N42x v2W2MDScRTIeNRP3fHC6 cN4wbXwdhnriaJJcjAtf pbXhzOenCSmyCHqzF382 IHRvcDsnPlBheWVy OjwvdGQ+HS32js96B3Wo RzahChj0XOElNZK5tRW7 aX8cAZIzSIfuo4W2sPW4 V5NfytIzxo7wn1nq YXBz (more content not included)... Normal [facility] Consent for Treatmenton 11-20 Consent for Treatment [id number] #1.00CD:127 Normal [facility] Discharge Instructionson Discharge Instructions [id number]#1.00CD:127 Normal [facility] ED Clinical Summaryon 2020 ED Clinical Summary [address] [id number] ED Clinical Summary Person Information Name: MICHELL WEBSTER/[facility] Age: 60 Years : 1960 Sex: Male Language: Peruvian PCP: RICHARD VIDAL DO Marital Status: Phone: [phone] Visit Id: Visit Reason: Wrist pain-swelling; Hand [...] 12/17/2020 16:17:08 12/17/2020 16:17:08 12/17/2020 16:17:08 ADDRESS: [facility] [address] [place] [id number] [facility] DOC NOTES: MEDICAL INFORMATION: Prescriptions Given: Medications to Continue with No Changes Other Medications clonidine (clonidine 0.3 mg oral tablet) lisinopril (lisinopril 40 mg Tab) naproxen (Naprosyn 500 mg Tab) 1 Tablets By Mouth 2 times a day. Refills: 0. omeprazole (omeprazole 20 mg Cap-DR) 1 Capsules By Mouth every day. PATIENT EDUCATION INFORMATION: Instructions: Tendinitis Follow up: With: Address: When: [facility]: [facility] [phone] In 3 days 12/20/2020 DIAGNOSIS: Tendonitis Normal [facility] ED Note-Physicianon 12-18-19 21 ED Note-Physician Basic Information Time Seen: Callum Thomson PA-C 12/17/2020 15:41 Chief Complaint patient states he was sorting through packages. Patient felt pain in right hand and wrist History of Present Illness 60-year-old male comes to the ED for evaluation of right breast pain. 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 He said she was moving his [...] working diagnosis of tendinitis and is given [facility] follow-up. Patient was encouraged to return to the ED if symptoms worsen or change. Assessment/Plan Tendonitis (M77.9: Enthesopathy, unspecified) Orders: Splint Application Wrist Disposition Plan Patient Discharge Condition Disposition: Discharged home Condition: Improved and stable Counseled: Patient and/or family were counseled to workup, results, treatment plan and follow-up recommendations Discharge Prescription List Prescriptions No active prescription medications Follow-up With When Contact Information [facility]: [facility] [phone] In 3 days 12/20/2020 EDT Additional Instructions: Patient Education Tendinitis Attestation Patient seen and evaluated by the physician assistant guest services manager. Attending physician was present in the emergency department and supervised care. This report was transcribed using voice recognition software. Every effort was made to ensure accuracy, however, inadvertently computerized windows systems architect mistakes may be present. Appropriate healthcare PPE [...] fracture, dislocation (more content not included)... Normal [facility] Comment on above: Result Comment: Elec [...] by your health care provider. ? Take zmbo-jjd-cyvywge and prescription medicines only as told by [...] Patient Education (more content not included)... Normal [facility] ED Patient Summaryon 021 ED Patient Summary [address] [address] Patient Discharge Instructions Person Information Name: MICHELL WEBSTER Age: 60 Years Arrival Date: 12/17/2020 14:53:33 Discharge Diagnosis: Tendonitis Primary Care Physician: RICHARD VIDAL DO Provider Information Primary Provider: Armando Xavier DO Advanced Sexual Assault Nurse:Callum Thomson PA-C The exam and treatment you received in the Emergency Department were for an urgent problem and are not intended as complete care. It is important that you follow up with a doctor, nurse practitioner, or physician?s assistant guest services manager for ongoing care. If your symptoms become worse or you do not improve as expected and you are unable to reach your usual health care provider, you should return to the Emergency Department. We are available 24 hours a day. MICHELL WEBSTER has been given the following list of patient education materials, prescriptions and follow-up instructions: Follow-up Instructions: With: Address: When: [facility]: [facility] [phone] In 3 days 12/20/2020 In the event that this physician does not participate in your insurance network, please consult with your insurance company to find a nearby participating provider. Patient Education Materials: Tendinitis A MESSAGE TO ALL PATIENTS REGARDING OPIOIDS PRESCRIPTION OPIOIDS: WHAT YOU NEED TO KNOW Prescription opioids can be used to help relieve eoycltdu-ic-ztodrn pain and are often prescribed following a [...] be struggling with addiction, tell your health insurance healthcare consultant and ask for guidance or call [facility]S National Helpline at 7-220-218-VXGC. c Source: [place] Department of Health and Human Services/Center for Disease Contr (more content not included)... Normal [facility] Workers Comp [employer] 021 Workers Comp Forms [id number] 2#1.00CD:127 Normal [facility] XR Hand 3+ Views Righton XR [...] MD Transcribed by: QAMAR Technologist: Elver RAMIRES [facility] XR Wrist 3+ Views Righton XR [...] DO Transcribed by: QAMAR Technologist: Elver RAMIRES [facility] Vital Signs Date Time Vital Sign Value Performing Clinician Facility 11-18-2024 11:040 Body height 170.18 cm [employer] Work Phone: [facility] 11-18-2024 11:23040 Body mass index (BMI) [Ratio] 37.9 kg/m2 [employer] DO Work Phone: [facility] 11-18-2024 11:23040 Body weight 109.88 kg [employer] DO Work Phone: [facility] 11-18-2024 11:23040 Diastolic blood pressure 89 mm[Hg] Richard Ball DO Work Phone: [facility] 11-18-2024 11:23-0400 Heart rate 86 /min Richard Ball DO Work Phone: [facility] 11-18-2024 11:23-0400 Respiratory rate 12 /min Richard Ball DO Work Phone: [facility] 11-18-2024 11:23-0400 Systolic blood pressure 139 mm[Hg] Richard Ball DO Work Phone: [facility] 06-10-2024 11:56-0400 Body height 170.18 cm [facility] 06-10-2024 11:56-0400 Body mass index (BMI) [Ratio] 38.2 kg/m2 [facility] 06-10-2024 11:56-0400 Body weight 110.73 kg [facility] 06-10-2024 11:56-0400 Diastolic blood pressure 100 mm[Hg] [facility] 06-10-2024 11:56-0400 Heart rate 92 /min [facility] 06-10-2024 11:56-0400 Respiratory rate 12 /min [facility] 06-10-2024 11:56-0400 Systolic blood pressure 150 mm[Hg] [facility] 04-01-2024 10:30-0500 Body height 170.18 cm [facility] 04-01-2024 10:30-0500 Body mass index (BMI) [Ratio] 38.9 kg/m2 [facility] 04-01-2024 10:30-0500 Body weight 113 kg [facility] 04-01-2024 10:30-0500 Diastolic blood pressure 89 mm[Hg] [facility] 04-01-2024 10:30-0500 Heart rate 83 /min [facility] 04-01-2024 10:30-0500 Respiratory rate 12 /min [facility] 04-01-2024 10:30-0500 Systolic blood pressure 139 mm[Hg] [facility] 02-07-2024 11:26-0500 Body height 170.18 cm [facility] 02-07-2024 11:26-0500 Body mass index (BMI) [Ratio] 38.5 kg/m2 [facility] 02-07-2024 11:26-0500 Body weight 111.69 kg [facility] 02-07-2024 11:26-0500 Diastolic blood pressure 96 mm[Hg] [facility] 02-07-2024 11:26-0500 Heart rate 85 /min [facility] 02-07-2024 11:26-0500 Respiratory rate 12 /min [facility] 02-07-2024 11:26-0500 Systolic blood pressure 157 mm[Hg] [facility] 11-29-2023 11:26-0400 Body height 170.18 cm [facility] 11-29-2023 11:26-0400 Body mass index (BMI) [Ratio] 38.1 kg/m2 [facility] 11-29-2023 11:26-0400 Body weight 110.44 kg [facility] 11-29-2023 11:26-0400 Diastolic blood pressure 89 mm[Hg] [facility] 11-29-2023 11:26-0400 Heart rate 90 /min [facility] 11-29-2023 11:26-0400 Respiratory rate 12 /min [facility] 11-29-2023 11:26-0400 Systolic blood pressure 139 mm[Hg] [facility] 09-14-2023 10:00-0400 Body height 170.18 cm [facility] 09-14-2023 10:00-0400 Body mass index (BMI) [Ratio] 38.2 kg/m2 [facility] 09-14-2023 10:00-0400 Body weight 110.67 kg [facility] 09-14-2023 10:00-0400 Diastolic blood pressure 90 mm[Hg] [facility] 09-14-2023 10:00-0400 Heart rate 91 /min [facility] 09-14-2023 10:00-0400 Respiratory rate 12 /min [facility] 09-14-2023 10:00-0400 Systolic blood pressure 138 mm[Hg] [facility] 04-04-2023 10:14-0500 Body height 170.18 cm [facility] 04-04-2023 10:14-0500 Body mass index (BMI) [Ratio] 39.4 kg/m2 [facility] 04-04-2023 10:14-0500 Body weight 114.41 kg [facility] 04-04-2023 10:14-0500 Diastolic blood pressure 88 mm[Hg] [facility] 04-04-2023 10:14-0500 Heart rate 76 /min [facility] 04-04-2023 10:14-0500 Respiratory rate 16 /min [facility] 04-04-2023 10:14-0500 Systolic blood pressure 148 mm[Hg] [facility] 11-24-2022 10:00-0400 Body height 170.18 cm Richard Ball Other [facility] Other 11-24-2022 10:00-0400 Body mass index (BMI) [Ratio] 40.81 kg/m2 Richard Ball Other [facility] Other 11-24-2022 10:00-0400 Body weight 118.21 kg Richard Ball Other [facility] Other 11-24-2022 10:00-0400 Diastolic blood pressure 90 mm[Hg] Richard Ball Other [facility] Other 11-24-2022 10:00-0400 Respiratory rate 12 /min Richard Ball Other [facility] Other 11-24-2022 10:00-0400 Systolic blood pressure 171 mm[Hg] Richard Ball Other [facility] Other 09-25-2022 09:15-0400 Body height 170.18 cm Richard Ball Other [facility] Other 09-25-2022 09:15-0400 Body mass index (BMI) [Ratio] 40.84 kg/m2 Richard Ball Other [employer] Other 09-25-2022 09:15-0400 Body weight 118.3 kg Richard Ball Other [employer] Other 09-25-2022 09:15-0400 Diastolic blood pressure 89 mm[Hg] Richard Ball Other [employer] Other 09-25-2022 09:15-0400 Respiratory rate 12 /min Richard Ball Other [employer] Other 09-25-2022 09:15-0400 Systolic blood pressure 135 mm[Hg] Richard Ball Other [employer] Other 06-13-2022 09:30-0400 Body height 170.18 cm Richard Ball Other [employer] Other 06-13-2022 09:30-0400 Body mass index (BMI) [Ratio] 42.1 kg/m2 Richard Ball Other [employer] Other 06-13-2022 09:30-0400 Body weight 121.93 kg Richard Ball Other [employer] Other 06-13-2022 09:30-0400 Diastolic blood pressure 86 mm[Hg] Richard Ball Other [employer] Other 06-13-2022 09:30-0400 Respiratory rate 12 /min Richard Ball Other [employer] Other 06-13-2022 09:30-0400 Systolic blood pressure 126 mm[Hg] Richard Ball Other [employer] Other 06-13-2022 08:30-0400 Body height 170.18 cm Richard Ball Other [employer] Other 06-13-2022 08:30-0400 Body mass index (BMI) [Ratio] 42.1 kg/m2 Richard Ball Other [employer] Other 06-13-2022 08:30-0400 Body weight 121.93 kg Richard Ball Other [employer] Other 06-13-2022 08:30-0400 Diastolic blood pressure 86 mm[Hg] Richard Ball Other [employer] Other 06-13-2022 08:30-0400 Respiratory rate 12 /min Richard Ball Other [employer] Other 06-13-2022 08:30-0400 Systolic blood pressure 126 mm[Hg] Richard Ball Other [employer] Other 08-18-2021 12:09-0400 Diastolic blood pressure 120 mm[Hg] Edilia NILL [facility] 08-18-2021 12:09-0400 Mean blood pressure 133 mm[Hg] Edilia NILL [facility] [place] 08-18-2021 12:09-0400 Systolic blood pressure 160 mm[Hg] Edilia NILL [facility] [place] 08-18-2021 11:43-0400 Blood Pressure Location Edilia NILL [facility] [place] 08-18-2021 11:43-0400 Diastolic blood pressure 114 mm[Hg] Edilia NILL [facility] [place] 08-18-2021 11:43-0400 Heart rate 83 /min Edilia NILL [facility] [place] 08-18-2021 11:43-0400 Respiratory rate 16 /min Edilia NILL [facility] [place] 08-18-2021 11:43-0400 Systolic blood pressure 169 mm[Hg] Edilia NILL [facility] [place] Encounters Encounter Date Encounter Type Care Provider Facility Start: 11-18-2024 End: 11-18-2024 ambulatory Richard Vidal DO Work Phone: [facility] Work Phone: Start: 11-18-2024 End: 11-18-2024 Patient encounter procedure Richard Vidal DO -[facility] Work Phone: Start: 06-10-2024 End: 06-10-2024 ambulatory [facility] Work Phone: Start: 06-10-2024 End: 06-10-2024 Patient encounter procedure [facility] Work Phone: Start: 04-01-2024 End: 04-01-2024 ambulatory [facility] Work Phone: Start: 04-01-2024 End: 04-01-2024 Patient encounter procedure [facility] Work Phone: Start: 02-07-2024 End: 02-07-2024 Patient encounter procedure [facility] Work Phone: Start: 11-29-2023 End: 11-29-2023 ambulatory [facility] Work Phone: Start: 11-29-2023 End: 11-29-2023 Encounter for general adult medical examination without abnormal findings [facility] Start: 11-29-2023 End: 11-29-2023 Patient encounter procedure [facility] Work Phone: Start: 11-27-2023 Patient encounter [facility] Start: 09-14-2023 End: 09-14-2023 ambulatory [facility] Work Phone: Start: 09-14-2023 End: 09-14-2023 Patient encounter procedure [facility] Work Phone: Start: 09-04-2023 ambulatory RICHARD VIDAL [facility] Start: 09-04-2023 Non-patient / Non-visit [facility] Work Phone: Start: 09-03-2023 Non-patient / Non-visit [facility] Work Phone: Start: 07-23-2023 End: 07-23-2023 ambulatory MARK Crews [facility] Not Available Start: 04-04-2023 End: 04-04-2023 ambulatory [facility] Work Phone: Start: 04-04-2023 End: 04-04-2023 Patient encounter procedure [facility] Work Phone: Start: 11-27-2022 End: 11-27-2022 ambulatory Richard Vidal Other [employer] Other Start: 11-27-2022 Telephone encounter Richard BURNS [facility] Start: 11-24-2022 End: 11-24-2022 ambulatory Richard Vidal Other [employer] Other Start: 11-24-2022 Encounter for genera l adult medical examination without abnormal findings Richard Vidal [facility] Start: 11-24-2022 Periodic preventive med est patient 40-64yrs Richard Vidal [facility] Start: 09-25-2022 End: 09-25-2022 ambulatory Richard Vidal Other [employer] Other Start: 09-25-2022 Office outpatient vi sit 15 minutes Richard Vidal [facility] Start: 08-18-2022 End: 08-18-2022 ambulatory Richard Vidal Other [employer] Other Start: 08-18-2022 Telephone encounter Richard Vidal [facility] Start: 07-18-2022 End: 07-18-2022 ambulatory Richard Vidal Other [employer] Other Start: 07-18-2022 Telephone encounter Richard Vidal [facility] Start: 07-17-2022 Encounter for genera l adult medical examination without abnormal findings DR RICHARD VIDAL [facility] Start: 07-14-2022 End: 07-15-[address] RICHARD VIDAL Facility:[facility] Start: 07-14-2022 End: 07-15-2022 Encounter for general adult medical examination without abnormal findings DR RICHARD VIDAL Facility:[facility] Start: 06-13-2022 End: 06-13-2022 ambulatory Richard Vidal Other [employer] Other Start: 06-13-2022 Encounter for genera l adult medical examination without abnormal findings Richard Vidal [facility] Start: 06-13-2022 Office outpatient vi sit 25 minutes Richard Vidal [facility] Start: 06-13-2022 Telephone encounter Richard BUR[facility] Start: 02-22-[address] RICHARD VIDAL Facili ty:[facility]1 Start: 11-25-2021 Adult health examination Richard Vidal Other [employer] Other Start: 11-25-2021 Pre-procedure evaluation check Richard Vidal Other [employer] Other Start: 11-20-2021 End: 11-20-2021 ambulatory KVNG VERAS . Facility:[facility] Start: 10-06-2021 End: 10-07-[address] RICHARD VIDAL Facility:[facility] Start: 09-19-2021 End: 09-20-[address] RICHARD VIDAL Facility:[facility] Start: 08-31-2021 End: 08-31-[address] EDILIA SERRANO . Facility:[facility] Start: 08-18-2021 End: 08-18-2021 Patient encounter procedure Edilia SERRANO [facility] [place] Procedures Date Procedure Procedure Detail Performing Clinician Start: 07-14-[address] HOLBROOK IN [place] Comment on above: Performed By: #### P [facility] #### [facility] [address] [place] [address] Dr. Carly Elias Start: 08-20-2018 Screening for malign ant neoplasm of colon Richard Vidal Other Start: 05-23-2017 General examination of patient Richard Vidal Other Start: 05-01-2016 Preoperative cardiov ascular examination Richard Young Other Arthroscopy of knee with meniscus repair Edilia SERRANO Arthroscopy of shoulder Joseluis aegildardo NILL Depression screening [address] [facility] Other Release of trigger finger Mi chael NILL Comment on above: left thumb Resection of clavicle Michae l NILL Plan of Treatment Date Care Activity Detail Author Comprehensive metabo lic 2000 panel - Serum or Plasma [facility] enter Microalbumin [Mass/volume] in Urine [facility] XR Chest 2 Views [facility] XR Thoracic spine 3 Views [facility] Immunizations Immunization Date Immunization Notes Care Provider Fa cility 06-29-2020 COVID-19 Vaccine Pfi zer - Documentation Purposes Only Richard Vidal [facility] 06-08-2020 COVID-19 Vaccine Pfi zer - Documentation Purposes Only Richard Vidal [facility] Payers Date Payer Category Payer Unknown [id number] 1961 Unknown [id number] 1961 Unknown [id number] 1961 Unknown [id number] 1961 Unknown [id number] [id number] 1961 Unknown [id number] 1961 Unknown [id number] [id number] 9 1961 Unknown [id number] [id number] 9 1961 Unknown [id number] [id number] 9 1961 Unknown [id number] [id number] 6 1961 Unknown [id number] [id number] 6 1959 Private Health Insurance [id number] 1959 Private Health Insurance [id number] 1958 Self-pay [id number] Private Health Insurance [facility] [id number] Social History Date Type Detail Facility Start: 08-18-2021 End: 11-18-2024 Tobacco smoking status Never smoked tobacco (finding) [facility] [employer] Tobacco smoking status Never [facility] [employer] Sex Assigned At Male [facility] [employer] Start: 1960 Sex Assigned At Male [facility] Start: 04-01-2024 End: 06-10-2024 Sex Male (finding) [facility] Functional Status Date Assessment Result Facility 08-18-2021 Functional Status N/A [facility] [employer] Clinical Notes 11-21-2017 to 11-24-2022 Note Date [...] use, the patient reduces the risk for AR, CVA, HTN, cardiac dysrhythmias and sudden cardiac [...] and to report to ER for evaluation. [employer] Other 08-07-2023 Evaluation note* Encounter Date Diagnosis [...] has resolved. Related to ongoing symptoms? GB? [employer] Other 06-30-2023 Evaluation note* Encounter Date Diagnosis Assessment Notes Treatment Notes Treatment Clinical Notes Jul, Type 2 diabetes mellitus with hyperglycemia, without long-term current use of insulin (ICD-10 - E11.65) [employer] Other 05-30-2023 Evaluation note* Encounter Date Diagnosis Assessment Notes Treatment Notes Treatment Clinical Notes June, Type 2 diabetes mellitus with hyperglycemia, without long-term current use of insulin (ICD-10 - E11.65) [employer] Other 04-25-2023 Evaluation note* Encounter Date Diagnosis [...] use, the patient reduces the risk for AR, CVA, HTN, cardiac dysrhythmias and sudden cardiac [...] or drinking prior to bedtime. Weight loss. [employer] Other 04-25-2023 Evaluation note* Encounter Date Diagnosis Assessment Notes Treatment Notes Treatment Clinical Notes May, Wellness examination (ICD-10 - Z00.00) [employer] Other 07-13-2022 NoteOPERATIVE NOTE OPERATION DATE: 08/31/2021 [...] in 10 years. CC: Richard Vidal D.O. [facility] Signed and Approved by: DR EDILIA SERRANO . 09/02/2021 12:37:00[facility]07-05-2022 NoteChief Complaint consultation for positive Cologuard [facility] Staff 61 year old male presents on [...] neoplasm of lung: Sister. Renal failure syndrome: [facility]: Result Comment: Electronically Signed By: HANK JASMINE, Edilia Maddox\Date and Time Signed: 08/23/21 08:29 [id number] Evaluation note* Diagnosis Onset Date Resolution Status Cerebral atherosclerosis November 21, 2017 acute Elevated cholesterol acute Gastroesophageal reflux dise ase with esophagitis without hemorrhage acute Obstructive sleep apnea acut e Primary hypertension acute Type 2 diabetes mellitus with hyperglycemia acute [facility] Work Phone: 1(994) 522-749810-03-2018 Evaluation note* Diagnosis Onset Date Resolution Status Cerebral atherosclerosis November 21, 2017 acute Elevated cholesterol acute Obstructive sleep apnea acut e Primary hypertension acute Type 2 diabetes mellitus with hyperglycemia acute [facility] Work Phone: 1(963) 725-474910-03-2018 Evaluation note* Diagnosis Onset Date Resolution Status [...] mellitus with hyperglycemia acute Wellness examination acute [facility] Work Phone: 1(975) 797-113010-03-2018 Evaluation note* Diagnosis Onset Date Resolution Status [...] diabetes mellitus with hyperglycemia acute March 9:58am [facility] Work Phone: 1(726) 161-831010-03-2018 Evaluation note* Diagnosis Onset Date Resolution Status Admit Date Cerebral atherosclerosis November 21, 2017 acut e April 01, 2024 9:58am Elevated cholesterol acute Febr uary 2024 9:58am Obesity acute April 01, 2024 9:58am Obstructive sleep apnea acute F ebruary 2024 9:58am Primary hypertension acute Febr 2024 9:58am Type 2 diabetes mellitus with hyperglycemia acute March 9:58am [facility] Work Phone: Evaluation + Plan note No data available for this section [facility] [place] Evaluation noteNo InformationNortJefferson [facility] [employer] Other Evaluation noteNo assessment information available [facility] Work Phone: History general Narrative - Reported* Type Description [...] CLAVICLE 2013 Hospitalization History SEE SURGICAL HX [facility] [employer] Other Hospital Discharge instructions No data available for this section [facility] Progress note No data available for this section [facility] [place] Reason for referral (narrative)No reason for referral information available[facility] Work Phone: Summary Purpose Family History Relationship Condition Age at Onset Recorded Date/T jan father Unknown Not Specified Unknown Relationship Condition Age at Onset Recorded Date/T jan father Unknown mother Unknown Advance Directives Advance Directive Response Recorded Date/ Time Advance Directives No March 10:07am Advance Directive Response Recorded Date/ Time Advance Directives No March 11:07am Advance Directive Response Recorded Date/ Time Advance Directives No October 9:38am Chief Complaint and Reason for Visit Chief [...] 9:58am Type 2 diabetes mellitus with hyperglyce [facility] April 01, 2024 9:58am Chief Complaint Admit Date 4 month f/u April 01, 2024 9:58am Right elbow/forearm pain June 10 11:47am Reason for Visit Admit Date Cerebral atherosclerosis April 01, 2024 9:58am Elevated cholesterol April 01, 2024 9:58am Obesity April 01, 2024 9:58am Obstructive sleep apnea April 01 9:58am Primary hypertension April 01, 2024 9:58am Type 2 diabetes mellitus with hyperglyce [facility] April 01, 2024 9:58am Chief Complaint Admit Date L Ear Pain/Sinuses/COVID- October 10:47am Additional Source Comments Care Team (unrecognized sect [...] Status: Active Member Role Status Dates Richard Young , DO Primary Care Provider Active Start: [...] Status: Inactive Member Role Status Dates Richard Young , DO Primary Care Provide r, Attending Provider Active Start: April 04, 2023 End: April 04, 2023 Team Status: Inactive Member Role Status Dates Richard Young , DO Primary Care Provide r, Attending Provider Active Start: November 29, 2023 End: November 29, 2023 Team Status: Inactive Member Role Status Dates Richard Young , DO Primary Care Provide r, Attending Provider Active Start: June 10, 2024 End: June 10, 2024 Team Status: Inactive Member Role Status Dates Richard Vidal , Primary Care Provider Active Start: November 18, 2024 End: November 18, 2024 Richard Vidal , DO Attending Provider Active Sta rt: November 18, 2024 End: November 18, 2024 (unrecognized sect ion and content) No Status Records FoundNo Status Records FoundNo Status Records FoundNo Status Records Found INFORMATION SOURCE (unrecogn ized section and content) DATE CREATED AUTHOR 09/08/2021 [facility] DATE CREATED AUTHOR AUTHOR'S ORGANIZ ATION 07/28/2022 [facility] DATE CREATED AUTHOR AUTHOR'S ORGANIZ ATION 07/24/2023 [facility] EPIC DATE CREATED AUTHOR AUTHOR'S [...] BE BASED ON THE PRIMARY CLINICAL RECORDS. [facility]. provides no warranty or guarantee of the accuracy or completeness of information in this document.
[2024-12-02 11:43] LABS: Hematocrit 40.4 % (42.0-54.0); Hemoglobin 14.5 g/dL (14.0-18.0); Immature Granulocytes Abs Auto 0.02 10^3/uL (0.00-0.03); Immature Granulocytes Pct Auto 0.3 % (0.0-0.5); Lymphocytes Absolute Auto 1.7 10^3/uL (1.2-3.8); Mean Corpuscular HGB Conc 35.9 g/dL (29.9-35.2); Mean Corpuscular Hemoglobin 30.5 pg (25.9-34.0); Mean Corpuscular Volume 85.1 fL (80.0-94.0); Platelet Count 226 10^3/uL (150-450); Red Blood Count 4.75 10^6/uL (4.70-6.10); White Blood Count 5.8 10^3/uL (4.0-11.0)
[2024-12-02 11:52] LABS: Microalbum Creatinine Ratio Ur 17.9 mg/g (0.0-29.9)
[2024-12-02 11:56] LABS: Alanine Aminotransferase 41 U/L (16-63); Albumin Globulin Ratio 1.1; Albumin Level 4.2 g/dL (3.4-5.0); Alkaline Phosphatase 89 U/L (46-116); Anion Gap 13.1; Aspartate Amino Transferase 24 U/L (15-37); Blood Urea Nitrogen 26.0 mg/dL (7.0-18.0); Calcium 9.5 mg/dL (8.5-10.1); Carbon Dioxide 26.0 mmol/L (21.0-32.0); Chloride 106 mmol/L (98-107); Estimated GFR (African America >60 (>=60 mL/min/1.73m^2); Estimated GFR (Non-African Ame >60 (>=60 mL/min/1.73m^2); Globulin 3.7 g/dL; Glucose 107 mg/dL (74-106); Potassium 4.1 mmol/L (3.5-5.1); Sodium 141 mmol/L (136-145); Total Protein 7.9 g/dL (6.4-8.2)
== END 2024-12-02 11:25 | disposition home or self-care (01) ==
LOC: LAB 11:25
PROVIDERS: PCP Internal Medicine; Visit Provider Internal Medicine
DX: Z00.00 Encounter for general adult medical examination without abnormal findings (principal); E11.65 Type 2 diabetes mellitus with hyperglycemia; I10 Essential (primary) hypertension; Z12.5 Encounter for screening for malignant neoplasm of prostate
CPT/HCPCS: 36415; 80053; 82043; 82570; 83036; 85025; G0103